=== PATIENT | female | born 1965 | race Caucasian/White ===

== ENCOUNTER → 2016-11-13 | Outpatient (CLI) | payer OTHER ==
[~2016-11-13] MED LIST: BIOT1CAP8 PO; CHOL1TAB42 PO; CHOL1TAB46 PO; FOLI1TAB7 PO; GLIP10TA9 PO; LEVO100T7 PO; LISI-729 PO; LISI2.5T5 PO; LOVA20TA4 PO; METF-384 PO; MULT-859 PO; SIMV10TA5 PO; SITA50TA9 PO
[2016-11-13 10:53] LABS: BASO % 0.5 %; BASO ABS # 0.05 K/uL (0-0.2); COMPLETE YES; EOS % 3.1 %; HEMATOCRIT 41.8 % (37-47); IG% 0.2 %; LYMPH % 39.2 %; LYMPH ABS # 3.97 K/uL (1.2-3.4); MEAN CELL VOLUME 82.9 fL (80-100); MEAN CORPUSCULAR HEMOGLOBIN 29.4 pg (25-34); MEAN CORPUSCULAR HGB CONC 35.4 g/dl (32-36); MEAN PLATELET VOLUME 9.6 fL (7.4-10.4); MONO % 6.1 %; NEUT % 50.9 %; PLATELET COUNT 248 K/uL (130-400); RED BLOOD COUNT 5.04 M/uL (4.2-5.4); WHITE BLOOD COUNT 10.14 K/uL (4.8-10.8)
== END | disposition home or self-care (01) ==
LOC: C.LAB1850 09:52
PROVIDERS: ATTEND Obstetrics & Gynecology
DX: R63.4 Abnormal weight loss (principal)

== ENCOUNTER → 2016-11-13 | Outpatient (CLI) | payer BC, OTHER | END | disposition home or self-care (01) | LOC: C.PAPS 11:05 | PROVIDERS: ATTEND Obstetrics & Gynecology | DX: R63.4 Abnormal weight loss (principal); Z01.419 Encounter for gynecological examination (general) (routine) without abnormal findings ==

== ENCOUNTER → 2016-12-18 | Outpatient (CLI) | payer OTHER ==
[~2016-12-18] MED LIST changes: -CHOL1TAB42 PO; -LISI2.5T5 PO; -MULT-859 PO; -SIMV10TA5 PO; -SITA50TA9 PO
--- NOTE | 2016-12-18 16:48 | MAMMOGRAPHY REPORT ---
BILATERAL DIGITAL SCREENING MAMMOGRAM TOMOSYNTHESIS WITH CAD: 12/18/2016 CLINICAL HISTORY: Routine screening. Patient has no complaints. TECHNIQUE: Breast tomosynthesis in addition to standard 2D mammography was performed. Current study was also evaluated with a Computer Aided Detection (CAD) system. COMPARISON: Comparison is made to exams dated: 12/18/2015 mammogram, 01/19/2015 mammogram, 03/01/2014 mammogram, 01/18/2013 mammogram, and 01/02/2012 mammogram - [facility]. BREAST COMPOSITION: There are scattered areas of fibroglandular density in both breasts. FINDINGS: There is a lobulated 8 mm mass seen within the right medial breast middle depth on the cc view, thought to project superiorly on the MLO view, for which ultrasound and possible additional sp ot compression tomosynthesis views are recommended for further evaluation. The remainder of both breasts are stable compared to prior exams, without suspicious masses, calcifi cations, or areas of architectural distortion noted. Bilateral benign-appearing calcifications are not significantly changed. IMPRESSION: ACR BI-RADS CATEGORY 0: INCOMPLETE EVALUATION: NEED ADDITIONAL IMAGING EVALUATION Right medial breast mass, for which additional imaging evaluation is recommended. The patient will be called to schedule an appointment. Approximately 10% of breast cancers are not detected with mammography. A negative mammographic repor t should not delay biopsy if a clinically suggestive mass is present. Betsy Oneal M.D. /:12/18/2016 15:16:25 Midwife: Melinda RODGERS)(Maria R), [facility] letter sent: Addl Imaging 0 BI-RADS Code: ACR BI-RADS Category 0: Incomplete Evaluation: Need Additional Imaging Evaluation
== END | disposition home or self-care (01) ==
LOC: C.MAMM 07:40
PROVIDERS: ATTEND Family Medicine
DX: Z12.31 Encounter for screening mammogram for malignant neoplasm of breast (principal); N63 Unspecified lump in breast

== ENCOUNTER → 2017-01-08 | Day surgery (SDC) | payer OTHER ==
[2016-12-16 09:42] VITALS: Ht 160 cm; Wt 94.1 kg
[~2017-01-08] VITALS: Ht 160 cm; Wt 94.1 kg
[~2017-01-08] MED LIST changes: +ATROPINE SULFATE 0.1 MG/ML 5ML SYR IV PRN; +DEXAMETHASONE SOD INJ 4 MG/ML VIAL ONE; +EpHEDrine SULFATE INJ 50 MG/ML AMP IV PRN; +FENTANYL CITRATE INJ 50 MCG/1 ML 2 ML VIAL IV PRN; +FENTANYL CITRATE INJ 50 MCG/1 ML 2 ML VIAL ONE; +FLUMAZENIL 0.1 MG/1 ML 10 ML VIAL IV PRN; +IBUPROFEN 600 MG TAB PO PRN; +INSULIN HUMAN REGULAR PER UNIT 15 UNITS in SYRINGE 0 ML IV STA; +KETOROLAC TROMETHAMINE 30 MG/ML VIAL IV. PRN; +LABETALOL HCL IV 5 MG/ML 20ML IV PRN; +LACTATED RINGER'S 1000ML 1,000 ML IV SCH; +LIDOCAINE HCL 2% 2 ML VIAL (20MG/ML) ONE; +METOCLOPRAMIDE HCL INJ 5 MG/ML 2 ML VIAL IV PRN; +MIDAZOLAM HCL 1 MG/ML 2ML VIAL ONE; +NALOXONE HCL 0.4 MG/1 ML VIAL/CARP IV PRN; +NovoLIN-R INSULIN PER UNIT CHARGE ONE; +ONDANSETRON INJ 2 MG/ML 2 ML VIAL IV PRN; +ONDANSETRON INJ 2 MG/ML 2 ML VIAL ONE; +OXYCODONE/ACETAMINOPHEN 5-325 TAB PO PRN; +PROMETHAZINE HCL INJ 12.5 MG in SODIUM CHLORIDE 0.9% 50ML 50 ML IV PRN; +PROPOFOL IV EMULSION 10 MG/ML 20 ML VIAL IV ONE; +SODIUM CHLORIDE 0.9% 1000ML 1,000 ML IV SCH
--- NOTE | 2017-01-08 09:46 | History & Physical Bridge - [place] ---
H&P Re-Evaluation Bridge Note: I have examined the patient, reviewed the History & Physical and in the interval since the performance of the History & Physical I have noted the following changes of clinical significance: No changes noted
--- NOTE | 2017-01-08 09:48 | Discharge Instructions-SurgCtr ---
Discharge Instructions Date of Service Jan 08, 2017. Visit Reason for Visit: Thickened Endometrium Discharge Discharge Diagnosis / Problem: Dilation and Curettage Discharge Goals Goal(s): Specific goals Activity Recommendations Activity Limitations: per Instructions/Follow-up section Anesthesia . Post Anesthesia Instructions: If you have had General Anesthesia or IV Sedation: * Do not drive today. * Resume driving when surgeon permits. * Do not make important decisions or sign legal documents today. * Call surgeon for: 1. Temperature elevations greater than 101 degrees F. 2. Uncontrollable pain. 3. Excessive bleeding. 4. Persistent nausea and vomiting. 5. Medication intolerance (nausea, vomiting or rash). * For nausea and vomiting use only clear liquids such as: tea, soda, bouillon until nausea subsides, then gradually increase diet as tolerated. * If you have any concerns or questions, call your surgeon's office. If physician is unavailable and it is an emergency, call 911 or go to the nearest emergency room. . Instructions / Follow-Up Instructions / Follow-Up ACTIVITY RECOMMENDATIONS: * Avoid tampons, douching, hot tubs, pools, and intercourse until bleeding has stopped. * May shower as usual. * No strenuous activity for 24-48 hours. After 24-48 hours, you may do anything you feel like doing (driving and sports are okay). SPECIAL CARE INSTRUCTIONS: Special Diet: * Mild nausea may occur in the immediate post-operative period. * Take clear liquids such as tea, cola or bouillon until all nausea has subsided; you may then resume your normal diet. Special Care: * Light bleeding and vaginal spotting can last from a few days to 3-4 weeks. Call your doctor if bleeding becomes heavier than the heaviest part of your period. * Check your temperature twice a day for one week. If it goes above 100.4 degrees Fahrenheit (38.0 Celsius), notify your doctor. * Call your doctor's office for an appointment for 6 weeks after your surgery. FOLLOW-UP VISIT: Call your doctor's office for an appointment for 6 weeks after your surgery. Diet Recommendations Home Diet: resume previous diet Pending Studies Studies pending at discharge: no Medical Emergencies . Who to Call and When: Medical Emergencies: If at any time you feel your situation is an emergency, please call 911 immediately. . Non-Emergent Contact Non-Emergency issues call your: Primary Care Provider . . "Provider Documentation" section prepared by Luz Jeffers.
--- NOTE | 2017-01-08 11:54 | [facility] Post Operative Brief Note ---
Immediate Operative Summary Operative Date Jan 08, 2017. Pre-Operative Diagnosis Thickened Endometrium Post-Operative Diagnosis same Procedure(s) Performed Dilatation And Curettage, Hysteroscopy Surgeon Dr. 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 Endometrial Curettings Complication(s) None Disposition Recovery Room / PACU
--- NOTE | 2017-01-08 12:14 | OPERATIVE REPORT ---
DATE OF OPERATION: 01/08/2017 PREOPERATIVE DIAGNOSIS: Thickened endometrium. POSTOPERATIVE DIAGNOSIS: Same. PROCEDURE: D\T\C, hysteroscopy. SURGEON: Dr. Jeffers. VICE PRESIDENT INVESTOR RELATIONS: MS3. 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 SPECIMENS: EMCs. COMPLICATIONS: None. DISPOSITION: Stable to recovery room. DESCRIPTION: Chinyere was brought to the operating room and placed in the dorsal lithotomy position with candy-cane stirrups, prepped and draped in standard sterile fashion, and a hard timeout was taken prior to proceeding. A bimanual examination was performed. The bladder was emptied of urine via straight catheterization. Gutierrez and weighted specula were introduced to the vagina and the anterior lip of the cervix was grasped with single-tooth tenaculum. The uterus sounded to 7.5 cm. Cervix was then serially dilated to allow passage of a 5 mm hysteroscope. 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 There was no obvious polyp or lesion in the endometrial cavity. The scope was withdrawn. A brief sharp curettage was carried out on all suresh. The scope was re-introduced. Curetting was seen to have been done evenly on all aspects of the cavity and then all instruments were removed and the patient was transferred in stable condition to the recovery room. I attest to the content of the Intraoperative Record and any orders documented therein. Any exceptio ns are noted below.
[2017-01-08 13:09] VITALS: TEMP 36.4
--- NOTE | 2017-01-08 13:17 | Anesthesia Progress Nt - [facility] ---
Anesthesia Post Op Note Date & Time Jan 08, 2017 at 13:16 Vital Signs Pain Intensity: 0 Vital Signs Past 12 Hours Date Time Temp Pulse Resp B/P Pulse Ox O2 Delivery O2 Flow Rate FiO2 01/08/17 13:09 36.4 71 16 121/77 98 Room Air 01/08/17 12:48 36.4 01/08/17 12:48 75 14 95 01/08/17 12:48 71 14 01/08/17 12:45 122/81 01/08/17 12:43 61 14 01/08/17 12:43 63 14 96 01/08/17 12:40 124/75 01/08/17 12:38 59 19 01/08/17 12:38 61 19 98 01/08/17 12:36 126/83 01/08/17 12:33 57 17 100 01/08/17 12:33 58 17 01/08/17 12:30 138/78 01/08/17 12:28 51 16 01/08/17 12:28 51 16 100 01/08/17 12:25 144/83 01/08/17 12:23 53 14 100 01/08/17 12:23 53 14 01/08/17 12:20 127/81 01/08/17 12:18 55 13 100 01/08/17 12:18 55 13 01/08/17 12:15 115/77 01/08/17 12:13 66 16 100 01/08/17 12:13 66 16 01/08/17 12:10 120/79 01/08/17 12:08 67 12 01/08/17 12:08 69 12 100 01/08/17 12:07 36.4 82 14 118/84 99 Diffusion Mask 8 01/08/17 09:57 36.8 90 20 125/85 98 Room Air Notes Mental Status: alert / awake / arousable, participated in evaluation Pt Amnestic to Procedure: Yes Nausea / Vomiting: adequately controlled Pain: adequately controlled Airway Patency, RR, SpO2: stable & adequate BP & HR: stable & adequate Hydration State: stable & adequate Anesthetic Complications: no major complications apparent
[2017-01-08 13:21] VITALS: BP 119/83; O2SAT 100
== END | disposition home or self-care (01) ==
LOC: X.SURG 09:29
PROVIDERS: ATTEND Obstetrics & Gynecology
DX: N85.8 Other specified noninflammatory disorders of uterus (principal); R93.8 Abnormal findings on diagnostic imaging of other specified body structures; N63 Unspecified lump in breast; E06.3 Autoimmune thyroiditis; E11.65 Type 2 diabetes mellitus with hyperglycemia; E55.9 Vitamin D deficiency, unspecified; R63.4 Abnormal weight loss

== ENCOUNTER → 2017-01-15 | Outpatient (CLI) | payer OTHER ==
[~2017-01-15] MED LIST changes: -ATROPINE SULFATE 0.1 MG/ML 5ML SYR IV PRN; -DEXAMETHASONE SOD INJ 4 MG/ML VIAL ONE; -EpHEDrine SULFATE INJ 50 MG/ML AMP IV PRN; -FENTANYL CITRATE INJ 50 MCG/1 ML 2 ML VIAL IV PRN; -FENTANYL CITRATE INJ 50 MCG/1 ML 2 ML VIAL ONE; -FLUMAZENIL 0.1 MG/1 ML 10 ML VIAL IV PRN; -IBUPROFEN 600 MG TAB PO PRN; -INSULIN HUMAN REGULAR PER UNIT 15 UNITS in SYRINGE 0 ML IV STA; -KETOROLAC TROMETHAMINE 30 MG/ML VIAL IV. PRN; -LABETALOL HCL IV 5 MG/ML 20ML IV PRN; -LACTATED RINGER'S 1000ML 1,000 ML IV SCH; -LIDOCAINE HCL 2% 2 ML VIAL (20MG/ML) ONE; -METOCLOPRAMIDE HCL INJ 5 MG/ML 2 ML VIAL IV PRN; -MIDAZOLAM HCL 1 MG/ML 2ML VIAL ONE; -NALOXONE HCL 0.4 MG/1 ML VIAL/CARP IV PRN; -NovoLIN-R INSULIN PER UNIT CHARGE ONE; -ONDANSETRON INJ 2 MG/ML 2 ML VIAL IV PRN; -ONDANSETRON INJ 2 MG/ML 2 ML VIAL ONE; -OXYCODONE/ACETAMINOPHEN 5-325 TAB PO PRN; -PROMETHAZINE HCL INJ 12.5 MG in SODIUM CHLORIDE 0.9% 50ML 50 ML IV PRN; -PROPOFOL IV EMULSION 10 MG/ML 20 ML VIAL IV ONE; -SODIUM CHLORIDE 0.9% 1000ML 1,000 ML IV SCH
--- NOTE | 2017-01-15 15:02 | MAMMOGRAPHY REPORT ---
ULTRASOUND OF RIGHT BREAST: 01/15/2017 CLINICAL HISTORY: Callback from screening mammogram for right breast mass. COMPARISON: Comparison is made to exams dated: 12/18/2016 mammogram, 12/18/2015 mammogram, 01/19/2015 mammogram, 03/01/2014 mammogram, 01/18/2013 mammogram, and 01/02/2012 mammogram - [facility]. TECHNIQUE: Real-time targeted ultrasound of the right breast was performed. FINDINGS: Real-time, high resolution targeted ultrasound was performed of the area of the lobulated 8 mm mass seen within the right upper inner quadrant on the recent tomosynthesis screening mammogra m. In the right breast at 1:00, 9 cm from the nipple, there is a lobulated circumscribed anechoic m ass with a few thin internal septations, measuring 7 x 2 x 6 mm. This correlates with the mammograp hic mass and is consistent with a benign cyst cluster. No suspicious solid masses were evident. IMPRESSION: ACR BI-RADS CATEGORY 2: BENIGN The mammographic mass corresponds with a benign 7 mm cyst cluster in the right breast at 1:00 on ult rasound. There is no sonographic evidence of malignancy. A 1 year screening mammogram is recommended. The patient was verbally notified of the results. Betsy Oneal M.D. /:01/15/2017 08:17:00 Mental Hygiene Consultant: Betsy Oneal MD, [facility] letter sent: Normal 1/2 BI-RADS Code: ACR BI-RADS Category 2: Benign
== END ==
LOC: C.MAMM 07:56
PROVIDERS: ATTEND Family Medicine
DX: N60.01 Solitary cyst of right breast (principal)

== ENCOUNTER → 2017-01-16 | Outpatient (CLI) | payer OTHER ==
--- NOTE | 2017-01-16 10:27 | DIAGNOSTIC IMAGING REPORT ---
CHEST 2 VIEWS ROUTINE CLINICAL HISTORY: UNINTENTIONAL WEIGHT LOSS COMPARISON STUDY: No previous studies for comparison. FINDINGS: The bones soft tissues and hemidiaphragms are normal. The cardiomediastinal silhouette is normal. The lungs are clear. The pulmonary vasculature is normal. IMPRESSION: Negative chest. Electronically signed by: Sandeep Pope M.D. 01/16/2017 10:25 AM Dictated Date/Time: 01/16/2017 10:25 AM
[2017-01-16 14:52] LABS: BASO % 0.3 %; BASO ABS # 0.03 K/uL (0-0.2); COMPLETE YES; EOS % 3.6 %; HEMATOCRIT 39.6 % (37-47); IG% 0.2 %; LYMPH ABS # 4.01 K/uL (1.2-3.4); MEAN CELL VOLUME 82.2 fL (80-100); MEAN CORPUSCULAR HEMOGLOBIN 29.5 pg (25-34); MEAN CORPUSCULAR HGB CONC 35.9 g/dl (32-36); MEAN PLATELET VOLUME 9.5 fL (7.4-10.4); MONO % 4.9 %; PLATELET COUNT 246 K/uL (130-400); RED BLOOD COUNT 4.82 M/uL (4.2-5.4); WHITE BLOOD COUNT 9.33 K/uL (4.8-10.8)
[2017-01-16 15:04] LABS: ESTIMATED AVERAGE GLUCOSE 324 mg/dl; HA1C FLAG Normal (Normal)
[2017-01-16 15:12] LABS: ALT/SGPT 32 U/L (12-78); AST/SGOT 16 U/L (15-37); BLOOD UREA NITROGEN 8 mg/dl (7-18); BUN/CREATININE RATIO 10.2 (10-20); CARBON DIOXIDE 30 mmol/L (21-32); CHLORIDE 101 mmol/L (98-107); GLUCOSE 313 mg/dl (70-99); POTASSIUM 4.2 mmol/L (3.5-5.1); SODIUM 137 mmol/L (136-145)
[2017-01-16 15:14] LABS: ALB/GLOB RATIO 0.9 (0.9-2)
[2017-01-16 15:23] LABS: ALKALINE PHOSPHATASE 97 U/L (45-117); BETA-HYDROXYBUTYRATE 3.52 mg/dL (0.2-2.81); THYROID STIMULATING HORMONE 0.382 uIu/ml (0.300-4.500)
== END | disposition home or self-care (01) ==
LOC: C.RADBC 10:04
PROVIDERS: ATTEND Family Medicine
DX: R63.4 Abnormal weight loss (principal); E11.65 Type 2 diabetes mellitus with hyperglycemia; E03.9 Hypothyroidism, unspecified; E78.5 Hyperlipidemia, unspecified

== ENCOUNTER → 2017-10-14 | Outpatient (CLI) | payer OTHER ==
[~2017-10-14] MED LIST changes: -FOLI1TAB7 PO; +FOLI1TAB8 PO
[2017-10-14 11:46] LABS: HEMOGLOBIN A1C 12.4 % (4.5-5.6)
== END | disposition home or self-care (01) ==
LOC: C.LABBC 08:23
PROVIDERS: ATTEND Physician Assistant
DX: E11.65 Type 2 diabetes mellitus with hyperglycemia (principal)

== ENCOUNTER → 2017-10-30 | Outpatient (CLI) | payer OTHER ==
[2017-10-30 11:30] LABS: ALBUMIN 3.5 gm/dl (3.4-5.0); ALT/SGPT 41 U/L (12-78); BLOOD UREA NITROGEN 10 mg/dl (7-18); CALCIUM 9.3 mg/dl (8.5-10.1); CARBON DIOXIDE 27 mmol/L (21-32); CHOLESTEROL 151 mg/dl (0-200); CREATININE 0.76 mg/dl (0.60-1.20); GLUCOSE 281 mg/dl (70-99); SODIUM 135 mmol/L (136-145)
[2017-10-30 11:40] LABS: ALKALINE PHOSPHATASE 102 U/L (45-117); AST/SGOT 27 U/L (15-37); LDL CHOLESTEROL CALCULATED 75 mg/dl; TOTAL PROTEIN 7.4 gm/dl (6.4-8.2)
== END | disposition home or self-care (01) ==
LOC: C.LABBC 07:53
PROVIDERS: ATTEND Nurse Practitioner Adult Health
DX: E03.9 Hypothyroidism, unspecified (principal); E78.5 Hyperlipidemia, unspecified; E55.9 Vitamin D deficiency, unspecified

== ENCOUNTER → 2017-11-02 | Outpatient (CLI) | payer OTHER ==
[2017-11-02 11:23] LABS: CREATININE RANDOM URINE 66.4 mg/dl
== END | disposition home or self-care (01) ==
LOC: C.LABBC 08:41
PROVIDERS: ATTEND Nurse Practitioner Adult Health
DX: E11.29 Type 2 diabetes mellitus with other diabetic kidney complication (principal)

== ENCOUNTER → 2017-12-22 | Outpatient (CLI) | payer OTHER ==
--- NOTE | 2017-12-22 14:56 | MAMMOGRAPHY REPORT ---
BILATERAL DIGITAL SCREENING MAMMOGRAM TOMOSYNTHESIS WITH CAD: 12/22/2017 CLINICAL HISTORY: Routine screening. Patient has no complaints. TECHNIQUE: Breast tomosynthesis in addition to standard 2D mammography was performed. Current study was also evaluated with a Computer Aided Detection (CAD) system. COMPARISON: Comparison is made to exams dated: 01/15/2017 ultrasound, 12/18/2016 mammogram, 12/18/2015 mammogram, 01/19/2015 mammogram, 03/01/2014 mammogram, and 01/18/2013 mammogram - [facility]. BREAST COMPOSITION: There are scattered areas of fibroglandular density in both breasts. FINDINGS: No suspicious masses, calcifications, or areas of architectural distortion are noted in ei ther breast. There has been no significant interval change compared to prior exams. Bilateral asymme tries and scattered bilateral benign-appearing calcifications are not significantly changed. IMPRESSION: ACR BI-RADS CATEGORY 2: BENIGN There is no mammographic evidence of malignancy. A 1 year screening mammogram is recommended. The pa tient will receive written notification of the results. Approximately 10% of breast cancers are not detected with mammography. A negative mammographic report should not delay biopsy if a clinically suggestive mass is present. Betsy Oneal M.D. /:12/22/2017 10:27:29 Environmental Health And Safety Leader: Melinda RODGERS)(Maria R), [facility] letter sent: Normal 1/2 BI-RADS Code: ACR BI-RADS Category 2: Benign
== END | disposition home or self-care (01) ==
LOC: C.MAMM 08:52
PROVIDERS: ATTEND Obstetrics & Gynecology
DX: Z12.31 Encounter for screening mammogram for malignant neoplasm of breast (principal)

== ENCOUNTER → 2018-02-11 | Outpatient (CLI) | payer OTHER ==
[2018-02-11 10:51] LABS: ALBUMIN 3.3 gm/dl (3.4-5.0); ALT/SGPT 24 U/L (12-78); AST/SGOT 19 U/L (15-37); BLOOD UREA NITROGEN 14 mg/dl (7-18); CALCIUM 8.9 mg/dl (8.5-10.1); CARBON DIOXIDE 26 mmol/L (21-32); GLUCOSE 97 mg/dl (70-99); POTASSIUM 4.2 mmol/L (3.5-5.1); SODIUM 138 mmol/L (136-145)
[2018-02-11 10:54] LABS: ALKALINE PHOSPHATASE 108 U/L (45-117); TOTAL PROTEIN 7.3 gm/dl (6.4-8.2)
[2018-02-11 11:22] LABS: HEMOGLOBIN A1C 7.7 % (4.5-5.6)
== END | disposition home or self-care (01) ==
LOC: C.LABBC 08:09
PROVIDERS: ATTEND Nurse Practitioner Adult Health
DX: E11.65 Type 2 diabetes mellitus with hyperglycemia (principal); E78.5 Hyperlipidemia, unspecified

== ENCOUNTER 2021-10-01 16:01 | Inpatient (IN) ==
[2021-10-01] MEDS ORDERED: ACETAMINOPHEN 500 MG TAB PO STA (17:40)
[2021-10-01] MEDS ORDERED: dexAMETHasone**PF** 10 MG/ML VIAL IV ONE (17:40)
--- NOTE | 2021-10-01 17:50 | Emergency Department Note ---
History of Present Illness General Chief complaint: Weakness Stated complaint: COVID +, WEAKNESS Time Seen by Provider: 10/01/21 17:40 Source: patient Mode of arrival: ambulatory Limitations: no limitations History of Present Illness This patient is a 56-year-old female who presents to the emergency department for evaluation of weakness and generalized illness. Patient states that she has been sick for 8 days. She was tested for COVID-19 which was positive. She states that she feels very weak and tired. She is a diabetic but has been too weak to give herself insulin and has not been checking her blood sugars. She has had no appetite and has not been eating or drinking anything.She denies any feelings of shortness of breath. Home Medications Medication Instructions Recorded Confirmed Type blood sugar diagnostic (ReliOn #10 ea 07/04/19 05/08/21 History Prime Test Strips) cholecalciferol (vitamin D3) 125 5,000 units PO HS cap 07/04/19 10/01/21 Hist ory mcg (5,000 unit) capsule cyanocobalamin (vitamin B-12) 500 500 mcg PO HS #90 tab 07/04/19 10/01/21 History mcg tablet insulin syringe-needle U-100 1 mL #100 ea 08/22/20 05/08/21 Rx 31 gauge x 5/16" (BD Insulin Syringe Ultra-Fine) insulin human U-100 NPH-regulr 40 unit SUBCUT QPM 09/10/20 10/01/21 History 70-30 mix 100 unit/mL subcutaneous susp (Novolin 70/30 U-100 Insulin) glipizide 10 mg tablet 5 mg PO BID #90 tab 10/23/20 10/01/21 Rx lisinopril 5 mg tablet 5 mg PO DAILY #90 tab 01/28/21 10/01/21 Rx multivitamin 1 tab PO DAILY 04/24/21 10/01/21 History levothyroxine 100 mcg tablet 100 mcg PO DAILY #90 tab 07/22/21 10/01/21 Rx metformin 1,000 mg tablet 1,000 mg PO BID #180 tab 07/22/21 10/01/21 Rx lovastatin 20 mg tablet 20 mg PO HS #90 tab 09/10/21 10/01/21 Rx Allergies Allergy/AdvReac Type Severity Reaction Status Date / Time No Known Allergies Allergy Verified 10/01/21 19:20 Past Med/Surg History Medical History Diabetic peripheral neuropathy Dyslipidemia Hypertension 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 Morbid obesity with body mass index (BMI) of 40.0 to 44.9 in adult Uncontrolled type 2 diabetes mellitus Vitamin D deficiency Surgical History History of colonoscopy with polypectomy 09/23 repeat 3 years History of dilation and curettage History of excision of dermoid cyst History of tooth extraction Family History Father Diabetes Colorectal cancer Family history of diabetes mellitus Brother Kidney stones Family history of diabetes mellitus Family/Other Diabetes Grandmother (Paternal) Family history of diabetes mellitus Grandfather (Paternal) Family history of diabetes mellitus Uncle Family history of diabetes mellitus Other No family history of adverse response to anesthesia Denies family history of Ovarian cancer Prostate cancer Myocardial infarction Breast cancer Social History Smoking Status: Never smoker Second Hand Exposure: No; Do You Dip or Chew Tobacco: No; Hx Alcohol Use: No Hx Substance Use: No Preferred Language: Nam[place]ian Communication Ability: Effective Visual Impairment: No Limitations Hearing Ability: Normal Bag End Sewer Required: No Beliefs That Will Affect Care: None marital status: Current Living Situation: Alone current occupational status: employed 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 Other Information That Helps Us Care for You: No Feels Safe at Home: Yes Safety Concerns: Feels Safe At This Time Childhood Exposure to Second-Hand Smoke: No caffeine: Yes Dental Care, Regularly: Yes Physical Activity Frequency: Does not Exercise Seatbelt Use: always Sunscreen Use: No Assistive Devices: Glasses Review of Systems A total of 10 systems reviewed and were otherwise negative Physical Exam Vital Signs Vital Signs - 24 hr 10/01/21 17:36 10/01/21 17:42 10/01/21 18:32 Temperature 36.9 C Temperature Source Temporal Artery Scan Pulse Rate 112 H Pulse Rate [Left Finger] 105 H Respiratory Rate 20 26 H Respiratory Effort / Characteristics Non-Labored Spontaneous Spontaneous Respiratory Depth Normal Respiratory Pattern Regular Blood Pressure 143/68 H Blood Pressure [Right Arm] Blood Pressure Mean 93 Blood Pressure Mean [Right Arm] Blood Pressure Position Sitting Pulse Oximetry 76 L 87 L 96 Oxygen Delivery Method Room Air Nasal Cannula High Flow Nasal Cannula Oxygen Flow Rate 6 40 Fraction of Inspired Oxygen 55 Sepsis Recent Fever Within 48 Hours Yes Sepsis New/Unexplained Change in Mental Status No Sepsis Action Taken by Nursing No Action Required 10/01/21 19:00 10/01/21 19:34 Temperature Temperature Source Pulse Rate Pulse Rate [Left Finger] 98 H Respiratory Rate 18 Respiratory Effort / Characteristics Respiratory Depth Respiratory Pattern Blood Pressure Blood Pressure [Right Arm] 125/56 L Blood Pressure Mean Blood Pressure Mean [Right Arm] 79 Blood Pressure Position Pulse Oximetry 90 90 Oxygen Delivery Method High Flow Nasal Cannula High Flow Nasal Cannula Oxygen Flow Rate Fraction of Inspired Oxygen Sepsis Recent Fever Within 48 Hours Sepsis New/Unexplained Change in Mental Status Sepsis Action Taken by Nursing VITALS: Vitals are noted on the nurse's note and reviewed by myself. GENERAL: This is a 56-year-old female, ill-appearing, presents to triage in wheelchair. SKIN: The skin was without rashes. EARS: External auditory canals clear, tympanic membranes pearly wu without erythema or effusion bilaterally. EYES: Pupils equal round and reactive to light and accommodation. NOSE: Patent, turbinates without inflammation or discharge. MOUTH: Mucous membranes are dry. NECK: Supple without nuchal rigidity. No lymphadenopathy. HEART: Regular rate and rhythm without murmurs gallops or rubs. LUNGS: Crackles bilateral lung bases, diminished breath sounds throughout. ABDOMEN: Positive bowel sounds x 4. Soft, nontender. EXTREMITIES: No pitting edema of the lower extremities. NEURO: Patient was alert and oriented to person place and time. Course Administered Medications Enoxaparin Sodium (Enoxaparin Inj 40 Mg/0.4 Ml Syr) 40 mg SQ BID [facility] Stop: 10/31/21 22:44 Last Admin: 10/01/21 22:43 Dose: 40 mg Documented by: [id number] Sodium Chloride (Nss 1000ml) 1,000 mls @ 250 mls/hr IV .Q4H JERRELL Stop: 10/31/21 19:29 Last Admin: 10/01/21 22:09 Dose: 250 mls/hr Documented by: [id number] Insulin Human Regular 250 (units/ Sodium Chloride) 250 mls @ 10 mls/hr IV .Q24H JERRELL; Protocol Stop: 10/31/21 19:29 Last Titration: 10/01/21 22:48 Dose: 14.4 units/hr, 14.4 mls/hr Documented by: [id number] Cosigned by: [id number] Titration: 10/01/21 21:45 Dose: 12 units/hr, 12 mls/hr Documented by: [id number] Cosigned by: [id number] Admin: 10/01/21 21:25 Dose: 10 units/hr, 10 mls/hr Documented by: [id number] Cosigned by: [id number] Insulin Aspart (Insulin Aspart Per Unit) 0 units SC ACHS JERRELL Stop: 10/31/21 20:59 Last Admin: 10/01/21 22:16 Dose: Not Given Documented by: [id number] Cosigned by: [id number] Discontinued Medications Acetaminophen (Acetaminophen 500 Mg Tab) 1,000 mg PO NOW STA Stop: 10/01/21 17:41 Last Admin: 10/01/21 18:06 Dose: 1,000 mg Documented by: [id number] Dexamethasone Sodium Phosphate (DexamethasonePf 10 Mg/Ml Vial) 6 mg IV NOW ONE Stop: 10/01/21 17:41 Last Admin: 10/01/21 18:06 Dose: 6 mg Documented by: [id number] Sodium Chloride (Nss 1000ml) 1,000 mls @ 999 mls/hr IV .Q1H1M ONE Stop: 10/01/21 18:52 Last Infusion: 10/01/21 19:50 Dose: 0 mls/hr Documented by: [id number] Admin: 10/01/21 18:06 Dose: 999 mls/hr Documented by: [id number] Remdesivir 200 mg/ Sodium (Chloride) 250 mls @ 125 mls/hr IV ONE STA; Protocol Stop: 10/01/21 22:58 Last Admin: 10/01/21 22:10 Dose: 125 mls/hr Documented by: [id number] Miscellaneous (Dka Goal Range 150-250 Mg/Dl) 1 ea N/A ONE ONE Stop: 10/01/21 19:25 Last Admin: 10/01/21 22:15 Dose: 1 ea Documented by: [id number] Miscellaneous (Stat Iv Infusion Titration Per Protocol) 1 ea N/A NOW STA Stop: 10/01/21 19:25 Last Admin: 10/01/21 22:16 Dose: 1 ea Documented by: [id number] Miscellaneous (Stat Iv Infusion Titration Per Protocol) 1 ea N/A NOW STA Stop: 10/01/21 20:22 Last Admin: 10/01/21 22:16 Dose: 1 ea Documented by: [id number] Critical Care Time Critical Care Time: Yes Total Critical Care Time: 35 I have personally spent greater than 35 minutes of critical care time in the dir ect management of this patient. This includes bedside care, interpretation of diagnostic studies, and testing, discussion with consultants, patient, and family members, and other required patient management activities. This 35 minutes is in excess of all separately billable procedures. Medical Decision Making Differential Diagnosis Infection, dehydration, metabolic abnormality, hypo/hyperglycemia, electrolyte disturbance, anemia, hypoxia, cardiac sources, intracerebral event, toxicologic, neurologic, as well as other pathologies. Home Medications Current Medication List: was personally reviewed by me Laboratory Data Attestation: I reviewed the patient's lab results. Result diagrams: 10/01/21 18:02 10/01/21 20:27 Lab Results 10/01/21 10/01/21 10/01/21 Range/Units 17:51 17:54 18:02 WBC (4.8-10.8) K/uL RBC (4.2-5.4) M/uL Hgb (12.0-16.0) g/dL POC Hgb (12.0-16.0) g/dl Hct (37-47) % POC Hct (37-47) % MCV (80-100) fL MCH (25-34) pg MCHC (32-36) g/dL RDW Std Deviation (36.4-46.3) fL RDW Coeff of Francisca (11.5-14.5) % Plt Count (130-400) K/uL MPV (7.4-10.4) fL Immature Gran % (Auto) % Neut % (Auto) % Lymph % (Auto) % Real % (Auto) % Eos % (Auto) % Baso % (Auto) % Neut # (Auto) (1.4-6.5) K/uL Lymph # (Auto) (1.2-3.4) K/uL Real # (Auto) (0.11-0.59) K/uL Eos # (Auto) (0-0.5) K/uL Baso # (Auto) (0-0.2) K/uL Immature Gran # (Auto) (0.00-0.02) K/uL VBG pH (7.36-7.41) VBG pCO2 (38-50) mmHg VBG pO2 mmHg VBG HCO3 mmol/L VBG O2 Saturation % VBG Base Excess mEq/L Barometric Pressure mm/Hg POC Sodium (135-144) mmol/L Sodium (136-145) mmol/L POC Potassium (3.3-5.0) mmol/L Potassium (3.5-5.1) mmol/L POC Chloride (101-112) mmol/L Chloride (98-107) mmol/L Carbon Dioxide (21-32) mmol/L POC Total CO2 (24-31) mmol/L Anion Gap (3-11) POC Anion Gap (16-25) mmol/L POC BUN (7-18) mg/dl BUN (7-18) mg/dl Creatinine (0.6-1.2) mg/dl POC Creatinine (0.6-1.3) mg/dl Est Cr Clr Drug Dosing Est GFR ( Amer) ml/min Est GFR (Non-Af Amer) ml/min BUN/Creatinine Ratio (10-20) Glucose (70-99) mg/dl POC Glucose > 600 H* > 600 H* (70-99) mg/dl POC Glucose (other) (70-99) mg/dl Lactate (0.4-2.0) mmol/L Calcium (8.5-10.1) mg/dl POC Ioniz Calcium Tanesha (1.12-1.32) mmol/l Phosphorus (2.5-4.9) mg/dl Magnesium (1.8-2.4) mg/dl Total Bilirubin (0.2-1) mg/dl AST (15-37) U/L ALT (12-78) Alkaline Phosphatase (45-117) U/L Troponin I (0-0.045) ng/ml Total Protein (6.4-8.2) gm/dl Albumin (3.4-5.0) gm/dl Globulin (2.5-4.0) gm/dl Albumin/Globulin Ratio (0.9-2) Beta-Hydroxybutyric Acd (0.2-2.81) mg/dl Procalcitonin 0.38 (0-0.5) ng/ml SARS-CoV-2 (PCR) (Negative) Influenza Type A (PCR) (Neg) Influenza Type B (PCR) (Neg) RSV (RT-PCR) (Neg) 10/01/21 10/01/21 10/01/21 Range/Units 18:02 18:02 18:02 WBC 12.30 H (4.8-10.8) K/uL RBC 5.56 H (4.2-5.4) M/uL Hgb 16.5 H (12.0-16.0) g/dL POC Hgb (12.0-16.0) g/dl Hct 48.6 H (37-47) % POC Hct (37-47) % MCV 87.4 (80-100) fL MCH 29.7 (25-34) pg MCHC 34.0 (32-36) g/dL RDW Std Deviation 41.9 (36.4-46.3) fL RDW Coeff of Francisca 13.2 (11.5-14.5) % Plt Count 205 (130-400) K/uL MPV 9.7 (7.4-10.4) fL Immature Gran % (Auto) 0.2 % Neut % (Auto) 83.0 % Lymph % (Auto) 12.3 % Real % (Auto) 4.3 % Eos % (Auto) 0.0 % Baso % (Auto) 0.2 % Neut # (Auto) 10.21 H (1.4-6.5) K/uL Lymph # (Auto) 1.51 (1.2-3.4) K/uL Real # (Auto) 0.53 (0.11-0.59) K/uL Eos # (Auto) 0.00 (0-0.5) K/uL Baso # (Auto) 0.02 (0-0.2) K/uL Immature Gran # (Auto) 0.03 H (0.00-0.02) K/uL VBG pH 7.39 (7.36-7.41) VBG pCO2 38 (38-50) mmHg VBG pO2 29 mmHg VBG HCO3 22 mmol/L VBG O2 Saturation < 60.0 % VBG Base Excess -2.1 mEq/L Barometric Pressure 727.5 mm/Hg POC Sodium (135-144) mmol/L Sodium 120 L (136-145) mmol/L POC Potassium (3.3-5.0) mmol/L Potassium 5.0 (3.5-5.1) mmol/L POC Chloride (101-112) mmol/L Chloride 81 L (98-107) mmol/L Carbon Dioxide 21 (21-32) mmol/L POC Total CO2 (24-31) mmol/L Anion Gap 18.0 H (3-11) POC Anion Gap (16-25) mmol/L POC BUN (7-18) mg/dl BUN 37 H (7-18) mg/dl Creatinine 1.70 H (0.6-1.2) mg/dl POC Creatinine (0.6-1.3) mg/dl Est Cr Clr Drug Dosing Not Reportable Est GFR ( Amer) 38.7 ml/min Est GFR (Non-Af Amer) 33.4 ml/min BUN/Creatinine Ratio 21.6 H (10-20) Glucose 638 H* (70-99) mg/dl POC Glucose (70-99) mg/dl POC Glucose (other) (70-99) mg/dl Lactate (0.4-2.0) mmol/L Calcium 9.4 (8.5-10.1) mg/dl POC Ioniz Calcium Tanesha (1.12-1.32) mmol/l Phosphorus 3.3 (2.5-4.9) mg/dl Magnesium 2.4 (1.8-2.4) mg/dl Total Bilirubin 0.6 (0.2-1) mg/dl AST 62 H (15-37) U/L ALT 59 (12-78) Alkaline Phosphatase 102 (45-117) U/L Troponin I < 0.015 (0-0.045) ng/ml Total Protein 9.3 H (6.4-8.2) gm/dl Albumin 3.3 L (3.4-5.0) gm/dl Globulin 6.0 H (2.5-4.0) gm/dl Albumin/Globulin Ratio 0.5 L (0.9-2) Beta-Hydroxybutyric Acd 68.11 H (0.2-2.81) mg/dl Procalcitonin (0-0.5) ng/ml SARS-CoV-2 (PCR) (Negative) Influenza Type A (PCR) (Neg) Influenza Type B (PCR) (Neg) RSV (RT-PCR) (Neg) 10/01/21 10/01/21 10/01/21 Range/Units 18:02 18:09 18:40 WBC (4.8-10.8) K/uL RBC (4.2-5.4) M/uL Hgb (12.0-16.0) g/dL POC Hgb 17.7 H (12.0-16.0) g/dl Hct (37-47) % POC Hct 52 H (37-47) % MCV (80-100) fL MCH (25-34) pg MCHC (32-36) g/dL RDW Std Deviation (36.4-46.3) fL RDW Coeff of Francisca (11.5-14.5) % Plt Count (130-400) K/uL MPV (7.4-10.4) fL Immature Gran % (Auto) % Neut % (Auto) % Lymph % (Auto) % Real % (Auto) % Eos % (Auto) % Baso % (Auto) % Neut # (Auto) (1.4-6.5) K/uL Lymph # (Auto) (1.2-3.4) K/uL Real # (Auto) (0.11-0.59) K/uL Eos # (Auto) (0-0.5) K/uL Baso # (Auto) (0-0.2) K/uL Immature Gran # (Auto) (0.00-0.02) K/uL VBG pH (7.36-7.41) VBG pCO2 (38-50) mmHg VBG pO2 mmHg VBG HCO3 mmol/L VBG O2 Saturation % VBG Base Excess mEq/L Barometric Pressure mm/Hg POC Sodium 123 L (135-144) mmol/L Sodium (136-145) mmol/L POC Potassium 5.2 H (3.3-5.0) mmol/L Potassium (3.5-5.1) mmol/L POC Chloride 85 L (101-112) mmol/L Chloride (98-107) mmol/L Carbon Dioxide (21-32) mmol/L POC Total CO2 22 L (24-31) mmol/L Anion Gap (3-11) POC Anion Gap 22.0 (16-25) mmol/L POC BUN 39 H (7-18) mg/dl BUN (7-18) mg/dl Creatinine (0.6-1.2) mg/dl POC Creatinine 1.2 (0.6-1.3) mg/dl Est Cr Clr Drug Dosing Est GFR ( Amer) ml/min Est GFR (Non-Af Amer) ml/min BUN/Creatinine Ratio (10-20) Glucose (70-99) mg/dl POC Glucose (70-99) mg/dl POC Glucose (other) 640 H* (70-99) mg/dl Lactate 3.0 H* (0.4-2.0) mmol/L Calcium (8.5-10.1) mg/dl POC Ioniz Calcium Tanesha 1.07 L (1.12-1.32) mmol/l Phosphorus (2.5-4.9) mg/dl Magnesium (1.8-2.4) mg/dl Total Bilirubin (0.2-1) mg/dl AST (15-37) U/L ALT (12-78) Alkaline Phosphatase (45-117) U/L Troponin I (0-0.045) ng/ml Total Protein (6.4-8.2) gm/dl Albumin (3.4-5.0) gm/dl Globulin (2.5-4.0) gm/dl Albumin/Globulin Ratio (0.9-2) Beta-Hydroxybutyric Acd (0.2-2.81) mg/dl Procalcitonin (0-0.5) ng/ml SARS-CoV-2 (PCR) POSITIVE A* (Negative) Influenza Type A (PCR) Negative (Neg) Influenza Type B (PCR) Negative (Neg) RSV (RT-PCR) Negative (Neg) Imaging Data Attestation: I personally reviewed and interpreted this imaging study as follows: Radiologist's Impression: Chest X-Ray 10/01/21 17:41 XR chest 1V portable CLINICAL HISTORY: covid,sob COMPARISON STUDY: Chest radiograph January 16, 2017. FINDINGS: Lung volumes are diminished. There is no pneumothorax or pleural effusion. Multifocal airspace opacities within lungs are noted. Cardiac size is normal. Mediastinal contours are normal. IMPRESSION: Moderate airspace opacities within the lungs suggestive of viral pneumonia. Radiographic follow-up to ensure resolution is recommended. ACT 112: Negative or not required by law. Electronically signed by: Prasanna Bear M.D. 10/01/2021 7:44 PM ECG Data Attestation: I personally reviewed and interpreted this ECG as follows: Indication: + weakness Rate (beats per minute): 109 Rhythm: + sinus tachycardia ECG [place]: + Left axis deviation ECG ST segments: + Normal ST segments Change: no significant change MDM Narrative Continuous conveyor monitor: Order was placed for continuous conveyor monitor. Patient was placed on the conveyor monitor. Patient was noted to be in sinus tachycardia at an initial rate of 110 bpm. The patient is a 56-year-old female who presents today complaining of weakness. Patient recently tested positive for COVID-19. She is here for generalized weakness. Patient noted to have an oxygen saturation of 75% on room air in triage. Patient was immediately placed on oxygen via nasal cannula with some improvement, then placed on high flow with better O2 sats. Chest x-ray consistent with COVID-19 pneumonia. Labs suggestive of dehydration, with an elevation of the patient's H&H. She does have an acute kidney injury with a creatinine of 1.70. Patient noted to have an anion gap acidosis, with anion gap of 18 likely secondary to DKA as patient's blood sugar is greater than 600. She was given IV hydration and started on an insulin drip. She did receive IV dexamethasone for COVID infection. Case was discussed with the [facility] hospitalist service, who agreed to evaluate the patient for further care. Impression & Plan COVID-19, DKA (diabetic ketoacidosis), Acute respiratory failure with hypoxia, Acute kidney injury Discharge Plan Visit Data Chief Complaint: Weakness Stated Complaint: COVID +, WEAKNESS ED Midlevel Provider: Linda Ledesma Discharge Problem: COVID-19, DKA (diabetic ketoacidosis), Acute respiratory failure with hypoxia, Acute kidney injury Patient Disposition: Admitted As Inpatient Discharge Instructions Interventions: ED Discharge Assessment Last Done: 10/01/21 21:31
[2021-10-01] MEDS ORDERED: SODIUM CHLORIDE 0.9% 1000ML 1,000 ML IV ONE (17:52)
[2021-10-01 18:21] LABS: Hematocrit (blood only) 48.6 % (37-47); Hemoglobin 16.5 g/dL (12.0-16.0); Mean Corpuscular Hemoglobin 29.7 pg (25-34); Mean Corpuscular Volume 87.4 fL (80-100); Mean Platelet Volume 9.7 fL (7.4-10.4); Platelet Count 205 K/uL (130-400); RDW Coefficient of Variation 13.2 % (11.5-14.5); RDW Standard Deviation 41.9 fL (36.4-46.3); Red Blood Count 5.56 M/uL (4.2-5.4)
[2021-10-01 18:22] LABS: iSTAT Creatinine 1.2 mg/dl (0.6-1.3); iSTAT Hemoglobin 17.7 g/dl (12.0-16.0); iSTAT Ionized Calcium 1.07 mmol/l (1.12-1.32); iSTAT Potassium 5.2 mmol/L (3.3-5.0)
[2021-10-01 18:30] LABS: Base Excess VBG -2.1 mEq/L; HCO3 VBG 22 mmol/L; PCO2 VBG 38 mmHg (38-50); PO2 VBG 29 mmHg; pH VBG 7.39 (7.36-7.41)
[2021-10-01 18:31] LABS: Oxygen Saturation VBG < 60.0 %
[2021-10-01 18:37] LABS: Basophils # (auto) 0.02 K/uL (0-0.2); Basophils % (auto) 0.2 %; Immature Granulocytes # (auto) 0.03 K/uL (0.00-0.02); Immature Granulocytes % (auto) 0.2 %; Lymphocytes # (auto) 1.51 K/uL (1.2-3.4); Lymphocytes % (auto) 12.3 %; Monocytes # (auto) 0.53 K/uL (0.11-0.59); Monocytes % (auto) 4.3 %; Neutrophils # (auto) 10.21 K/uL (1.4-6.5)
[2021-10-01 19:02] LABS: Alanine Aminotransferase 59 (12-78); Albumin Globulin Ratio 0.5 (0.9-2); Albumin Level 3.3 gm/dl (3.4-5.0); Alkaline Phosphatase 102 U/L (45-117); Aspartate Aminotransferase 62 U/L (15-37); BUN Creatinine Ratio 21.6 (10-20); Bilirubin,Total 0.6 mg/dl (0.2-1); Blood Urea Nitrogen 37 mg/dl (7-18); Calcium 9.4 mg/dl (8.5-10.1); Carbon Dioxide 21 mmol/L (21-32); Chloride 81 mmol/L (98-107); Est GFR (African American) 38.7 ml/min; Est GFR (Non-African American) 33.4 ml/min; Glucose 638 mg/dl (70-99); Sodium 120 mmol/L (136-145); Total Protein 9.3 gm/dl (6.4-8.2); Troponin I < 0.015 ng/ml (0-0.045)
[2021-10-01] MEDS ORDERED: DEXTROSE 50% 50 ML SYRINGE IV PRN (19:24)
[2021-10-01] MEDS ORDERED: GLUCAGON FOR INJ 1 MG VIAL SQ PRN (19:24)
[2021-10-01] MEDS ORDERED: GLUCOSE 40% GEL 15 GM TUBE PO PRN (19:24)
[2021-10-01] MEDS ORDERED: GLUCOSE 10 TABS/TUBE PO PRN (19:24)
[2021-10-01] MEDS ORDERED: STAT IV Infusion **Titration per Protocol STA ×2 (19:24→20:21)
[2021-10-01] MEDS ORDERED: DKA GOAL RANGE 150-250 mg/dl ONE (19:24)
[2021-10-01 19:44] LABS: Magnesium 2.4 mg/dl (1.8-2.4); Phosphorus 3.3 mg/dl (2.5-4.9)
--- NOTE | 2021-10-01 19:45 | XRay Report ---
XR chest 1V portable CLINICAL HISTORY: covid,sob COMPARISON STUDY: Chest radiograph January 16, 2017. FINDINGS: Lung volumes are diminished. There is no pneumothorax or pleural effusion. Multifocal airsp lita opacities within lungs are noted. Cardiac size is normal. Mediastinal contours are normal. IMPRESSION: Moderate airspace opacities within the lungs suggestive of viral pneumonia. Radiographic follow-up to ensure resolution is recommended. ACT 112: Negative or not required by law. Electronically signed by: Prasanna Bear M.D. 10/01/2021 7:44 PM
[2021-10-01 19:52] LABS: Influenza A virus by PCR Negative (Neg); Influenza B virus by PCR Negative (Neg); RSV by PCR Negative (Neg)
[2021-10-01 20:05] LABS: SARS CoV2 RNA(COVID-19) InHosp POSITIVE (Negative)
[2021-10-01 20:06] LABS: Beta-Hydroxybutyrate 68.11 mg/dl (0.2-2.81)
[2021-10-01] MEDS ORDERED: PENDING D5 1/2NS+20mEq KCL IVF SCH (20:21)
[2021-10-01] MEDS ORDERED: PHARMACY GLYCEMIC MGMT CONSULT PRN (20:21)
[2021-10-01] MEDS ORDERED: PENDING 1/2NSS+20mEq KCL IVF SCH (20:21)
--- NOTE | 2021-10-01 20:32 | History & Physical Report ---
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 DKA: Last A1c 9.3 in October 2020. Typically on 70/30 insulin BID, glipizide, metformin. Presented with BSG 600s in the setting of not taking DM2 medications for 7 days due to acute COVID-19 illness. Anion gap of 18 with BHB of 68.11. Corrected Na of 129-133, secondary to dehydration from DKA and no PO intake for several days. Started on NSS at 250cc/hr, insulin gtt. Initiate basal/bolus insulin when gap closes and patient is able to eat; d/c insulin gtt 2-4 hours after SQ insulin initiated. Transition to 1/2 NSS with K when K falls below 5.1. Transition to D5 1/2 NSS with K when BSG falls into goal range (150-250). q4h VBG, BMP, Mg, Phos. A1c ordered. entry level sales associate consulted. Acute hypoxic respiratory failure, COVID-19 pneumonia: Diagnosed with COVID-19 on 09/23; confirmed on PCR testing on admission. CXR with findings suggestive of viral pneumonia. Requiring HFNC to maintain saturations >88%. Dexamethasone 6mg IV daily x10 days. Remdesivir initiated; 200mg today, with 100mg daily days 2-5. Daily BMP, LFTs while on medication. D/C if GFR <30. GIBSON: Admission creatinine of 1.7; baseline 0.8-1.0. Prerenal in the setting of dehydration / DKA. Currently on NSS at 250cc/hr with fluid change parameters per DKA protocol. BMP q4h for now given DKA; decrease to daily when DKA resolves. Avoid nephrotoxic medications. Adjust remdesivir if needed as described above. Hypothyroidism: Continue levothyroxine. Code Status: FULL CODE FEN: NPO; NSS at 250cc/hr; DKA protocol for fluid adjustments DVT ppx: Lovenox 40mg BID Dispo: PCU History of Present Illness Chief Complaint: weakness, SOB, elevated BSG Primary Care Provider: Junior Nicole, DO 56 yo F Hx IDDM2, HLD, hypothyroidism presents to the ER for worsening weakness and lethargy in the setting of diagnosis with COVID-19 on 09/23. Patient is not COVID-19 vaccinated. She reports that since 09/25 she has not taken any of her diabetic medications, nor has she had much to eat in that time and has been relatively bedbound. In the ER patient was hypoxic requiring HFNC. She was also lethargic. Her POC BSG was read as "high", with BMP revealing hyponatremia (corrected to 129-133), K 5.0, creatinine 1.7, BHB 68.11, COVID-19 positive. CXR with patchy bilateral infiltrates suggesting viral pneumonia. Patient was started on insulin gtt and NSS at 250cc/hr. She was also given dexamethasone 6mg IV for COVID-19. Hospitalist service was then consulted for admission. Allergies Allergy/AdvReac Type Severity Reaction Status Date / Time No Known Allergies Allergy Verified 10/01/21 19:20 Home Medications Medication Instructions Recorded Confirmed Type blood sugar diagnostic (ReliOn #10 ea 07/04/19 05/08/21 History Prime Test Strips) cholecalciferol (vitamin D3) 125 5,000 units PO HS cap 07/04/19 10/01/21 History mcg (5,000 unit) capsule cyanocobalamin (vitamin B-12) 500 500 mcg PO HS #90 tab 07/04/19 10/01/21 History mcg tablet insulin syringe-needle U-100 1 mL #100 ea 08/22/20 05/08/21 Rx 31 gauge x 5/16" (BD Insulin Syringe Ultra-Fine) insulin human U-100 NPH-regulr 40 unit SUBCUT QPM 09/10/20 10/01/21 History 70-30 mix 100 unit/mL subcutaneous susp (Novolin 70/30 U-100 Insulin) glipizide 10 mg tablet 5 mg PO BID #90 tab 10/23/20 10/01/21 Rx lisinopril 5 mg tablet 5 mg PO DAILY #90 tab 01/28/21 10/01/21 Rx multivitamin 1 tab PO DAILY 04/24/21 10/01/21 History levothyroxine 100 mcg tablet 100 mcg PO DAILY #90 tab 07/22/21 10/01/21 Rx metformin 1,000 mg tablet 1,000 mg PO BID #180 tab 07/22/21 10/01/21 Rx lovastatin 20 mg tablet 20 mg PO HS #90 tab 09/10/21 10/01/21 Rx Past Med/Surg History Medical History Diabetic peripheral neuropathy Dyslipidemia Hypertension 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 Morbid obesity with body mass index (BMI) of 40.0 to 44.9 in adult Uncontrolled type 2 diabetes mellitus Vitamin D deficiency Surgical History History of colonoscopy with polypectomy 09/23 repeat 3 years History of dilation and curettage History of excision of dermoid cyst History of tooth extraction Family History Father Diabetes Colorectal cancer Family history of diabetes mellitus Brother Kidney stones Family history of diabetes mellitus Family/Other Diabetes Grandmother (Paternal) Family history of diabetes mellitus Grandfather (Paternal) Family history of diabetes mellitus Uncle Family history of diabetes mellitus Other No family history of adverse response to anesthesia Denies family history of Ovarian cancer Prostate cancer Myocardial infarction Breast cancer Social History Smoking Status: Never smoker Second Hand Exposure: No; Do You Dip or Chew Tobacco: No; Hx Alcohol Use: No Hx Substance Use: No Preferred Language: Lithuanian Communication Ability: Effective Visual Impairment: No Limitations Hearing Ability: Normal Special Procedures Tech Required: No Beliefs That Will Affect Care: None marital status: Current Living Situation: Alone current occupational status: employed 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 Other Information That Helps Us Care for You: No Feels Safe at Home: Yes Safety Concerns: Feels Safe At This Time Childhood Exposure to Second-Hand Smoke: No caffeine: Yes Dental Care, Regularly: Yes Physical Activity Frequency: Does not Exercise Seatbelt Use: always Sunscreen Use: No Assistive Devices: None Review of Systems Review of Systems: All systems reviewed & are unremarkable except as noted in HPI & below Constitutional: + malaise; no fever and no chills Respiratory: + dyspnea; no cough Cardiovascular: no chest pain, no palpitations and no edema Gastrointestinal: no abdominal pain, no constipation and no diarrhea/loose stools Genitourinary: no dysuria and no hematuria Physical Exam Constitutional: WD/WN, vitals as above Eyes: PERRL, conjunctivae normal, anicteric sclerae ENMT: external ear and nose normal, oropharynx normal Neck: normal visual inspection Respiratory: normal respiratory effort, non-tachypneic, no retractions, saturating 92% on HFNC Cardiovascular: RRR, no murmur, no edema Gastrointestinal (Abdomen): normal bowel sounds, soft, nontender, no hepatosplenomegaly Musculoskeletal: no cyanosis or clubbing, extremities motor strength 5/5 Skin: no rashes, warm and dry Neurologic: AAOx3, normal speech. No gross sensory deficits. No tremor. Psychiatric: A+Ox3, euthymic affect Results & Data Results & Data ([facility]) Vital Signs (Past 12 Hours) Vital Signs Temp Pulse Pulse Resp BP BP Pulse Ox 10/01/21 19:34 90 10/01/21 19:00 98 H 18 125/56 L 90 10/01/21 18:32 105 H 26 H 96 10/01/21 17:42 87 L 10/01/21 17:36 36.9 C 112 H 20 143/68 H 76 L Code Status & VTE Plan VTE Prophylaxis Plan VTE Prophylaxis will be ordered: Yes Supervising Physician Co-Signing Physician Notes Attending addendum: I have physically seen this patient, have supervised the medical residents activities, and agree with the H&P unless as otherwise noted. Assessment and Plan: DKA- Hold 70/30 insulin twice daily, glipizide and Metformin Continue insulin drip, titrate per protocol, with target reduction of the anion gap from 18 to normal Every 4 hour VBG, BMP, magnesium and phosphorus Titration of IV fluids as per note Check hemoglobin A1c Acute respiratory failure with hypoxia/COVID-19 pneumonia-continue dexamethasone 6 mg IV every morning Remdesivir IV per protocol Duonebs every 4 hours while awake and every 2 hours when necessary. Azithromycin 5 mg IV daily Remaining orders and notations as noted Resident Activity Tracking Resident Involvement: Resident Care Provided Care Provided: Adult Hospital Medicine
[2021-10-01] MEDS ORDERED: REMDESIVIR 200 MG in SODIUM CHLORIDE 0.9% 210 ML IV STA (20:59)
[2021-10-01] MEDS: INSULIN REGULAR 250 UNITS in SODIUM CHLORIDE 0.9% 247.5 ML IV SCH (21:25)
[2021-10-01 21:27] LABS: BUN Creatinine Ratio 27.6 (10-20); Calcium 8.3 mg/dl (8.5-10.1); Creatinine Clr Calc Pharmacy 54.8 ml/min; Est GFR (African American) 49.3 ml/min; Est GFR (Non-African American) 42.6 ml/min; Magnesium 2.3 mg/dl (1.8-2.4); Phosphorus 3.1 mg/dl (2.5-4.9); Potassium 5.3 mmol/L (3.5-5.1)
[2021-10-01] MEDS ORDERED: ACETAMINOPHEN 325 MG TAB PO PRN (22:08)
[2021-10-01] MEDS ORDERED: ONDANSETRON INJ 2 MG/ML 2 ML VIAL IV PRN (22:08)
[2021-10-01] MEDS: SODIUM CHLORIDE 0.9% 1000ML 1,000 ML IV SCH (22:09)
[2021-10-01 22:15] LABS: Beta-Hydroxybutyrate 63.45 mg/dl (0.2-2.81)
[2021-10-01] MEDS: INSULIN ASPART PER UNIT SC SCH (22:16)
[2021-10-01] MEDS: ENOXAPARIN INJ 40 MG/0.4 ML SYR SQ SCH (22:43)
[2021-10-02 01:14] LABS: BUN Creatinine Ratio 29.2 (10-20); Calcium 8.2 mg/dl (8.5-10.1); Creatinine Clr Calc Pharmacy 56.8 ml/min; Est GFR (Non-African American) 46.6 ml/min; Magnesium 2.3 mg/dl (1.8-2.4); Phosphorus 2.2 mg/dl (2.5-4.9)
[2021-10-02 01:26] LABS: Potassium 3.7 mmol/L (3.5-5.1)
[2021-10-02 01:27] LABS: Beta-Hydroxybutyrate 26.96 mg/dl (0.2-2.81)
[2021-10-02] MEDS: SODIUM CHLORIDE 0.9% 1000ML 1,000 ML IV SCH (01:41)
[2021-10-02] MEDS ORDERED: SODIUM CHLOR 0.45% + 20MEQ KCL 20 MEQ/1,000 ML BAG IV SCH (02:00)
[2021-10-02 03:52] LABS: Hematocrit (blood only) 40.3 % (37-47); Hemoglobin 13.8 g/dL (12.0-16.0); Mean Corpuscular Hemoglobin 28.6 pg (25-34); Mean Corpuscular Hgb Conc 34.2 g/dL (32-36); Mean Corpuscular Volume 83.6 fL (80-100); Mean Platelet Volume 9.4 fL (7.4-10.4); Platelet Count 159 K/uL (130-400); RDW Coefficient of Variation 12.9 % (11.5-14.5); RDW Standard Deviation 38.9 fL (36.4-46.3); Red Blood Count 4.82 M/uL (4.2-5.4); White Blood Count 8.22 K/uL (4.8-10.8)
[2021-10-02 04:09] LABS: Basophils # (auto) 0.02 K/uL (0-0.2); Basophils % (auto) 0.2 %; Immature Granulocytes # (auto) 0.03 K/uL (0.00-0.02); Immature Granulocytes % (auto) 0.4 %; Lymphocytes # (auto) 1.37 K/uL (1.2-3.4); Lymphocytes % (auto) 16.7 %; Monocytes # (auto) 0.16 K/uL (0.11-0.59); Monocytes % (auto) 1.9 %; Neutrophils # (auto) 6.64 K/uL (1.4-6.5); Neutrophils % (auto) 80.8 %; RBC Morphology Unremarkable
[2021-10-02 04:26] LABS: BUN Creatinine Ratio 29.8 (10-20); Calcium 8.1 mg/dl (8.5-10.1); Creatinine Clr Calc Pharmacy 58.6 ml/min; Est GFR (African American) 56.1 ml/min; Est GFR (Non-African American) 48.4 ml/min; Magnesium 2.3 mg/dl (1.8-2.4); Phosphorus 1.7 mg/dl (2.5-4.9); Potassium 3.9 mmol/L (3.5-5.1)
[2021-10-02 04:36] LABS: Beta-Hydroxybutyrate 5.54 mg/dl (0.2-2.81)
[2021-10-02] MEDS ORDERED: D5W AND 1/2NSS + 20MEQ KCL 20 MEQ/1,000 ML BAG IV SCH (06:15)
[2021-10-02] MEDS: LEVOTHYROXINE SODIUM 100 MCG TABLET PO SCH (06:32)
[2021-10-02 07:24] LABS: Estimated Average Glucose 289 mg/dl; Hemoglobin A1C 11.7 % (4.5-5.6)
[2021-10-02] MEDS: INSULIN ASPART PER UNIT SC SCH ×4 (07:33→21:05)
--- NOTE | 2021-10-02 08:31 | Hospitalist Progress Note ---
Date of Service October 02, 2021 Assessment & Plan (1) Acute respiratory failure with hypoxia: Plan: patient up to 60L and 100% this morning, not in distress but she is tachypneic laying on left side, she cannot lay prone next step would be CPAP if her saturations drop stop IV fluids, want to keep lungs dry, may give Lasix later today place ricardo so she does not need to move in bed, try to limit exertion for first 24 hours treat COVID with dexamethasone, Remdesivir, will add Baricitinib depending on CRP value (2) COVID-19: Plan: sick for over a week, viral pneumonia on CXR dexamethasone 6mg IV daily, day 2 Remdesivir IV daily, day 2 check CRP and if > 7.5 will add Baricitinib as she is on 60L 100% guarded prognosis, may need CPAP and eventual intubation, see how she does the next 24-48 hours (3) DKA (diabetic ketoacidosis): Plan: anion gap is closed, sugars are < 200 cut back rate of insulin drip by 50%, d/w pharmacy this morning will stop IV fluids as I want her lungs dry going to get dexamethasone this morning so that will raise sugars again DKA due to her illness and not taking diabetes medications for a week, typically on 70/30 insulin regimen (4) Acute kidney injury: Plan: due to dehydration, prerenal Cr was 1.7 on admission, down to 1.2 after aggressive fluids, will now stop fluids, want lungs dry place ricardo for accurate UO and limit exertion/desaturations consider giving Lasix later today depending on her breathing BMP in AM (5) Dehydration: Plan: resolved, now euvolemic (6) Dyslipidemia: (7) Vaginal yeast infection: Plan: chronic issue due to uncontrolled diabetes will consider Diflucan depending on how bad her symptoms (8) Uncontrolled type 2 diabetes mellitus: Plan: HbA1c 11.7% will need education (9) Morbid obesity: Plan: increases morbidity and mortality (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: (11) DVT prophylaxis: Plan: Lovenox BID Pepcid BID Admission and Anticipated Discharge Date Admission Date: October 01, 2021 Subjective patient admitted last evening, presented with DKA, dehydration, GIBSON, hypoxia, COVID pneumonia she was quickly titrated up to 60L 100% this morning, had the RN place her on left side, she could not lay prone she is not in distress, only slightly tachypneic and saturations are 94% reviewed her chart and lab work extensively discussed with pharmacy, her anion gap is closed, sugars < 200, will stop IV fluids as I want her on dry side, cut back insulin drip patient confirms she has been sick for over a week, was not eating or drinking well, stopped taking her diabetes medications I discussed plans for dexamethasone and will see if she qualifies for Baricitinib I discussed risks of Baricitinib including worsening bacterial infections, but she may benefit from knocking back inflammatory response encouraged her to lay on her side all day, will have RN place ricardo so she does not need to move, consider Lasix later this afternoon Cr is 1.2, BUN 37, K 3.9, Na 131, phos 1.7, procalcitonin 0.3 awaiting CRP to help make Baricitinib decision Review of Systems Review of Systems: All systems reviewed & are unremarkable except as noted in Subjective Constitutional: + fatigue and + weakness; no fever and no sweats Respiratory: + cough, + dyspnea and + dyspnea on exertion Cardiovascular: no chest pain Gastrointestinal: no abdominal pain, no nausea, no vomiting, no constipation and no diarrhea/loose stools Genitourinary: + vaginal discharge (chronic yeast infection) Physical Exam Physical Exam: General: well developed, obese female, ill appearing, no acute distress Neck: supple, trachea midline, normal thyroid Lungs: clear to auscultation bilaterally, + tachypnea, no accessory muscle use, talking in sentences, no distress Heart: regular S1 and S2, no murmur, peripheral pulses normal, capillary refill normal, no edema Abdomen: soft, NT, ND, + BS, no hepatomegaly, normal to percussion Extremities: normal in appearance, no cyanosis, no petechiae, strength is 5/5 bilaterally Neuro: awake, cooperative, moves all extremities, no focal motor deficits, CN II-XII intact, sensation in extremities intact, normal speech Skin: warm, dry, no rash, normal turgor Psych: Awake, alert oriented x 3, euthymic affect Results & Data Results & Data ([facility]) Vital Signs (Past 12 Hours) Vital Signs Temp Pulse Pulse Resp BP Pulse Ox 10/02/21 08:21 77 20 95 10/02/21 07:40 77 10/02/21 07:35 36.7 C 77 26 H 111/66 93 10/02/21 06:15 22 86 L 10/02/21 03:11 36.8 C 79 24 111/65 92 10/01/21 23:00 99 H 10/01/21 21:42 37.4 C 94 H 16 99/70 L 89 L 10/01/21 21:00 93 H 18 108/75 92 Laboratory Results Laboratory Results - last 24 hr 10/01/21 10/01/21 10/01/21 17:51 17:54 18:02 WBC RBC Hgb POC Hgb Hct POC Hct MCV MCH MCHC RDW Std Deviation RDW Coeff of Francisca Plt Count MPV Immature Gran % (Auto) Neut % (Auto) Lymph % (Auto) [place] % (Auto) Eos % (Auto) Baso % (Auto) Neut # (Auto) Lymph # (Auto) [place] # (Auto) Eos # (Auto) Baso # (Auto) Immature Gran # (Auto) RBC Morphology VBG pH VBG pCO2 VBG pO2 VBG HCO3 VBG O2 Saturation VBG Base Excess Barometric Pressure POC Sodium Sodium POC Potassium Potassium POC Chloride Chloride Carbon Dioxide POC Total CO2 Anion Gap POC Anion Gap POC BUN BUN Creatinine POC Creatinine Est Cr Clr Drug Dosing Est GFR ( Amer) Est GFR (Non-Af Amer) BUN/Creatinine Ratio Glucose POC Glucose > 600 H* > 600 H* POC Glucose (other) Estimat Average Glucose Hemoglobin A1c Lactate Calcium POC Ioniz Calcium Tanesha Phosphorus Magnesium Total Bilirubin AST ALT Alkaline Phosphatase Troponin I Total Protein Albumin Globulin Albumin/Globulin Ratio Beta-Hydroxybutyric Acd Procalcitonin 0.38 SARS-CoV-2 (PCR) Influenza Type A (PCR) Influenza Type B (PCR) RSV (RT-PCR) 10/01/21 10/01/21 10/01/21 18:02 18:02 18:02 WBC 12.30 H RBC 5.56 H Hgb 16.5 H POC Hgb Hct 48.6 H POC Hct MCV 87.4 MCH 29.7 MCHC 34.0 RDW Std Deviation 41.9 RDW Coeff of Francisca 13.2 Plt Count 205 MPV 9.7 Immature Gran % (Auto) 0.2 Neut % (Auto) 83.0 Lymph % (Auto) 12.3 [place] % (Auto) 4.3 Eos % (Auto) 0.0 Baso % (Auto) 0.2 Neut # (Auto) 10.21 H Lymph # (Auto) 1.51 [place] # (Auto) 0.53 Eos # (Auto) 0.00 Baso # (Auto) 0.02 Immature Gran # (Auto) 0.03 H RBC Morphology VBG pH 7.39 VBG pCO2 38 VBG pO2 29 VBG HCO3 22 VBG O2 Saturation < 60.0 VBG Base Excess -2.1 Barometric Pressure 727.5 POC Sodium Sodium 120 L POC Potassium Potassium 5.0 POC Chloride Chloride 81 L Carbon Dioxide 21 POC Total CO2 Anion Gap 18.0 H POC Anion Gap POC BUN BUN 37 H Creatinine 1.70 H POC Creatinine Est Cr Clr Drug Dosing Not Reportable Est GFR ( Amer) 38.7 Est GFR (Non-Af Amer) 33.4 BUN/Creatinine Ratio 21.6 H Glucose 638 H* POC Glucose POC Glucose (other) Estimat Average Glucose Hemoglobin A1c Lactate Calcium 9.4 POC Ioniz Calcium Tanesha Phosphorus 3.3 Magnesium 2.4 Total Bilirubin 0.6 AST 62 H ALT 59 Alkaline Phosphatase 102 Troponin I < 0.015 Total Protein 9.3 H Albumin 3.3 L Globulin 6.0 H Albumin/Globulin Ratio 0.5 L Beta-Hydroxybutyric Acd 68.11 H Procalcitonin SARS-CoV-2 (PCR) Influenza Type A (PCR) Influenza Type B (PCR) RSV (RT-PCR) 10/01/21 10/01/21 10/01/21 18:02 18:02 18:09 WBC RBC Hgb POC Hgb 17.7 H Hct POC Hct 52 H MCV MCH MCHC RDW Std Deviation RDW Coeff of Francisca Plt Count MPV Immature Gran % (Auto) Neut % (Auto) Lymph % (Auto) [place] % (Auto) Eos % (Auto) Baso % (Auto) Neut # (Auto) Lymph # (Auto) [place] # (Auto) Eos # (Auto) Baso # (Auto) Immature Gran # (Auto) RBC Morphology VBG pH VBG pCO2 VBG pO2 VBG HCO3 VBG O2 Saturation VBG Base Excess Barometric Pressure POC Sodium 123 L Sodium POC Potassium 5.2 H Potassium POC Chloride 85 L Chloride Carbon Dioxide POC Total CO2 22 L Anion Gap POC Anion Gap 22.0 POC BUN 39 H BUN Creatinine POC Creatinine 1.2 Est Cr Clr Drug Dosing Est GFR ( Amer) Est GFR (Non-Af Amer) BUN/Creatinine Ratio Glucose POC Glucose POC Glucose (other) 640 H* Estimat Average Glucose 289 Hemoglobin A1c 11.7 H Lactate 3.0 H* Calcium POC Ioniz Calcium Tanesha 1.07 L Phosphorus Magnesium Total Bilirubin AST ALT Alkaline Phosphatase Troponin I Total Protein Albumin Globulin Albumin/Globulin Ratio Beta-Hydroxybutyric Acd Procalcitonin SARS-CoV-2 (PCR) Influenza Type A (PCR) Influenza Type B (PCR) RSV (RT-PCR) 10/01/21 10/01/21 10/01/21 18:40 20:25 20:27 WBC RBC Hgb POC Hgb Hct POC Hct MCV MCH MCHC RDW Std Deviation RDW Coeff of Francisca Plt Count MPV Immature Gran % (Auto) Neut % (Auto) Lymph % (Auto) [place] % (Auto) Eos % (Auto) Baso % (Auto) Neut # (Auto) Lymph # (Auto) [place] # (Auto) Eos # (Auto) Baso # (Auto) Immature Gran # (Auto) RBC Morphology VBG pH VBG pCO2 VBG pO2 VBG HCO3 VBG O2 Saturation VBG Base Excess Barometric Pressure POC Sodium Sodium 122 L POC Potassium Potassium 5.3 H POC Chloride Chloride 88 L Carbon Dioxide 20 L POC Total CO2 Anion Gap 14.0 H POC Anion Gap POC BUN BUN 38 H Creatinine 1.39 H D POC Creatinine Est Cr Clr Drug Dosing 54.8 Est GFR ( Amer) 49.3 Est GFR (Non-Af Amer) 42.6 BUN/Creatinine Ratio 27.6 H Glucose 656 H* POC Glucose POC Glucose (other) Estimat Average Glucose Hemoglobin A1c Lactate 1.5 Calcium 8.3 L POC Ioniz Calcium Tanesha Phosphorus 3.1 Magnesium 2.3 Total Bilirubin AST ALT Alkaline Phosphatase Troponin I Total Protein Albumin Globulin Albumin/Globulin Ratio Beta-Hydroxybutyric Acd 63.45 H Procalcitonin SARS-CoV-2 (PCR) POSITIVE A* Influenza Type A (PCR) Negative Influenza Type B (PCR) Negative RSV (RT-PCR) Negative 10/01/21 10/01/21 10/01/21 20:34 20:50 21:51 WBC RBC Hgb POC Hgb Hct POC Hct MCV MCH MCHC RDW Std Deviation RDW Coeff of Francisca Plt Count MPV Immature Gran % (Auto) Neut % (Auto) Lymph % (Auto) [place] % (Auto) Eos % (Auto) Baso % (Auto) Neut # (Auto) Lymph # (Auto) [place] # (Auto) Eos # (Auto) Baso # (Auto) Immature Gran # (Auto) RBC Morphology VBG pH 7.47 H VBG pCO2 VBG pO2 VBG HCO3 VBG O2 Saturation VBG Base Excess Barometric Pressure POC Sodium Sodium POC Potassium Potassium POC Chloride Chloride Carbon Dioxide POC Total CO2 Anion Gap POC Anion Gap POC BUN BUN Creatinine POC Creatinine Est Cr Clr Drug Dosing Est GFR ( Amer) Est GFR (Non-Af Amer) BUN/Creatinine Ratio Glucose POC Glucose > 600 H* 592 H* POC Glucose (other) Estimat Average Glucose Hemoglobin A1c Lactate Calcium POC Ioniz Calcium Tanesha Phosphorus Magnesium Total Bilirubin AST ALT Alkaline Phosphatase Troponin I Total Protein Albumin Globulin Albumin/Globulin Ratio Beta-Hydroxybutyric Acd Procalcitonin SARS-CoV-2 (PCR) Influenza Type A (PCR) Influenza Type B (PCR) RSV (RT-PCR) 10/01/21 10/01/21 10/01/21 22:43 23:44 Unknown WBC RBC Hgb POC Hgb Hct POC Hct MCV MCH MCHC RDW Std Deviation RDW Coeff of Francisca Plt Count MPV Immature Gran % (Auto) Neut % (Auto) Lymph % (Auto) [place] % (Auto) Eos % (Auto) Baso % (Auto) Neut # (Auto) Lymph # (Auto) [place] # (Auto) Eos # (Auto) Baso # (Auto) Immature Gran # (Auto) RBC Morphology VBG pH VBG pCO2 VBG pO2 VBG HCO3 VBG O2 Saturation VBG Base Excess Barometric Pressure POC Sodium Sodium POC Potassium Potassium POC Chloride Chloride Carbon Dioxide POC Total CO2 Anion Gap POC Anion Gap POC BUN BUN Creatinine POC Creatinine Est Cr Clr Drug Dosing Est GFR ( Amer) Est GFR (Non-Af Amer) BUN/Creatinine Ratio Glucose POC Glucose 549 H* 504 H* POC Glucose (other) Estimat Average Glucose Hemoglobin A1c Lactate Calcium POC Ioniz Calcium Tanesha Phosphorus Cancelled Magnesium Cancelled Total Bilirubin AST ALT Alkaline Phosphatase Troponin I Total Protein Albumin Globulin Albumin/Globulin Ratio Beta-Hydroxybutyric Acd Procalcitonin SARS-CoV-2 (PCR) Influenza Type A (PCR) Influenza Type B (PCR) RSV (RT-PCR) 10/02/21 10/02/2110/02/21 00:36 00:36 00:43 WBC RBC Hgb POC Hgb Hct POC Hct MCV MCH MCHC RDW Std Deviation RDW Coeff of Francisca Plt Count MPV Immature Gran % (Auto) Neut % (Auto) Lymph % (Auto) [place] % (Auto) Eos % (Auto) Baso % (Auto) Neut # (Auto) Lymph # (Auto) [place] # (Auto) Eos # (Auto) Baso # (Auto) Immature Gran # (Auto) RBC Morphology VBG pH 7.44 H VBG pCO2 VBG pO2 VBG HCO3 VBG O2 Saturation VBG Base Excess Barometric Pressure POC Sodium Sodium 129 L D POC Potassium Potassium 3.7 D POC Chloride Chloride 94 L Carbon Dioxide 24 POC Total CO2 Anion Gap 11.0 POC Anion Gap POC BUN BUN 38 H Creatinine 1.29 H POC Creatinine Est Cr Clr Drug Dosing 56.8 Est GFR ( Amer) 54.0 Est GFR (Non-Af Amer) 46.6 BUN/Creatinine Ratio 29.2 H Glucose 470 H* POC Glucose 425 H* POC Glucose (other) Estimat Average Glucose Hemoglobin A1c Lactate Calcium 8.2 L POC Ioniz Calcium Tanesha Phosphorus 2.2 L Magnesium 2.3 Total Bilirubin AST ALT Alkaline Phosphatase Troponin I Total Protein Albumin Globulin Albumin/Globulin Ratio Beta-Hydroxybutyric Acd 26.96 H Procalcitonin SARS-CoV-2 (PCR) Influenza Type A (PCR) Influenza Type B (PCR) RSV (RT-PCR) 10/02/21 10/02/21 10/02/21 01:42 02:41 03:35 WBC 8.22 RBC 4.82 Hgb 13.8 POC Hgb Hct 40.3 POC Hct MCV 83.6 MCH 28.6 MCHC 34.2 RDW Std Deviation 38.9 RDW Coeff of Francisca 12.9 Plt Count 159 MPV 9.4 Immature Gran % (Auto) 0.4 Neut % (Auto) 80.8 Lymph % (Auto) 16.7 [place] % (Auto) 1.9 Eos % (Auto) 0.0 Baso % (Auto) 0.2 Neut # (Auto) 6.64 H Lymph # (Auto) 1.37 [place] # (Auto) 0.16 Eos # (Auto) 0.00 Baso # (Auto) 0.02 Immature Gran # (Auto) 0.03 H RBC Morphology Unremarkable VBG pH VBG pCO2 VBG pO2 VBG HCO3 VBG O2 Saturation VBG Base Excess Barometric Pressure POC Sodium Sodium POC Potassium Potassium POC Chloride Chloride Carbon Dioxide POC Total CO2 Anion Gap POC Anion Gap POC BUN BUN Creatinine POC Creatinine Est Cr Clr Drug Dosing Est GFR ( Amer) Est GFR (Non-Af Amer) BUN/Creatinine Ratio Glucose POC Glucose 394 H* 441 H* POC Glucose (other) Estimat Average Glucose Hemoglobin A1c Lactate Calcium POC Ioniz Calcium Tanesha Phosphorus Magnesium Total Bilirubin AST ALT Alkaline Phosphatase Troponin I Total Protein Albumin Globulin Albumin/Globulin Ratio Beta-Hydroxybutyric Acd Procalcitonin SARS-CoV-2 (PCR) Influenza Type A (PCR) Influenza Type B (PCR) RSV (RT-PCR) 10/02/21 10/02/21 10/02/21 03:35 03:35 03:49 WBC RBC Hgb POC Hgb Hct POC Hct MCV MCH MCHC RDW Std Deviation RDW Coeff of Francisca Plt Count MPV Immature Gran % (Auto) Neut % (Auto) Lymph % (Auto) [place] % (Auto) Eos % (Auto) Baso % (Auto) Neut # (Auto) Lymph # (Auto) [place] # (Auto) Eos # (Auto) Baso # (Auto) Immature Gran # (Auto) RBC Morphology VBG pH 7.43 H VBG pCO2 VBG pO2 VBG HCO3 VBG O2 Saturation VBG Base Excess Barometric Pressure POC Sodium Sodium 131 L POC Potassium Potassium 3.9 POC Chloride Chloride 97 L Carbon Dioxide 26 POC Total CO2 Anion Gap 8.0 POC Anion Gap POC BUN BUN 37 H Creatinine 1.25 H POC Creatinine Est Cr Clr Drug Dosing 58.6 Est GFR ( Amer) 56.1 Est GFR (Non-Af Amer) 48.4 BUN/Creatinine Ratio 29.8 H Glucose 344 H* POC Glucose 339 H* POC Glucose (other) Estimat Average Glucose Hemoglobin A1c Lactate Calcium 8.1 L POC Ioniz Calcium Tanesha Phosphorus 1.7 L Magnesium 2.3 Total Bilirubin AST ALT Alkaline Phosphatase Troponin I Total Protein Albumin Globulin Albumin/Globulin Ratio Beta-Hydroxybutyric Acd 5.54 H Procalcitonin SARS-CoV-2 (PCR) Influenza Type A (PCR) Influenza Type B (PCR) RSV (RT-PCR) 10/02/21 10/02/21 10/02/21 04:41 05:45 06:43 WBC RBC Hgb POC Hgb Hct POC Hct MCV MCH MCHC RDW Std Deviation RDW Coeff of Francisca Plt Count MPV Immature Gran % (Auto) Neut % (Auto) Lymph % (Auto) [place] % (Auto) Eos % (Auto) Baso % (Auto) Neut # (Auto) Lymph # (Auto) [place] # (Auto) Eos # (Auto) Baso # (Auto) Immature Gran # (Auto) RBC Morphology VBG pH VBG pCO2 VBG pO2 VBG HCO3 VBG O2 Saturation VBG Base Excess Barometric Pressure POC Sodium Sodium POC Potassium Potassium POC Chloride Chloride Carbon Dioxide POC Total CO2 Anion Gap POC Anion Gap POC BUN BUN Creatinine POC Creatinine Est Cr Clr Drug Dosing Est GFR ( Amer) Est GFR (Non-Af Amer) BUN/Creatinine Ratio Glucose POC Glucose 277 H 231 H 194 H POC Glucose (other) Estimat Average Glucose Hemoglobin A1c Lactate Calcium POC Ioniz Calcium Tanesha Phosphorus Magnesium Total Bilirubin AST ALT Alkaline Phosphatase Troponin I Total Protein Albumin Globulin Albumin/Globulin Ratio Beta-Hydroxybutyric Acd Procalcitonin SARS-CoV-2 (PCR) Influenza Type A (PCR) Influenza Type B (PCR) RSV (RT-PCR) 10/02/21 07:48 WBC RBC Hgb POC Hgb Hct POC Hct MCV MCH MCHC RDW Std Deviation RDW Coeff of Francisca Plt Count MPV Immature Gran % (Auto) Neut % (Auto) Lymph % (Auto) [place] % (Auto) Eos % (Auto) Baso % (Auto) Neut # (Auto) Lymph # (Auto) [place] # (Auto) Eos # (Auto) Baso # (Auto) Immature Gran # (Auto) RBC Morphology VBG pH VBG pCO2 VBG pO2 VBG HCO3 VBG O2 Saturation VBG Base Excess Barometric Pressure POC Sodium Sodium POC Potassium Potassium POC Chloride Chloride Carbon Dioxide POC Total CO2 Anion Gap POC Anion Gap POC BUN BUN Creatinine POC Creatinine Est Cr Clr Drug Dosing Est GFR ( Amer) Est GFR (Non-Af Amer) BUN/Creatinine Ratio Glucose POC Glucose 178 H POC Glucose (other) Estimat Average Glucose Hemoglobin A1c Lactate Calcium POC Ioniz Calcium Tanesha Phosphorus Magnesium Total Bilirubin AST ALT Alkaline Phosphatase Troponin I Total Protein Albumin Globulin Albumin/Globulin Ratio Beta-Hydroxybutyric Acd Procalcitonin SARS-CoV-2 (PCR) Influenza Type A (PCR) Influenza Type B (PCR) RSV (RT-PCR) Medications Administered Current Inpatient Medications Acetaminophen (Acetaminophen 325 Mg Tab) 650 mg PO Q4H PRN PRN Reason: Pain or Fever Stop: 10/31/21 22:07 Dextrose (Dextrose 50% 50 Ml Syringe) 25 - 50 ml IV UD PRN; Protocol PRN Reason: Hypoglycemia Protocol Stop: 10/31/21 19:23 Enoxaparin Sodium (Enoxaparin Inj 40 Mg/0.4 Ml Syr) 40 mg SQ BID JERRELL Stop: 10/31/21 22:44 Last Admin: 10/01/21 22:43 Dose: 40 mg Documented by: Glucagon (Glucagon For Inj 1 Mg Vial) 1 mg SQ UD PRN; Protocol PRN Reason: Hypoglycemia Protocol Stop: 10/31/21 19:23 Glucose (Glucose 10 Tabs/Tube) 4 - 8 tabs PO UD PRN; Protocol PRN Reason: Hypoglycemia Protocol Stop: 10/31/21 19:23 Glucose (Glucose 40% Gel 15 Gm Tube) 15 - 30 gm PO UD PRN; Protocol PRN Reason: Hypoglycemia Protocol Stop: 10/31/21 19:23 Insulin Human Regular 250 (units/ Sodium Chloride) 250 mls @ 9 mls/hr IV .Q24H JERRELL; Protocol Stop: 10/31/21 19:29 Last Titration: 10/02/21 06:46 Dose: 17.9 units/hr, 17.9 mls/hr Documented by: Dexamethasone 6 mg/ Syringe 1.5 mls @ 1 mls/min IV DAILY JERRELL Stop: 10/12/21 08:59 Remdesivir 100 mg/ Sodium (Chloride) 250 mls @ 250 mls/hr IV Q24H JERRELL; Protocol Stop: 10/05/21 20:59 Insulin Aspart (Insulin Aspart Per Unit) 0 units SC ACHS JERRELL Stop: 10/31/21 20:59 Last Admin: 10/02/21 07:33 Dose: Not Given Documented by: Levothyroxine Sodium (Levothyroxine Sodium 100 Mcg Tablet) 100 mcg PO [facility] Stop: 11/01/21 06:29 Last Admin: 10/02/21 06:32 Dose: 100 mcg Documented by: Miscellaneous (Carbohydrates For Hypoglycemia ) 15 - 30 gm PO UD PRN PRN Reason: Hypoglycemia Protocol Stop: 10/31/21 19:23 Miscellaneous Information (Pharmacy Glycemic Mgmt Consult) 1 ea N/A UD PRN PRN Reason: Consult Stop: 10/31/21 20:20 Ondansetron HCl (Ondansetron Inj 2 Mg/Ml 2 Ml Vial) 4 mg IV Q6H PRN PRN Reason: Nausea Stop: 10/31/21 22:07 Polyethylene Glycol (Polyethylene (Miralax) 17 Gm Pack) 17 gm PO DAILY PRN PRN Reason: Constipation Stop: 10/31/21 22:07 Sodium Chloride (Sodium Chloride 0.9% 10ml Flush) 30 ml IV Q24H JERRELL Stop: 10/05/21 20:01 PG Care Time/CCT Total # of Minutes Spent Total Time Spent: 39 Total Time Spent with Patient: Total time spent is greater than 50% in coordination of care (as documented) at patient's floor/unit and/or counseling patient: Critical Care Time: Yes Total Critical Care Time: 39 This case had a high probability of a clinically significant, sudden, or life threatening deterioration of this patient's condition which required my full and direct attention, intervention and personal management. 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
[2021-10-02 09:37] LABS: BUN Creatinine Ratio 35.4 (10-20); C Reactive Protein 13.6 mg/dl (0-0.29); Creatinine Clr Calc Pharmacy 72.7 ml/min; Est GFR (African American) 72.6 ml/min; Est GFR (Non-African American) 62.6 ml/min; Magnesium 2.3 mg/dl (1.8-2.4); Potassium 4.3 mmol/L (3.5-5.1)
[2021-10-02 09:38] LABS: Phosphorus 1.6 mg/dl (2.5-4.9)
--- NOTE | 2021-10-02 11:15 | Electrocardiogram Report ---
Test Reason : Blood Pressure : / mmHG Vent. Rate : 109 BPM Atrial Rate : 109 BPM P-R Int : 128 ms QRS Dur : 082 ms QT Int : 320 ms P-R-T Axes : 044 -40 034 degrees QTc Int : 430 ms Sinus tachycardia Left axis deviation Low voltage QRS Poor R wave progression, consider anterior HI vs. lead placement vs. LVH Abnormal ECG When compared with ECG of 05-JAN-1997 10:53, No significant change was found Confirmed by Ponce Lewis ([id number]) on 10/02/2021 11:15:11 AM Referred By: REFERRED SELF Confirmed By:Dewayne Lewis
[2021-10-02] MEDS: dexAMETHasone 6 MG in SYRINGE 0 ML IV SCH (11:46)
[2021-10-02] MEDS: FAMOTIDINE 20 MG in SYRINGE 3 ML IV SCH ×2 (11:46→19:43)
[2021-10-02] MEDS: ENOXAPARIN INJ 40 MG/0.4 ML SYR SQ SCH (11:46)
[2021-10-02] MEDS: INSULIN REGULAR 250 UNITS in SODIUM CHLORIDE 0.9% 247.5 ML IV SCH (12:20)
--- NOTE | 2021-10-02 12:47 | Pharmacy Report ---
Pharmacy Glycemic Short Note 2 - Date of Service October 02, 2021 - Glycemic Short BSG Results (Last 24 hours): 10/01/21 10/01/21 10/01/21 17:51 17:54 18:02 Glucose 638 H* POC Glucose > 600 H* > 600 H* POC Glucose (other) 10/01/21 10/01/21 10/01/21 18:09 20:27 20:50 Glucose 656 H* POC Glucose > 600 H* POC Glucose (other) 640 H* 10/01/21 10/01/21 10/01/21 21:51 22:43 23:44 Glucose POC Glucose 592 H* 549 H* 504 H* POC Glucose (other) 10/02/21 10/02/21 10/02/21 00:36 00:43 01:42 Glucose 470 H* POC Glucose 425 H* 394 H* POC Glucose (other) 10/02/21 10/02/21 10/02/21 02:41 03:35 03:49 Glucose 344 H* POC Glucose 441 H* 339 H* POC Glucose (other) 10/02/21 10/02/21 10/02/21 04:41 05:45 06:43 Glucose POC Glucose 277 H 231 H 194 H POC Glucose (other) 10/02/21 10/02/21 10/02/21 07:48 08:44 09:36 Glucose 151 H POC Glucose 178 H 124 H POC Glucose (other) 10/02/21 10/02/21 11:05 12:12 Glucose POC Glucose 98 135 H POC Glucose (other) OUTPATIENT ANTIDIABETIC REGIMEN: * Relion 70/30 65 units w/ breakfast + 40 units w/ dinner * Metformin 1gm PO BID * Glipizide 5mg PO BID * A1c = 11.7% 10/01/21 ASSESSMENT: * Poorly controlled type 2 diabetic admitted for COVID viral pna, severe hyperglycemia, AG acidosis, GIBSON * Patient was given fluid resuscitation and started on IV insulin drip per DKA/HHS protocol * BSGs well controlled w/ insulin drip. BSG less than 200 this AM. Patient's AG has resolved. Patient presented with normal bicarb and vpH. * IV fluids containing dextrose stopped this AM due to mod-severe ARDS, provider wishing to restrict fluids * IV steroids continue, pt will not be able to take PO given oxygen requirements. * Recommend continuing IV insulin drip for now given severe stressors and uncertain insulin needs. PLAN FOR INPATIENT GLYCEMIC CONTROL: * Hold outpatient oral diabetes medications (metformin, glipizide) * Continue IV insulin drip per protocol, reduce insulin infusion rate 50% when dextrose IV fluids stopped. Change goal range to 120-180mg/dL * Bolus insulin * Nutritional / Prandial insulin per carb ratio calculated by IV insulin rate adjustment calculator PLAN FOR DISCHARGE: * to be determined
[2021-10-02 13:46] LABS: Calcium 7.9 mg/dl (8.5-10.1); Creatinine Clr Calc Pharmacy 85.4 ml/min; Est GFR (African American) 88.1 ml/min; Est GFR (Non-African American) 76.1 ml/min; Magnesium 2.4 mg/dl (1.8-2.4); Potassium 4.6 mmol/L (3.5-5.1)
[2021-10-02 13:58] LABS: Phosphorus 1.5 mg/dl (2.5-4.9)
[2021-10-02] MEDS ORDERED: FUROSEMIDE INJ 20 MG/2 ML VIAL IV ONE (14:13)
[2021-10-02] MEDS ORDERED: POTASSIUM PHOS 3 MMOL/1 ML INFUSION IV STA (14:13)
[2021-10-02] MEDS ORDERED: POTASSIUM PHOSPHATE 15 MMOL in SODIUM CHLORIDE 0.9% 250 ML IV ONE (14:30)
[2021-10-02] MEDS ORDERED: BARICITINIB COMMUNICATION ONE (14:45)
[2021-10-02] MEDS: 4mg Daily x 14 days (eGFR >60 mL/min/1.73m2) PO SCH (15:30)
--- NOTE | 2021-10-02 15:48 | Ultrasound Report ---
ULTRASOUND BILATERAL LOWER EXTREMITY VENOUS CLINICAL HISTORY: Covid. Lower extremity edema. COMPARISON STUDY: No priors. TECHNIQUE: Portable real-time, grayscale, and color Doppler sonography of the deep veins of the right and left lower extremity was performed from the inguinal crease to the calf. Compression and augment ation were utilized. FINDINGS: There is no sonographic evidence of deep venous thrombosis identified in the right or left lower extremity. The common femoral, superficial femoral, and popliteal veins are patent and normally compressible bilaterally. The greater saphenous vein and the profunda femoris vein at the junction w ith the common femoral vein are clear in both legs. The visualized calf veins are patent bilaterally. IMPRESSION: There is no sonographic evidence of deep venous thrombosis identified in the right or lef t lower extremity. ACT 112: Negative or not required by law. Electronically signed by: Kristian Quintero M.D. 10/02/2021 3:46 PM
[2021-10-02 16:37] LABS: Base Excess ABG 2.9 mEq/L (-9-1.8); HCO3 ABG 26 mmol/L (19-24); Oxygen Saturation ABG 92.2 % (90-95); PCO2 ABG 37 mmHg (35-46); PO2 ABG 60 mmHg (80-95); pH ABG 7.47 (7.35-7.45)
[2021-10-02 16:39] LABS: Allen Test FiO2 100% (Pos)
[2021-10-02] MEDS: REMDESIVIR 100 MG in SODIUM CHLORIDE 0.9% 230 ML IV SCH (19:41)
[2021-10-02] MEDS: ENOXAPARIN 100 MG/1ML SYR SQ SCH (19:46)
[2021-10-02] MEDS: SODIUM CHLORIDE 0.9% 10ML FLUSH IV SCH (21:04)
[2021-10-03 00:43] LABS: Appearance Urine Clear (Clear); Bacteria Urine Automated Negative (Negative); Bilirubin Urine Negative (Negative); Blood Urine 1+ (Negative); Color Urine Yellow; Glucose Urine UA Negative (Negative); Ketones Urine 1+ (Negative); Leukocyte Esterase Urine Negative (Negative); Nitrite Urine Negative (Negative); Protein Urine 1+ (Negative); RBC Urine Automated 0-4 /hpf (0-4); Specific Gravity Urine 1.025 (1.000-1.030); Urobilinogen Urine Negative (Negative); pH Urine 5.5 (4.5-7.5)
[2021-10-03] MEDS: LEVOTHYROXINE SODIUM 100 MCG TABLET PO SCH (05:15)
[2021-10-03] MEDS ORDERED: FUROSEMIDE INJ 20 MG/2 ML VIAL IV ONE (07:25)
[2021-10-03 07:56] LABS: Albumin Globulin Ratio 0.5 (0.9-2); Albumin Level 2.3 gm/dl (3.4-5.0); BUN Creatinine Ratio 36.5 (10-20); Bilirubin,Total 0.5 mg/dl (0.2-1); Calcium 8.3 mg/dl (8.5-10.1); Creatinine Clr Calc Pharmacy 83.7 ml/min; Est GFR (African American) 85.7 ml/min; Globulin 4.5 gm/dl (2.5-4.0); Magnesium 2.9 mg/dl (1.8-2.4); Phosphorus 2.4 mg/dl (2.5-4.9); Potassium 4.2 mmol/L (3.5-5.1); Total Protein 6.8 gm/dl (6.4-8.2)
[2021-10-03] MEDS: ENOXAPARIN 100 MG/1ML SYR SQ SCH ×2 (09:02→21:31)
[2021-10-03] MEDS: dexAMETHasone 6 MG in SYRINGE 0 ML IV SCH (09:03)
[2021-10-03] MEDS: 4mg Daily x 14 days (eGFR >60 mL/min/1.73m2) PO SCH (09:03)
[2021-10-03] MEDS: FAMOTIDINE 20 MG in SYRINGE 3 ML IV SCH ×2 (09:04→20:44)
--- NOTE | 2021-10-03 09:12 | Hospitalist Progress Note ---
Date of Service October 03, 2021 Assessment & Plan (1) Acute respiratory failure with hypoxia: Plan: still requiring 60L and 100%, breathing is more labored this morning was on NIPPV all night, she was not very comfortable with it laying on left side intermittently, she cannot lay prone give Lasix 20mg IV this morning, monitor UO with ricardo, want more negative fluid balance treat COVID with dexamethasone, Remdesivir, Baricitinib having some intermittent chest pain, pleuritic, did not get CTA on admission so PE is not ruled out venous dopplers were negative for DVT continue full dose Lovenox for now, not stable enough to send for CTA chest right now will have Dr. Longoria evaluate her today (2) COVID-19: Plan: sick for over a week, viral pneumonia on CXR dexamethasone 6mg IV daily, day 3 Remdesivir IV daily, day 3 Baricitinib day 2 looks worse today, breathing more labored giving Lasix 20mg IV and getting portable CXR (3) DKA (diabetic ketoacidosis): Plan: anion gap closed quickly with insulin drip sugars are < 200, stopped IV fluids on 09/02 in the morning to keep lungs dry DKA due to her illness and not taking diabetes medications for a week, typically on 70/30 insulin regimen (4) Acute kidney injury: Plan: due to dehydration, prerenal Cr was 1.7 on admission, down to 0.8 on 10/02 in afternoon after aggressive fluids placed ricardo for accurate UO and limit exertion/desaturations gave Lasix 20mg IV in evening on 10/02 and again this morning try for negative fluid balance (5) Dehydration: Plan: resolved, now euvolemic (6) Dyslipidemia: (7) Vaginal yeast infection: Plan: chronic issue due to uncontrolled diabetes will consider Diflucan depending on how bad her symptoms (8) Uncontrolled type 2 diabetes mellitus: Plan: HbA1c 11.7% will need education, she stopped taking all her medications for a week prior to admission (9) Morbid obesity: Plan: increases morbidity and mortality (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: (11) DVT prophylaxis: Plan: Lovenox BID, increased to 1mg/kg BID due to possible PE, cannot rule it out Pepcid BID Admission and Anticipated Discharge Date Admission Date: October 01, 2021 Subjective patient did not do great with NIPPV last night, felt like she could not catch her breath or take deep breaths she is working harder to breathe this morning, wants a break from NIPPV on 60L 100% she is 88-90% laying on her left side, she cannot lay prone reviewed labs, sugars are < 200, Cr is 0.88, K 4.2 not eating or drinking due to being on CPAP and concerns for needing intubated, taking pills this morning discussed that she may need to go back on NIPPV today if her saturations don't hold, will try 15L oxymask on top of the high flow Review of Systems Review of Systems: All systems reviewed & are unremarkable except as noted in Subjective Constitutional: + fatigue and + weakness; no fever Respiratory: + cough, + dyspnea, + dyspnea on exertion and + pain on inspiration; no sputum production Cardiovascular: + chest pain (intermittent, pleuritic), + chest pain at rest and + dyspnea Gastrointestinal: no abdominal pain, no nausea, no vomiting, no constipation and no diarrhea/loose stools Physical Exam Physical Exam: General: well developed, obese female, ill appearing, mild distress, very weak Neck: supple, trachea midline, normal thyroid Lungs: clear to auscultation bilaterally, shallow respirations, + tachypnea, + accessory muscle use, mild distress Heart: regular S1 and S2, no murmur, peripheral pulses normal, capillary refill normal, no edema Abdomen: soft, NT, ND, + BS, no hepatomegaly, normal to percussion Extremities: normal in appearance, no cyanosis, no petechiae, strength is 5/5 bilaterally Neuro: awake, cooperative, moves all extremities, no focal motor deficits, CN II-XII intact, sensation in extremities intact, normal speech Skin: warm, dry, no rash, normal turgor Psych: Awake, alert oriented x 3, euthymic affect Results & Data Results & Data ([facility]) Vital Signs (Past 12 Hours) Vital Signs Temp Pulse Pulse Resp BP Pulse Ox 10/03/21 07:46 36.6 C 68 25 H 107/70 95 10/03/21 07:31 85 24 90 10/03/21 04:24 36.7 C 72 20 103/78 92 10/03/21 03:25 72 27 H 92 10/02/21 22:56 68 24 91 10/02/21 22:48 36.8 C 69 20 104/61 90 Laboratory Results Laboratory Results - last 24 hr 10/02/21 10/02/21 10/02/21 08:44 09:36 11:05 ABG pH ABG pCO2 ABG pO2 ABG HCO3 ABG O2 Saturation ABG Base Excess Lucas Test VBG pH Barometric Pressure Oxygen Given Sodium 133 L Potassium 4.3 Chloride 100 Carbon Dioxide 27 Anion Gap 5.0 BUN 36 H Creatinine 1.01 Est Cr Clr Drug Dosing 72.7 Est GFR ( Amer) 72.6 Est GFR (Non-Af Amer) 62.6 BUN/Creatinine Ratio 35.4 H Glucose 151 H POC Glucose 124 H 98 Calcium 8.0 L Phosphorus 1.6 L Magnesium 2.3 Total Bilirubin AST ALT Alkaline Phosphatase Troponin I C-Reactive Protein 13.60 H Total Protein Albumin Globulin Albumin/Globulin Ratio Urine Color Urine Appearance Urine pH Ur Specific Stevenson Urine Protein Urine Glucose (UA) Urine Ketones Urine Blood Urine Nitrite Urine Bilirubin Urine Urobilinogen Ur Leukocyte Esterase Urine WBC (Auto) Urine RBC (Auto) U Hyaline Cast (Auto) U Epithel Cells (Auto) Urine Bacteria (Auto) 10/02/21 10/02/21 10/02/21 11:32 11:32 12:12 ABG pH ABG pCO2 ABG pO2 ABG HCO3 ABG O2 Saturation ABG Base Excess Lucas Test VBG pH 7.46 H Barometric Pressure Oxygen Given Sodium Cancelled Potassium Cancelled Chloride Cancelled Carbon Dioxide Cancelled Anion Gap Cancelled BUN Cancelled Creatinine Cancelled Est Cr Clr Drug Dosing Cancelled Est GFR ( Amer) Cancelled Est GFR (Non-Af Amer) Cancelled BUN/Creatinine Ratio Cancelled Glucose Cancelled POC Glucose 135 H Calcium Cancelled Phosphorus Cancelled Magnesium Cancelled Total Bilirubin AST ALT Alkaline Phosphatase Troponin I C-Reactive Protein Total Protein Albumin Globulin Albumin/Globulin Ratio Urine Color Urine Appearance Urine pH Ur Specific Stevenson Urine Protein Urine Glucose (UA) Urine Ketones Urine Blood Urine Nitrite Urine Bilirubin Urine Urobilinogen Ur Leukocyte Esterase Urine WBC (Auto) Urine RBC (Auto) U Hyaline Cast (Auto) U Epithel Cells (Auto) Urine Bacteria (Auto) 10/02/21 10/02/21 10/02/21 13:12 13:34 14:27 ABG pH ABG pCO2 ABG pO2 ABG HCO3 ABG O2 Saturation ABG Base Excess Lucas Test VBG pH Barometric Pressure Oxygen Given Sodium 134 L Potassium 4.6 Chloride 102 Carbon Dioxide 27 Anion Gap 5.0 BUN 33 H Creatinine 0.86 Est Cr Clr Drug Dosing 85.4 Est GFR ( Amer) 88.1 Est GFR (Non-Af Amer) 76.1 BUN/Creatinine Ratio 38.0 H Glucose 152 H POC Glucose 151 H 181 H Calcium 7.9 L Phosphorus 1.5 L* Magnesium 2.4 Total Bilirubin AST ALT Alkaline Phosphatase Troponin I C-Reactive Protein Total Protein Albumin Globulin Albumin/Globulin Ratio Urine Color Urine Appearance Urine pH Ur Specific Stevenson Urine Protein Urine Glucose (UA) Urine Ketones Urine Blood Urine Nitrite Urine Bilirubin Urine Urobilinogen Ur Leukocyte Esterase Urine WBC (Auto) Urine RBC (Auto) U Hyaline Cast (Auto) U Epithel Cells (Auto) Urine Bacteria (Auto) 10/02/21 10/02/21 10/02/21 15:41 16:15 16:15 ABG pH 7.47 H ABG pCO2 37 ABG pO2 60 L ABG HCO3 26 H ABG O2 Saturation 92.2 ABG Base Excess 2.9 H Lucas Test FiO2 100% VBG pH Barometric Pressure 728.6 Oxygen Given POS Sodium Potassium Chloride Carbon Dioxide Anion Gap BUN Creatinine Est Cr Clr Drug Dosing Est GFR ( Amer) Est GFR (Non-Af Amer) BUN/Creatinine Ratio Glucose POC Glucose 164 H Calcium Phosphorus Magnesium Total Bilirubin AST ALT Alkaline Phosphatase Troponin I < 0.015 C-Reactive Protein Total Protein Albumin Globulin Albumin/Globulin Ratio Urine Color Urine Appearance Urine pH Ur Specific Stevenson Urine Protein Urine Glucose (UA) Urine Ketones Urine Blood Urine Nitrite Urine Bilirubin Urine Urobilinogen Ur Leukocyte Esterase Urine WBC (Auto) Urine RBC (Auto) U Hyaline Cast (Auto) U Epithel Cells (Auto) Urine Bacteria (Auto) 10/02/21 10/02/21 10/02/21 16:44 18:11 19:18 ABG pH ABG pCO2 ABG pO2 ABG HCO3 ABG O2 Saturation ABG Base Excess Lucas Test VBG pH Barometric Pressure Oxygen Given Sodium Potassium Chloride Carbon Dioxide Anion Gap BUN Creatinine Est Cr Clr Drug Dosing Est GFR ( Amer) Est GFR (Non-Af Amer) BUN/Creatinine Ratio Glucose POC Glucose 177 H 183 H 197 H Calcium Phosphorus Magnesium Total Bilirubin AST ALT Alkaline Phosphatase Troponin I C-Reactive Protein Total Protein Albumin Globulin Albumin/Globulin Ratio Urine Color Urine Appearance Urine pH Ur Specific Stevenson Urine Protein Urine Glucose (UA) Urine Ketones Urine Blood Urine Nitrite Urine Bilirubin Urine Urobilinogen Ur Leukocyte Esterase Urine WBC (Auto) Urine RBC (Auto) U Hyaline Cast (Auto) U Epithel Cells (Auto) Urine Bacteria (Auto) 10/02/21 10/02/21 10/02/21 20:07 20:59 22:07 ABG pH ABG pCO2 ABG pO2 ABG HCO3 ABG O2 Saturation ABG Base Excess Lucas Test VBG pH Barometric Pressure Oxygen Given Sodium Potassium Chloride Carbon Dioxide Anion Gap BUN Creatinine Est Cr Clr Drug Dosing Est GFR ( Amer) Est GFR (Non-Af Amer) BUN/Creatinine Ratio Glucose POC Glucose 191 H 182 H 176 H Calcium Phosphorus Magnesium Total Bilirubin AST ALT Alkaline Phosphatase Troponin I C-Reactive Protein Total Protein Albumin Globulin Albumin/Globulin Ratio Urine Color Urine Appearance Urine pH Ur Specific Stevenson Urine Protein Urine Glucose (UA) Urine Ketones Urine Blood Urine Nitrite Urine Bilirubin Urine Urobilinogen Ur Leukocyte Esterase Urine WBC (Auto) Urine RBC (Auto) U Hyaline Cast (Auto) U Epithel Cells (Auto) Urine Bacteria (Auto) 10/03/21 10/03/21 10/03/21 00:12 00:15 01:59 ABG pH ABG pCO2 ABG pO2 ABG HCO3 ABG O2 Saturation ABG Base Excess Lucas Test VBG pH Barometric Pressure Oxygen Given Sodium Potassium Chloride Carbon Dioxide Anion Gap BUN Creatinine Est Cr Clr Drug Dosing Est GFR ( Amer) Est GFR (Non-Af Amer) BUN/Creatinine Ratio Glucose POC Glucose 180 H 188 H Calcium Phosphorus Magnesium Total Bilirubin AST ALT Alkaline Phosphatase Troponin I C-Reactive Protein Total Protein Albumin Globulin Albumin/Globulin Ratio Urine Color Yellow Urine Appearance Clear Urine pH 5.5 Ur Specific Stevenson 1.025 Urine Protein 1+ H Urine Glucose (UA) Negative Urine Ketones 1+ H Urine Blood 1+ H Urine Nitrite Negative Urine Bilirubin Negative Urine Urobilinogen Negative Ur Leukocyte Esterase Negative Urine WBC (Auto) 1-5 Urine RBC (Auto) 0-4 U Hyaline Cast (Auto) 1-5 U Epithel Cells (Auto) 10-20 H Urine Bacteria (Auto) Negative 10/03/21 10/03/21 10/03/21 03:00 04:07 05:03 ABG pH ABG pCO2 ABG pO2 ABG HCO3 ABG O2 Saturation ABG Base Excess Lucas Test VBG pH Barometric Pressure Oxygen Given Sodium Potassium Chloride Carbon Dioxide Anion Gap BUN Creatinine Est Cr Clr Drug Dosing Est GFR ( Amer) Est GFR (Non-Af Amer) BUN/Creatinine Ratio Glucose POC Glucose 184 H 189 H 159 H Calcium Phosphorus Magnesium Total Bilirubin AST ALT Alkaline Phosphatase Troponin I C-Reactive Protein Total Protein Albumin Globulin Albumin/Globulin Ratio Urine Color Urine Appearance Urine pH Ur Specific Stevenson Urine Protein Urine Glucose (UA) Urine Ketones Urine Blood Urine Nitrite Urine Bilirubin Urine Urobilinogen Ur Leukocyte Esterase Urine WBC (Auto) Urine RBC (Auto) U Hyaline Cast (Auto) U Epithel Cells (Auto) Urine Bacteria (Auto) 10/03/21 10/03/21 10/03/21 06:12 06:23 07:14 ABG pH ABG pCO2 ABG pO2 ABG HCO3 ABG O2 Saturation ABG Base Excess Lucas Test VBG pH Barometric Pressure Oxygen Given Sodium 135 L Potassium 4.2 Chloride 103 Carbon Dioxide 28 Anion Gap 4.0 BUN 32 H Creatinine 0.88 Est Cr Clr Drug Dosing 83.7 Est GFR ( Amer) 85.7 Est GFR (Non-Af Amer) 74.0 BUN/Creatinine Ratio 36.5 H Glucose 165 H POC Glucose 169 H 153 H Calcium 8.3 L Phosphorus 2.4 L Magnesium 2.9 H Total Bilirubin 0.5 AST 63 H ALT 40 Alkaline Phosphatase 85 Troponin I C-Reactive Protein Total Protein 6.8 D Albumin 2.3 L Globulin 4.5 H Albumin/Globulin Ratio 0.5 L Urine Color Urine Appearance Urine pH Ur Specific Stevenson Urine Protein Urine Glucose (UA) Urine Ketones Urine Blood Urine Nitrite Urine Bilirubin Urine Urobilinogen Ur Leukocyte Esterase Urine WBC (Auto) Urine RBC (Auto) U Hyaline Cast (Auto) U Epithel Cells (Auto) Urine Bacteria (Auto) 10/03/21 08:29 ABG pH ABG pCO2 ABG pO2 ABG HCO3 ABG O2 Saturation ABG Base Excess Lucas Test VBG pH Barometric Pressure Oxygen Given Sodium Potassium Chloride Carbon Dioxide Anion Gap BUN Creatinine Est Cr Clr Drug Dosing Est GFR ( Amer) Est GFR (Non-Af Amer) BUN/Creatinine Ratio Glucose POC Glucose 152 H Calcium Phosphorus Magnesium Total Bilirubin AST ALT Alkaline Phosphatase Troponin I C-Reactive Protein Total Protein Albumin Globulin Albumin/Globulin Ratio Urine Color Urine Appearance Urine pH Ur Specific Stevenson Urine Protein Urine Glucose (UA) Urine Ketones Urine Blood Urine Nitrite Urine Bilirubin Urine Urobilinogen Ur Leukocyte Esterase Urine WBC (Auto) Urine RBC (Auto) U Hyaline Cast (Auto) U Epithel Cells (Auto) Urine Bacteria (Auto) Medications Administered Current Inpatient Medications Acetaminophen (Acetaminophen 325 Mg Tab) 650 mg PO Q4H PRN PRN Reason: Pain or Fever Stop: 10/31/21 22:07 Baricitinib (4mg Daily X 14 Days (Egfr >60 Ml/Min/1.73m2)) 4 mg PO DAILY JERRELL; Protocol Stop: 10/16/21 14:59 Last Admin: 10/03/21 09:03 Dose: 4 mg Documented by: Dextrose (Dextrose 50% 50 Ml Syringe) 25 - 50 ml IV UD PRN; Protocol PRN Reason: Hypoglycemia Protocol Stop: 10/31/21 19:23 Enoxaparin Sodium (Enoxaparin 100 Mg/1ml Syr) 100 mg SQ Q12H JERRELL Stop: 11/01/21 20:59 Last Admin: 10/03/21 09:02 Dose: 100 mg Documented by: Glucagon (Glucagon For Inj 1 Mg Vial) 1 mg SQ UD PRN; Protocol PRN Reason: Hypoglycemia Protocol Stop: 10/31/21 19:23 Glucose (Glucose 10 Tabs/Tube) 4 - 8 tabs PO UD PRN; Protocol PRN Reason: Hypoglycemia Protocol Stop: 10/31/21 19:23 Glucose (Glucose 40% Gel 15 Gm Tube) 15 - 30 gm PO UD PRN; Protocol PRN Reason: Hypoglycemia Protocol Stop: 10/31/21 19:23 Insulin Human Regular 250 (units/ Sodium Chloride) 250 mls @ 6.3 mls/hr IV .Q24H JERRELL; Protocol Stop: 10/31/21 19:29 Last Titration: 10/03/21 08:34 Dose: 6.3 units/hr, 6.3 mls/hr Documented by: Dexamethasone 6 mg/ Syringe 1.5 mls @ 1 mls/min IV DAILY JERRELL Stop: 10/12/21 08:59 Last Admin: 10/03/21 09:03 Dose: 1 mls/min Documented by: Remdesivir 100 mg/ Sodium (Chloride) 250 mls @ 250 mls/hr IV Q24H JERRELL; Protocol Stop: 10/05/21 20:59 Last Infusion: 10/02/21 21:03 Dose: Infused Documented by: Famotidine 20 mg/ Syringe 5 mls @ 2.5 mls/min IV BID [facility] Stop: 11/01/21 08:59 Last Admin: 10/03/21 09:04 Dose: 2.5 mls/min Documented by: Insulin Aspart (Insulin Aspart Per Unit) 0 units SC ACHS [facility] Stop: 10/31/21 20:59 Last Admin: 10/02/21 21:05 Dose: Not Given Documented by: Insulin Glargine (Insulin Glargine Solostar 100 Units/Ml 3 Ml Pen) 20 units SC BID [facility] Stop: 11/02/21 08:59 Levothyroxine Sodium (Levothyroxine Sodium 100 Mcg Tablet) 100 mcg PO DAILYBB [facility] Stop: 11/01/21 06:29 Last Admin: 10/03/21 05:15 Dose: Not Given Documented by: Miscellaneous (Carbohydrates For Hypoglycemia ) 15 - 30 gm PO UD PRN PRN Reason: Hypoglycemia Protocol Stop: 10/31/21 19:23 Miscellaneous Information (Pharmacy Glycemic Mgmt Consult) 1 ea N/A UD PRN PRN Reason: Consult Stop: 10/31/21 20:20 Ondansetron HCl (Ondansetron Inj 2 Mg/Ml 2 Ml Vial) 4 mg IV Q6H PRN PRN Reason: Nausea Stop: 10/31/21 22:07 Polyethylene Glycol (Polyethylene (Miralax) 17 Gm Pack) 17 gm PO DAILY PRN PRN Reason: Constipation Stop: 10/31/21 22:07 Sodium Chloride (Sodium Chloride 0.9% 10ml Flush) 30 ml IV Q24H [facility] Stop: 10/05/21 20:01 Last Admin: 10/02/21 21:04 Dose: 30 ml Documented by: PG Care Time/CCT Total # of Minutes Spent Total Time Spent: 35 Total Time Spent with Patient: Total time spent is greater than 50% in coordination of care (as documented) at patient's floor/unit and/or counseling patient: Critical Care Time: Yes Total Critical Care Time: 35 842 to 917 AM This case had a high probability of a clinically significant, sudden, or life threatening deterioration of this patient's condition which required my full and direct attention, intervention and personal management. 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
[2021-10-03] MEDS: INSULIN GLARGINE SOLOSTAR 100 UNITS/ML 3 ML PEN SC SCH ×2 (09:25→21:41)
[2021-10-03] MEDS: INSULIN ASPART PER UNIT SC SCH ×4 (09:26→21:40)
--- NOTE | 2021-10-03 09:41 | XRay Report ---
XR chest 1V portable CLINICAL HISTORY: hypoxia COMPARISON STUDY: Chest radiograph October 01, 2021. FINDINGS: Lung volumes are diminished. This is unchanged. No pneumothorax or pleural effusion is iden tified. Bilateral airspace opacities have progressed since prior exam. Cardiomediastinal silhouette i s stable. IMPRESSION: Progression of moderate to extensive airspace opacities consistent with viral pneumonia. ACT 112: Negative or not required by law. Electronically signed by: Prasanna Bear M.D. 10/03/2021 9:40 AM
[2021-10-03] MEDS ORDERED: STAT IV Infusion **Titration per Protocol STA ×4 (12:40→14:56)
[2021-10-03] MEDS ORDERED: CISATRACURIUM BOLUS FROM BAG IV STA (12:44)
[2021-10-03] MEDS ORDERED: PROPOFOL BOLUS FROM BAG IV PRN (12:45)
[2021-10-03] MEDS ORDERED: propofoL 1,000 MG/100 ML VIAL IV SCH (12:45)
--- NOTE | 2021-10-03 13:57 | Pharmacy Report ---
Pharmacy Glycemic Short Note 2 - Date of Service October 03, 2021 - Glycemic Short BSG Results (Last 24 hours): 10/02/21 10/02/21 10/02/21 11:32 13:12 13:34 Glucose Cancelled 152 H POC Glucose 151 H 10/02/21 10/02/21 10/02/21 14:27 15:41 16:44 Glucose POC Glucose 181 H 164 H 177 H 10/02/21 10/02/21 10/02/21 18:11 19:18 20:07 Glucose POC Glucose 183 H 197 H 191 H 10/02/21 10/02/21 10/03/21 20:59 22:07 00:12 Glucose POC Glucose 182 H 176 H 180 H 10/03/21 10/03/21 10/03/21 01:59 03:00 04:07 Glucose POC Glucose 188 H 184 H 189 H 10/03/21 10/03/21 10/03/21 05:03 06:12 06:23 Glucose 165 H POC Glucose 159 H 169 H 10/03/21 10/03/21 10/03/21 07:14 08:29 09:12 Glucose POC Glucose 153 H 152 H 135 H 10/03/21 10/03/21 10:58 12:15 Glucose POC Glucose 120 H 140 H OUTPATIENT ANTIDIABETIC REGIMEN: * Relion 70/30 65 units w/ breakfast + 40 units w/ dinner * Metformin 1gm PO BID * Glipizide 5mg PO BID * A1c = 11.7% 10/01/21 ASSESSMENT: 10/03: * Remains on insulin infusion with goal BSG range 120-180mg/dL. * Steroids continue and patient remains NPO. Intubated/sedated w/ NMB ordered, today. * Additional basal coverage with Lantus added this AM (wt/stress 2) to help decrease insulin infusion rates and assist with transition to SQ * Plan to continue insulin infusion per calculator given numerous acute changes and stressors unless weans itself off 10/02: * Poorly controlled type 2 diabetic admitted for COVID viral pna, severe hyperglycemia, AG acidosis, GIBSON * Patient was given fluid resuscitation and started on IV insulin drip per DKA/HHS protocol * BSGs well controlled w/ insulin drip. BSG less than 200 this AM. Patient's AG has resolved. Patient presented with normal bicarb and vpH. * IV fluids containing dextrose stopped this AM due to mod-severe ARDS, provider wishing to restrict fluids * IV steroids continue, pt will not be able to take PO given oxygen requirements. * Recommend continuing IV insulin drip for now given severe stressors and uncertain insulin needs. PLAN FOR INPATIENT GLYCEMIC CONTROL: * Hold outpatient oral diabetes medications (metformin, glipizide) * Basal insulin: * Continue IV insulin drip per protocol * Lantus 20 units BID * Bolus insulin * Nutritional / Prandial insulin per carb ratio calculated by IV insulin rate adjustment calculator PLAN FOR DISCHARGE: * to be determined
--- NOTE | 2021-10-03 13:59 | XRay Report ---
XR chest 1V portable HISTORY: Respiratory failure. intubation, central line, feeding tube placement COMPARISON: Chest 10/03/2020. FINDINGS: No pneumothorax. Suspect trace bilateral pleural effusions. The heart is top normal in size . There are patchy bilateral airspace opacities which have slightly improved in the interval. Endotra cheal tube terminates 2 cm from the jaswant. Nasogastric tube terminates below the diaphragm. The tip is not included on this study. Right subclavian central venous catheter terminates at the superior ca voatrial junction. IMPRESSION: 1. Satisfactory support line placement. 2. Slight improvement in the multifocal airspace opacities. ACT 112: Negative or not required by law. Electronically signed by: Gaston Rasmussen M.D. 10/03/2021 1:58 PM
[2021-10-03] MEDS: CISATRACURIUM BESYLATE 40 MG in 0.9 % SODIUM CHLORIDE 80 ML IV SCH ×4 (14:15→23:00)
[2021-10-03] MEDS: fentaNYL citrate 2,500 MCG/250 ML BAG IV SCH (14:15)
[2021-10-03] MEDS: INSULIN REGULAR 250 UNITS in SODIUM CHLORIDE 0.9% 247.5 ML IV SCH (14:16)
[2021-10-03] MEDS: ARTIFICIAL TEARS OP OINT 3.5 GM TUBE OP SCH ×3 (14:17→20:44)
[2021-10-03] MEDS ORDERED: NOREPINEPHRINE/D5W 8 MG/508 ML IV ONE (14:39)
[2021-10-03] MEDS ORDERED: MIDAZOLAM BOLUS FROM BAG IV PRN (14:55)
[2021-10-03 14:56] LABS: iSTAT Arterial Blood Gas HCO3 27 meg/L (19-24); iSTAT Arterial Blood Gas pCO2 40 mmHg (35-46); iSTAT Arterial Blood Gas pH 7.44 (7.35-7.45); iSTAT Arterial Blood Gas pO2 48 mmHg (80-95); iSTAT Carbon Dioxide 28 mmol/L (24-31); iSTAT Site Art Line
[2021-10-03] MEDS ORDERED: NOREPINEPHRINE/D5W 8 MG/508 ML BAG IV SCH (15:00)
--- NOTE | 2021-10-03 15:01 | Procedure Note ---
Procedure Note Date of Service October 03, 2021 Note Procedure Date: Noted above Procedure: Endotracheal intubation Pre-procedure Diagnosis: Acute hypoxic respiratory failure secondary to COVID-19 pneumonia Post-procedure Diagnosis: same as above Prior to Procedure: Informed Consent: emergent Attending Staff: Abdulaziz Longoria DO The identity of the patient was confirmed and a bedside time out was performed. Description of Procedure: Patient was evaluated and required intubation for impending respiratory failure. The patient was prepared in the usual fashion. A video laryngoscope was used. A 7.5 mm inner diameter endotrachial tube was placed endotracheally to 23 cm at the teeth. A grade 1 view was obtained. The endotracheal tube was noted to pass through the vocal cords. Chest rise was bilateral. Bilateral breath sounds were heard without air sounds in the abdomen. Mist was noted in the endotracheal tube. End-tidal CO2 measurement was positive. Chest x-ray shows proper endotracheal tube placement. Complications: None Findings: Not applicable Specimens: Not applicable Estimated blood loss: Zero Coding CPT Codes Resuscitation - Resuscitation: [id number] Endotracheal Intubation, emergency ([id number]) [facility] Procedure Codes (Charges) Resuscitation Resuscitation: [id number] Endotracheal Intubation, emergency
[2021-10-03] MEDS: MIDAZOLAM HCL 125 MG/250 ML BAG IV SCH (15:03)
--- NOTE | 2021-10-03 15:08 | Procedure Note ---
Procedure Note Date of Service October 03, 2021 Note Procedure date: Noted above Procedure: Central venous access Pre-procedure indication: Need for vasoactive medication administration Post-procedure Diagnosis: same as above Prior to Procedure: Informed Consent: The risks, benefits, indications, potential complications, and alternatives were explained to the patient and verbal informed consent obtained. Attending Staff: Abdulaziz Longoria DO Resident/APC: Not applicable Skin Prep: Chlorhexidine Anesthesia: 4 mL 1% lidocaine without epinephrine The identity of the patient was confirmed and a bedside time out was performed. Description of Procedure: After sterile prep and sterile drape utilizing standard sterile technique the superficial skin of the right subclavian area was anesthetized. The target vessel was identified and entered with an 18-gauge needle. Dark venous blood return was noted. A guidewire was inserted through the needle and into the vessel. The needle was withdrawn and a skin saida was made. A tissue dilator was advanced via Seldinger technique and removed. A triple lumen catheter was inserted via Seldinger technique and the guidewire removed. All ports david and flushed easily. A Biopatch was placed, and the catheter was secured via silk suture. A sterile dressing was then applied. Complications: None Estimated blood loss: Trace Patient tolerated the procedure well. Coding CPT Codes Tubes, Drains, and Vasc Access - Tubes, Drains, and Vasc Access: [id number] Insertion Of Non-tunneled Catheter Age 6 Yrs> ([id number]) [facility] [place], [place] Procedure Codes (Charges) Tubes, Drains, and Vasc Access Procedure 1: Tubes, Drains, and Vasc Access: [id number] Insertion Of Non-tunneled Catheter Age 6 Yrs>
--- NOTE | 2021-10-03 15:09 | Procedure Note ---
Procedure Note Date of Service October 03, 2021 Note Procedure date: Noted above Procedure: Radial artery cannulation Pre-procedure Diagnosis: Need for invasive monitoring, frequent blood draws Post-procedure Diagnosis: same as above Prior to Procedure: Informed Consent: The risks, benefits, indications, potential complications, and alternatives were explained to the patient and verbal informed consent obtained. Attending Staff: Abdulaziz Longoria DO Skin Prep: Chlorhexidine Anesthesia: 3 mL 1% lidocaine without epinephrine The identity of the patient was confirmed and a bedside time out was performed. Description of Procedure: After sterile prep and sterile drape utilizing sta ndard sterile technique the superficial skin of the right radial artery was anesthetized. The target artery was identified via dynamic ultrasound guidance and entered with a 20-gauge arrow Angiocath. Pulsatile bright red blood return was noted. Via modified Seldinger technique the self-contained guidewire was advanced and the Angiocath advanced over the guidewire. The guidewire was removed and brisk arterial blood return was noted. The pressure monitor was connected, and the arterial line was secured via commercial securement device. A sterile dressing was then applied. Complications: None Estimated blood loss: Trace Patient tolerated the procedure well. Coding CPT Codes Tubes, Drains, and Vasc Access - Tubes, Drains, and Vasc Access: [id number] Insertion Catheter, Artery ([id number]) [facility] [place] Procedure Codes (Charges) Tubes, Drains, and Vasc Access Procedure 1: Tubes, Drains, and Vasc Access: [id number] Insertion Catheter, Artery
--- NOTE | 2021-10-03 15:10 | Critical Care Consultation ---
Date of Consultation October 03, 2021 Assessment & Plan (1) Acute respiratory failure with hypoxia: Reason Critically Ill: 56-year-old female with severe hypoxic respiratory failure secondary to COVID-19 pneumonia PLAN: Neuro: Analgesia: Fentanyl Sedation: Versed Neuromuscular blockade: Nimbex Resp: Acute hypoxic respiratory failure secondary to COVID-19 pneumonia -Baricitinib ordered 10/02 -Increase Decadron to 20 mg IV daily x5 days then 10 mg daily for 5 days -Remdesivir 100 mg daily ordered 10/02 CV: Hypotension -Likely secondary to sedation transition from propofol to Versed Fluids/Renal: Electrolyte protocol ID: Monitor fever curve GI/Nutrition: Start Peptamen intense -Pepcid 20 mg twice daily for GI prophylaxis Heme: DVT prophylaxis: Lovenox 100 mg twice daily Endocrine: ICU hyperglycemia protocol Hypothyroidism -100 mcg daily Vascular access: Right subclavian placed 10/03/2021 right radial arterial line placed 10/03/2021 Code Status: Full code Disposition: ICU (2) COVID-19: (3) Morbid obesity: Supervising Physician Co-Signing Physician Notes I have personally spent 65 minutes of critical care time in the direct managemen t of this patient. This is a life/limb threatening event. This includes time spent evaluating patient, direct bedside care, chart review, placing orders, interpretation of diagnostic studies, discussion with consultants, patient, and/or family members regarding treatment decisions, as well as other required patient management activities. This time is exclusive of all separately billable procedures, and teaching time and separate from and in addition to any other critical care service time. History of Present Illness Reason for Consultation: Acute hypoxic respiratory failure COVID-19 pneumonia Attending Physician: Dale Santacruz DO History of Present Illness History is obtained from prior records largely secondary to acuity disease process. Patient is a 56-year-old female with a significant past medical history for type 2 diabetes, hypothyroidism, recent diabetic ketoacidosis, recent COVID-19 infection who had presented to the hospital on October 01 with a chief complaint of weakness and lethargy. She was found to be dehydrated in DKA and Covid positive. Her DKA by enlarge part resolved however she continued to have issues of worsening hypoxia and progressively got worse requiring noninvasive mechanical ventilation. Most recently she was started on CPAP and has been unable to eat secondary to persistent oxygen requirements with rapid desaturation when not having aggressive supplemental oxygen therapy. We discussed risks and benefits of intubation and central venous access as well as arterial line and we have opted to proceed with invasive therapy to include pronation and neuromuscular blockade. Allergies Allergy/AdvReac Type Severity Reaction Status Date / Time No Known Allergies Allergy Verified 10/01/21 19:20 Home Medications Medication Instructions Recorded Confirmed Type blood sugar diagnostic (ReliOn #10 ea 07/04/19 05/08/21 History Prime Test Strips) cholecalciferol (vitamin D3) 125 5,000 units PO HS cap 07/04/19 10/01/21 History mcg (5,000 unit) capsule cyanocobalamin (vitamin B-12) 500 500 mcg PO HS #90 tab 07/04/19 10/01/21 History mcg tablet insulin syringe-needle U-100 1 mL #100 ea 08/22/20 05/08/21 Rx 31 gauge x 5/16" (BD Insulin Syringe Ultra-Fine) insulin human U-100 NPH-regulr 40 unit SUBCUT QPM 09/10/20 10/01/21 History 70-30 mix 100 unit/mL subcutaneous susp (Novolin 70/30 U-100 Insulin) glipizide 10 mg tablet 5 mg PO BID #90 tab 10/23/20 10/01/21 Rx lisinopril 5 mg tablet 5 mg PO DAILY #90 tab 01/28/21 10/01/21 Rx multivitamin 1 tab PO DAILY 04/24/21 10/01/21 History levothyroxine 100 mcg tablet 100 mcg PO DAILY #90 tab 07/22/21 10/01/21 Rx metformin 1,000 mg tablet 1,000 mg PO BID #180 tab 07/22/21 10/01/21 Rx lovastatin 20 mg tablet 20 mg PO HS #90 tab 09/10/21 10/01/21 Rx Patient History Medical History Diabetic peripheral neuropathy Dyslipidemia Hypertension 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 Morbid obesity with body mass index (BMI) of 40.0 to 44.9 in adult Uncontrolled type 2 diabetes mellitus Vitamin D deficiency Surgical History History of colonoscopy with polypectomy 09/23 repeat 3 years History of dilation and curettage History of excision of dermoid cyst History of tooth extraction Family History Father Diabetes Colorectal cancer Family history of diabetes mellitus Brother Kidney stones Family history of diabetes mellitus Family/Other Diabetes Grandmother (Paternal) Family history of diabetes mellitus Grandfather (Paternal) Family history of diabetes mellitus Uncle Family history of diabetes mellitus Other No family history of adverse response to anesthesia Denies family history of Ovarian cancer Prostate cancer Myocardial infarction Breast cancer Social History Smoking Status: Never smoker Second Hand Exposure: No; Do You Dip or Chew Tobacco: No; Hx Alcohol Use: No Hx Substance Use: No Preferred Language: [place] Citizen Communication Ability: Unable Visual Impairment: No Limitations Hearing Ability: Normal Rn New Grad Required: No Beliefs That Will Affect Care: None marital status: Current Living Situation: Alone current occupational status: employed 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 nontoxic. Skin: Warm, dry, Head: Atraumatic Ears, nose, mouth and throat: airway obscured by BiPAP mask Cardiovascular: Normal peripheral perfusion Respiratory: Moderate respiratory distress including tachypnea and belly breathing Gastrointestinal: Non distended Musculoskeletal: No deformity Results & Data Results & Data ([facility]) Vital Signs (Past 12 Hours) Vital Signs Temp Pulse Pulse Resp BP BP Pulse Ox 10/02/21 15:04 99 H 27 H 90 10/02/21 11:02 37.1 C 78 20 139/71 89 L 10/02/21 10:55 77 20 94 10/02/21 08:21 77 20 95 10/02/21 07:40 77 10/02/21 07:35 36.7 C 77 26 H 111/66 93 10/02/21 06:15 22 86 L Laboratory Results 10/03/21 10/03/21 10/03/21 Range/Units 14:32 13:59 12:15 Sample Site Art Line POC pH 7.44 (7.35-7.45) POC pCO2 40 (35-46) mmHg POC pO2 48 L (80-95) mmHg POC HCO3 27 H (19-24) ike/L POC Total CO2 28 (24-31) mmol/L POC Base Excess 3.0 H (-9-1.8) ike/L ABG pH (7.35-7.45) ABG pCO2 (35-46) mmHg ABG pO2 (80-95) mmHg ABG HCO3 (19-24) mmol/L POC ABG O2 Sat 85.0 L (90-95) % ABG O2 Saturation (90-95) % ABG Base Excess (-9-1.8) mEq/L Lucas Test NA (Pos) Barometric Pressure mm/Hg Oxygen Given O2 Delivery Device Ventilator POC O2 Rate 20 Minute Ventilation 9.1 Tidal Volume 400 PEEP 15 Sodium (136-145) mmol/L Potassium (3.5-5.1) mmol/L Chloride (98-107) mmol/L Carbon Dioxide (21-32) mmol/L Anion Gap (3-11) BUN (7-18) mg/dl Creatinine (0.6-1.2) mg/dl Est Cr Clr Drug Dosing ml/min Est GFR ( Amer) ml/min Est GFR (Non-Af Amer) ml/min BUN/Creatinine Ratio (10-20) Glucose (70-99) mg/dl POC Glucose 130 H 140 H (70-99) mg/dl Calcium (8.5-10.1) mg/dl Phosphorus (2.5-4.9) mg/dl Magnesium (1.8-2.4) mg/dl Total Bilirubin (0.2-1) mg/dl AST (15-37) U/L ALT (12-78) Alkaline Phosphatase (45-117) U/L Troponin I (0-0.045) ng/ml Total Protein (6.4-8.2) gm/dl Albumin (3.4-5.0) gm/dl Globulin (2.5-4.0) gm/dl Albumin/Globulin Ratio (0.9-2) Urine Color Urine Appearance (Clear) Urine pH (4.5-7.5) Ur Specific [place] (1.000-1.030) Urine Protein (Negative) Urine Glucose (UA) (Negative) Urine Ketones (Negative) Urine Blood (Negative) Urine Nitrite (Negative) Urine Bilirubin (Negative) Urine Urobilinogen (Negative) Ur Leukocyte Esterase (Negative) Urine WBC (Auto) (0-5) /hpf Urine RBC (Auto) (0-4) /hpf U Hyaline Cast (Auto) (0-5) /lpf U Epithel Cells (Auto) (0-5) /lpf Urine Bacteria (Auto) (Negative) 10/03/21 10/03/21 10/03/21 Range/Units 10:58 09:12 08:29 Sample Site POC pH (7.35-7.45) POC pCO2 (35-46) mmHg POC pO2 (80-95) mmHg POC HCO3 (19-24) ike/L POC Total CO2 (24-31) mmol/L POC Base Excess (-9-1.8) ike/L ABG pH (7.35-7.45) ABG pCO2 (35-46) mmHg ABG pO2 (80-95) mmHg ABG HCO3 (19-24) mmol/L POC ABG O2 Sat (90-95) % ABG O2 Saturation (90-95) % ABG Base Excess (-9-1.8) mEq/L Lucas Test (Pos) Barometric Pressure mm/Hg Oxygen Given O2 Delivery Device POC O2 Rate Minute Ventilation Tidal Volume PEEP Sodium (136-145) mmol/L Potassium (3.5-5.1) mmol/L Chloride (98-107) mmol/L Carbon Dioxide (21-32) mmol/L Anion Gap (3-11) BUN (7-18) mg/dl Creatinine (0.6-1.2) mg/dl Est Cr Clr Drug Dosing ml/min Est GFR ( Amer) ml/min Est GFR (Non-Af Amer) ml/min BUN/Creatinine Ratio (10-20) Glucose (70-99) mg/dl POC Glucose 120 H 135 H 152 H (70-99) mg/dl Calcium (8.5-10.1) mg/dl Phosphorus (2.5-4.9) mg/dl Magnesium (1.8-2.4) mg/dl Total Bilirubin (0.2-1) mg/dl AST (15-37) U/L ALT (12-78) Alkaline Phosphatase (45-117) U/L Troponin I (0-0.045) ng/ml Total Protein (6.4-8.2) gm/dl Albumin (3.4-5.0) gm/dl Globulin (2.5-4.0) gm/dl Albumin/Globulin Ratio (0.9-2) Urine Color Urine Appearance (Clear) Urine pH (4.5-7.5) Ur Specific [place] (1.000-1.030) Urine Protein (Negative) Urine Glucose (UA) (Negative) Urine Ketones (Negative) Urine Blood (Negative) Urine Nitrite (Negative) Urine Bilirubin (Negative) Urine Urobilinogen (Negative) Ur Leukocyte Esterase (Negative) Urine WBC (Auto) (0-5) /hpf Urine RBC (Auto) (0-4) /hpf U Hyaline Cast (Auto) (0-5) /lpf U Epithel Cells (Auto) (0-5) /lpf Urine Bacteria (Auto) (Negative) 10/03/21 10/03/21 10/03/21 Range/Units 07:14 06:23 06:12 Sample Site POC pH (7.35-7.45) POC pCO2 (35-46) mmHg POC pO2 (80-95) mmHg POC HCO3 (19-24) ike/L POC Total CO2 (24-31) mmol/L POC Base Excess (-9-1.8) ike/L ABG pH (7.35-7.45) ABG pCO2 (35-46) mmHg ABG pO2 (80-95) mmHg ABG HCO3 (19-24) mmol/L POC ABG O2 Sat (90-95) % ABG O2 Saturation (90-95) % ABG Base Excess (-9-1.8) mEq/L Lucas Test (Pos) Barometric Pressure mm/Hg Oxygen Given O2 Delivery Device POC O2 Rate Minute Ventilation Tidal Volume PEEP Sodium 135 L (136-145) mmol/L Potassium 4.2 (3.5-5.1) mmol/L Chloride 103 (98-107) mmol/L Carbon Dioxide 28 (21-32) mmol/L Anion Gap 4.0 (3-11) BUN 32 H (7-18) mg/dl Creatinine 0.88 (0.6-1.2) mg/dl Est Cr Clr Drug Dosing 83.7 ml/min Est GFR ( Amer) 85.7 ml/min Est GFR (Non-Af Amer) 74.0 ml/min BUN/Creatinine Ratio 36.5 H (10-20) Glucose 165 H (70-99) mg/dl POC Glucose 153 H 169 H (70-99) mg/dl Calcium 8.3 L (8.5-10.1) mg/dl Phosphorus 2.4 L (2.5-4.9) mg/dl Magnesium 2.9 H (1.8-2.4) mg/dl Total Bilirubin 0.5 (0.2-1) mg/dl AST 63 H (15-37) U/L ALT 40 (12-78) Alkaline Phosphatase 85 (45-117) U/L Troponin I (0-0.045) ng/ml Total Protein 6.8 D (6.4-8.2) gm/dl Albumin 2.3 L (3.4-5.0) gm/dl Globulin 4.5 H (2.5-4.0) gm/dl Albumin/Globulin Ratio 0.5 L (0.9-2) Urine Color Urine Appearance (Clear) Urine pH (4.5-7.5) Ur Specific [place] (1.000-1.030) Urine Protein (Negative) Urine Glucose (UA) (Negative) Urine Ketones (Negative) Urine Blood (Negative) Urine Nitrite (Negative) Urine Bilirubin (Negative) Urine Urobilinogen (Negative) Ur Leukocyte Esterase (Negative) Urine WBC (Auto) (0-5) /hpf Urine RBC (Auto) (0-4) /hpf U Hyaline Cast (Auto) (0-5) /lpf U Epithel Cells (Auto) (0-5) /lpf Urine Bacteria (Auto) (Negative) 10/03/21 10/03/21 10/03/21 Range/Units 05:03 04:07 03:00 Sample Site POC pH (7.35-7.45) POC pCO2 (35-46) mmHg POC pO2 (80-95) mmHg POC HCO3 (19-24) ike/L POC Total CO2 (24-31) mmol/L POC Base Excess (-9-1.8) ike/L ABG pH (7.35-7.45) ABG pCO2 (35-46) mmHg ABG pO2 (80-95) mmHg ABG HCO3 (19-24) mmol/L POC ABG O2 Sat (90-95) % ABG O2 Saturation (90-95) % ABG Base Excess (-9-1.8) mEq/L Lucas Test (Pos) Barometric Pressure mm/Hg Oxygen Given O2 Delivery Device POC O2 Rate Minute Ventilation Tidal Volume PEEP Sodium (136-145) mmol/L Potassium (3.5-5.1) mmol/L Chloride (98-107) mmol/L Carbon Dioxide (21-32) mmol/L Anion Gap (3-11) BUN (7-18) mg/dl Creatinine (0.6-1.2) mg/dl Est Cr Clr Drug Dosing ml/min Est GFR ( Amer) ml/min Est GFR (Non-Af Amer) ml/min BUN/Creatinine Ratio (10-20) Glucose (70-99) mg/dl POC Glucose 159 H 189 H 184 H (70-99) mg/dl Calcium (8.5-10.1) mg/dl Phosphorus (2.5-4.9) mg/dl Magnesium (1.8-2.4) mg/dl Total Bilirubin (0.2-1) mg/dl AST (15-37) U/L ALT (12-78) Alkaline Phosphatase (45-117) U/L Troponin I (0-0.045) ng/ml Total Protein (6.4-8.2) gm/dl Albumin (3.4-5.0) gm/dl Globulin (2.5-4.0) gm/dl Albumin/Globulin Ratio (0.9-2) Urine Color Urine Appearance (Clear) Urine pH (4.5-7.5) Ur Specific [place] (1.000-1.030) Urine Protein (Negative) Urine Glucose (UA) (Negative) Urine Ketones (Negative) Urine Blood (Negative) Urine Nitrite (Negative) Urine Bilirubin (Negative) Urine Urobilinogen (Negative) Ur Leukocyte Esterase (Negative) Urine WBC (Auto) (0-5) /hpf Urine RBC (Auto) (0-4) /hpf U Hyaline Cast (Auto) (0-5) /lpf U Epithel Cells (Auto) (0-5) /lpf Urine Bacteria (Auto) (Negative) 10/03/21 10/03/21 10/03/21 Range/Units 01:59 00:15 00:12 Sample Site POC pH (7.35-7.45) POC pCO2 (35-46) mmHg POC pO2 (80-95) mmHg POC HCO3 (19-24) ike/L POC Total CO2 (24-31) mmol/L POC Base Excess (-9-1.8) ike/L ABG pH (7.35-7.45) ABG pCO2 (35-46) mmHg ABG pO2 (80-95) mmHg ABG HCO3 (19-24) mmol/L POC ABG O2 Sat (90-95) % ABG O2 Saturation (90-95) % ABG Base Excess (-9-1.8) mEq/L Lucas Test (Pos) Barometric Pressure mm/Hg Oxygen Given O2 Delivery Device POC O2 Rate Minute Ventilation Tidal Volume PEEP Sodium (136-145) mmol/L Potassium (3.5-5.1) mmol/L Chloride (98-107) mmol/L Carbon Dioxide (21-32) mmol/L Anion Gap (3-11) BUN (7-18) mg/dl Creatinine (0.6-1.2) mg/dl Est Cr Clr Drug Dosing ml/min Est GFR ( Amer) ml/min Est GFR (Non-Af Amer) ml/min BUN/Creatinine Ratio (10-20) Glucose (70-99) mg/dl POC Glucose 188 H 180 H (70-99) mg/dl Calcium (8.5-10.1) mg/dl Phosphorus (2.5-4.9) mg/dl Magnesium (1.8-2.4) mg/dl Total Bilirubin (0.2-1) mg/dl AST (15-37) U/L ALT (12-78) Alkaline Phosphatase (45-117) U/L Troponin I (0-0.045) ng/ml Total Protein (6.4-8.2) gm/dl Albumin (3.4-5.0) gm/dl Globulin (2.5-4.0) gm/dl Albumin/Globulin Ratio (0.9-2) Urine Color Yellow Urine Appearance Clear (Clear) Urine pH 5.5 (4.5-7.5) Ur Specific [place] 1.025 (1.000-1.030) Urine Protein 1+ H (Negative) Urine Glucose (UA) Negative (Negative) Urine Ketones 1+ H (Negative) Urine Blood 1+ H (Negative) Urine Nitrite Negative (Negative) Urine Bilirubin Negative (Negative) Urine Urobilinogen Negative (Negative) Ur Leukocyte Esterase Negative (Negative) Urine WBC (Auto) 1-5 (0-5) /hpf Urine RBC (Auto) 0-4 (0-4) /hpf U Hyaline Cast (Auto) 1-5 (0-5) /lpf U Epithel Cells (Auto) 10-20 H (0-5) /lpf Urine Bacteria (Auto) Negative (Negative) 10/02/21 10/02/21 10/02/21 Range/Units 22:07 20:59 20:07 Sample Site POC pH (7.35-7.45) POC pCO2 (35-46) mmHg POC pO2 (80-95) mmHg POC HCO3 (19-24) ike/L POC Total CO2 (24-31) mmol/L POC Base Excess (-9-1.8) ike/L ABG pH (7.35-7.45) ABG pCO2 (35-46) mmHg ABG pO2 (80-95) mmHg ABG HCO3 (19-24) mmol/L POC ABG O2 Sat (90-95) % ABG O2 Saturation (90-95) % ABG Base Excess (-9-1.8) mEq/L Lucas Test (Pos) Barometric Pressure mm/Hg Oxygen Given O2 Delivery Device POC O2 Rate Minute Ventilation Tidal Volume PEEP Sodium (136-145) mmol/L Potassium (3.5-5.1) mmol/L Chloride (98-107) mmol/L Carbon Dioxide (21-32) mmol/L Anion Gap (3-11) BUN (7-18) mg/dl Creatinine (0.6-1.2) mg/dl Est Cr Clr Drug Dosing ml/min Est GFR ( Amer) ml/min Est GFR (Non-Af Amer) ml/min BUN/Creatinine Ratio (10-20) Glucose (70-99) mg/dl POC Glucose 176 H 182 H 191 H (70-99) mg/dl Calcium (8.5-10.1) mg/dl Phosphorus (2.5-4.9) mg/dl Magnesium (1.8-2.4) mg/dl Total Bilirubin (0.2-1) mg/dl AST (15-37) U/L ALT (12-78) Alkaline Phosphatase (45-117) U/L Troponin I (0-0.045) ng/ml Total Protein (6.4-8.2) gm/dl Albumin (3.4-5.0) gm/dl Globulin (2.5-4.0) gm/dl Albumin/Globulin Ratio (0.9-2) Urine Color Urine Appearance (Clear) Urine pH (4.5-7.5) Ur Specific [place] (1.000-1.030) Urine Protein (Negative) Urine Glucose (UA) (Negative) Urine Ketones (Negative) Urine Blood (Negative) Urine Nitrite (Negative) Urine Bilirubin (Negative) Urine Urobilinogen (Negative) Ur Leukocyte Esterase (Negative) Urine WBC (Auto) (0-5) /hpf Urine RBC (Auto) (0-4) /hpf U Hyaline Cast (Auto) (0-5) /lpf U Epithel Cells (Auto) (0-5) /lpf Urine Bacteria (Auto) (Negative) 10/02/21 10/02/21 10/02/21 Range/Units 19:18 18:11 16:44 Sample Site POC pH (7.35-7.45) POC pCO2 (35-46) mmHg POC pO2 (80-95) mmHg POC HCO3 (19-24) ike/L POC Total CO2 (24-31) mmol/L POC Base Excess (-9-1.8) ike/L ABG pH (7.35-7.45) ABG pCO2 (35-46) mmHg ABG pO2 (80-95) mmHg ABG HCO3 (19-24) mmol/L POC ABG O2 Sat (90-95) % ABG O2 Saturation (90-95) % ABG Base Excess (-9-1.8) mEq/L Lucas Test (Pos) Barometric Pressure mm/Hg Oxygen Given O2 Delivery Device POC O2 Rate Minute Ventilation Tidal Volume PEEP Sodium (136-145) mmol/L Potassium (3.5-5.1) mmol/L Chloride (98-107) mmol/L Carbon Dioxide (21-32) mmol/L Anion Gap (3-11) BUN (7-18) mg/dl Creatinine (0.6-1.2) mg/dl Est Cr Clr Drug Dosing ml/min Est GFR ( Amer) ml/min Est GFR (Non-Af Amer) ml/min BUN/Creatinine Ratio (10-20) Glucose (70-99) mg/dl POC Glucose 197 H 183 H 177 H (70-99) mg/dl Calcium (8.5-10.1) mg/dl Phosphorus (2.5-4.9) mg/dl Magnesium (1.8-2.4) mg/dl Total Bilirubin (0.2-1) mg/dl AST (15-37) U/L ALT (12-78) Alkaline Phosphatase (45-117) U/L Troponin I (0-0.045) ng/ml Total Protein (6.4-8.2) gm/dl Albumin (3.4-5.0) gm/dl Globulin (2.5-4.0) gm/dl Albumin/Globulin Ratio (0.9-2) Urine Color Urine Appearance (Clear) Urine pH (4.5-7.5) Ur Specific [place] (1.000-1.030) Urine Protein (Negative) Urine Glucose (UA) (Negative) Urine Ketones (Negative) Urine Blood (Negative) Urine Nitrite (Negative) Urine Bilirubin (Negative) Urine Urobilinogen (Negative) Ur Leukocyte Esterase (Negative) Urine WBC (Auto) (0-5) /hpf Urine RBC (Auto) (0-4) /hpf U Hyaline Cast (Auto) (0-5) /lpf U Epithel Cells (Auto) (0-5) /lpf Urine Bacteria (Auto) (Negative) 10/02/21 10/02/21 Range/Units 16:15 16:15 Sample Site POC pH (7.35-7.45) POC pCO2 (35-46) mmHg POC pO2 (80-95) mmHg POC HCO3 (19-24) ike/L POC Total CO2 (24-31) mmol/L POC Base Excess (-9-1.8) ike/L ABG pH 7.47 H (7.35-7.45) ABG pCO2 37 (35-46) mmHg ABG pO2 60 L (80-95) mmHg ABG HCO3 26 H (19-24) mmol/L POC ABG O2 Sat (90-95) % ABG O2 Saturation 92.2 (90-95) % ABG Base Excess 2.9 H (-9-1.8) mEq/L Lucas Test FiO2 100% (Pos) Barometric Pressure 728.6 mm/Hg Oxygen Given POS O2 Delivery Device POC O2 Rate Minute Ventilation Tidal Volume PEEP Sodium (136-145) mmol/L Potassium (3.5-5.1) mmol/L Chloride (98-107) mmol/L Carbon Dioxide (21-32) mmol/L Anion Gap (3-11) BUN (7-18) mg/dl Creatinine (0.6-1.2) mg/dl Est Cr Clr Drug Dosing ml/min Est GFR ( Amer) ml/min Est GFR (Non-Af Amer) ml/min BUN/Creatinine Ratio (10-20) Glucose (70-99) mg/dl POC Glucose (70-99) mg/dl Calcium (8.5-10.1) mg/dl Phosphorus (2.5-4.9) mg/dl Magnesium (1.8-2.4) mg/dl Total Bilirubin (0.2-1) mg/dl AST (15-37) U/L ALT (12-78) Alkaline Phosphatase (45-117) U/L Troponin I < 0.015 (0-0.045) ng/ml Total Protein (6.4-8.2) gm/dl Albumin (3.4-5.0) gm/dl Globulin (2.5-4.0) gm/dl Albumin/Globulin Ratio (0.9-2) Urine Color Urine Appearance (Clear) Urine pH (4.5-7.5) Ur Specific [place] (1.000-1.030) Urine Protein (Negative) Urine Glucose (UA) (Negative) Urine Ketones (Negative) Urine Blood (Negative) Urine Nitrite (Negative) Urine Bilirubin (Negative) Urine Urobilinogen (Negative) Ur Leukocyte Esterase (Negative) Urine WBC (Auto) (0-5) /hpf Urine RBC (Auto) (0-4) /hpf U Hyaline Cast (Auto) (0-5) /lpf U Epithel Cells (Auto) (0-5) /lpf Urine Bacteria (Auto) (Negative) Coding Level of Care Code Critical Care 1st 30-74 mins Diagnoses Acute respiratory failure with hypoxia J96.01 COVID-19 U07.1 Morbid obesity E66.01
[2021-10-03] MEDS ORDERED: dexAMETHasone 20 MG in DEXTROSE 5% 25 ML IV SCH (16:30)
[2021-10-03] MEDS ORDERED: dexAMETHasone 20 MG in SYRINGE 0 ML IV SCH (16:30)
[2021-10-03] MEDS ORDERED: dexAMETHasone 14 MG in DEXTROSE 5% 25 ML IV ONE (16:45)
[2021-10-03] MEDS: ICU ELECTROLYTE REPLACEMENT PROTOCOL SCH (17:58)
--- NOTE | 2021-10-03 18:13 | Electrocardiogram Report ---
Test Reason : Blood Pressure : / mmHG Vent. Rate : 076 BPM Atrial Rate : 076 BPM P-R Int : 132 ms QRS Dur : 082 ms QT Int : 376 ms P-R-T Axes : 043 -33 037 degrees QTc Int : 423 ms Normal sinus rhythm Left axis deviation Low voltage QRS Poor R wave progression, consider anterior AK vs. lead placement vs. LVH Abnormal ECG When compared with ECG of 01-OCT-2021 18:29, No significant change was found Confirmed by Ponce Lewis ([id number]) on 10/03/2021 6:12:44 PM Referred By: REFERRED SELF Confirmed By:Dewayne Lewis
[2021-10-03] MEDS: REMDESIVIR 100 MG in SODIUM CHLORIDE 0.9% 230 ML IV SCH (20:44)
[2021-10-03] MEDS: PEPTAMEN INTENSE VHP 1.0 CAL 1,000 ML BAG GT SCH (21:30)
[2021-10-03] MEDS: SODIUM CHLORIDE 0.9% 10ML FLUSH IV SCH (21:40)
[2021-10-04] MEDS: ARTIFICIAL TEARS OP OINT 3.5 GM TUBE OP SCH ×6 (01:25→19:40)
[2021-10-04] MEDS: CISATRACURIUM BESYLATE 40 MG in 0.9 % SODIUM CHLORIDE 80 ML IV SCH ×11 (02:05→23:26)
[2021-10-04] MEDS: INSULIN ASPART PER UNIT SC SCH ×6 (02:58→19:39)
[2021-10-04 05:29] LABS: iSTAT Art Bld Gas pCO2 Correct 33 mmHg (35-46); iSTAT Art Bld Gas pH Corrected 7.508 (7.35-7.45); iSTAT Arterial Blood Gas HCO3 26 meg/L (19-24); iSTAT Arterial Blood Gas pCO2 34 mmHg (35-46); iSTAT Arterial Blood Gas pH 7.49 (7.35-7.45); iSTAT Arterial Blood Gas pO2 65 mmHg (80-95); iSTAT Arterial Blood Gas pO2 C 61; iSTAT Carbon Dioxide 27 mmol/L (24-31); iSTAT FiO2 30 %; iSTAT Hematocrit 38 % (37-47); iSTAT Hemoglobin 12.9 g/dl (12.0-16.0); iSTAT Potassium 3.9 mmol/L (3.3-5.0); iSTAT Site Art Line; iSTAT Sodium 138 mmol/L (135-144)
[2021-10-04 05:55] LABS: Hematocrit (blood only) 38.2 % (37-47); Hemoglobin 13.1 g/dL (12.0-16.0); Mean Corpuscular Hemoglobin 29.1 pg (25-34); Mean Corpuscular Hgb Conc 34.3 g/dL (32-36); Mean Corpuscular Volume 84.9 fL (80-100); Mean Platelet Volume 9.2 fL (7.4-10.4); Platelet Count 230 K/uL (130-400); RDW Coefficient of Variation 13.3 % (11.5-14.5); RDW Standard Deviation 40.8 fL (36.4-46.3); White Blood Count 10.44 K/uL (4.8-10.8)
[2021-10-04] MEDS: LEVOTHYROXINE SODIUM 100 MCG TABLET PO SCH (06:17)
[2021-10-04 06:19] LABS: BUN Creatinine Ratio 39.4 (10-20); Calcium 8.1 mg/dl (8.5-10.1); Creatinine Clr Calc Pharmacy 86.6 ml/min; Est GFR (African American) 89.4 ml/min; Est GFR (Non-African American) 77.1 ml/min; Magnesium 2.8 mg/dl (1.8-2.4)
[2021-10-04 06:20] LABS: Basophils # (auto) 0.02 K/uL (0-0.2); Basophils % (auto) 0.2 %; Immature Granulocytes # (auto) 0.05 K/uL (0.00-0.02); Immature Granulocytes % (auto) 0.5 %; Lymphocytes # (auto) 2.18 K/uL (1.2-3.4); Lymphocytes % (auto) 20.9 %; Monocytes # (auto) 0.68 K/uL (0.11-0.59); Monocytes % (auto) 6.5 %; Neutrophils # (auto) 7.51 K/uL (1.4-6.5); Neutrophils % (auto) 71.9 %; Phosphorus 2.8 mg/dl (2.5-4.9)
[2021-10-04] MEDS: INSULIN REGULAR 250 UNITS in SODIUM CHLORIDE 0.9% 247.5 ML IV SCH ×2 (07:50→16:32)
[2021-10-04] MEDS: ENOXAPARIN 100 MG/1ML SYR SQ SCH ×2 (07:52→20:48)
[2021-10-04] MEDS: FAMOTIDINE 20 MG in SYRINGE 3 ML IV SCH ×2 (07:52→20:45)
[2021-10-04] MEDS: dexAMETHasone 20 MG in DEXTROSE 5% 25 ML IV SCH (07:55)
[2021-10-04] MEDS: 4mg Daily x 14 days (eGFR >60 mL/min/1.73m2) PO SCH (07:58)
[2021-10-04] MEDS: INSULIN GLARGINE SOLOSTAR 100 UNITS/ML 3 ML PEN SC SCH ×2 (08:05→20:49)
[2021-10-04] MEDS: ICU ELECTROLYTE REPLACEMENT PROTOCOL SCH ×2 (08:49→16:20)
--- NOTE | 2021-10-04 11:08 | Critical Care Progress Note ---
Date of Service October 04, 2021 Assessment & Plan (1) Acute respiratory failure with hypoxia: Plan: Reason Critically Ill: 56-year-old female with severe hypoxic respiratory failure secondary to COVID-19 pneumonia PLAN: Neuro: Analgesia: Fentanyl Sedation: Versed Neuromuscular blockade: Nimbex Resp: Acute hypoxic respiratory failure secondary to COVID-19 pneumonia: Improved in supine position -Baricitinib ordered 10/02: Discontinued secondary to intubation -Increase Decadron to 20 mg IV daily x5 days then 10 mg daily for 5 days -Remdesivir 100 mg daily ordered 10/02 -Given significant rapid improvements in prone position we will continue mechanical ventilation for 24 hours for another period of pronation therapy and then will consider weaning with trial of extubation if appropriate CV: Hypotension: Resolved -Likely secondary to sedation transition from propofol to Versed Fluids/Renal: Electrolyte protocol ID: Monitor fever curve GI/Nutrition: Start Peptamen intense -Pepcid 20 mg twice daily for GI prophylaxis Heme: DVT prophylaxis: Lovenox 100 mg twice daily Endocrine: ICU hyperglycemia protocol Hypothyroidism -100 mcg daily Vascular access: Right subclavian placed 10/03/2021 right radial arterial line placed 10/03/2021 Code Status: Full code Disposition: ICU I participated in returning the patient to supine position (2) COVID-19: (3) Morbid obesity: Admission and Anticipated Discharge Date Admission Date: October 01, 2021 Supervising Physician Co-Signing Physician Notes I have personally spent 45 minutes of critical care time in the direct management of this patient. This is a life/limb threatening event. This includes time spent evaluating patient, direct bedside care, chart review, placing orders, interpretation of diagnostic studies, discussion with consultants, patient, and/or family members regarding treatment decisions, as well as other required patient management activities. This time is exclusive of all separately billable procedures, and teaching time and separate from and in addition to any other critical care service time. Subjective No overnight events returning to supine position Review of Systems Review of Systems: Unobtainable secondary to endotracheal tube Physical Exam 2 Physical Exam: General: GCS 3 T Skin: Warm, dry, Head: Atraumatic Ears, nose, mouth and throat: airway obscured by endotracheal tube Cardiovascular: Normal peripheral perfusion Respiratory: Ventilator settings reviewed Gastrointestinal: Non distended Musculoskeletal: No deformity Results & Data Results & Data ([facility]) Vital Signs (Past 12 Hours) Vital Signs Temp Pulse Resp BP Pulse Ox 10/04/21 10:59 65 16 96 10/04/21 10:00 66 16 96 10/04/21 09:54 66 16 109/72 95 10/04/21 09:39 67 16 103/72 94 10/04/21 09:24 70 16 106/71 95 10/04/21 09:09 70 16 109/77 96 10/04/21 09:00 71 16 96 10/04/21 08:54 72 16 117/79 96 10/04/21 08:39 72 16 116/77 96 10/04/21 08:24 73 16 111/79 95 10/04/21 08:09 75 16 121/85 95 10/04/21 08:00 36.1 C L 85 16 97 10/04/21 07:54 74 16 115/79 95 10/04/21 07:39 73 16 112/73 95 10/04/21 07:26 73 16 94 10/04/21 07:24 82 18 129/91 95 10/04/21 07:09 72 16 113/74 95 10/04/21 07:00 75 16 95 10/04/21 06:54 74 16 107/73 95 10/04/21 06:45 71 16 94 10/04/21 06:40 71 16 94 10/04/21 06:39 70 16 107/71 94 10/04/21 06:30 71 16 94 10/04/21 06:24 69 16 103/71 94 10/04/21 06:20 69 16 94 10/04/21 06:10 72 16 94 10/04/21 06:09 69 16 104/70 95 10/04/21 06:00 71 16 94 10/04/21 05:54 71 16 98/69 L 94 10/04/21 05:50 71 16 94 10/04/21 05:40 72 16 94 10/04/21 05:39 73 16 97/68 L 93 10/04/21 05:30 71 16 94 10/04/21 05:24 72 16 100/71 94 10/04/21 05:20 73 16 94 10/04/21 05:10 72 16 94 10/04/21 05:09 72 16 102/72 94 10/04/21 05:00 67 16 94 10/04/21 04:54 70 16 123/82 94 12/31/21 04:52 68 16 94 10/04/21 04:50 66 20 94 10/04/21 04:40 74 25 H 100 10/04/21 04:39 74 20 144/96 H 10/04/21 04:30 68 20 94 10/04/21 04:24 68 20 110/75 94 10/04/21 04:20 68 20 94 10/04/21 04:10 63 20 94 10/04/21 04:09 64 20 112/78 94 10/04/21 04:00 61 20 94 10/04/21 03:54 63 20 111/78 94 10/04/21 03:50 61 20 94 10/04/21 03:40 61 20 94 10/04/21 03:39 60 20 104/73 94 10/04/21 03:30 61 20 93 10/04/21 03:24 61 20 105/77 94 10/04/21 03:20 60 20 94 10/04/21 03:10 62 20 93 10/04/21 03:09 62 20 108/73 94 10/04/21 03:00 62 20 94 10/04/21 02:54 62 20 113/78 94 10/04/21 02:50 63 20 94 10/04/21 02:40 64 20 94 10/04/21 02:38 63 20 114/77 94 10/04/21 02:30 59 L 20 93 10/04/21 02:23 70 20 96/70 L 93 10/04/21 02:20 71 20 93 10/04/21 02:10 70 20 93 10/04/21 02:09 71 20 101/71 93 10/04/21 02:00 60 20 92 10/04/21 01:54 61 20 112/70 92 10/04/21 01:50 63 20 92 10/04/21 01:40 64 20 93 10/04/21 01:39 64 20 101/72 93 10/04/21 01:30 62 20 94 10/04/21 01:24 65 20 114/72 94 10/04/21 01:20 64 20 93 10/04/21 01:16 60 10/04/21 01:10 66 20 94 10/04/21 01:08 66 20 119/73 93 10/04/21 01:00 66 20 94 10/04/21 00:53 68 20 115/76 94 10/04/21 00:50 68 20 94 10/04/21 00:40 67 20 94 10/04/21 00:38 68 20 107/69 94 10/04/21 00:30 66 20 93 10/04/21 00:23 67 20 109/80 94 10/04/21 00:20 66 20 93 10/04/21 00:10 64 20 93 10/04/21 00:08 66 20 106/73 93 10/04/21 00:00 64 20 93 10/03/21 23:53 66 20 108/80 93 10/03/21 23:50 65 20 93 10/03/21 23:40 66 20 94 10/03/21 23:38 70 20 116/86 93 10/03/21 23:30 67 20 92 10/03/21 23:23 63 20 110/75 95 10/03/21 23:20 66 20 100 10/03/21 23:16 60 20 94 10/03/21 23:10 61 20 95 10/03/21 23:08 59 L 20 84/66 L 95 Laboratory Results 10/04/21 10/04/21 10/04/21 Range/Units 07:31 05:32 05:32 WBC 10.44 (4.8-10.8) K/uL RBC 4.50 (4.2-5.4) M/uL Hgb 13.1 (12.0-16.0) g/dL POC Hgb (12.0-16.0) g/dl Hct 38.2 (37-47) % POC Hct (37-47) % MCV 84.9 (80-100) fL MCH 29.1 (25-34) pg MCHC 34.3 (32-36) g/dL RDW Std Deviation 40.8 (36.4-46.3) fL RDW Coeff of Francisca 13.3 (11.5-14.5) % Plt Count 230 (130-400) K/uL MPV 9.2 (7.4-10.4) fL Immature Gran % (Auto) 0.5 % Neut % (Auto) 71.9 % Lymph % (Auto) 20.9 % Howard % (Auto) 6.5 % Eos % (Auto) 0.0 % Baso % (Auto) 0.2 % Neut # (Auto) 7.51 H (1.4-6.5) K/uL Lymph # (Auto) 2.18 (1.2-3.4) K/uL Howard # (Auto) 0.68 H (0.11-0.59) K/uL Eos # (Auto) 0.00 (0-0.5) K/uL Baso # (Auto) 0.02 (0-0.2) K/uL Immature Gran # (Auto) 0.05 H (0.00-0.02) K/uL Sample Site POC pH (7.35-7.45) POC pCO2 (35-46) mmHg POC pO2 (80-95) mmHg POC HCO3 (19-24) ike/L POC Total CO2 (24-31) mmol/L POC Base Excess (-9-1.8) ike/L ABG pH (Temp Correct) (7.35-7.45) ABG pCO2 (Temp Corrct (35-46) mmHg POC ABG pO2 at Pt Temp POC ABG O2 Sat (90-95) % Lucas Test VBG pH 7.46 H (7.36-7.41) O2 Delivery Device POC O2 Rate Minute Ventilation POC FiO2 % Tidal Volume PEEP POC Sodium (135-144) mmol/L Sodium (136-145) mmol/L POC Potassium (3.3-5.0) mmol/L Potassium (3.5-5.1) mmol/L Chloride (98-107) mmol/L Carbon Dioxide (21-32) mmol/L Anion Gap (3-11) BUN (7-18) mg/dl Creatinine (0.6-1.2) mg/dl Est Cr Clr Drug Dosing ml/min Est GFR ( Amer) ml/min Est GFR (Non-Af Amer) ml/min BUN/Creatinine Ratio (10-20) Glucose (70-99) mg/dl POC Glucose 163 H (70-99) mg/dl POC Glucose (other) (70-99) mg/dl Calcium (8.5-10.1) mg/dl Phosphorus (2.5-4.9) mg/dl Magnesium (1.8-2.4) mg/dl AST (15-37) U/L ALT (12-78) 10/04/21 10/04/21 10/04/21 Range/Units 05:32 05:15 04:40 WBC (4.8-10.8) K/uL RBC (4.2-5.4) M/uL Hgb (12.0-16.0) g/dL POC Hgb 12.9 (12.0-16.0) g/dl Hct (37-47) % POC Hct 38 (37-47) % MCV (80-100) fL MCH (25-34) pg MCHC (32-36) g/dL RDW Std Deviation (36.4-46.3) fL RDW Coeff of Francisca (11.5-14.5) % Plt Count (130-400) K/uL MPV (7.4-10.4) fL Immature Gran % (Auto) % Neut % (Auto) % Lymph % (Auto) % Howard % (Auto) % Eos % (Auto) % Baso % (Auto) % Neut # (Auto) (1.4-6.5) K/uL Lymph # (Auto) (1.2-3.4) K/uL Howard # (Auto) (0.11-0.59) K/uL Eos # (Auto) (0-0.5) K/uL Baso # (Auto) (0-0.2) K/uL Immature Gran # (Auto) (0.00-0.02) K/uL Sample Site Art Line POC pH 7.49 H (7.35-7.45) POC pCO2 34 L (35-46) mmHg POC pO2 65 L (80-95) mmHg POC HCO3 26 H (19-24) ike/L POC Total CO2 27 (24-31) mmol/L POC Base Excess 3.0 H (-9-1.8) ike/L ABG pH (Temp Correct) 7.508 H* (7.35-7.45) ABG pCO2 (Temp Corrct 33 L (35-46) mmHg POC ABG pO2 at Pt Temp 61 POC ABG O2 Sat 94.0 (90-95) % Lucas Test NA VBG pH (7.36-7.41) O2 Delivery Device Ventilator POC O2 Rate 20 Minute Ventilation POC FiO2 30 % Tidal Volume 400 PEEP 14 POC Sodium 138 (135-144) mmol/L Sodium 137 (136-145) mmol/L POC Potassium 3.9 (3.3-5.0) mmol/L Potassium 4.0 (3.5-5.1) mmol/L Chloride 106 (98-107) mmol/L Carbon Dioxide 27 (21-32) mmol/L Anion Gap 4.0 (3-11) BUN 34 H (7-18) mg/dl Creatinine 0.85 (0.6-1.2) mg/dl Est Cr Clr Drug Dosing 86.6 ml/min Est GFR ( Amer) 89.4 ml/min Est GFR (Non-Af Amer) 77.1 ml/min BUN/Creatinine Ratio 39.4 H (10-20) Glucose 175 H (70-99) mg/dl POC Glucose (70-99) mg/dl POC Glucose (other) 180 H (70-99) mg/dl Calcium 8.1 L (8.5-10.1) mg/dl Phosphorus 2.8 (2.5-4.9) mg/dl Magnesium 2.8 H (1.8-2.4) mg/dl AST 49 H (15-37) U/L ALT 36 (12-78) 10/04/21 10/04/21 10/04/21 Range/Units 03:53 02:52 02:05 WBC (4.8-10.8) K/uL RBC (4.2-5.4) M/uL Hgb (12.0-16.0) g/dL POC Hgb (12.0-16.0) g/dl Hct (37-47) % POC Hct (37-47) % MCV (80-100) fL MCH (25-34) pg MCHC (32-36) g/dL RDW Std Deviation (36.4-46.3) fL RDW Coeff of Francisca (11.5-14.5) % Plt Count (130-400) K/uL MPV (7.4-10.4) fL Immature Gran % (Auto) % Neut % (Auto) % Lymph % (Auto) % Howard % (Auto) % Eos % (Auto) % Baso % (Auto) % Neut # (Auto) (1.4-6.5) K/uL Lymph # (Auto) (1.2-3.4) K/uL Howard # (Auto) (0.11-0.59) K/uL Eos # (Auto) (0-0.5) K/uL Baso # (Auto) (0-0.2) K/uL Immature Gran # (Auto) (0.00-0.02) K/uL Sample Site POC pH (7.35-7.45) POC pCO2 (35-46) mmHg POC pO2 (80-95) mmHg POC HCO3 (19-24) ike/L POC Total CO2 (24-31) mmol/L POC Base Excess (-9-1.8) ike/L ABG pH (Temp Correct) (7.35-7.45) ABG pCO2 (Temp Corrct (35-46) mmHg POC ABG pO2 at Pt Temp POC ABG O2 Sat (90-95) % Lucas Test VBG pH (7.36-7.41) O2 Delivery Device POC O2 Rate Minute Ventilation POC FiO2 % Tidal Volume PEEP POC Sodium (135-144) mmol/L Sodium (136-145) mmol/L POC Potassium (3.3-5.0) mmol/L Potassium (3.5-5.1) mmol/L Chloride (98-107) mmol/L Carbon Dioxide (21-32) mmol/L Anion Gap (3-11) BUN (7-18) mg/dl Creatinine (0.6-1.2) mg/dl Est Cr Clr Drug Dosing ml/min Est GFR ( Amer) ml/min Est GFR (Non-Af Amer) ml/min BUN/Creatinine Ratio (10-20) Glucose (70-99) mg/dl POC Glucose 144 H (70-99) mg/dl POC Glucose (other) 160 H 162 H (70-99) mg/dl Calcium (8.5-10.1) mg/dl Phosphorus (2.5-4.9) mg/dl Magnesium (1.8-2.4) mg/dl AST (15-37) U/L ALT (12-78) 10/04/21 10/03/21 10/03/21 Range/Units 01:01 23:55 22:37 WBC (4.8-10.8) K/uL RBC (4.2-5.4) M/uL Hgb (12.0-16.0) g/dL POC Hgb (12.0-16.0) g/dl Hct (37-47) % POC Hct (37-47) % MCV (80-100) fL MCH (25-34) pg MCHC (32-36) g/dL RDW Std Deviation (36.4-46.3) fL RDW Coeff of Francisca (11.5-14.5) % Plt Count (130-400) K/uL MPV (7.4-10.4) fL Immature Gran % (Auto) % Neut % (Auto) % Lymph % (Auto) % Howard % (Auto) % Eos % (Auto) % Baso % (Auto) % Neut # (Auto) (1.4-6.5) K/uL Lymph # (Auto) (1.2-3.4) K/uL Howard # (Auto) (0.11-0.59) K/uL Eos # (Auto) (0-0.5) K/uL Baso # (Auto) (0-0.2) K/uL Immature Gran # (Auto) (0.00-0.02) K/uL Sample Site POC pH (7.35-7.45) POC pCO2 (35-46) mmHg POC pO2 (80-95) mmHg POC HCO3 (19-24) ike/L POC Total CO2 (24-31) mmol/L POC Base Excess (-9-1.8) ike/L ABG pH (Temp Correct) (7.35-7.45) ABG pCO2 (Temp Corrct (35-46) mmHg POC ABG pO2 at Pt Temp POC ABG O2 Sat (90-95) % Lucas Test VBG pH (7.36-7.41) O2 Delivery Device POC O2 Rate Minute Ventilation POC FiO2 % Tidal Volume PEEP POC Sodium (135-144) mmol/L Sodium (136-145) mmol/L POC Potassium (3.3-5.0) mmol/L Potassium (3.5-5.1) mmol/L Chloride (98-107) mmol/L Carbon Dioxide (21-32) mmol/L Anion Gap (3-11) BUN (7-18) mg/dl Creatinine (0.6-1.2) mg/dl Est Cr Clr Drug Dosing ml/min Est GFR ( Amer) ml/min Est GFR (Non-Af Amer) ml/min BUN/Creatinine Ratio (10-20) Glucose (70-99) mg/dl POC Glucose 132 H 117 H 108 H (70-99) mg/dl POC Glucose (other) (70-99) mg/dl Calcium (8.5-10.1) mg/dl Phosphorus (2.5-4.9) mg/dl Magnesium (1.8-2.4) mg/dl AST (15-37) U/L ALT (12-78) 10/03/21 10/03/21 10/03/21 Range/Units 21:28 17:54 14:32 WBC (4.8-10.8) K/uL RBC (4.2-5.4) M/uL Hgb (12.0-16.0) g/dL POC Hgb (12.0-16.0) g/dl Hct (37-47) % POC Hct (37-47) % MCV (80-100) fL MCH (25-34) pg MCHC (32-36) g/dL RDW Std Deviation (36.4-46.3) fL RDW Coeff of Francisca (11.5-14.5) % Plt Count (130-400) K/uL MPV (7.4-10.4) fL Immature Gran % (Auto) % Neut % (Auto) % Lymph % (Auto) % Howard % (Auto) % Eos % (Auto) % Baso % (Auto) % Neut # (Auto) (1.4-6.5) K/uL Lymph # (Auto) (1.2-3.4) K/uL Howard # (Auto) (0.11-0.59) K/uL Eos # (Auto) (0-0.5) K/uL Baso # (Auto) (0-0.2) K/uL Immature Gran # (Auto) (0.00-0.02) K/uL Sample Site Art Line POC pH 7.44 (7.35-7.45) POC pCO2 40 (35-46) mmHg POC pO2 48 L (80-95) mmHg POC HCO3 27 H (19-24) ike/L POC Total CO2 28 (24-31) mmol/L POC Base Excess 3.0 H (-9-1.8) ike/L ABG pH (Temp Correct) (7.35-7.45) ABG pCO2 (Temp Corrct (35-46) mmHg POC ABG pO2 at Pt Temp POC ABG O2 Sat 85.0 L (90-95) % Lucas Test NA VBG pH (7.36-7.41) O2 Delivery Device Ventilator POC O2 Rate 20 Minute Ventilation 9.1 POC FiO2 % Tidal Volume 400 PEEP 15 POC Sodium (135-144) mmol/L Sodium (136-145) mmol/L POC Potassium (3.3-5.0) mmol/L Potassium (3.5-5.1) mmol/L Chloride (98-107) mmol/L Carbon Dioxide (21-32) mmol/L Anion Gap (3-11) BUN (7-18) mg/dl Creatinine (0.6-1.2) mg/dl Est Cr Clr Drug Dosing ml/min Est GFR ( Amer) ml/min Est GFR (Non-Af Amer) ml/min BUN/Creatinine Ratio (10-20) Glucose (70-99) mg/dl POC Glucose 117 H 133 H (70-99) mg/dl POC Glucose (other) (70-99) mg/dl Calcium (8.5-10.1) mg/dl Phosphorus (2.5-4.9) mg/dl Magnesium (1.8-2.4) mg/dl AST (15-37) U/L ALT (12-78) 10/03/21 10/03/21 10/03/21 Range/Units 13:59 12:15 10:58 WBC (4.8-10.8) K/uL RBC (4.2-5.4) M/uL Hgb (12.0-16.0) g/dL POC Hgb (12.0-16.0) g/dl Hct (37-47) % POC Hct (37-47) % MCV (80-100) fL MCH (25-34) pg MCHC (32-36) g/dL RDW Std Deviation (36.4-46.3) fL RDW Coeff of Francisca (11.5-14.5) % Plt Count (130-400) K/uL MPV (7.4-10.4) fL Immature Gran % (Auto) % Neut % (Auto) % Lymph % (Auto) % Howard % (Auto) % Eos % (Auto) % Baso % (Auto) % Neut # (Auto) (1.4-6.5) K/uL Lymph # (Auto) (1.2-3.4) K/uL Howard # (Auto) (0.11-0.59) K/uL Eos # (Auto) (0-0.5) K/uL Baso # (Auto) (0-0.2) K/uL Immature Gran # (Auto) (0.00-0.02) K/uL Sample Site POC pH (7.35-7.45) POC pCO2 (35-46) mmHg POC pO2 (80-95) mmHg POC HCO3 (19-24) ike/L POC Total CO2 (24-31) mmol/L POC Base Excess (-9-1.8) ike/L ABG pH (Temp Correct) (7.35-7.45) ABG pCO2 (Temp Corrct (35-46) mmHg POC ABG pO2 at Pt Temp POC ABG O2 Sat (90-95) % Lucas Test VBG pH (7.36-7.41) O2 Delivery Device POC O2 Rate Minute Ventilation POC FiO2 % Tidal Volume PEEP POC Sodium (135-144) mmol/L Sodium (136-145) mmol/L POC Potassium (3.3-5.0) mmol/L Potassium (3.5-5.1) mmol/L Chloride (98-107) mmol/L Carbon Dioxide (21-32) mmol/L Anion Gap (3-11) BUN (7-18) mg/dl Creatinine (0.6-1.2) mg/dl Est Cr Clr Drug Dosing ml/min Est GFR ( Amer) ml/min Est GFR (Non-Af Amer) ml/min BUN/Creatinine Ratio (10-20) Glucose (70-99) mg/dl POC Glucose 130 H 140 H 120 H (70-99) mg/dl POC Glucose (other) (70-99) mg/dl Calcium (8.5-10.1) mg/dl Phosphorus (2.5-4.9) mg/dl Magnesium (1.8-2.4) mg/dl AST (15-37) U/L ALT (12-78) Coding Level of Care Code Critical Care 1st 30-74 mins Diagnoses Acute respiratory failure with hypoxia J96.01 COVID-19 U07.1 Morbid obesity E66.01
--- NOTE | 2021-10-04 11:39 | Pharmacy Report ---
Pharmacy Glycemic Short Note 2 - Date of Service October 04, 2021 - Glycemic Short BSG Results (Last 24 hours): 10/03/21 10/03/21 10/03/21 12:15 13:59 17:54 Glucose POC Glucose 140 H 130 H 133 H POC Glucose (other) 10/03/21 10/03/21 10/03/21 21:28 22:37 23:55 Glucose POC Glucose 117 H 108 H 117 H POC Glucose (other) 10/04/21 10/04/21 10/04/21 01:01 02:05 02:52 Glucose POC Glucose 132 H POC Glucose (other) 162 H 160 H 10/04/21 10/04/21 10/04/21 03:53 05:15 05:32 Glucose 175 H POC Glucose 144 H POC Glucose (other) 180 H 10/04/21 07:31 Glucose POC Glucose 163 H POC Glucose (other) OUTPATIENT ANTIDIABETIC REGIMEN: * Relion 70/30 65 units w/ breakfast + 40 units w/ dinner * Metformin 1gm PO BID * Glipizide 5mg PO BID * A1c = 11.7% 10/01/21 ASSESSMENT: 10/04: * BSGs well controlled over last 24 hrs. Patient remains on IV insulin drip at stable rate of 4 units/hr (on top of "moderate" stress Lantus dosing) * Patient remains intubated, sedated, and now paralyzed. Norepi has been weaned off. Peptamen VHP tube feeds started at "trickle" yesterday. Dexamethasone dose increased to DEXA-ARDS regimen of 20mg IV Q Day x 5, then 10mg IV Q Day x 5. * Possible plans for SBT, vent weaning tomorrow. IV insulin drip remains safest therapy to control BSGs given potential for multiple changes in stressors wh ile critically ill. 10/03: * Remains on insulin infusion with goal BSG range 120-180mg/dL. * Steroids continue and patient remains NPO. Intubated/sedated w/ NMB ordered, today. * Additional basal coverage with Lantus added this AM (wt/stress 2) to help decrease insulin infusion rates and assist with transition to SQ * Plan to continue insulin infusion per calculator given numerous acute changes and stressors unless weans itself off 10/02: * Poorly controlled type 2 diabetic admitted for COVID viral pna, severe hyperglycemia, AG acidosis, GIBSON * Patient was given fluid resuscitation and started on IV insulin drip per DKA/HHS protocol * BSGs well controlled w/ insulin drip. BSG less than 200 this AM. Patient's AG has resolved. Patient presented with normal bicarb and vpH. * IV fluids containing dextrose stopped this AM due to mod-severe ARDS, provider wishing to restrict fluids * IV steroids continue, pt will not be able to take PO given oxygen requirements. * Recommend continuing IV insulin drip for now given severe stressors and uncertain insulin needs. PLAN FOR INPATIENT GLYCEMIC CONTROL: * Hold outpatient oral diabetes medications (metformin, glipizide) * Basal insulin: * Continue IV insulin drip per protocol * Continue Lantus 20 units BID with the drip * Bolus insulin * Nutritional / Prandial insulin per carb ratio 5g/unit PLAN FOR DISCHARGE: * to be determined
--- NOTE | 2021-10-04 11:58 | Hospitalist Progress Note ---
Date of Service October 04, 2021 Assessment & Plan (1) Acute respiratory failure with hypoxia: Plan: decompensated on 10/03 after being on high flow 60L 100% and then BIPAP for [address] Longoria on 10/03 and placed in prone position for 18 hours, no w back to supine day 2 of ventilation treat COVID with dexamethasone, Remdesivir Baricitinib stopped with intubation never got CTA chest on admission and was too unstable to scan Lovenox 1mg/kg BID lower extremity dopplers negative for PE (2) COVID-19: Plan: sick for over a week on admission, viral pneumonia on CXR dexamethasone 6mg IV daily, day 4 Remdesivir IV daily, day 4 Baricitinib, got 2 days but stopped when intubated intubated on 10/03 (3) DKA (diabetic ketoacidosis): Plan: anion gap closed quickly with insulin drip sugars are < 200, stopped IV fluids on 09/02 in the morning to keep lungs dry DKA due to her illness and not taking diabetes medications for a week, typically on insulin regimen pharmacy consulted, managing sugars monitor for hypoglycemia (4) Acute kidney injury: Plan: due to dehydration, prerenal Cr was 1.7 on admission, down to 0.8 on 10/02 in afternoon after aggressive fluids ricardo placed gave Lasix 20mg IV on 10/02 and 10/03 but did not help breathing defer further Lasix use to ICU team (5) Dehydration: Plan: resolved, now euvolemic (6) Dyslipidemia: (7) Vaginal yeast infection: Plan: chronic issue due to uncontrolled diabetes (8) Uncontrolled type 2 diabetes mellitus: Plan: HbA1c 11.7% will need education, she stopped taking all her medications for a week prior to admission (9) Morbid obesity: Plan: increases morbidity and mortality (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 Longoria managing sugars stable, CBC stable, Cr is < 1, K is normal I updated her mother Review of Systems Review of Systems: Unobtainable due to endotracheal tube Physical Exam Physical Exam: General: well developed, obese female, prone position on ventilator Neck: supple, trachea midline, normal thyroid Lungs: clear to auscultation bilaterally, on ventilator Heart: regular S1 and S2, no murmur, peripheral pulses normal, capillary refill normal, no edema Abdomen: soft, NT, ND, + BS, no hepatomegaly, normal to percussion Extremities: normal in appearance, no cyanosis, no petechiae Neuro: sedated, no focal motor deficits, CN II-XII intact Skin: warm, dry, no rash, normal turgor Psych: sedated Results & Data Results & Data ([facility]) Vital Signs (Past 12 Hours) Vital Signs Temp Pulse Resp BP Pulse Ox 10/04/21 11:10 65 10/04/21 10:59 65 16 96 10/04/21 10:00 66 16 96 10/04/21 09:54 66 16 109/72 95 10/04/21 09:39 67 16 103/72 94 10/04/21 09:24 70 16 106/71 95 10/04/21 09:09 70 16 109/77 96 10/04/21 09:00 71 16 96 10/04/21 08:54 72 16 117/79 96 10/04/21 08:39 72 16 116/77 96 10/04/21 08:24 73 16 111/79 95 10/04/21 08:09 75 16 121/85 95 10/04/21 08:00 36.1 C L 85 16 97 10/04/21 07:54 74 16 115/79 95 10/04/21 07:39 73 16 112/73 95 10/04/21 07:26 73 16 94 10/04/21 07:24 82 18 129/91 95 10/04/21 07:09 72 16 113/74 95 10/04/21 07:00 75 16 95 10/04/21 06:54 74 16 107/73 95 10/04/21 06:45 71 16 94 10/04/21 06:40 71 16 94 10/04/21 06:39 70 16 107/71 94 10/04/21 06:30 71 16 94 10/04/21 06:24 69 16 103/71 94 10/04/21 06:20 69 16 94 10/04/21 06:10 72 16 94 10/04/21 06:09 69 16 104/70 95 10/04/21 06:00 71 16 94 10/04/21 05:54 71 16 98/69 L 94 10/04/21 05:50 71 16 94 10/04/21 05:40 72 16 94 10/04/21 05:39 73 16 97/68 L 93 10/04/21 05:30 71 16 94 10/04/21 05:24 72 16 100/71 94 10/04/21 05:20 73 16 94 10/04/21 05:10 72 16 94 10/04/21 05:09 72 16 102/72 94 10/04/21 05:00 67 16 94 10/04/21 04:54 70 16 123/82 94 10/04/21 04:52 68 16 94 10/04/21 04:50 66 20 94 10/04/21 04:40 74 25 H 100 10/04/21 04:39 74 20 144/96 H 10/04/21 04:30 68 20 94 10/04/21 04:24 68 20 110/75 94 10/04/21 04:20 68 20 94 10/04/21 04:10 63 20 94 10/04/21 04:09 64 20 112/78 94 10/04/21 04:00 61 20 94 10/04/21 03:54 63 20 111/78 94 10/04/21 03:50 61 20 94 10/04/21 03:40 61 20 94 10/04/21 03:39 60 20 104/73 94 10/04/21 03:30 61 20 93 10/04/21 03:24 61 20 105/77 94 10/04/21 03:20 60 20 94 10/04/21 03:10 62 20 93 10/04/21 03:09 62 20 108/73 94 10/04/21 03:00 62 20 94 10/04/21 02:54 62 20 113/78 94 10/04/21 02:50 63 20 94 10/04/21 02:40 64 20 94 10/04/21 02:38 63 20 114/77 94 10/04/21 02:30 59 L 20 93 10/04/21 02:23 70 20 96/70 L 93 10/04/21 02:20 71 20 93 10/04/21 02:10 70 20 93 10/04/21 02:09 71 20 101/71 93 10/04/21 02:00 60 20 92 10/04/21 01:54 61 20 112/70 92 10/04/21 01:50 63 20 92 10/04/21 01:40 64 20 93 10/04/21 01:39 64 20 101/72 93 10/04/21 01:30 62 20 94 10/04/21 01:24 65 20 114/72 94 10/04/21 01:20 64 20 93 10/04/21 01:16 60 10/04/21 01:10 66 20 94 10/04/21 01:08 66 20 119/73 93 10/04/21 01:00 66 20 94 10/04/21 00:53 68 20 115/76 94 10/04/21 00:50 68 20 94 10/04/21 00:40 67 20 94 10/04/21 00:38 68 20 107/69 94 10/04/21 00:30 66 20 93 10/04/21 00:23 67 20 109/80 94 10/04/21 00:20 66 20 93 10/04/21 00:10 64 20 93 10/04/21 00:08 66 20 106/73 93 10/04/21 00:00 64 20 93 Laboratory Results Laboratory Results - last 24 hr 10/03/21 10/03/21 10/03/21 12:15 13:59 14:32 WBC RBC Hgb POC Hgb Hct POC Hct MCV MCH MCHC RDW Std Deviation RDW Coeff of Francisca Plt Count MPV Immature Gran % (Auto) Neut % (Auto) Lymph % (Auto) [place] % (Auto) Eos % (Auto) Baso % (Auto) Neut # (Auto) Lymph # (Auto) [place] # (Auto) Eos # (Auto) Baso # (Auto) Immature Gran # (Auto) Sample Site Art Line POC pH 7.44 POC pCO2 40 POC pO2 48 L POC HCO3 27 H POC Total CO2 28 POC Base Excess 3.0 H ABG pH (Temp Correct) ABG pCO2 (Temp Corrct POC ABG pO2 at Pt Temp POC ABG O2 Sat 85.0 L Lucas Test NA VBG pH O2 Delivery Device Ventilator POC O2 Rate 20 Minute Ventilation 9.1 POC FiO2 Tidal Volume 400 PEEP 15 POC Sodium Sodium POC Potassium Potassium Chloride Carbon Dioxide Anion Gap BUN Creatinine Est Cr Clr Drug Dosing Est GFR ( Amer) Est GFR (Non-Af Amer) BUN/Creatinine Ratio Glucose POC Glucose 140 H 130 H POC Glucose (other) Calcium Phosphorus Magnesium AST ALT 10/03/21 10/03/21 10/03/21 17:54 21:28 22:37 WBC RBC Hgb POC Hgb Hct POC Hct MCV MCH MCHC RDW Std Deviation RDW Coeff of Francisca Plt Count MPV Immature Gran % (Auto) Neut % (Auto) Lymph % (Auto) [place] % (Auto) Eos % (Auto) Baso % (Auto) Neut # (Auto) Lymph # (Auto) [place] # (Auto) Eos # (Auto) Baso # (Auto) Immature Gran # (Auto) Sample Site POC pH POC pCO2 POC pO2 POC HCO3 POC Total CO2 POC Base Excess ABG pH (Temp Correct) ABG pCO2 (Temp Corrct POC ABG pO2 at Pt Temp POC ABG O2 Sat Lucas Test VBG pH O2 Delivery Device POC O2 Rate Minute Ventilation POC FiO2 Tidal Volume PEEP POC Sodium Sodium POC Potassium Potassium Chloride Carbon Dioxide Anion Gap BUN Creatinine Est Cr Clr Drug Dosing Est GFR ( Amer) Est GFR (Non-Af Amer) BUN/Creatinine Ratio Glucose POC Glucose 133 H 117 H 108 H POC Glucose (other) Calcium Phosphorus Magnesium AST ALT 10/03/21 10/04/21 10/04/21 23:55 01:01 02:05 WBC RBC Hgb POC Hgb Hct POC Hct MCV MCH MCHC RDW Std Deviation RDW Coeff of Francisca Plt Count MPV Immature Gran % (Auto) Neut % (Auto) Lymph % (Auto) [place] % (Auto) Eos % (Auto) Baso % (Auto) Neut # (Auto) Lymph # (Auto) [place] # (Auto) Eos # (Auto) Baso # (Auto) Immature Gran # (Auto) Sample Site POC pH POC pCO2 POC pO2 POC HCO3 POC Total CO2 POC Base Excess ABG pH (Temp Correct) ABG pCO2 (Temp Corrct POC ABG pO2 at Pt Temp POC ABG O2 Sat Lucas Test VBG pH O2 Delivery Device POC O2 Rate Minute Ventilation POC FiO2 Tidal Volume PEEP POC Sodium Sodium POC Potassium Potassium Chloride Carbon Dioxide Anion Gap BUN Creatinine Est Cr Clr Drug Dosing Est GFR ( Amer) Est GFR (Non-Af Amer) BUN/Creatinine Ratio Glucose POC Glucose 117 H 132 H POC Glucose (other) 162 H Calcium Phosphorus Magnesium AST ALT 10/04/21 10/04/21 10/04/21 02:52 03:53 04:40 WBC RBC Hgb POC Hgb 12.9 Hct POC Hct 38 MCV MCH MCHC RDW Std Deviation RDW Coeff of Francisca Plt Count MPV Immature Gran % (Auto) Neut % (Auto) Lymph % (Auto) [place] % (Auto) Eos % (Auto) Baso % (Auto) Neut # (Auto) Lymph # (Auto) [place] # (Auto) Eos # (Auto) Baso # (Auto) Immature Gran # (Auto) Sample Site Art Line POC pH 7.49 H POC pCO2 34 L POC pO2 65 L POC HCO3 26 H POC Total CO2 27 POC Base Excess 3.0 H ABG pH (Temp Correct) 7.508 H* ABG pCO2 (Temp Corrct 33 L POC ABG pO2 at Pt Temp 61 POC ABG O2 Sat 94.0 Lucas Test NA VBG pH O2 Delivery Device Ventilator POC O2 Rate 20 Minute Ventilation POC FiO2 30 Tidal Volume 400 PEEP 14 POC Sodium 138 Sodium POC Potassium 3.9 Potassium Chloride Carbon Dioxide Anion Gap BUN Creatinine Est Cr Clr Drug Dosing Est GFR ( Amer) Est GFR (Non-Af Amer) BUN/Creatinine Ratio Glucose POC Glucose 144 H POC Glucose (other) 160 H Calcium Phosphorus Magnesium AST ALT 10/04/21 10/04/21 10/04/21 05:15 05:32 05:32 WBC RBC Hgb POC Hgb Hct POC Hct MCV MCH MCHC RDW Std Deviation RDW Coeff of Francisca Plt Count MPV Immature Gran % (Auto) Neut % (Auto) Lymph % (Auto) [place] % (Auto) Eos % (Auto) Baso % (Auto) Neut # (Auto) Lymph # (Auto) [place] # (Auto) Eos # (Auto) Baso # (Auto) Immature Gran # (Auto) Sample Site POC pH POC pCO2 POC pO2 POC HCO3 POC Total CO2 POC Base Excess ABG pH (Temp Correct) ABG pCO2 (Temp Corrct POC ABG pO2 at Pt Temp POC ABG O2 Sat Lucas Test VBG pH 7.46 H O2 Delivery Device POC O2 Rate Minute Ventilation POC FiO2 Tidal Volume PEEP POC Sodium Sodium 137 POC Potassium Potassium 4.0 Chloride 106 Carbon Dioxide 27 Anion Gap 4.0 BUN 34 H Creatinine 0.85 Est Cr Clr Drug Dosing 86.6 Est GFR ( Amer) 89.4 Est GFR (Non-Af Amer) 77.1 BUN/Creatinine Ratio 39.4 H Glucose 175 H POC Glucose POC Glucose (other) 180 H Calcium 8.1 L Phosphorus 2.8 Magnesium 2.8 H AST 49 H ALT 36 10/04/21 10/04/21 10/04/21 05:32 07:31 11:53 WBC 10.44 RBC 4.50 Hgb 13.1 POC Hgb Hct 38.2 POC Hct MCV 84.9 MCH 29.1 MCHC 34.3 RDW Std Deviation 40.8 RDW Coeff of Francisca 13.3 Plt Count 230 MPV 9.2 Immature Gran % (Auto) 0.5 Neut % (Auto) 71.9 Lymph % (Auto) 20.9 [place] % (Auto) 6.5 Eos % (Auto) 0.0 Baso % (Auto) 0.2 Neut # (Auto) 7.51 H Lymph # (Auto) 2.18 [place] # (Auto) 0.68 H Eos # (Auto) 0.00 Baso # (Auto) 0.02 Immature Gran # (Auto) 0.05 H Sample Site POC pH POC pCO2 POC pO2 POC HCO3 POC Total CO2 POC Base Excess ABG pH (Temp Correct) ABG pCO2 (Temp Corrct POC ABG pO2 at Pt Temp POC ABG O2 Sat Lcuas Test VBG pH O2 Delivery Device POC O2 Rate Minute Ventilation POC FiO2 Tidal Volume PEEP POC Sodium Sodium POC Potassium Potassium Chloride Carbon Dioxide Anion Gap BUN Creatinine Est Cr Clr Drug Dosing Est GFR ( Amer) Est GFR (Non-Af Amer) BUN/Creatinine Ratio Glucose POC Glucose 163 H 155 H POC Glucose (other) Calcium Phosphorus Magnesium AST ALT Medications Administered Current Inpatient Medications Acetaminophen (Acetaminophen 325 Mg Tab) 650 mg PO Q4H PRN PRN Reason: Pain or Fever Stop: 10/31/21 22:07 Dextrose (Dextrose 50% 50 Ml Syringe) 25 - 50 ml IV UD PRN; Protocol PRN Reason: Hypoglycemia Protocol Stop: 10/31/21 19:23 Enoxaparin Sodium (Enoxaparin 100 Mg/1ml Syr) 100 mg SQ Q12H [facility] Stop: 11/01/21 20:59 Last Admin: 10/04/21 07:52 Dose: 100 mg Documented by: Fentanyl Citrate (Fentanyl Bolus From Bag) 50 mcg IV Q60M PRN PRN Reason: Pain or Agitation Stop: 10/17/21 12:39 Glucagon (Glucagon For Inj 1 Mg Vial) 1 mg SQ UD PRN; Protocol PRN Reason: Hypoglycemia Protocol Stop: 10/31/21 19:23 Glucose (Glucose 10 Tabs/Tube) 4 - 8 tabs PO UD PRN; Protocol PRN Reason: Hypoglycemia Protocol Stop: 10/31/21 19:23 Glucose (Glucose 40% Gel 15 Gm Tube) 15 - 30 gm PO UD PRN; Protocol PRN Reason: Hypoglycemia Protocol Stop: 10/31/21 19:23 Insulin Human Regular 250 (units/ Sodium Chloride) 250 mls @ 4 mls/hr IV .Q24H [facility]; Protocol Stop: 10/31/21 19:29 Last Admin: 10/04/21 07:50 Dose: Not Given Documented by: Remdesivir 100 mg/ Sodium (Chloride) 250 mls @ 250 mls/hr IV Q24H [facility]; Protocol Stop: 10/05/21 20:59 Last Infusion: 10/03/21 21:40 Dose: Infused Documented by: Famotidine 20 mg/ Syringe 5 mls @ 2.5 mls/min IV BID [facility] Stop: 11/01/21 08:59 Last Admin: 10/04/21 07:52 Dose: 2.5 mls/min Documented by: Cisatracurium Besylate 40 mg/ (Sodium Chloride) 100 mls @ 31.44 mls/hr IV .Q3H11M [facility]; Protocol Stop: 11/02/21 12:59 Last Admin: 10/04/21 08:06 Dose: 4 mcg/kg/min, 31.4 mls/hr Documented by: Fentanyl Citrate (Fentanyl Citrate) 2,500 mcg in 250 mls @ 7.5 mls/hr IV .[id number] [facility]; Protocol Stop: 10/17/21 12:44 Last Titration: 10/04/21 06:50 Dose: 75 mcg/hr, 7.5 mls/hr Documented by: Midazolam HCl (Versed) 125 mg in 250 mls @ 4 mls/hr IV .[id number] [facility]; Protocol Stop: 11/02/21 14:59 Last Titration: 10/04/21 06:50 Dose: 2 mg/hr, 4 mls/hr Documented by: Norepinephrine Bitartrate (Levophed/D5w) 8 mg in 508 mls @ 0 mls/hr IV .Q0M [facility]; Protocol Stop: 11/02/21 14:59 Last Titration: 10/04/21 05:05 Dose: 0 mcg/kg/min, 0 mls/hr Documented by: Dexamethasone 20 mg/ Dextrose 30 mls @ 0.833 mls/min IV DAILY [facility] Stop: 10/08/21 08:59 Last Infusion: 10/04/21 08:32 Dose: Infused Documented by: Dexamethasone 10 mg/ Syringe 2.5 mls @ 1 mls/min IV QAM [facility] Stop: 10/12/21 09:03 Insulin Aspart (Insulin Aspart Per Unit) 0 units SC Q4H [facility] Stop: 11/02/21 21:59 Last Admin: 10/04/21 10:25 Dose: Not Given Documented by: Insulin Glargine (Insulin Glargine Solostar 100 Units/Ml 3 Ml Pen) 20 units SC BID [facility] Stop: 11/02/21 08:59 Last Admin: 10/04/21 08:05 Dose: 20 units Documented by: Levothyroxine Sodium (Levothyroxine Sodium 100 Mcg Tablet) 100 mcg PO DAILYBB [facility] Stop: 11/01/21 06:29 Last Admin: 10/04/21 06:17 Dose: 100 mcg Documented by: Midazolam HCl (Midazolam Bolus From Bag) 2 mg IV Q60M PRN PRN Reason: Sedation Stop: 11/02/21 14:54 Miscellaneous (Carbohydrates For Hypoglycemia ) 15 - 30 gm PO UD PRN PRN Reason: Hypoglycemia Protocol Stop: 10/31/21 19:23 Miscellaneous (Icu Electrolyte Replacement Protocol) 1 ea N/A BID@06,18 [facility]; Protocol Stop: 10/10/21 17:59 Last Admin: 10/04/21 08:49 Dose: Not Given Documented by: Miscellaneous Information (Pharmacy Glycemic Mgmt Consult) 1 ea N/A UD PRN PRN Reason: Consult Stop: 10/31/21 20:20 Multi-Ingredient Cream (Artificial Tears Op Oint 3.5 Gm Tube) 1 appln OP Q4H [facility] Stop: 11/02/21 12:59 Last Admin: 10/04/21 07:51 Dose: 1 appln Documented by: Nutritional Formula (Peptamen Intense Vhp 1.0 Brooks 1,000 Ml Bag) 1,000 ml GT UD [facility]; Protocol Stop: 11/02/21 16:29 Last Admin: 10/03/21 21:30 Dose: 1,000 ml Documented by: Ondansetron HCl (Ondansetron Inj 2 Mg/Ml 2 Ml Vial) 4 mg IV Q6H PRN PRN Reason: Nausea Stop: 10/31/21 22:07 Polyethylene Glycol (Polyethylene (Miralax) 17 Gm Pack) 17 gm PO DAILY PRN PRN Reason: Constipation Stop: 10/31/21 22:07 Sodium Chloride (Sodium Chloride 0.9% 10ml Flush) 30 ml IV Q24H [facility] Stop: 10/05/21 20:01 Last Admin: 10/03/21 21:40 Dose: 30 ml Documented by: PG Care Time/CCT Total # of Minutes Spent Total Time Spent with Patient: Total time spent is greater than 50% in coordination of care (as documented) at patient's floor/unit and/or counseling patient: Coding Level of Care Code 09704 Subseq Hosp Care Lvl 3 Diagnoses Acute respiratory failure with hypoxia J96.01 COVID-19 U07.1 DKA (diabetic ketoacidosis) E11.10 Acute kidney injury N17.9 Dehydration E86.0 Dyslipidemia E78.5 Vaginal yeast infection B37.3 Uncontrolled type 2 diabetes mellitus E11.65 Morbid obesity E66.01 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
--- NOTE | 2021-10-04 16:03 | XRay Report ---
SINGLE VIEW CHEST CLINICAL HISTORY: Respiratory failure. FINDINGS: 2 AP, portable, upright chest radiographs are compared to study dated 10/03/2021. The patie nt's head obscures the apices on the first image. An endotracheal tube, an enteric tube, and a right subclavian central venous catheter are unchanged in position. The cardiomediastinal silhouette is unr emarkable. There are low lung volumes. Multifocal airspace consolidation has not significantly change d from yesterday. Trace pleural effusions are suspected. No pneumothorax is seen. The skeletal struct ures appear osteopenic. The bony thorax is grossly intact. IMPRESSION: 1. Stable lines and tubes. 2. Multifocal airspace consolidation has not appreciably changed from yesterday. ACT 112: Negative or not required by law. Electronically signed by: Kristian Quintero M.D. 10/04/2021 4:02 PM
[2021-10-04] MEDS: fentaNYL citrate 2,500 MCG/250 ML BAG IV SCH (19:32)
[2021-10-04] MEDS: REMDESIVIR 100 MG in SODIUM CHLORIDE 0.9% 230 ML IV SCH (19:33)
[2021-10-04] MEDS: SODIUM CHLORIDE 0.9% 10ML FLUSH IV SCH (20:45)
[2021-10-05] MEDS: INSULIN ASPART PER UNIT SC SCH ×6 (00:58→20:09)
[2021-10-05] MEDS: ARTIFICIAL TEARS OP OINT 3.5 GM TUBE OP SCH ×6 (00:59→20:27)
[2021-10-05] MEDS: CISATRACURIUM BESYLATE 40 MG in 0.9 % SODIUM CHLORIDE 80 ML IV SCH ×8 (03:01→22:28)
[2021-10-05] MEDS: fentaNYL citrate 2,500 MCG/250 ML BAG IV SCH ×3 (03:02→20:28)
[2021-10-05 05:43] LABS: iSTAT Art Bld Gas pCO2 Correct 40 mmHg (35-46); iSTAT Art Bld Gas pH Corrected 7.427 (7.35-7.45); iSTAT Arterial Blood Gas HCO3 26 meg/L (19-24); iSTAT Arterial Blood Gas pCO2 41 mmHg (35-46); iSTAT Arterial Blood Gas pH 7.42 (7.35-7.45); iSTAT Arterial Blood Gas pO2 69 mmHg (80-95); iSTAT Arterial Blood Gas pO2 C 65; iSTAT Carbon Dioxide 28 mmol/L (24-31); iSTAT FiO2 35 %; iSTAT Hematocrit 40 % (37-47); iSTAT Hemoglobin 13.6 g/dl (12.0-16.0); iSTAT Potassium 3.8 mmol/L (3.3-5.0); iSTAT Site Art Line; iSTAT Sodium 140 mmol/L (135-144)
[2021-10-05 05:59] LABS: Basophils # (auto) 0.01 K/uL (0-0.2); Basophils % (auto) 0.1 %; Hematocrit (blood only) 41.5 % (37-47); Hemoglobin 13.9 g/dL (12.0-16.0); Immature Granulocytes # (auto) 0.11 K/uL (0.00-0.02); Immature Granulocytes % (auto) 0.7 %; Lymphocytes # (auto) 2.49 K/uL (1.2-3.4); Lymphocytes % (auto) 14.8 %; Mean Corpuscular Hemoglobin 29.3 pg (25-34); Mean Corpuscular Hgb Conc 33.5 g/dL (32-36); Mean Corpuscular Volume 87.4 fL (80-100); Mean Platelet Volume 9.1 fL (7.4-10.4); Monocytes # (auto) 1.18 K/uL (0.11-0.59); Neutrophils # (auto) 13.03 K/uL (1.4-6.5); Neutrophils % (auto) 77.4 %; Platelet Count 277 K/uL (130-400); RDW Coefficient of Variation 13.6 % (11.5-14.5); RDW Standard Deviation 43.3 fL (36.4-46.3); Red Blood Count 4.75 M/uL (4.2-5.4); White Blood Count 16.82 K/uL (4.8-10.8)
[2021-10-05] MEDS: LEVOTHYROXINE SODIUM 100 MCG TABLET PO SCH (06:19)
[2021-10-05 06:28] LABS: BUN Creatinine Ratio 37.3 (10-20); Calcium 8.4 mg/dl (8.5-10.1); Creatinine Clr Calc Pharmacy 83.6 ml/min; Est GFR (African American) 82.3 ml/min; Magnesium 2.9 mg/dl (1.8-2.4); Phosphorus 2.8 mg/dl (2.5-4.9); Potassium 3.9 mmol/L (3.5-5.1)
--- NOTE | 2021-10-05 07:47 | XRay Report ---
XR chest 1V portable HISTORY: 56 years-old Female Resp failure acute respiratory failure COMPARISON: Chest radiograph 10/04/2021 TECHNIQUE: Portable AP view of the chest FINDINGS: The cardiac silhouette is upper limits of normal in size. Endotracheal tube overlies the midline, 1.9 cm superior to the jaswant. A right subclavian central venous catheter distal tip overlies the right atrium. Enteric tube courses below the diaphragm with the distal tip outside the [id number]. There is no pneumothorax. Probable trace pleural effusions. Mild right hemidiaphragmatic elevation. Inters titial coarsening with ill-defined bilateral airspace opacities, stable to slightly improved. Degener ative changes of the shoulders and spine. IMPRESSION: 1. Lines and tubes as above. 2. Interstitial coarsening with ill-defined airspace opacities, stable to slightly improved. 3. No pneumothorax. ACT 112: Negative or not required by law. The above report was generated using voice recognition software. It may contain grammatical, syntax o r spelling errors. Electronically signed by: Sherman Marino M.D. 10/05/2021 7:46 AM
[2021-10-05] MEDS: INSULIN GLARGINE SOLOSTAR 100 UNITS/ML 3 ML PEN SC SCH ×2 (08:32→20:23)
[2021-10-05] MEDS: FAMOTIDINE 20 MG in SYRINGE 3 ML IV SCH ×2 (09:01→20:22)
[2021-10-05] MEDS: dexAMETHasone 20 MG in DEXTROSE 5% 25 ML IV SCH (09:01)
[2021-10-05] MEDS: POTASSIUM CHLORIDE 20 MEQ/15 ML UDC NG SCH ×2 (09:02→11:59)
[2021-10-05] MEDS: ICU ELECTROLYTE REPLACEMENT PROTOCOL SCH ×2 (09:02→18:04)
[2021-10-05] MEDS: ENOXAPARIN 100 MG/1ML SYR SQ SCH ×2 (09:05→20:23)
--- NOTE | 2021-10-05 10:43 | Hospitalist Progress Note ---
Date of Service October 05, 2021 Assessment & Plan (1) Acute respiratory failure with hypoxia: Plan: decompensated on 10/03 after being on high flow 60L 100% and then BIPAP for [address] Longoria on 10/03 and placed in prone position for 18 hours, now back to supine day 3 of ventilation 2nd time in prone position, great response with PEEP of only 5 and FiO2 40% treat COVID with dexamethasone, Remdesivir Baricitinib stopped with intubation never got CTA chest on admission and was too unstable to scan Lovenox 1mg/kg BID lower extremity dopplers negative for PE (2) COVID-19: Plan: sick for over a week on admission, viral pneumonia on CXR dexamethasone 6mg IV daily, day 5 Remdesivir IV daily, day 5 Baricitinib, got 2 days but stopped when intubated intubated on 10/03 doing well with prone position, dramatic reduction in PEEP and FiO2 (3) DKA (diabetic ketoacidosis): Plan: anion gap closed quickly with insulin drip sugars are < 200, stopped IV fluids on 09/02 in the morning to keep lungs dry DKA due to her illness and not taking diabetes medications for a week, typically on insulin regimen pharmacy consulted, managing sugars monitor for hypoglycemia (4) Acute kidney injury: Plan: due to dehydration, prerenal Cr was 1.7 on admission, down to 0.8 on 10/02 in afternoon after aggressive fluids ricardo placed gave Lasix 20mg IV on 10/02 and 10/03 but did not help breathing defer further Lasix use to ICU team Cr is 0.9 today (5) Dehydration: Plan: resolved, now euvolemic (6) Dyslipidemia: (7) Vaginal yeast infection: Plan: chronic issue due to uncontrolled diabetes (8) Uncontrolled type 2 diabetes mellitus: Plan: HbA1c 11.7% will need education, she stopped taking all her medications for a week prior to admission (9) Morbid obesity: Plan: increases morbidity and mortality (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: (11) DVT prophylaxis: Plan: Lovenox BID, increased to 1mg/kg BID due to possible PE, cannot rule it out Pepcid BID Admission and Anticipated Discharge Date Admission Date: October 01, 2021 Subjective patient is prone again, doing well with PEEP 5 and FiO2 40% labs reviewed, CBC and CMP stable Review of Systems Review of Systems: Unobtainable due to endotracheal tube and Unobtainable due to reduced consciousness Physical Exam Physical Exam: General: well developed, obese female, prone position on ventilator Neck: supple, trachea midline, normal thyroid Lungs: clear to auscultation bilaterally, on ventilator Heart: regular S1 and S2, no murmur, peripheral pulses normal, capillary refill normal, no edema Abdomen: soft, NT, ND, + BS, no hepatomegaly, normal to percussion Extremities: normal in appearance, no cyanosis, no petechiae Neuro: sedated, no focal motor deficits, CN II-XII intact Skin: warm, dry, no rash, normal turgor Psych: sedated Results & Data Results & Data ([facility]) Vital Signs (Past 12 Hours) Vital Signs Pulse Resp BP Pulse Ox 10/05/21 09:06 16 10/05/21 09:00 93 H 18 93 10/05/21 08:30 83 14 90 10/05/21 08:26 84 17 166/109 H 10/05/21 08:17 20 10/05/21 08:12 78 20 179/111 H 91 10/05/21 08:00 71 16 92 10/05/21 07:56 72 16 171/103 H 10/05/21 07:41 85 16 190/99 H 92 10/05/21 07:30 67 16 92 10/05/21 07:29 69 16 92 10/05/21 07:26 68 16 151/93 H 10/05/21 07:11 70 16 160/97 H 10/05/21 07:00 71 16 92 10/05/21 04:45 70 16 91 10/05/21 04:00 68 16 93 10/05/21 03:50 67 16 92 10/05/21 03:40 69 16 92 10/05/21 03:30 67 16 92 10/05/21 03:20 67 16 92 10/05/21 03:10 67 16 92 10/05/21 03:05 69 10/05/21 03:00 67 16 93 10/05/21 02:50 67 16 92 10/05/21 02:40 68 16 92 10/05/21 02:30 67 16 92 10/05/21 02:20 68 16 92 10/05/21 02:10 71 16 92 10/05/21 02:00 70 16 93 10/05/21 01:50 67 16 92 10/05/21 01:40 67 16 92 10/05/21 01:30 66 16 92 10/05/21 01:25 70 16 101/67 92 10/05/21 01:20 69 16 92 10/05/21 01:10 72 16 112/62 92 10/05/21 01:00 70 16 92 10/05/21 00:56 68 16 122/71 93 10/05/21 00:50 68 16 91 10/05/21 00:40 67 16 102/66 91 10/05/21 00:30 70 16 92 10/05/21 00:25 69 16 112/71 91 10/05/21 00:20 67 16 91 10/05/21 00:10 68 16 106/67 91 10/05/21 00:00 69 16 91 10/04/21 23:55 68 16 115/71 91 10/04/21 23:50 69 16 92 10/04/21 23:40 70 16 108/73 91 10/04/21 23:30 69 16 92 10/04/21 23:25 70 16 123/70 91 10/04/21 23:23 72 16 91 10/04/21 23:20 71 16 90 10/04/21 23:10 69 16 115/67 90 10/04/21 23:00 69 16 91 10/04/21 22:56 69 16 114/79 91 10/04/21 22:50 68 16 90 10/04/21 22:40 69 16 104/71 90 Laboratory Results Laboratory Results - last 24 hr 10/04/21 10/04/21 10/04/21 11:53 13:20 16:16 WBC RBC Hgb POC Hgb Hct POC Hct MCV MCH MCHC RDW Std Deviation RDW Coeff of Francisca Plt Count MPV Immature Gran % (Auto) Neut % (Auto) Lymph % (Auto) [place] % (Auto) Eos % (Auto) Baso % (Auto) Neut # (Auto) Lymph # (Auto) [place] # (Auto) Eos # (Auto) Baso # (Auto) Immature Gran # (Auto) Sample Site POC pH POC pCO2 POC pO2 POC HCO3 POC Total CO2 POC Base Excess ABG pH (Temp Correct) ABG pCO2 (Temp Corrct POC ABG pO2 at Pt Temp POC ABG O2 Sat Lucas Test VBG pH O2 Delivery Device POC O2 Rate POC FiO2 Tidal Volume PEEP POC Sodium Sodium POC Potassium Potassium Chloride Carbon Dioxide Anion Gap BUN Creatinine Est Cr Clr Drug Dosing Est GFR ( Amer) Est GFR (Non-Af Amer) BUN/Creatinine Ratio Glucose POC Glucose 155 H 221 H 187 H POC Glucose (other) Calcium Phosphorus Magnesium AST ALT 10/04/21 10/04/21 10/04/21 17:35 18:24 19:37 WBC RBC Hgb POC Hgb Hct POC Hct MCV MCH MCHC RDW Std Deviation RDW Coeff of Francisca Plt Count MPV Immature Gran % (Auto) Neut % (Auto) Lymph % (Auto) [place] % (Auto) Eos % (Auto) Baso % (Auto) Neut # (Auto) Lymph # (Auto) [place] # (Auto) Eos # (Auto) Baso # (Auto) Immature Gran # (Auto) Sample Site POC pH POC pCO2 POC pO2 POC HCO3 POC Total CO2 POC Base Excess ABG pH (Temp Correct) ABG pCO2 (Temp Corrct POC ABG pO2 at Pt Temp POC ABG O2 Sat Lucas Test VBG pH O2 Delivery Device POC O2 Rate POC FiO2 Tidal Volume PEEP POC Sodium Sodium POC Potassium Potassium Chloride Carbon Dioxide Anion Gap BUN Creatinine Est Cr Clr Drug Dosing Est GFR ( Amer) Est GFR (Non-Af Amer) BUN/Creatinine Ratio Glucose POC Glucose 201 H 203 H 187 H POC Glucose (other) Calcium Phosphorus Magnesium AST ALT 10/04/21 10/04/21 10/04/21 20:46 21:59 22:56 WBC RBC Hgb POC Hgb Hct POC Hct MCV MCH MCHC RDW Std Deviation RDW Coeff of Francisca Plt Count MPV Immature Gran % (Auto) Neut % (Auto) Lymph % (Auto) [place] % (Auto) Eos % (Auto) Baso % (Auto) Neut # (Auto) Lymph # (Auto) [place] # (Auto) Eos # (Auto) Baso # (Auto) Immature Gran # (Auto) Sample Site POC pH POC pCO2 POC pO2 POC HCO3 POC Total CO2 POC Base Excess ABG pH (Temp Correct) ABG pCO2 (Temp Corrct POC ABG pO2 at Pt Temp POC ABG O2 Sat Lucas Test VBG pH O2 Delivery Device POC O2 Rate POC FiO2 Tidal Volume PEEP POC Sodium Sodium POC Potassium Potassium Chloride Carbon Dioxide Anion Gap BUN Creatinine Est Cr Clr Drug Dosing Est GFR ( Amer) Est GFR (Non-Af Amer) BUN/Creatinine Ratio Glucose POC Glucose 166 H 159 H 155 H POC Glucose (other) Calcium Phosphorus Magnesium AST ALT 10/05/21 10/05/21 10/05/21 00:55 02:59 04:46 WBC RBC Hgb POC Hgb 13.6 Hct POC Hct 40 MCV MCH MCHC RDW Std Deviation RDW Coeff of Francisca Plt Count MPV Immature Gran % (Auto) Neut % (Auto) Lymph % (Auto) [place] % (Auto) Eos % (Auto) Baso % (Auto) Neut # (Auto) Lymph # (Auto) [place] # (Auto) Eos # (Auto) Baso # (Auto) Immature Gran # (Auto) Sample Site Art Line POC pH 7.42 POC pCO2 41 POC pO2 69 L POC HCO3 26 H POC Total CO2 28 POC Base Excess 2.0 H ABG pH (Temp Correct) 7.427 ABG pCO2 (Temp Corrct 40 POC ABG pO2 at Pt Temp 65 POC ABG O2 Sat 94.0 Lucas Test NA VBG pH O2 Delivery Device Ventilator POC O2 Rate 16 POC FiO2 35 Tidal Volume 400 PEEP 6 POC Sodium 140 Sodium POC Potassium 3.8 Potassium Chloride Carbon Dioxide Anion Gap BUN Creatinine Est Cr Clr Drug Dosing Est GFR ( Amer) Est GFR (Non-Af Amer) BUN/Creatinine Ratio Glucose POC Glucose 143 H 129 H POC Glucose (other) Calcium Phosphorus Magnesium AST ALT 10/05/21 10/05/21 10/05/21 04:57 05:39 05:39 WBC RBC Hgb POC Hgb Hct POC Hct MCV MCH MCHC RDW Std Deviation RDW Coeff of Francisca Plt Count MPV Immature Gran % (Auto) Neut % (Auto) Lymph % (Auto) [place] % (Auto) Eos % (Auto) Baso % (Auto) Neut # (Auto) Lymph # (Auto) [place] # (Auto) Eos # (Auto) Baso # (Auto) Immature Gran # (Auto) Sample Site POC pH POC pCO2 POC pO2 POC HCO3 POC Total CO2 POC Base Excess ABG pH (Temp Correct) ABG pCO2 (Temp Corrct POC ABG pO2 at Pt Temp POC ABG O2 Sat Lucas Test VBG pH 7.39 O2 Delivery Device POC O2 Rate POC FiO2 Tidal Volume PEEP POC Sodium Sodium 138 POC Potassium Potassium 3.9 Chloride 109 H Carbon Dioxide 26 Anion Gap 3.0 BUN 34 H Creatinine 0.91 Est Cr Clr Drug Dosing 83.6 Est GFR ( Amer) 82.3 Est GFR (Non-Af Amer) 71.0 BUN/Creatinine Ratio 37.3 H Glucose 108 H POC Glucose 104 H POC Glucose (other) Calcium 8.4 L Phosphorus 2.8 Magnesium 2.9 H AST 61 H ALT 49 10/05/21 10/05/21 10/05/21 05:39 05:57 06:16 WBC 16.82 H RBC 4.75 Hgb 13.9 POC Hgb Hct 41.5 POC Hct MCV 87.4 MCH 29.3 MCHC 33.5 RDW Std Deviation 43.3 RDW Coeff of Francisca 13.6 Plt Count 277 MPV 9.1 Immature Gran % (Auto) 0.7 Neut % (Auto) 77.4 Lymph % (Auto) 14.8 [place] % (Auto) 7.0 Eos % (Auto) 0.0 Baso % (Auto) 0.1 Neut # (Auto) 13.03 H Lymph # (Auto) 2.49 [place] # (Auto) 1.18 H Eos # (Auto) 0.00 Baso # (Auto) 0.01 Immature Gran # (Auto) 0.11 H Sample Site POC pH POC pCO2 POC pO2 POC HCO3 POC Total CO2 POC Base Excess ABG pH (Temp Correct) ABG pCO2 (Temp Corrct POC ABG pO2 at Pt Temp POC ABG O2 Sat Lucas Test VBG pH O2 Delivery Device POC O2 Rate POC FiO2 Tidal Volume PEEP POC Sodium Sodium POC Potassium Potassium Chloride Carbon Dioxide Anion Gap BUN Creatinine Est Cr Clr Drug Dosing Est GFR ( Amer) Est GFR (Non-Af Amer) BUN/Creatinine Ratio Glucose POC Glucose 93 157 H POC Glucose (other) Calcium Phosphorus Magnesium AST ALT 10/05/21 10/05/21 10/05/21 07:33 08:23 10:13 WBC RBC Hgb POC Hgb Hct POC Hct MCV MCH MCHC RDW Std Deviation RDW Coeff of Francisca Plt Count MPV Immature Gran % (Auto) Neut % (Auto) Lymph % (Auto) [place] % (Auto) Eos % (Auto) Baso % (Auto) Neut # (Auto) Lymph # (Auto) [place] # (Auto) Eos # (Auto) Baso # (Auto) Immature Gran # (Auto) Sample Site POC pH POC pCO2 POC pO2 POC HCO3 POC Total CO2 POC Base Excess ABG pH (Temp Correct) ABG pCO2 (Temp Corrct POC ABG pO2 at Pt Temp POC ABG O2 Sat Lucas Test VBG pH O2 Delivery Device POC O2 Rate POC FiO2 Tidal Volume PEEP POC Sodium Sodium POC Potassium Potassium Chloride Carbon Dioxide Anion Gap BUN Creatinine Est Cr Clr Drug Dosing Est GFR ( Amer) Est GFR (Non-Af Amer) BUN/Creatinine Ratio Glucose POC Glucose 132 H 148 H POC Glucose (other) 155 H Calcium Phosphorus Magnesium AST ALT Medications Administered Current Inpatient Medications Acetaminophen (Acetaminophen 325 Mg Tab) 650 mg PO Q4H PRN PRN Reason: Pain or Fever Stop: 10/31/21 22:07 Dextrose (Dextrose 50% 50 Ml Syringe) 25 - 50 ml IV UD PRN; Protocol PRN Reason: Hypoglycemia Protocol Stop: 10/31/21 19:23 Last Admin: 10/05/21 06:01 Dose: 25 ml Documented by: Enoxaparin Sodium (Enoxaparin 100 Mg/1ml Syr) 100 mg SQ Q12H JERRELL Stop: 11/01/21 20:59 Last Admin: 10/05/21 09:05 Dose: 100 mg Documented by: Fentanyl Citrate (Fentanyl Bolus From Bag) 50 mcg IV Q60M PRN PRN Reason: Pain or Agitation Stop: 10/17/21 12:39 Last Admin: 10/04/21 20:45 Dose: 50 mcg Documented by: Glucagon (Glucagon For Inj 1 Mg Vial) 1 mg SQ UD PRN; Protocol PRN Reason: Hypoglycemia Protocol Stop: 10/31/21 19:23 Glucose (Glucose 10 Tabs/Tube) 4 - 8 tabs PO UD PRN; Protocol PRN Reason: Hypoglycemia Protocol Stop: 10/31/21 19:23 Glucose (Glucose 40% Gel 15 Gm Tube) 15 - 30 gm PO UD PRN; Protocol PRN Reason: Hypoglycemia Protocol Stop: 10/31/21 19:23 Insulin Human Regular 250 (units/ Sodium Chloride) 250 mls @ 3.4 mls/hr IV .Q24H JERRELL; Protocol Stop: 10/31/21 19:29 Last Titration: 10/05/21 06:47 Dose: 3.4 units/hr, 3.4 mls/hr Documented by: Remdesivir 100 mg/ Sodium (Chloride) 250 mls @ 250 mls/hr IV Q24H [facility]; Protocol Stop: 10/05/21 20:59 Last Infusion: 10/04/21 20:35 Dose: Infused Documented by: Famotidine 20 mg/ Syringe 5 mls @ 2.5 mls/min IV BID [facility] Stop: 11/01/21 08:59 Last Admin: 10/05/21 09:01 Dose: 2.5 mls/min Documented by: Cisatracurium Besylate 40 mg/ (Sodium Chloride) 100 mls @ 27.51 mls/hr IV .Q3H39M [facility]; Protocol Stop: 11/02/21 12:59 Last Titration: 10/05/21 08:55 Dose: 3.5 mcg/kg/min, 27.5 mls/hr Documented by: Fentanyl Citrate (Fentanyl Citrate) 2,500 mcg in 250 mls @ 15 mls/hr IV .[id number] [facility]; Protocol Stop: 10/17/21 12:44 Last Titration: 10/05/21 09:30 Dose: 150 mcg/hr, 15 mls/hr Documented by: Midazolam HCl (Versed) 125 mg in 250 mls @ 4 mls/hr IV .[id number] [facility]; Protocol Stop: 11/02/21 14:59 Last Titration: 10/05/21 06:47 Dose: 2 mg/hr, 4 mls/hr Documented by: Norepinephrine Bitartrate (Levophed/D5w) 8 mg in 508 mls @ 0 mls/hr IV .Q0M [facility]; Protocol Stop: 11/02/21 14:59 Last Titration: 10/04/21 16:54 Dose: Infused Documented by: Dexamethasone 20 mg/ Dextrose 30 mls @ 0.833 mls/min IV DAILY [facility] Stop: 10/08/21 08:59 Last Infusion: 10/05/21 09:40 Dose: Infused Documented by: Dexamethasone 10 mg/ Syringe 2.5 mls @ 1 mls/min IV QAM [facility] Stop: 10/12/21 09:03 Insulin Aspart (Insulin Aspart Per Unit) 0 units SC Q4H [facility] Stop: 11/02/21 21:59 Last Admin: 10/05/21 09:03 Dose: Not Given Documented by: Insulin Glargine (Insulin Glargine Solostar 100 Units/Ml 3 Ml Pen) 20 units SC BID [facility] Stop: 11/02/21 08:59 Last Admin: 10/05/21 08:32 Dose: 20 units Documented by: Levothyroxine Sodium (Levothyroxine Sodium 100 Mcg Tablet) 100 mcg PO DAILYBB [facility] Stop: 11/01/21 06:29 Last Admin: 10/05/21 06:19 Dose: 100 mcg Documented by: Midazolam HCl (Midazolam Bolus From Bag) 2 mg IV Q60M PRN PRN Reason: Sedation Stop: 11/02/21 14:54 Miscellaneous (Carbohydrates For Hypoglycemia ) 15 - 30 gm PO UD PRN PRN Reason: Hypoglycemia Protocol Stop: 10/31/21 19:23 Miscellaneous (Icu Electrolyte Replacement Protocol) 1 ea N/A BID@06,18 [facility]; Protocol Stop: 10/10/21 17:59 Last Admin: 10/05/21 09:02 Dose: 1 ea Documented by: Miscellaneous Information (Pharmacy Glycemic Mgmt Consult) 1 ea N/A UD PRN PRN Reason: Consult Stop: 10/31/21 20:20 Multi-Ingredient Cream (Artificial Tears Op Oint 3.5 Gm Tube) 1 appln OP Q4H [facility] Stop: 11/02/21 12:59 Last Admin: 10/05/21 09:05 Dose: 1 appln Documented by: Nutritional Formula (Peptamen Intense Vhp 1.0 Brooks 1,000 Ml Bag) 1,000 ml GT UD [facility]; Protocol Stop: 11/02/21 16:29 Last Admin: 10/03/21 21:30 Dose: 1,000 ml Documented by: Ondansetron HCl (Ondansetron Inj 2 Mg/Ml 2 Ml Vial) 4 mg IV Q6H PRN PRN Reason: Nausea Stop: 10/31/21 22:07 Polyethylene Glycol (Polyethylene (Miralax) 17 Gm Pack) 17 gm PO DAILY PRN PRN Reason: Constipation Stop: 10/31/21 22:07 Potassium Chloride (Potassium Chloride 20 Meq/15 Ml Udc) 20 meq NG Q4H [facility] Stop: 10/05/21 11:46 Last Admin: 10/05/21 09:02 Dose: 20 meq Documented by: Sodium Chloride (Sodium Chloride 0.9% 10ml Flush) 30 ml IV Q24H [facility] Stop: 10/05/21 20:01 Last Admin: 10/04/21 20:45 Dose: 30 ml Documented by: PG Care Time/CCT Total # of Minutes Spent Total Time Spent with Patient: Total time spent is greater than 50% in coordination of care (as documented) at patient's floor/unit and/or counseling patient: Coding Level of Care Code 61108 Subseq Hosp Care Lvl 2 Diagnoses Acute respiratory failure with hypoxia J96.01 COVID-19 U07.1 DKA (diabetic ketoacidosis) E11.10 Acute kidney injury N17.9 Dehydration E86.0 Dyslipidemia E78.5 Vaginal yeast infection B37.3 Uncontrolled type 2 diabetes mellitus E11.65 Morbid obesity E66.01 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
--- NOTE | 2021-10-05 11:05 | Critical Care Progress Note ---
Date of Service October 05, 2021 Assessment & Plan (1) Acute respiratory failure with hypoxia: Plan: Reason Critically Ill: 56-year-old female with severe hypoxic respiratory failure secondary to COVID-19 pneumonia PLAN: Neuro: Analgesia: Fentanyl Sedation: Versed Neuromuscular blockade: Nimbex Resp: Acute hypoxic respiratory failure secondary to COVID-19 pneumonia: Improved in supine position -Baricitinib ordered 10/02: Discontinued secondary to intubation -Increase Decadron to 20 mg IV daily x5 days then 10 mg daily for 5 days -Remdesivir 100 mg daily ordered 10/02 -Pronation today done anticipate spontaneous breathing trial tomorrow CV: Hypotension: Resolved -Likely secondary to sedation transition from propofol to Versed Fluids/Renal: Electrolyte protocol ID: Monitor fever curve GI/Nutrition: Start Peptamen intense -Pepcid 20 mg twice daily for GI prophylaxis Heme: DVT prophylaxis: Lovenox 100 mg twice daily Endocrine: ICU hyperglycemia protocol Hypothyroidism -100 mcg daily Vascular access: Right subclavian placed 10/03/2021 right radial arterial line placed 10/03/2021 Code Status: Full code Disposition: ICU I participated in positioning patient in the prone position (2) COVID-19: (3) Morbid obesity: Admission and Anticipated Discharge Date Admission Date: October 01, 2021 Supervising Physician Co-Signing Physician Notes I have personally spent 40 minutes of critical care time in the direct managem ent of this patient. This is a life/limb threatening event. This includes time spent evaluating patient, direct bedside care, chart review, placing orders, interpretation of diagnostic studies, discussion with consultants, patient, and/or family members regarding treatment decisions, as well as other required patient management activities. This time is exclusive of all separately billable procedures, and teaching time and separate from and in addition to any other critical care service time. Subjective Underwent pronation again today hopefully will be able to extubate next 24 hours Review of Systems Review of Systems: Unobtainable secondary to endotracheal tube Physical Exam Physical Exam: General: GCS 3 T Skin: Warm, dry, Head: Atraumatic Ears, nose, mouth and throat: airway obscured by endotracheal tube Cardiovascular: Normal peripheral perfusion Respiratory: Ventilator settings reviewed Gastrointestinal: Non distended Musculoskeletal: No deformity Results & Data Results & Data ([facility]) Vital Signs (Past 12 Hours) Vital Signs Pulse Resp BP Pulse Ox 10/05/21 10:45 90 16 92 10/05/21 09:06 16 10/05/21 09:00 93 H 18 93 10/05/21 08:30 83 14 90 10/05/21 08:26 84 17 166/109 H 10/05/21 08:17 20 10/05/21 08:12 78 20 179/111 H 91 10/05/21 08:00 71 16 92 10/05/21 07:56 72 16 171/103 H 10/05/21 07:41 85 16 190/99 H 92 10/05/21 07:30 67 16 92 10/05/21 07:29 69 16 92 10/05/21 07:26 68 16 151/93 H 10/05/21 07:11 70 16 160/97 H 10/05/21 07:00 71 16 92 10/05/21 04:45 70 16 91 10/05/21 04:00 68 16 93 10/05/21 03:50 67 16 92 10/05/21 03:40 69 16 92 10/05/21 03:30 67 16 92 10/05/21 03:20 67 16 92 10/05/21 03:10 67 16 92 10/05/21 03:05 69 10/05/21 03:00 67 16 93 10/05/21 02:50 67 16 92 10/05/21 02:40 68 16 92 10/05/21 02:30 67 16 92 10/05/21 02:20 68 16 92 10/05/21 02:10 71 16 92 10/05/21 02:00 70 16 93 10/05/21 01:50 67 16 92 10/05/21 01:40 67 16 92 10/05/21 01:30 66 16 92 10/05/21 01:25 70 16 101/67 92 10/05/21 01:20 69 16 92 10/05/21 01:10 72 16 112/62 92 10/05/21 01:00 70 16 92 10/05/21 00:56 68 16 122/71 93 10/05/21 00:50 68 16 91 10/05/21 00:40 67 16 102/66 91 10/05/21 00:30 70 16 92 10/05/21 00:25 69 16 112/71 91 10/05/21 00:20 67 16 91 10/05/21 00:10 68 16 106/67 91 10/05/21 00:00 69 16 91 10/04/21 23:55 68 16 115/71 91 10/04/21 23:50 69 16 92 10/04/21 23:40 70 16 108/73 91 10/04/21 23:30 69 16 92 10/04/21 23:25 70 16 123/70 91 10/04/21 23:23 72 16 91 10/04/21 23:20 71 16 90 10/04/21 23:10 69 16 115/67 90 Critical Care Results & Data Vital Signs (Past 12 Hours) Vital Signs Pulse Resp BP Pulse Ox 10/05/21 10:45 90 16 92 10/05/21 09:06 16 10/05/21 09:00 93 H 18 93 10/05/21 08:30 83 14 90 10/05/21 08:26 84 17 166/109 H 10/05/21 08:17 20 10/05/21 08:12 78 20 179/111 H 91 10/05/21 08:00 71 16 92 10/05/21 07:56 72 16 171/103 H 10/05/21 07:41 85 16 190/99 H 92 10/05/21 07:30 67 16 92 10/05/21 07:29 69 16 92 10/05/21 07:26 68 16 151/93 H 10/05/21 07:11 70 16 160/97 H 10/05/21 07:00 71 16 92 10/05/21 04:45 70 16 91 10/05/21 04:00 68 16 93 10/05/21 03:50 67 16 92 10/05/21 03:40 69 16 92 10/05/21 03:30 67 16 92 10/05/21 03:20 67 16 92 10/05/21 03:10 67 16 92 10/05/21 03:05 69 10/05/21 03:00 67 16 93 10/05/21 02:50 67 16 92 10/05/21 02:40 68 16 92 10/05/21 02:30 67 16 92 10/05/21 02:20 68 16 92 10/05/21 02:10 71 16 92 10/05/21 02:00 70 16 93 10/05/21 01:50 67 16 92 10/05/21 01:40 67 16 92 10/05/21 01:30 66 16 92 10/05/21 01:25 70 16 101/67 92 10/05/21 01:20 69 16 92 10/05/21 01:10 72 16 112/62 92 10/05/21 01:00 70 16 92 10/05/21 00:56 68 16 122/71 93 10/05/21 00:50 68 16 91 10/05/21 00:40 67 16 102/66 91 10/05/21 00:30 70 16 92 10/05/21 00:25 69 16 112/71 91 10/05/21 00:20 67 16 91 10/05/21 00:10 68 16 106/67 91 10/05/21 00:00 69 16 91 10/04/21 23:55 68 16 115/71 91 10/04/21 23:50 69 16 92 10/04/21 23:40 70 16 108/73 91 10/04/21 23:30 69 16 92 10/04/21 23:25 70 16 123/70 91 10/04/21 23:23 72 16 91 10/04/21 23:20 71 16 90 10/04/21 23:10 69 16 115/67 90 Lab & Micro Results (Past 24 Hours) RBC 4.75 M/uL (4.2-5.4) 10/05/21 WBC 16.82 K/uL (4.8-10.8) H 10/05/21 Hgb 13.9 g/dL (12.0-16.0) 10/05/21 Hct 41.5 % (37-47) 10/05/21 MCV 87.4 fL (80-100) 10/05/21 MCH 29.3 pg (25-34) 10/05/21 MCHC 33.5 g/dL (32-36) 10/05/21 RDW Standard Deviation 43.3 fL (36.4-46.3) 10/05/21 RDW Coefficient of Variation 13.6 % (11.5-14.5) 10/05/21 Plt Count 277 K/uL (130-400) 10/05/21 MPV 9.1 fL (7.4-10.4) 10/05/21 Neutrophils (%) (Auto) 77.4 % 10/05/21 Lymphocytes (%) (Auto) 14.8 % 10/05/21 Monocytes # (Auto) 1.18 K/uL (0.11-0.59) H 10/05/21 Eosinophils # (Auto) 0.00 K/uL (0-0.5) 10/05/21 Immature Granulocyte % (Auto) 0.7 % 10/05/21 Neutrophils # (Auto) 13.03 K/uL (1.4-6.5) H 10/05/21 Lymphocytes # (Auto) 2.49 K/uL (1.2-3.4) 10/05/21 Monocytes # (Auto) 1.18 K/uL (0.11-0.59) H 10/05/21 Eosinophils # (Auto) 0.00 K/uL (0-0.5) 10/05/21 Basophils # (Auto) 0.01 K/uL (0-0.2) 10/05/21 Immature Granulocyte # (Auto) 0.11 K/uL (0.00-0.02) H 10/05/21 Na 138 mmol/L (136-145) 10/05/21 K 3.9 mmol/L (3.5-5.1) 10/05/21 Cl 109 mmol/L (98-107) H 10/05/21 CO2 26 mmol/L (21-32) 10/05/21 Anion Gap 3.0 (3-11) 10/05/21 BUN 34 mg/dl (7-18) H 10/05/21 Creatinine 0.91 mg/dl (0.6-1.2) 10/05/21 Estimated GFR ( Amer) 82.3 ml/min 10/05/21 Estimated GFR (Non-Af Amer) 71.0 ml/min 10/05/21 BUN/Creatinine Ratio 37.3 (10-20) H 10/05/21 Glu 108 mg/dl (70-99) H 10/05/21 Ca 8.4 mg/dl (8.5-10.1) L 10/05/21 Phosphorus Level 2.8 mg/dl (2.5-4.9) 10/05/21 AST 61 U/L (15-37) H 10/05/21 ALT 49 (12-78) 10/05/21 Mg 2.9 mg/dl (1.8-2.4) H 10/05/21 05:39 10/05/21 Calcium Level 8.4 mg/dl (8.5-10.1) L 10/05/21 05:39 10/05/21 Venous Blood pH 7.39 (7.36-7.41) 10/05/21 05:39 10/05/21 Lucas Test NA 10/05/21 04:46 10/05/21 Diagnostic Findings (Past 24 Hours) Chest X-Ray 10/04/21 07:00 SINGLE VIEW CHEST CLINICAL HISTORY: Respiratory failure. FINDINGS: 2 AP, portable, upright chest radiographs are compared to study dated 10/03/2021. The patient's head obscures the apices on the first image. An endotracheal tube, an enteric tube, and a right subclavian central venous catheter are unchanged in position. The cardiomediastinal silhouette is unremarkable. There are low lung volumes. Multifocal airspace consolidation has not significantly changed from yesterday. Trace pleural effusions are suspected. No pneumothorax is seen. The skeletal structures appear osteopenic. The bony thorax is grossly intact. IMPRESSION: 1. Stable lines and tubes. 2. Multifocal airspace consolidation has not appreciably changed from yesterday. ACT 112: Negative or not required by law. Electronically signed by: Kristian Quintero M.D. 10/04/2021 4:02 PM Chest X-Ray 10/05/21 07:00 XR chest 1V portable HISTORY: 56 years-old Female Resp failure acute respiratory failure COMPARISON: Chest radiograph 10/04/2021 TECHNIQUE: Portable AP view of the chest FINDINGS: The cardiac silhouette is upper limits of normal in size. Endotracheal tube overlies the midline, 1.9 cm superior to the jaswant. A right subclavian central venous catheter distal tip overlies the right atrium. Enteric tube courses below the diaphragm with the distal tip outside the [id number]. There is no pneumothorax. Probable trace pleural effusions. Mild right hemidiaphragmatic elevation. Interstitial coarsening with ill-defined bilateral airspace opacities, stable to slightly improved. Degenerative changes of the shoulders and spine. IMPRESSION: 1. Lines and tubes as above. 2. Interstitial coarsening with ill-defined airspace opacities, stable to slightly improved. 3. No pneumothorax. ACT 112: Negative or not required by law. The above report was generated using voice recognition software. It may contain grammatical, syntax or spelling errors. Electronically signed by: Sherman Marino M.D. 10/05/2021 7:46 AM I & O Totals 24 Hours 10/04/21 10/05/21 10/06/21 06:59 06:59 06:59 Intake Total 1213.865 / 4780.915 1835.163 / 1607.163 90.000 / 90.000 Output Total 1700 / 1700 950 / 950 125 / 125 Balance -486.135 / -486.135 657.163 / 657.163 -35.000 / -35.000 Cumulative 10/01/21 16:01 thru 10/05/21 10:00 Intake Total 7440.012 Output Total 4675 Balance 2765.012 RT Ventilator Mngmt (Last Documented) Ventilator Ordered Settings Ventilator Support Mode PRVC 10/05/21 10:45 Respiratory Rate 16 10/05/21 10:45 Ventilator Tidal Volume 400 10/05/21 10:45 Setting Minute Ventilation 6.4 10/05/21 10:45 Ventilator Positive Pressure 10 10/05/21 08:17 Support Setting Positive End Expiratory 5 10/05/21 10:45 Pressure Fraction of Inspired Oxygen 30 10/05/21 10:45 Machine Comment FIO2 increased during pronation, 10/05/21 09:06 will wean as tolerated Ventilator - PT Measurements Respiratory Rate 16 Exhaled Tidal Volume 396 Minute Ventilation 6.4 Peak Inspiratory Airway 22 Pressure Plateau Pressure 18.7 Respiratory Cycle Inspiratory: 1:3.7 Expiratory Ratio Inspiratory Phase Time 0.80 End-Tidal CO2 35 Static Lung Compliance 28.91 Dynamic Lung Compliance 23.29 Normal Static Lung Compliance 46.00 Patient Measurements Comment Patient placed back on rest settings and placed in prone position as per Dr. Longoria Coding Level of Care Code Critical Care 1st 30-74 mins Diagnoses Acute respiratory failure with hypoxia J96.01 COVID-19 U07.1 Morbid obesity E66.01
[2021-10-05] MEDS: MIDAZOLAM HCL 125 MG/250 ML BAG IV SCH (16:54)
[2021-10-05] MEDS: REMDESIVIR 100 MG in SODIUM CHLORIDE 0.9% 230 ML IV SCH (20:22)
[2021-10-05] MEDS: SODIUM CHLORIDE 0.9% 10ML FLUSH IV SCH (21:29)
[2021-10-06] MEDS: CISATRACURIUM BESYLATE 40 MG in 0.9 % SODIUM CHLORIDE 80 ML IV SCH ×7 (01:45→18:06)
[2021-10-06] MEDS: INSULIN REGULAR 250 UNITS in SODIUM CHLORIDE 0.9% 247.5 ML IV SCH (01:45)
[2021-10-06] MEDS: INSULIN ASPART PER UNIT SC SCH ×6 (02:07→20:11)
[2021-10-06] MEDS: ARTIFICIAL TEARS OP OINT 3.5 GM TUBE OP SCH ×6 (02:07→20:51)
[2021-10-06 06:20] LABS: iSTAT Art Bld Gas pCO2 Correct 42 mmHg (35-46); iSTAT Art Bld Gas pH Corrected 7.402 (7.35-7.45); iSTAT Arterial Blood Gas HCO3 26 meg/L (19-24); iSTAT Arterial Blood Gas pCO2 41 mmHg (35-46); iSTAT Arterial Blood Gas pH 7.41 (7.35-7.45); iSTAT Arterial Blood Gas pO2 61 mmHg (80-95); iSTAT Arterial Blood Gas pO2 C 62; iSTAT Carbon Dioxide 27 mmol/L (24-31); iSTAT FiO2 50 %; iSTAT Hematocrit 40 % (37-47); iSTAT Hemoglobin 13.6 g/dl (12.0-16.0); iSTAT Potassium 3.9 mmol/L (3.3-5.0); iSTAT Site Art Line; iSTAT Sodium 138 mmol/L (135-144)
[2021-10-06] MEDS: LEVOTHYROXINE SODIUM 100 MCG TABLET PO SCH (06:33)
[2021-10-06 06:38] LABS: Basophils # (auto) 0.01 K/uL (0-0.2); Basophils % (auto) 0.1 %; Eosinophils # (auto) 0.05 K/uL (0-0.5); Eosinophils % (auto) 0.4 %; Hematocrit (blood only) 40.7 % (37-47); Hemoglobin 13.5 g/dL (12.0-16.0); Immature Granulocytes # (auto) 0.21 K/uL (0.00-0.02); Immature Granulocytes % (auto) 1.6 %; Lymphocytes # (auto) 1.84 K/uL (1.2-3.4); Mean Corpuscular Hgb Conc 33.2 g/dL (32-36); Mean Corpuscular Volume 87.5 fL (80-100); Mean Platelet Volume 9.5 fL (7.4-10.4); Monocytes # (auto) 1.03 K/uL (0.11-0.59); Monocytes % (auto) 7.8 %; Neutrophils # (auto) 10.04 K/uL (1.4-6.5); Neutrophils % (auto) 76.1 %; Platelet Count 267 K/uL (130-400); RDW Coefficient of Variation 13.7 % (11.5-14.5); RDW Standard Deviation 43.6 fL (36.4-46.3); Red Blood Count 4.65 M/uL (4.2-5.4); White Blood Count 13.18 K/uL (4.8-10.8)
[2021-10-06 07:05] LABS: BUN Creatinine Ratio 42.2 (10-20); Calcium 8.1 mg/dl (8.5-10.1); Creatinine Clr Calc Pharmacy 117.6 ml/min; Est GFR (African American) 116.4 ml/min; Est GFR (Non-African American) 100.5 ml/min; Magnesium 2.2 mg/dl (1.8-2.4); Phosphorus 2.7 mg/dl (2.5-4.9)
[2021-10-06] MEDS ORDERED: POTASSIUM CHLORIDE 20 MEQ/15 ML UDC NG SCH (07:15)
[2021-10-06] MEDS: ICU ELECTROLYTE REPLACEMENT PROTOCOL SCH ×2 (07:19→17:59)
--- NOTE | 2021-10-06 08:08 | XRay Report ---
SINGLE VIEW CHEST CLINICAL HISTORY: Respiratory failure. FINDINGS: An AP, portable, upright chest radiograph is compared to study dated 10/05/2021. The examinat ion is degraded by portable technique and patient rotation. An endotracheal tube, an enteric tube, and a right subclavian central venous catheter are unchanged in position. The cardiomediastinal silho uette is unremarkable. There are low lung volumes. Mild multifocal airspace consolidation has not sig nificantly changed from yesterday. No large pleural effusion or pneumothorax is identified. The skele brandee structures appear osteopenic. The bony thorax is grossly intact. IMPRESSION: 1. Stable lines and tubes. 2. Mild multifocal airspace consolidation has not appreciably changed from yesterday. ACT 112: Negative or not required by law. Electronically signed by: Kristian Quintero M.D. 10/06/2021 8:07 AM
[2021-10-06] MEDS: INSULIN GLARGINE SOLOSTAR 100 UNITS/ML 3 ML PEN SC SCH ×2 (08:12→20:54)
[2021-10-06] MEDS: FAMOTIDINE 20 MG in SYRINGE 3 ML IV SCH ×2 (08:17→20:53)
[2021-10-06] MEDS: dexAMETHasone 20 MG in DEXTROSE 5% 25 ML IV SCH (08:17)
[2021-10-06] MEDS: ENOXAPARIN 100 MG/1ML SYR SQ SCH ×2 (08:17→20:53)
[2021-10-06] MEDS: fentaNYL citrate 2,500 MCG/250 ML BAG IV SCH (10:13)
[2021-10-06] MEDS ORDERED: FUROSEMIDE 40 MG/4 ML VIAL IV ONE (10:22)
--- NOTE | 2021-10-06 10:22 | Critical Care Progress Note ---
Date of Service October 06, 2021 Assessment & Plan (1) Acute respiratory failure with hypoxia: Plan: Reason Critically Ill: 56-year-old female with severe hypoxic respiratory failure secondary to COVID-19 pneumonia PLAN: Neuro: Analgesia: Fentanyl Sedation: Versed Neuromuscular blockade: Nimbex: Discontinue Nimbex today Resp: Acute hypoxic respiratory failure secondary to COVID-19 pneumonia: Improved in supine position -Baricitinib ordered 10/02: Discontinued secondary to intubation -Increase Decadron to 20 mg IV daily x5 days then 10 mg daily for 5 days -Remdesivir 100 mg daily ordered 10/02 -Pronation today CV: Hypotension: Resolved -Likely secondary to sedation transition from propofol to Versed Fluids/Renal: Electrolyte protocol ID: Monitor fever curve GI/Nutrition: Start Peptamen intense -Pepcid 20 mg twice daily for GI prophylaxis Heme: DVT prophylaxis: Lovenox 100 mg twice daily Endocrine: ICU hyperglycemia protocol Hypothyroidism -100 mcg daily Vascular access: Right subclavian placed 10/03/2021 right radial arterial line placed 10/03/2021 Code Status: Full code Disposition: ICU PaO2 still significantly low hoping additional pronation with diuresis today will facilitate successful liberation from ventilator tomorrow (2) COVID-19: (3) Morbid obesity: Admission and Anticipated Discharge Date Admission Date: October 01, 2021 Supervising Physician Co-Signing Physician Notes I have personally spent 35 minutes of critical care time in the direct management of this patient. This is a life/limb threatening event. This includes time spent evaluating patient, direct bedside care, chart review, plac ing orders, interpretation of diagnostic studies, discussion with consultants, patient, and/or family members regarding treatment decisions, as well as other required patient management activities. This time is exclusive of all separately billable procedures, and teaching time and separate from and in addition to any other critical care service time. Subjective Return to supine position Review of Systems Review of Systems: Unobtainable secondary to endotracheal tube Physical Exam Physical Exam: General: GCS 3 T Skin: Warm, dry, Head: Atraumatic Ears, nose, mouth and throat: airway obscured by endotracheal tube Cardiovascular: Normal peripheral perfusion Respiratory: Ventilator settings reviewed Gastrointestinal: Non distended Musculoskeletal: No deformity Results & Data Results & Data ([facility]) Vital Signs (Past 12 Hours) Vital Signs Temp Pulse Resp BP Pulse Ox 10/06/21 08:00 87 16 156/71 H 97 10/06/21 07:10 84 16 92 10/06/21 05:10 88 16 89 L 10/06/21 05:00 16 10/06/21 04:50 72 16 89 L 10/06/21 04:40 73 16 90 10/06/21 04:30 36.8 C 70 16 90 10/06/21 04:20 36.8 C 69 16 91 10/06/21 04:10 36.8 C 70 16 90 10/06/21 04:00 36.7 C 72 16 91 10/06/21 03:57 36.7 C 70 16 106/66 10/06/21 03:51 71 10/06/21 03:50 36.8 C 71 16 91 10/06/21 03:40 36.8 C 73 16 91 10/06/21 03:30 36.8 C 74 16 89 L 10/06/21 03:20 36.8 C 72 16 89 L 10/06/21 03:10 36.8 C 70 16 10/06/21 03:00 36.7 C 70 16 10/06/21 02:50 36.7 C 70 16 92 10/06/21 02:40 36.8 C 70 16 92 10/06/21 02:30 36.8 C 68 16 10/06/21 02:20 36.8 C 68 16 10/06/21 02:10 36.8 C 68 16 91 10/06/21 02:00 36.8 C 68 16 10/06/21 01:50 36.8 C 69 16 10/06/21 01:40 36.8 C 70 16 10/06/21 01:30 36.8 C 67 16 10/06/21 01:20 36.8 C 67 16 91 10/06/21 01:10 36.7 C 66 16 91 10/06/21 01:00 36.7 C 67 16 10/06/21 00:50 36.7 C 68 16 91 10/06/21 00:40 36.7 C 68 16 91 10/06/21 00:30 36.7 C 69 16 91 10/06/21 00:20 36.7 C 67 16 10/06/21 00:10 36.7 C 69 16 92 10/06/21 00:00 36.7 C 70 16 91 10/05/21 23:56 36.7 C 71 16 103/65 91 10/05/21 23:50 36.7 C 70 16 91 10/05/21 23:40 36.7 C 71 16 90 10/05/21 23:30 36.7 C 72 16 91 10/05/21 23:26 36.7 C 74 16 96/67 L 91 10/05/21 23:20 36.7 C 72 16 91 10/05/21 23:10 36.7 C 72 16 91 10/05/21 23:00 36.7 C 70 16 91 10/05/21 22:50 36.7 C 69 16 91 10/05/21 22:40 36.7 C 68 16 90 10/05/21 22:30 36.7 C 69 16 91 10/05/21 22:27 36.7 C 70 16 116/71 100 10/05/21 22:20 36.7 C 68 16 91 Critical Care Results & Data Vital Signs (Past 12 Hours) Vital Signs Temp Pulse Resp BP Pulse Ox 10/06/21 08:00 87 16 156/71 H 97 10/06/21 07:10 84 16 92 10/06/21 05:10 88 16 89 L 10/06/21 05:00 16 10/06/21 04:50 72 16 89 L 10/06/21 04:40 73 16 90 10/06/21 04:30 36.8 C 70 16 90 10/06/21 04:20 36.8 C 69 16 91 10/06/21 04:10 36.8 C 70 16 90 10/06/21 04:00 36.7 C 72 16 91 10/06/21 03:57 36.7 C 70 16 106/66 10/06/21 03:51 71 10/06/21 03:50 36.8 C 71 16 91 10/06/21 03:40 36.8 C 73 16 91 10/06/21 03:30 36.8 C 74 16 89 L 10/06/21 03:20 36.8 C 72 16 89 L 10/06/21 03:10 36.8 C 70 16 91 10/06/21 03:00 36.7 C 70 16 91 10/06/21 02:50 36.7 C 70 16 92 10/06/21 02:40 36.8 C 70 16 10/06/21 02:30 36.8 C 68 16 10/06/21 02:20 36.8 C 68 16 10/06/21 02:10 36.8 C 68 16 10/06/21 02:00 36.8 C 68 16 10/06/21 01:50 36.8 C 69 16 10/06/21 01:40 36.8 C 70 16 10/06/21 01:30 36.8 C 67 16 10/06/21 01:20 36.8 C 67 16 10/06/21 01:10 36.7 C 66 16 10/06/21 01:00 36.7 C 67 16 10/06/21 00:50 36.7 C 68 16 10/06/21 00:40 36.7 C 68 16 10/06/21 00:30 36.7 C 69 16 10/06/21 00:20 36.7 C 67 16 10/06/21 00:10 36.7 C 69 16 10/06/21 00:00 36.7 C 70 16 10/05/21 23:56 36.7 C 71 16 103/65 10/05/21 23:50 36.7 C 70 16 10/05/21 23:40 36.7 C 71 16 10/05/21 23:30 36.7 C 72 16 10/05/21 23:26 36.7 C 74 16 96/67 L 10/05/21 23:20 36.7 C 72 16 10/05/21 23:10 36.7 C 72 16 10/05/21 23:00 36.7 C 70 16 10/05/21 22:50 36.7 C 69 16 10/05/21 22:40 36.7 C 68 16 10/05/21 22:30 36.7 C 69 16 10/05/21 22:27 36.7 C 70 16 116/71 100 10/05/21 22:20 36.7 C 68 16 91 Lab & Micro Results (Past 24 Hours) RBC 4.65 M/uL (4.2-5.4) 10/06/21 WBC 13.18 K/uL (4.8-10.8) H 10/06/21 Hgb 13.5 g/dL (12.0-16.0) 10/06/21 Hct 40.7 % (37-47) 10/06/21 MCV 87.5 fL (80-100) 10/06/21 MCH 29.0 pg (25-34) 10/06/21 MCHC 33.2 g/dL (32-36) 10/06/21 RDW Standard Deviation 43.6 fL (36.4-46.3) 10/06/21 RDW Coefficient of Variation 13.7 % (11.5-14.5) 10/06/21 Plt Count 267 K/uL (130-400) 10/06/21 MPV 9.5 fL (7.4-10.4) 10/06/21 Neutrophils (%) (Auto) 76.1 % 10/06/21 Lymphocytes (%) (Auto) 14.0 % 10/06/21 Monocytes # (Auto) 1.03 K/uL (0.11-0.59) H 10/06/21 Eosinophils # (Auto) 0.05 K/uL (0-0.5) 10/06/21 Immature Granulocyte % (Auto) 1.6 % 10/06/21 Neutrophils # (Auto) 10.04 K/uL (1.4-6.5) H 10/06/21 Lymphocytes # (Auto) 1.84 K/uL (1.2-3.4) 10/06/21 Monocytes # (Auto) 1.03 K/uL (0.11-0.59) H 10/06/21 Eosinophils # (Auto) 0.05 K/uL (0-0.5) 10/06/21 Basophils # (Auto) 0.01 K/uL (0-0.2) 10/06/21 Immature Granulocyte # (Auto) 0.21 K/uL (0.00-0.02) H 10/06/21 Na 139 mmol/L (136-145) 10/06/21 K 4.0 mmol/L (3.5-5.1) 10/06/21 Cl 108 mmol/L (98-107) H 10/06/21 CO2 25 mmol/L (21-32) 10/06/21 Anion Gap 6.0 (3-11) 10/06/21 BUN 27 mg/dl (7-18) H 10/06/21 Creatinine 0.64 mg/dl (0.6-1.2) 10/06/21 Estimated GFR ( Amer) 116.4 ml/min 10/06/21 Estimated GFR (Non-Af Amer) 100.5 ml/min 10/06/21 BUN/Creatinine Ratio 42.2 (10-20) H 10/06/21 Glu 122 mg/dl (70-99) H 10/06/21 Ca 8.1 mg/dl (8.5-10.1) L 10/06/21 Phosphorus Level 2.7 mg/dl (2.5-4.9) 10/06/21 AST 81 U/L (15-37) H 10/06/21 ALT 83 (12-78) H 10/06/21 Mg 2.2 mg/dl (1.8-2.4) 10/06/21 05:41 10/06/21 Calcium Level 8.1 mg/dl (8.5-10.1) L 10/06/21 05:41 10/06/21 Lucas Test NA 10/06/21 06:03 10/06/21 Diagnostic Findings (Past 24 Hours) Chest X-Ray 10/06/21 07:00 SINGLE VIEW CHEST CLINICAL HISTORY: Respiratory failure. FINDINGS: An AP, portable, upright chest radiograph is compared to study dated 10/05/2021. The examination is degraded by portable technique and patient rotation. An endotracheal tube, an enteric tube, and a right subclavian central venous catheter are unchanged in position. The cardiomediastinal silhouette is unremarkable. There are low lung volumes. Mild multifocal airspace consolidation has not significantly changed from yesterday. No large pleural effusion or pneumothorax is identified. The skeletal structures appear osteopenic. The bony thorax is grossly intact. IMPRESSION: 1. Stable lines and tubes. 2. Mild multifocal airspace consolidation has not appreciably changed from yesterday. ACT 112: Negative or not required by law. Electronically signed by: Kristian Quintero M.D. 10/06/2021 8:07 AM I & O Totals 24 Hours 10/05/21 10/06/21 10/07/21 06:59 06:59 06:59 Intake Total 1607.163 / 7065.621 8847.027 / 1792.027 126.864 / 126.864 Output Total 950 / 950 1225 / 1225 100 / 100 Balance 657.163 / 657.163 567.027 / 567.027 26.864 / 26.864 Cumulative 10/01/21 16:01 thru 10/06/21 09:33 Intake Total 9268.903 Output Total 5875 Balance 3393.903 RT Ventilator Mngmt (Last Documented) Ventilator Ordered Settings Ventilator Support Mode Assist Control 10/06/21 08:54 Respiratory Rate 16 10/06/21 08:00 Ventilator Tidal Volume 400 10/06/21 08:54 Setting Minute Ventilation 6 10/05/21 21:25 Ventilator Positive Pressure 10 10/05/21 08:17 Support Setting Positive End Expiratory 8 10/06/21 08:54 Pressure Fraction of Inspired Oxygen 50 10/06/21 08:54 Machine Comment FIO2 increased during pronation, 10/05/21 09:06 will wean as tolerated Ventilator - PT Measurements Respiratory Rate 16 Exhaled Tidal Volume 400 Minute Ventilation 6 Peak Inspiratory Airway 22 Pressure Plateau Pressure 19 Respiratory Cycle Inspiratory: 1:3.7 Expiratory Ratio Inspiratory Phase Time 0.8 End-Tidal CO2 31 Static Lung Compliance 28.36 Dynamic Lung Compliance 23.53 Normal Static Lung Compliance 46.00 Patient Measurements Comment Patient placed back on rest settings and placed in prone position as per Dr. Longoria Coding Level of Care Code Critical Care 1st 30-74 mins Diagnoses Acute respiratory failure with hypoxia J96.01 COVID-19 U07.1 Morbid obesity E66.01
--- NOTE | 2021-10-06 11:18 | Hospitalist Progress Note ---
Date of Service October 06, 2021 Assessment & Plan (1) Acute respiratory failure with hypoxia: Plan: decompensated on 10/03 after being on high flow 60L 100% and then BIPAP for [address] Longoria on 10/03 and placed in prone position she has been proned 10/04, 10/05 and now plan to do again 1/ her FiO2 goes as low as 30% when prone, only needs PEEP of 5 day 4 of ventilation could be ready for extubation tomorrow treat COVID with dexamethasone, Remdesivir Baricitinib stopped with intubation never got CTA chest on admission and was too unstable to scan continue Lovenox 1mg/kg BID lower extremity dopplers negative for PE could get CTA once extubated and stable, defer to ICU team (2) COVID-19: Plan: sick for over a week on admission, viral pneumonia on CXR dexamethasone 20mg IV daily x 5 then 10mg IV x 5 Remdesivir IV daily, completed 5 days Baricitinib, got 2 days but stopped when intubated intubated on 10/03 doing well with prone position, dramatic reduction in PEEP and FiO2 will prone for 3rd time today might be ready for extubation tomorrow (3) DKA (diabetic ketoacidosis): Plan: anion gap closed quickly with insulin drip sugars are < 200, stopped IV fluids on 09/02 in the morning to keep lungs dry DKA due to her illness and not taking diabetes medications for a week, typically on insulin regimen pharmacy consulted, managing sugars monitor for hypoglycemia and hyperglycemia on the high dose dexamethasone (4) Acute kidney injury: Plan: due to dehydration, prerenal Cr was 1.7 on admission, down to 0.[address], adequate UO (5) Dehydration: Plan: resolved, now euvolemic (6) Dyslipidemia: (7) Vaginal yeast infection: Plan: chronic issue due to uncontrolled diabetes (8) Uncontrolled type 2 diabetes mellitus: Plan: HbA1c 11.7% will need education, she stopped taking all her medications for a week prior to admission (9) Morbid obesity: Plan: increases morbidity and mortality (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: (11) DVT prophylaxis: Plan: Lovenox BID, increased to 1mg/kg BID due to possible PE, cannot rule it out Pepcid BID Admission and Anticipated Discharge Date Admission Date: October 01, 2021 Subjective patient on a PEEP of 8 and FiO2 50% this morning laying supine Dr Longoria plans to prone again today as when she is prone her FiO2 is only 30% vitals stable, labs stable updated her mother Review of Systems Review of Systems: Unobtainable due to endotracheal tube Physical Exam Physical Exam: General: well developed, obese female, prone position on ventilator Neck: supple, trachea midline, normal thyroid Lungs: clear to auscultation bilaterally, on ventilator Heart: regular S1 and S2, no murmur, peripheral pulses normal, capillary refill normal, no edema Abdomen: soft, NT, ND, + BS, no hepatomegaly, normal to percussion Extremities: normal in appearance, no cyanosis, no petechiae Neuro: sedated, no focal motor deficits, CN II-XII intact Skin: warm, dry, no rash, normal turgor Psych: sedated Results & Data Results & Data ([facility]) Vital Signs (Past 12 Hours) Vital Signs Temp Pulse Resp BP Pulse Ox 10/06/21 08:00 87 16 156/71 H 97 10/06/21 07:10 84 16 92 10/06/21 05:10 88 16 89 L 10/06/21 05:00 16 10/06/21 04:50 72 16 89 L 10/06/21 04:40 73 16 90 10/06/21 04:30 36.8 C 70 16 90 10/06/21 04:20 36.8 C 69 16 91 10/06/21 04:10 36.8 C 70 16 90 10/06/21 04:00 36.7 C 72 16 91 10/06/21 03:57 36.7 C 70 16 106/66 10/06/21 03:51 71 10/06/21 03:50 36.8 C 71 16 91 10/06/21 03:40 36.8 C 73 16 91 10/06/21 03:30 36.8 C 74 16 89 L 10/06/21 03:20 36.8 C 72 16 89 L 10/06/21 03:10 36.8 C 70 16 91 10/06/21 03:00 36.7 C 70 16 91 10/06/21 02:50 36.7 C 70 16 92 10/06/21 02:40 36.8 C 70 16 92 10/06/21 02:30 36.8 C 68 16 10/06/21 02:20 36.8 C 68 16 10/06/21 02:10 36.8 C 68 16 10/06/21 02:00 36.8 C 68 16 10/06/21 01:50 36.8 C 69 16 10/06/21 01:40 36.8 C 70 16 10/06/21 01:30 36.8 C 67 16 10/06/21 01:20 36.8 C 67 16 10/06/21 01:10 36.7 C 66 16 10/06/21 01:00 36.7 C 67 16 10/06/21 00:50 36.7 C 68 16 10/06/21 00:40 36.7 C 68 16 10/06/21 00:30 36.7 C 69 16 10/06/21 00:20 36.7 C 67 16 10/06/21 00:10 36.7 C 69 16 10/06/21 00:00 36.7 C 70 16 10/05/21 23:56 36.7 C 71 16 103/65 10/05/21 23:50 36.7 C 70 16 10/05/21 23:40 36.7 C 71 16 10/05/21 23:30 36.7 C 72 16 10/05/21 23:26 36.7 C 74 16 96/67 L 10/05/21 23:20 36.7 C 72 16 91 Laboratory Results Laboratory Results - last 24 hr 10/05/21 10/05/21 10/05/21 11:56 16:02 19:50 WBC RBC Hgb POC Hgb Hct POC Hct MCV MCH MCHC RDW Std Deviation RDW Coeff of Francisca Plt Count MPV Immature Gran % (Auto) Neut % (Auto) Lymph % (Auto) [place] % (Auto) Eos % (Auto) Baso % (Auto) Neut # (Auto) Lymph # (Auto) [place] # (Auto) Eos # (Auto) Baso # (Auto) Immature Gran # (Auto) Sample Site POC pH POC pCO2 POC pO2 POC HCO3 POC Total CO2 POC Base Excess ABG pH (Temp Correct) ABG pCO2 (Temp Corrct POC ABG pO2 at Pt Temp POC ABG O2 Sat Lucas Test O2 Delivery Device POC O2 Rate POC FiO2 Tidal Volume PEEP POC Sodium Sodium POC Potassium Potassium Chloride Carbon Dioxide Anion Gap BUN Creatinine Est Cr Clr Drug Dosing Est GFR ( Amer) Est GFR (Non-Af Amer) BUN/Creatinine Ratio Glucose POC Glucose 145 H 168 H 148 H Calcium Phosphorus Magnesium AST ALT 10/05/21 10/06/21 10/06/21 23:40 01:05 02:02 WBC RBC Hgb POC Hgb Hct POC Hct MCV MCH MCHC RDW Std Deviation RDW Coeff of Francisca Plt Count MPV Immature Gran % (Auto) Neut % (Auto) Lymph % (Auto) [place] % (Auto) Eos % (Auto) Baso % (Auto) Neut # (Auto) Lymph # (Auto) [place] # (Auto) Eos # (Auto) Baso # (Auto) Immature Gran # (Auto) Sample Site POC pH POC pCO2 POC pO2 POC HCO3 POC Total CO2 POC Base Excess ABG pH (Temp Correct) ABG pCO2 (Temp Corrct POC ABG pO2 at Pt Temp POC ABG O2 Sat Lucas Test O2 Delivery Device POC O2 Rate POC FiO2 Tidal Volume PEEP POC Sodium Sodium POC Potassium Potassium Chloride Carbon Dioxide Anion Gap BUN Creatinine Est Cr Clr Drug Dosing Est GFR ( Amer) Est GFR (Non-Af Amer) BUN/Creatinine Ratio Glucose POC Glucose 189 H 161 H 138 H Calcium Phosphorus Magnesium AST ALT 10/06/21 10/06/21 10/06/21 03:03 04:44 05:41 WBC RBC Hgb POC Hgb Hct POC Hct MCV MCH MCHC RDW Std Deviation RDW Coeff of Francisca Plt Count MPV Immature Gran % (Auto) Neut % (Auto) Lymph % (Auto) [place] % (Auto) Eos % (Auto) Baso % (Auto) Neut # (Auto) Lymph # (Auto) [place] # (Auto) Eos # (Auto) Baso # (Auto) Immature Gran # (Auto) Sample Site POC pH POC pCO2 POC pO2 POC HCO3 POC Total CO2 POC Base Excess ABG pH (Temp Correct) ABG pCO2 (Temp Corrct POC ABG pO2 at Pt Temp POC ABG O2 Sat Lucas Test O2 Delivery Device POC O2 Rate POC FiO2 Tidal Volume PEEP POC Sodium Sodium 139 POC Potassium Potassium 4.0 Chloride 108 H Carbon Dioxide 25 Anion Gap 6.0 BUN 27 H Creatinine 0.64 Est Cr Clr Drug Dosing 117.6 Est GFR ( Amer) 116.4 Est GFR (Non-Af Amer) 100.5 BUN/Creatinine Ratio 42.2 H Glucose 122 H POC Glucose 134 H 126 H Calcium 8.1 L Phosphorus 2.7 Magnesium 2.2 AST 81 H ALT 83 H 10/06/21 10/06/21 10/06/21 05:41 06:03 06:54 WBC 13.18 H RBC 4.65 Hgb 13.5 POC Hgb 13.6 Hct 40.7 POC Hct 40 MCV 87.5 MCH 29.0 MCHC 33.2 RDW Std Deviation 43.6 RDW Coeff of Francisca 13.7 Plt Count 267 MPV 9.5 Immature Gran % (Auto) 1.6 Neut % (Auto) 76.1 Lymph % (Auto) 14.0 [place] % (Auto) 7.8 Eos % (Auto) 0.4 Baso % (Auto) 0.1 Neut # (Auto) 10.04 H Lymph # (Auto) 1.84 [place] # (Auto) 1.03 H Eos # (Auto) 0.05 Baso # (Auto) 0.01 Immature Gran # (Auto) 0.21 H Sample Site Art Line POC pH 7.41 POC pCO2 41 POC pO2 61 L POC HCO3 26 H POC Total CO2 27 POC Base Excess 1.0 ABG pH (Temp Correct) 7.402 ABG pCO2 (Temp Corrct 42 POC ABG pO2 at Pt Temp 62 POC ABG O2 Sat 91.0 Lucas Test NA O2 Delivery Device Ventilator POC O2 Rate 6 POC FiO2 50 Tidal Volume 400 PEEP 8 POC Sodium 138 Sodium POC Potassium 3.9 Potassium Chloride Carbon Dioxide Anion Gap BUN Creatinine Est Cr Clr Drug Dosing Est GFR ( Amer) Est GFR (Non-Af Amer) BUN/Creatinine Ratio Glucose POC Glucose 94 Calcium Phosphorus Magnesium AST ALT 10/06/21 10/06/21 10/06/21 07:20 07:57 08:59 WBC RBC Hgb POC Hgb Hct POC Hct MCV MCH MCHC RDW Std Deviation RDW Coeff of Francisca Plt Count MPV Immature Gran % (Auto) Neut % (Auto) Lymph % (Auto) [place] % (Auto) Eos % (Auto) Baso % (Auto) Neut # (Auto) Lymph # (Auto) [place] # (Auto) Eos # (Auto) Baso # (Auto) Immature Gran # (Auto) Sample Site POC pH POC pCO2 POC pO2 POC HCO3 POC Total CO2 POC Base Excess ABG pH (Temp Correct) ABG pCO2 (Temp Corrct POC ABG pO2 at Pt Temp POC ABG O2 Sat Lucas Test O2 Delivery Device POC O2 Rate POC FiO2 Tidal Volume PEEP POC Sodium Sodium POC Potassium Potassium Chloride Carbon Dioxide Anion Gap BUN Creatinine Est Cr Clr Drug Dosing Est GFR ( Amer) Est GFR (Non-Af Amer) BUN/Creatinine Ratio Glucose POC Glucose 117 H 105 H 122 H Calcium Phosphorus Magnesium AST ALT 10/06/21 10:09 WBC RBC Hgb POC Hgb Hct POC Hct MCV MCH MCHC RDW Std Deviation RDW Coeff of Francisca Plt Count MPV Immature Gran % (Auto) Neut % (Auto) Lymph % (Auto) [place] % (Auto) Eos % (Auto) Baso % (Auto) Neut # (Auto) Lymph # (Auto) [place] # (Auto) Eos # (Auto) Baso # (Auto) Immature Gran # (Auto) Sample Site POC pH POC pCO2 POC pO2 POC HCO3 POC Total CO2 POC Base Excess ABG pH (Temp Correct) ABG pCO2 (Temp Corrct POC ABG pO2 at Pt Temp POC ABG O2 Sat Lucas Test O2 Delivery Device POC O2 Rate POC FiO2 Tidal Volume PEEP POC Sodium Sodium POC Potassium Potassium Chloride Carbon Dioxide Anion Gap BUN Creatinine Est Cr Clr Drug Dosing Est GFR ( Amer) Est GFR (Non-Af Amer) BUN/Creatinine Ratio Glucose POC Glucose 129 H Calcium Phosphorus Magnesium AST ALT Medications Administered Current Inpatient Medications Acetaminophen (Acetaminophen 325 Mg Tab) 650 mg PO Q4H PRN PRN Reason: Pain or Fever Stop: 10/31/21 22:07 Dextrose (Dextrose 50% 50 Ml Syringe) 25 - 50 ml IV UD PRN; Protocol PRN Reason: Hypoglycemia Protocol Stop: 10/31/21 19:23 Last Admin: 10/05/21 06:01 Dose: 25 ml Documented by: Enoxaparin Sodium (Enoxaparin 100 Mg/1ml Syr) 100 mg SQ Q12H [facility] Stop: 11/01/21 20:59 Last Admin: 10/06/21 08:17 Dose: 100 mg Documented by: Fentanyl Citrate (Fentanyl Bolus From Bag) 50 mcg IV Q60M PRN PRN Reason: Pain or Agitation Stop: 10/17/21 12:39 Last Admin: 10/06/21 05:09 Dose: 50 mcg Documented by: Glucagon (Glucagon For Inj 1 Mg Vial) 1 mg SQ UD PRN; Protocol PRN Reason: Hypoglycemia Protocol Stop: 10/31/21 19:23 Glucose (Glucose 10 Tabs/Tube) 4 - 8 tabs PO UD PRN; Protocol PRN Reason: Hypoglycemia Protocol Stop: 10/31/21 19:23 Glucose (Glucose 40% Gel 15 Gm Tube) 15 - 30 gm PO UD PRN; Protocol PRN Reason: Hypoglycemia Protocol Stop: 10/31/21 19:23 Insulin Human Regular 250 (units/ Sodium Chloride) 250 mls @ 2 mls/hr IV .Q24H [facility]RE[facility]; Protocol Stop: 10/31/21 19:29 Last Titration: 10/06/21 08:12 Dose: 2 units/hr, 2 mls/hr Documented by: Famotidine 20 mg/ Syringe 5 mls @ 2.5 mls/min IV BID [facility] Stop: 11/01/21 08:59 Last Admin: 10/06/21 08:17 Dose: 2.5 mls/min Documented by: Cisatracurium Besylate 40 mg/ (Sodium Chloride) 100 mls @ 31.44 mls/hr IV .Q3H11M JERRELL; Protocol Stop: 11/02/21 12:59 Last Admin: 10/06/21 08:44 Dose: 4 mcg/kg/min, 31.4 mls/hr Documented by: Fentanyl Citrate (Fentanyl Citrate) 2,500 mcg in 250 mls @ 15 mls/hr IV .[id number] [facility]; Protocol Stop: 10/17/21 12:44 Last Admin: 10/06/21 10:13 Dose: 150 mcg/hr, 15 mls/hr Documented by: Midazolam HCl (Versed) 125 mg in 250 mls @ 4 mls/hr IV .[id number] [facility]; Protocol Stop: 11/02/21 14:59 Last Titration: 10/06/21 06:46 Dose: 2 mg/hr, 4 mls/hr Documented by: Norepinephrine Bitartrate (Levophed/D5w) 8 mg in 508 mls @ 0 mls/hr IV .Q0M [facility]; Protocol Stop: 11/02/21 14:59 Last Titration: 10/04/21 16:54 Dose: Infused Documented by: Dexamethasone 20 mg/ Dextrose 30 mls @ 0.833 mls/min IV DAILY [facility] Stop: 10/08/21 08:59 Last Infusion: 10/06/21 09:01 Dose: Infused Documented by: Dexamethasone 10 mg/ Syringe 2.5 mls @ 1 mls/min IV QAM [facility] Stop: 10/12/21 09:03 Insulin Aspart (Insulin Aspart Per Unit) 0 units SC Q4H [facility] Stop: 11/02/21 21:59 Last Admin: 10/06/21 08:12 Dose: Not Given Documented by: Insulin Glargine (Insulin Glargine Solostar 100 Units/Ml 3 Ml Pen) 20 units SC BID [facility] Stop: 11/02/21 08:59 Last Admin: 10/06/21 08:12 Dose: 20 units Documented by: Levothyroxine Sodium (Levothyroxine Sodium 100 Mcg Tablet) 100 mcg PO DAILYBB [facility] Stop: 11/01/21 06:29 Last Admin: 10/06/21 06:33 Dose: 100 mcg Documented by: Midazolam HCl (Midazolam Bolus From Bag) 2 mg IV Q60M PRN PRN Reason: Sedation Stop: 11/02/21 14:54 Last Admin: 10/06/21 05:10 Dose: 2 mg Documented by: Miscellaneous (Carbohydrates For Hypoglycemia ) 15 - 30 gm PO UD PRN PRN Reason: Hypoglycemia Protocol Stop: 10/31/21 19:23 Miscellaneous (Icu Electrolyte Replacement Protocol) 1 ea N/A BID@06,18 [facility]; Protocol Stop: 10/10/21 17:59 Last Admin: 10/06/21 07:19 Dose: Not Given Documented by: Miscellaneous Information (Pharmacy Glycemic Mgmt Consult) 1 ea N/A UD PRN PRN Reason: Consult Stop: 10/31/21 20:20 Multi-Ingredient Cream (Artificial Tears Op Oint 3.5 Gm Tube) 1 appln OP Q4H [facility] Stop: 11/02/21 12:59 Last Admin: 10/06/21 08:17 Dose: 1 appln Documented by: Nutritional Formula (Peptamen Intense Vhp 1.0 Brooks 1,000 Ml Bag) 1,000 ml GT UD [facility]; Protocol Stop: 11/02/21 16:29 Last Admin: 10/03/21 21:30 Dose: 1,000 ml Documented by: Ondansetron HCl (Ondansetron Inj 2 Mg/Ml 2 Ml Vial) 4 mg IV Q6H PRN PRN Reason: Nausea Stop: 10/31/21 22:07 Polyethylene Glycol (Polyethylene (Miralax) 17 Gm Pack) 17 gm PO DAILY PRN PRN Reason: Constipation Stop: 10/31/21 22:07 PG Care Time/CCT Total # of Minutes Spent Total Time Spent with Patient: Total time spent is greater than 50% in coordination of care (as documented) at patient's floor/unit and/or counseling patient: Coding Level of Care Code 42762 Subseq Hosp Care Lv 3 Diagnoses Acute respiratory failure with hypoxia J96.01 COVID-19 U07.1 DKA (diabetic ketoacidosis) E11.10 Acute kidney injury N17.9 Dehydration E86.0 Dyslipidemia E78.5 Vaginal yeast infection B37.3 Uncontrolled type 2 diabetes mellitus E11.65 Morbid obesity E66.01 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
--- NOTE | 2021-10-06 15:29 | Pharmacy Report ---
Pharmacy Glycemic Short Note 2 - Date of Service October 06, 2021 - Glycemic Short BSG Results (Last 24 hours): 10/05/21 10/05/21 10/05/21 16:02 19:50 23:40 Glucose POC Glucose 168 H 148 H 189 H 10/06/21 10/06/21 10/06/21 01:05 02:02 03:03 Glucose POC Glucose 161 H 138 H 134 H 10/06/21 10/06/21 10/06/21 04:44 05:41 06:54 Glucose 122 H POC Glucose 126 H 94 10/06/21 10/06/21 10/06/21 07:20 07:57 08:59 Glucose POC Glucose 117 H 105 H 122 H 10/06/21 10/06/21 10/06/21 10:09 11:22 12:14 Glucose POC Glucose 129 H 162 H 158 H 10/06/21 10/06/21 10/06/21 13:09 13:10 14:10 Glucose POC Glucose 265 H 214 H 289 H 10/06/21 15:20 Glucose POC Glucose 261 H OUTPATIENT ANTIDIABETIC REGIMEN: * Relion 70/30 65 units w/ breakfast + 40 units w/ dinner * Metformin 1gm PO BID * Glipizide 5mg PO BID * A1c = 11.7% 10/01/21 ASSESSMENT: 10/06/21: * Chinyere received 122 units of insulin yesterday (40 units Lantus + 81 units regular insulin via drip + 1 unit novolog) * Patient remains on DEXA-ARDs regimen. She also continues on fentanyl, midazolam and cisatracurium infusions. * Peptamen tube feeds remain at low rate of 10 ml/hr * IV insulin infusion rates have been fairly stable (~3.4-4.1 units/hr). Will continue infusion overlapped with SQ Lantus. 10/04: * BSGs well controlled over last 24 hrs. Patient remains on IV insulin drip at stable rate of 4 units/hr (on top of "moderate" stress Lantus dosing) * Patient remains intubated, sedated, and now paralyzed. Norepi has been weaned off. Peptamen VHP tube feeds started at "trickle" yesterday. Dexamethasone dose increased to DEXA-ARDS regimen of 20mg IV Q Day x 5, then 10mg IV Q Day x 5. * Possible plans for SBT, vent weaning tomorrow. IV insulin drip remains safest therapy to control BSGs given potential for multiple changes in stressors while critically ill. 10/03: * Remains on insulin infusion with goal BSG range 120-180mg/dL. * Steroids continue and patient remains NPO. Intubated/sedated w/ NMB ordered, today. * Additional basal coverage with Lantus added this AM (wt/stress 2) to help decrease insulin infusion rates and assist with transition to SQ * Plan to continue insulin infusion per calculator given numerous acute changes and stressors unless weans itself off 10/02: * Poorly controlled type 2 diabetic admitted for COVID viral pna, severe hyperglycemia, AG acidosis, GIBSON * Patient was given fluid resuscitation and started on IV insulin drip per DKA/HHS protocol * BSGs well controlled w/ insulin drip. BSG less than 200 this AM. Patient's AG has resolved. Patient presented with normal bicarb and vpH. * IV fluids containing dextrose stopped this AM due to mod-severe ARDS, provider wishing to restrict fluids * IV steroids continue, pt will not be able to take PO given oxygen requirements. * Recommend continuing IV insulin drip for now given severe stressors and uncertain insulin needs. PLAN FOR INPATIENT GLYCEMIC CONTROL: * Hold outpatient oral diabetes medications (metformin, glipizide) * Basal insulin: * Continue IV insulin drip per protocol * Continue Lantus 20 units BID with the drip * Bolus insulin * Nutritional / Prandial insulin per carb ratio 5g/unit PLAN FOR DISCHARGE: * to be determined
[2021-10-07] MEDS: INSULIN ASPART PER UNIT SC SCH ×7 (00:04→20:50)
[2021-10-07] MEDS: fentaNYL citrate 2,500 MCG/250 ML BAG IV SCH (00:28)
[2021-10-07] MEDS: ARTIFICIAL TEARS OP OINT 3.5 GM TUBE OP SCH ×3 (00:29→08:18)
[2021-10-07] MEDS: PEPTAMEN INTENSE VHP 1.0 CAL 1,000 ML BAG GT SCH (01:03)
[2021-10-07] MEDS: INSULIN REGULAR 250 UNITS in SODIUM CHLORIDE 0.9% 247.5 ML IV SCH ×2 (01:03→20:38)
[2021-10-07 05:42] LABS: iSTAT Art Bld Gas pCO2 Correct 41 mmHg (35-46); iSTAT Art Bld Gas pH Corrected 7.428 (7.35-7.45); iSTAT Arterial Blood Gas HCO3 27 meg/L (19-24); iSTAT Arterial Blood Gas pCO2 41 mmHg (35-46); iSTAT Arterial Blood Gas pH 7.43 (7.35-7.45); iSTAT Arterial Blood Gas pO2 71 mmHg (80-95); iSTAT Arterial Blood Gas pO2 C 71; iSTAT Carbon Dioxide 28 mmol/L (24-31); iSTAT FiO2 60 %; iSTAT Hematocrit 41 % (37-47); iSTAT Hemoglobin 13.9 g/dl (12.0-16.0); iSTAT Potassium 4.1 mmol/L (3.3-5.0); iSTAT Site Art Line; iSTAT Sodium 136 mmol/L (135-144)
[2021-10-07] MEDS: MIDAZOLAM HCL 125 MG/250 ML BAG IV SCH (05:46)
[2021-10-07] MEDS: LEVOTHYROXINE SODIUM 100 MCG TABLET PO SCH (06:30)
--- NOTE | 2021-10-07 07:55 | Hospitalist Progress Note ---
Date of Service October 07, 2021 Assessment & Plan (1) Acute respiratory failure with hypoxia: Plan: decompensated on 10/03 after being on high flow 60L 100% and then BIPAP for 18 hours intubated 10/03 and placed in prone position Extubated 10/07/2021 transition to BiPAP therapy treat COVID with dexamethasone, Remdesivir Baricitinib stopped at intubation never got CTA chest on admission and was too unstable to scan was started on continued Lovenox 1mg/kg BID lower extremity dopplers negative for PE (2) COVID-19: Plan: sick for over a week on admission, viral pneumonia on CXR dexamethasone 20mg IV daily x 5 then 10mg IV x 5 Remdesivir IV daily, completed 5 days Baricitinib, got 2 days but stopped when intubated intubated on 10/03 extubated 10/07/2021 Continue to recommend attempts at prone position (3) DKA (diabetic ketoacidosis): Plan: anion gap closed quickly with insulin drip sugars are < 200, stopped IV fluids on 09/02 in the morning to keep lungs dry DKA due to her illness and not taking diabetes medications for a week, typically on /30 insulin regimen pharmacy consulted, managing sugars monitor for hypoglycemia and hyperglycemia on the high dose dexamethasone (4) Acute kidney injury: Plan: due to dehydration, prerenal Cr was 1.7 on admission, down to 0.[address], adequate UO (5) Dehydration: Plan: resolved, now euvolemic, since tube feeds are stopped and not taking po well will have one liter of normasol at 80 ml/hr (6) Dyslipidemia: (7) Vaginal yeast infection: Plan: chronic issue due to uncontrolled diabetes (8) Uncontrolled type 2 diabetes mellitus: Plan: HbA1c 11.7% will need education, she stopped taking all her medications for a week prior to admission (9) Morbid obesity: Plan: increases morbidity and mortality (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 Patient was able to respond somewhat but is somewhat fatigued and lethargic. She is periorbital and facial swelling which to prevent her from opening her eyes at this time. Review of Systems Review of Systems: Moderate distress and fatigue, now is on BiPap no headache, no visual changes, periorbital swelling no chest pain, pressure or palpitations Continued shortness of breath, nonproductive cough or wheezes, remains on Bipap no abdominal pain, nausea or vomiting, no diarrhea no dysuria, hematuria or frequency no focal joint pain or swelling no back pain, CVA tenderness or radicular pain no bruising, bleeding or rashes no focal signs of weakness or numbness or altered sensation no complaints of anxiety or depression.. Physical Exam Physical Exam: The patient appeared mild to moderate respiratory distress still requiring BiPAP support Vital signs as documented. Head exam is normocephalic atraumatic Neck is without JVD, thyromegaly, or carotid bruits. Lungs are coarse bilaterally in all lung francisco Cardiac exam, Rhythm is regular.. No murmurs, rubs or gallops. Abdominal exam reveals normal bowel sounds, soft non tender, no masses Extremities are nonedematous and both pedal pulses are present Neurologic exam is alert and oriented, no focal loss of strength or sensation Skin is without bruises or rashes Psychologically is without concerns for anxiety or depression.. Results & Data Results & Data ([facility]) Vital Signs (Past 12 Hours) Vital Signs Temp Pulse Resp BP Pulse Ox 10/07/21 07:47 98.8 F 10/07/21 07:45 92 H 16 92 10/07/21 07:30 89 16 91 10/07/21 07:15 87 16 91 10/07/21 07:00 88 16 91 10/07/21 06:58 89 17 122/74 91 10/07/21 06:45 88 17 92 10/07/21 06:30 84 16 94 10/07/21 06:28 83 16 125/85 94 10/07/21 06:15 88 16 91 10/07/21 06:00 90 16 91 10/07/21 05:58 90 16 118/79 90 10/07/21 05:45 93 H 16 90 10/07/21 05:30 98.6 F 91 H 16 90 10/07/21 05:27 98.6 F 90 16 120/82 94 10/07/21 05:15 88 15 94 10/07/21 05:00 104 H 18 89 L 10/07/21 04:57 96 H 17 117/79 94 10/07/21 04:45 96 H 16 94 10/07/21 04:30 99.0 F 15 99 10/07/21 04:27 99.0 F 80 16 109/67 93 10/07/21 04:15 99.0 F 80 16 93 10/07/21 04:00 99.0 F 81 16 93 10/07/21 03:57 99.1 F 80 16 97/67 L 93 10/07/21 03:45 99.1 F 81 16 92 10/07/21 03:30 99.1 F 82 16 91 10/07/21 03:27 99.1 F 81 16 104/69 90 10/07/21 03:15 99.1 F 80 16 90 10/07/21 03:10 81 16 89 L 10/07/21 03:00 99.1 F 87 16 83 L 10/07/21 02:57 99.1 F 80 16 95/69 L 92 10/07/21 02:45 99.1 F 82 16 90 10/07/21 02:30 99.1 F 80 16 92 10/07/21 02:27 99.1 F 81 16 93/71 L 92 10/07/21 02:15 99.1 F 81 16 91 10/07/21 02:00 99.1 F 81 16 92 10/07/21 01:57 99.1 F 80 16 96/74 L 92 10/07/21 01:45 99.1 F 79 16 91 10/07/21 01:30 99.1 F 81 16 90 10/07/21 01:27 99.1 F 81 16 94/66 L 89 L 10/07/21 01:15 99.1 F 81 15 90 10/07/21 01:00 99.1 F 81 16 91 10/07/21 00:57 99.1 F 81 16 102/67 91 10/07/21 00:45 99.1 F 82 16 91 10/07/21 00:30 99.1 F 84 16 90 10/07/21 00:28 99.1 F 85 16 91/72 L 90 10/07/21 00:15 99.3 F 85 16 90 10/07/21 00:00 99.1 F 82 16 90 10/06/21 23:45 99.3 F 81 16 90 10/06/21 23:30 99.1 F 78 16 88 L 10/06/21 23:25 77 16 88 L 10/06/21 23:15 99.3 F 77 16 93 10/06/21 23:00 99.1 F 79 15 94 10/06/21 22:45 99.1 F 78 16 93 10/06/21 22:30 99.1 F 77 16 93 10/06/21 22:15 99.1 F 79 16 92 10/06/21 22:00 99.0 F 79 16 92 10/06/21 21:45 99.0 F 79 16 91 10/06/21 21:30 99.0 F 76 16 89 L 10/06/21 21:15 99.0 F 82 16 88 L 10/06/21 21:00 99.0 F 82 24 87 L 10/06/21 20:57 99.0 F 79 15 90/61 L 87 L 10/06/21 20:45 99.0 F 79 17 88 L 10/06/21 20:30 99.0 F 80 16 89 L 10/06/21 20:27 99.0 F 79 15 86/63 L 89 L 10/06/21 20:15 99.0 F 76 16 89 L 10/06/21 20:14 75 18 90 10/06/21 20:00 98.8 F 76 16 90 10/06/21 19:57 99.0 F 75 16 92/60 L 90 PG Care Time/CCT Total # of Minutes Spent Total Time Spent with Patient: Total time spent is greater than 50% in coordination of care (as documented) at patient's floor/unit and/or counseling patient: Coding Level of Care Code 87868 Subseq Hosp Care Lvl 3 Diagnoses Acute respiratory failure with hypoxia J96.01 COVID-19 U07.1 DKA (diabetic ketoacidosis) E11.10 Acute kidney injury N17.9 Dehydration E86.0 Dyslipidemia E78.5 Vaginal yeast infection B37.3 Uncontrolled type 2 diabetes mellitus E11.65 Morbid obesity E66.01 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
[2021-10-07 08:02] LABS: Basophils # (auto) 0.03 K/uL (0-0.2); Basophils % (auto) 0.2 %; Eosinophils # (auto) 0.11 K/uL (0-0.5); Eosinophils % (auto) 0.7 %; Hematocrit (blood only) 41.3 % (37-47); Hemoglobin 13.5 g/dL (12.0-16.0); Immature Granulocytes # (auto) 0.34 K/uL (0.00-0.02); Immature Granulocytes % (auto) 2.2 %; Lymphocytes # (auto) 1.75 K/uL (1.2-3.4); Lymphocytes % (auto) 11.1 %; Mean Corpuscular Hemoglobin 28.7 pg (25-34); Mean Corpuscular Hgb Conc 32.7 g/dL (32-36); Mean Corpuscular Volume 87.7 fL (80-100); Mean Platelet Volume 9.7 fL (7.4-10.4); Monocytes % (auto) 10.8 %; Platelet Count 298 K/uL (130-400); RDW Coefficient of Variation 13.6 % (11.5-14.5); RDW Standard Deviation 43.9 fL (36.4-46.3); Red Blood Count 4.71 M/uL (4.2-5.4); White Blood Count 15.73 K/uL (4.8-10.8)
[2021-10-07] MEDS: ENOXAPARIN 100 MG/1ML SYR SQ SCH (08:03)
[2021-10-07] MEDS: dexAMETHasone 20 MG in DEXTROSE 5% 25 ML IV SCH (08:04)
[2021-10-07] MEDS: FAMOTIDINE 20 MG in SYRINGE 3 ML IV SCH ×2 (08:05→20:48)
[2021-10-07] MEDS: INSULIN GLARGINE SOLOSTAR 100 UNITS/ML 3 ML PEN SC SCH ×2 (08:07→20:49)
[2021-10-07] MEDS: CISATRACURIUM BESYLATE 40 MG in 0.9 % SODIUM CHLORIDE 80 ML IV SCH ×2 (08:17→08:18)
--- NOTE | 2021-10-07 08:21 | XRay Report ---
SINGLE VIEW CHEST CLINICAL HISTORY: Respiratory failure. FINDINGS: An AP, portable, upright chest radiograph is compared to study dated 10/06/2021. The examinat ion is degraded by portable technique and patient rotation. An endotracheal tube, an enteric tube, and a right subclavian central venous catheter are unchanged in position. The cardiomediastinal silho uette is unremarkable. There are low lung volumes. Multifocal airspace consolidation has not signific antly changed from yesterday. No large pleural effusion or pneumothorax is identified. The skeletal s tructures appear osteopenic. The bony thorax is grossly intact. IMPRESSION: 1. Stable lines and tubes. 2. Multifocal airspace consolidation has not appreciably changed from yesterday. ACT 112: Negative or not required by law. Electronically signed by: Kristian Quintero M.D. 10/07/2021 8:20 AM
[2021-10-07 09:57] LABS: BUN Creatinine Ratio 40.4 (10-20); Calcium 8.8 mg/dl (8.5-10.1); Creatinine Clr Calc Pharmacy 85.6 ml/min; Est GFR (African American) 109.3 ml/min; Est GFR (Non-African American) 94.3 ml/min; Magnesium 2.2 mg/dl (1.8-2.4); Phosphorus 2.9 mg/dl (2.5-4.9)
[2021-10-07] MEDS: ICU ELECTROLYTE REPLACEMENT PROTOCOL SCH ×2 (10:05→18:59)
--- NOTE | 2021-10-07 11:55 | Pharmacy Report ---
Pharmacy Glycemic Short Note 2 - Date of Service October 07, 2021 - Glycemic Short BSG Results (Last 24 hours): 10/06/21 10/06/21 10/06/21 12:14 13:09 13:10 Glucose POC Glucose 158 H 265 H 214 H 10/06/21 10/06/21 10/06/21 14:10 15:20 16:04 Glucose POC Glucose 289 H 261 H 257 H 10/06/21 10/06/21 10/06/21 17:03 17:05 17:05 Glucose POC Glucose 311 H* 284 H 422 H* 10/06/21 10/06/21 10/06/21 17:07 17:55 19:00 Glucose POC Glucose 296 H 257 H 197 H 10/06/21 10/06/21 10/06/21 20:07 21:04 22:06 Glucose POC Glucose 213 H 214 H 210 H 10/06/21 10/07/21 10/07/21 23:00 00:01 01:11 Glucose POC Glucose 194 H 183 H 150 H 10/07/21 10/07/21 10/07/21 01:56 03:03 03:05 Glucose POC Glucose 124 H 87 91 10/07/21 10/07/21 10/07/21 03:34 03:56 05:54 Glucose POC Glucose 84 93 136 H 10/07/21 10/07/21 10/07/21 06:49 07:28 11:38 Glucose 180 H POC Glucose 141 H 284 H OUTPATIENT ANTIDIABETIC REGIMEN: * Relion 70/30 65 units w/ breakfast + 40 units w/ dinner * Metformin 1gm PO BID * Glipizide 5mg PO BID * A1c = 11.7% 10/01/21 ASSESSMENT: 10/07/21: * Patient likely to be extubated today per ICU rounds discussion. Sedation and tube feeds are being held. * Insulin infusion ran at 4-8units/hr most of the day yesterday, but did wean itself off overnight when tube feeds were held. Will continue to hold IV insulin infusion at this time given extubation attempt and plan for TF to remain on hold if extubated. * Will continue "moderate" stress Lantus as previously ordered given insulin infusion rates required on top of this dosage the last several days. Monitor for falling BSGs once extubated and nutrition held. Did receive dexamethasone 20mg IV this AM. 10/06/21: * Chinyere received 122 units of insulin yesterday (40 units Lantus + 81 units regular insulin via drip + 1 unit novolog) * Patient remains on DEXA-ARDs regimen. She also continues on fentanyl, midazolam and cisatracurium infusions. * Peptamen tube feeds remain at low rate of 10 ml/hr * IV insulin infusion rates have been fairly stable (~3.4-4.1 units/hr). Will continue infusion overlapped with SQ Lantus. 10/04: * BSGs well controlled over last 24 hrs. Patient remains on IV insulin drip at stable rate of 4 units/hr (on top of "moderate" stress Lantus dosing) * Patient remains intubated, sedated, and now paralyzed. Norepi has been weaned off. Peptamen VHP tube feeds started at "trickle" yesterday. Dexamethasone dose increased to DEXA-ARDS regimen of 20mg IV Q Day x 5, then 10mg IV Q Day x 5. * Possible plans for SBT, vent weaning tomorrow. IV insulin drip remains safest therapy to control BSGs given potential for multiple changes in stressors w hile critically ill. 10/03: * Remains on insulin infusion with goal BSG range 120-180mg/dL. * Steroids continue and patient remains NPO. Intubated/sedated w/ NMB ordered, today. * Additional basal coverage with Lantus added this AM (wt/stress 2) to help decrease insulin infusion rates and assist with transition to SQ * Plan to continue insulin infusion per calculator given numerous acute changes and stressors unless weans itself off 10/02: * Poorly controlled type 2 diabetic admitted for COVID viral pna, severe hyperglycemia, AG acidosis, GIBSON * Patient was given fluid resuscitation and started on IV insulin drip per DKA/HHS protocol * BSGs well controlled w/ insulin drip. BSG less than 200 this AM. Patient's AG has resolved. Patient presented with normal bicarb and vpH. * IV fluids containing dextrose stopped this AM due to mod-severe ARDS, provider wishing to restrict fluids * IV steroids continue, pt will not be able to take PO given oxygen requirements. * Recommend continuing IV insulin drip for now given severe stressors and uncertain insulin needs. PLAN FOR INPATIENT GLYCEMIC CONTROL: * Hold outpatient oral diabetes medications (metformin, glipizide) * Hold IV insulin infusion due to extubation attempt * Basal insulin: * Continue Lantus 20 units BID * Bolus insulin * Novolog SQ Q 4 hrs * Goal range: 110 - 140mg/dL * Correction factor: 10mg/dL/unit * Carb ratio: 3gm/unit PLAN FOR DISCHARGE: * to be determined
[2021-10-07] MEDS ORDERED: METOPROLOL TARTRATE 1 MG/ML VIAL IV ONE (12:18)
[2021-10-07] MEDS ORDERED: INSULIN ASPART PER UNIT SC ONE (14:00)
--- NOTE | 2021-10-07 14:51 | Critical Care Progress Note ---
Date of Service October 07, 2021 Assessment & Plan (1) Acute respiratory failure with hypoxia: (2) COVID-19: (3) Morbid obesity: (4) Metabolic syndrome: (5) Acute kidney injury: Plan: Reason Critically Ill: 56-year-old female with severe hypoxic respiratory failu re secondary to COVID-19 pneumonia PLAN: Neuro: CAM ICU negative Resp: --Acute hypoxic respiratory failure secondary to COVID-19 pneumonia: Improved in supine position -Baricitinib ordered 10/02: Discontinued secondary to intubation --> extubated 10/07/2021 -Continue with high-dose DEXA ARDS CV: --Hypertension IV metoprolol as needed Fluids/Renal: Electrolyte protocol ID: Monitor fever curve GI/Nutrition: Tube feeds on hold s/p extubation Heme: Monitor H&H Endocrine: ICU hyperglycemia protocol Hypothyroidism -100 mcg daily --Prophylaxis VTE: Lovenox GI: Pepcid Lines:Right subclavian placed 10/03/2021 right radial arterial line 10/03/2021, positive Diet: N.p.o. Plan: In/out: -1139, urine output 2185 Patient was on therapeutic Lovenox for possible PE. Patient is currently on 35% FiO2, Doppler bilateral lower extremity was negative I am going to DC the therapeutic Lovenox and keep the patient on 40 mg every 12 hours. I have personally spent 38 minutes of critical care time in the direct management of this patient. This is a life/limb threatening event. This includes time spent evaluating patient, direct bedside care, chart review, placing orders, interpretation of diagnostic studies, discussion with consultants, patient, and family members, as well as other required patient management activities. This time is exclusive of all separately billable procedures, and teaching time and separate from and in addition to any other critical care service time. Please note the above document was generated using voice recognition software. It may contain grammatical, syntax or spelling errors. Admission and Anticipated Discharge Date Admission Date: October 01, 2021 Subjective Patient seen and examined at bedside. No acute distress Patient was on BiPAP 12/6 at the time of examination she was getting tidal volumes in the 500s. I went down to 10/6. Her respiratory was in the mid 20s. Not in any acute distress. Blood pressure was on the higher side. She denied any headache, no belly pain, no chest pain. She was still somnolent Review of Systems Review of Systems: All systems reviewed & are unremarkable except as noted in Subjective Physical Exam Physical Exam: Constitutional: No acute distress HEENT: EOMI, PERRLA, left cheek abrasion Respiratory system: Decreased air entry bilaterally, no wheeze, rhonchi, positive crackles bilaterally CVS: S1-S2 positive, no murmurs or gallops Abdomen: Soft, nontender, nondistended, positive bowel sounds x4, obese Extremities: +2 pulses bilaterally radialis/ dorsalis pedis, no cyanosis, no edema Neuro: Awake alert to self. Patient was still little somnolent Psych: Unable to assess G/U: Positive Levy Results & Data Results & Data ([facility] [place]) Vital Signs (Past 12 Hours) Vital Signs Temp Pulse Resp BP Pulse Ox 10/07/21 14:10 91 H 21 95 10/07/21 12:38 109 H 167/80 H 10/07/21 11:52 36.7 C 10/07/21 11:45 101 H 22 92 10/07/21 11:36 103 H 24 91 10/07/21 11:30 103 H 22 94 10/07/21 11:15 98 H 22 95 10/07/21 11:00 100 H 14 93 10/07/21 10:58 100 H 17 124/79 93 10/07/21 10:45 98 H 16 94 10/07/21 10:30 93 H 15 94 10/07/21 10:28 92 H 16 126/83 94 10/07/21 10:15 92 H 14 92 10/07/21 10:00 90 15 92 10/07/21 09:58 88 15 129/80 92 10/07/21 09:45 87 18 92 10/07/21 09:30 90 14 93 10/07/21 09:28 89 14 125/80 93 10/07/21 09:15 92 H 15 90 10/07/21 09:00 91 H 14 91 10/07/21 08:58 90 16 125/77 91 10/07/21 08:45 90 15 91 10/07/21 08:30 93 H 15 90 10/07/21 08:28 93 H 16 129/97 91 10/07/21 08:15 92 H 13 91 10/07/21 08:10 88 16 94 10/07/21 08:00 87 15 93 10/07/21 07:57 89 16 108/82 92 10/07/21 07:47 37.1 C 10/07/21 07:45 92 H 16 92 10/07/21 07:30 89 16 91 10/07/21 07:15 87 16 91 10/07/21 07:00 88 16 91 10/07/21 06:58 89 17 122/74 91 10/07/21 06:45 88 17 92 10/07/21 06:30 84 16 94 10/07/21 06:28 83 16 125/85 94 10/07/21 06:15 88 16 91 10/07/21 06:00 90 16 91 10/07/21 05:58 90 16 118/79 90 10/07/21 05:45 93 H 16 90 10/07/21 05:30 37.0 C 91 H 16 90 10/07/21 05:27 37.0 C 90 16 120/82 94 10/07/21 05:15 88 15 94 10/07/21 05:00 104 H 18 89 L 10/07/21 04:57 96 H 17 117/79 94 10/07/21 04:45 96 H 16 94 10/07/21 04:30 37.2 C 15 99 10/07/21 04:27 37.2 C 80 16 109/67 93 10/07/21 04:15 37.2 C 80 16 93 10/07/21 04:00 37.2 C 81 16 93 10/07/21 03:57 37.3 C 80 16 97/67 L 93 10/07/21 03:45 37.3 C 81 16 92 10/07/21 03:30 37.3 C 82 16 91 10/07/21 03:27 37.3 C 81 16 104/69 90 10/07/21 03:15 37.3 C 80 16 90 10/07/21 03:10 81 16 89 L 10/07/21 03:00 37.3 C 87 16 83 L 10/07/21 02:57 37.3 C 80 16 95/69 L 92 10/07/21 02:45 37.3 C 82 16 90 10/07/21 06:49 10/07/21 06:49 Coding Level of Care Code Critical Care 1st 30-74 mins Diagnoses Acute respiratory failure with hypoxia J96.01 COVID-19 U07.1 Morbid obesity E66.01 Metabolic syndrome E88.81 Acute kidney injury N17.9 Time Spent (min) 38
[2021-10-07] MEDS ORDERED: NORMOSOL-R 1,000 ML IV SCH (17:30)
[2021-10-07] MEDS ORDERED: METOPROLOL TARTRATE 1 MG/ML VIAL IV SCH (18:00)
[2021-10-07] MEDS: METOPROLOL TARTRATE 1 MG/ML VIAL IV PRN (20:46)
[2021-10-07] MEDS: ENOXAPARIN INJ 40 MG/0.4 ML SYR SQ SCH (20:49)
[2021-10-08] MEDS: METOPROLOL TARTRATE 1 MG/ML VIAL IV PRN ×2 (02:12→07:54)
[2021-10-08 06:11] LABS: Basophils # (auto) 0.03 K/uL (0-0.2); Basophils % (auto) 0.2 %; Eosinophils # (auto) 0.08 K/uL (0-0.5); Eosinophils % (auto) 0.4 %; Hematocrit (blood only) 40.6 % (37-47); Hemoglobin 13.5 g/dL (12.0-16.0); Immature Granulocytes # (auto) 0.65 K/uL (0.00-0.02); Immature Granulocytes % (auto) 3.4 %; Lymphocytes # (auto) 2.24 K/uL (1.2-3.4); Lymphocytes % (auto) 11.8 %; Mean Corpuscular Hemoglobin 28.7 pg (25-34); Mean Corpuscular Hgb Conc 33.3 g/dL (32-36); Mean Corpuscular Volume 86.4 fL (80-100); Monocytes # (auto) 2.06 K/uL (0.11-0.59); Monocytes % (auto) 10.9 %; Neutrophils % (auto) 73.3 %; Platelet Count 368 K/uL (130-400); RDW Coefficient of Variation 13.3 % (11.5-14.5); RDW Standard Deviation 41.9 fL (36.4-46.3); White Blood Count 18.96 K/uL (4.8-10.8)
[2021-10-08 06:37] LABS: BUN Creatinine Ratio 34.5 (10-20); Calcium 8.6 mg/dl (8.5-10.1); Creatinine Clr Calc Pharmacy 111.2 ml/min; Est GFR (African American) 114.7 ml/min; Magnesium 2.1 mg/dl (1.8-2.4); Potassium 3.9 mmol/L (3.5-5.1)
[2021-10-08 06:44] LABS: Phosphorus 2.3 mg/dl (2.5-4.9)
[2021-10-08] MEDS ORDERED: SODIUM PHOSPHATE 3 MMOL/1 ML INFUSION IV STA ×2 (06:48→07:53)
[2021-10-08] MEDS: ICU ELECTROLYTE REPLACEMENT PROTOCOL SCH (07:00)
[2021-10-08] MEDS ORDERED: SODIUM PHOSPHATE 15 MMOL in SODIUM CHLORIDE 0.9% 250 ML IV ONE (07:15)
[2021-10-08] MEDS: FAMOTIDINE 20 MG in SYRINGE 3 ML IV SCH ×2 (07:53→21:19)
[2021-10-08] MEDS: POTASSIUM CHLORIDE / WTR 20 MEQ/100 ML PLCT IV SCH ×2 (07:53→09:45)
[2021-10-08] MEDS: dexAMETHasone 10 MG in SYRINGE 0 ML IV SCH (07:54)
[2021-10-08] MEDS: ENOXAPARIN INJ 40 MG/0.4 ML SYR SQ SCH ×2 (07:55→19:25)
--- NOTE | 2021-10-08 07:57 | Hospitalist Progress Note ---
Date of Service October 08, 2021 Assessment & Plan (1) Acute respiratory failure with hypoxia: Plan: decompensated on 10/03 after being on high flow 60L 100% and then BIPAP for 18 hours intubated 10/03 and placed in prone position Extubated 10/07/2021 transition to BiPAP therapy treat COVID with dexamethasone, Remdesivir Baricitinib stopped at intubation never got CTA chest on admission and was too unstable to scan was started on continued Lovenox 1mg/kg BID lower extremity dopplers negative for PE (2) COVID-19: Plan: sick for over a week on admission, viral pneumonia on CXR dexamethasone 20mg IV daily x 5 then 10mg IV x 5-> LD 10/12 Remdesivir IV daily, completed 5 days Baricitinib, got 2 days but stopped when intubated intubated on 10/03 extubated 10/07/2021, Bipap support Continue to recommend attempts at prone position (3) DKA (diabetic ketoacidosis): Plan: anion gap closed quickly with insulin drip sugars are < 200, stopped IV fluids on 09/02 in the morning to keep lungs dry DKA due to her illness and not taking diabetes medications for a week, typically on /30 insulin regimen pharmacy consulted, managing sugars, added NPH to cover dexamethasone monitor for hypoglycemia and hyperglycemia on the high dose dexamethasone (4) Acute kidney injury: Plan: due to dehydration, prerenal-> resolved Cr was 1.7 on admission, down to 0.[address], adequate UO (5) Dehydration: Plan: resolved, now euvolemic, since tube feeds are stopped and not taking po well will have one liter of normasol at 80 ml/hr (6) Dyslipidemia: (7) Vaginal yeast infection: Plan: chronic issue due to uncontrolled diabetes (8) Uncontrolled type 2 diabetes mellitus: Plan: HbA1c 11.7% will need education, she stopped taking all her medications for a week prior to admission (9) Morbid obesity: Plan: increases morbidity and mortality (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: Plan: levothyroxine 100 mcg (11) DVT prophylaxis: Plan: Lovenox BID, increased to 1mg/kg BID due to possible PE, cannot rule it out Pepcid BID Admission and Anticipated Discharge Date Admission Date: October 01, 2021 Subjective Patient is more awake and alert she is able to eat some food today she is able to open her eyes she may have some subcutaneous emphysema around her left cheek she has skin tear on her left cheek Review of Systems Review of Systems: Lessening distress and fatigue, now is on nasal cannula oxygen no headache, no visual changes, periorbital swelling no chest pain, pressure or palpitations Continued shortness of breath, nonproductive cough or wheezes, remains on Bipap no abdominal pain, nausea or vomiting, no diarrhea no dysuria, hematuria or frequency no focal joint pain or swelling no back pain, CVA tenderness or radicular pain Skin tear to left cheek no focal signs of weakness or numbness or altered sensation overall very weak no complaints of anxiety or depression.. Physical Exam Physical Exam: The patient appeared mild to moderate respiratory distress still requiring the cannula during the day consider BiPAP at night if short of breath Vital signs as documented. Head exam is normocephalic no facial swelling worse on the left size could be from previous position during ventilation Neck is without JVD, thyromegaly, or carotid bruits. Lungs remain coarse bilaterally in all lung francisco Cardiac exam, Rhythm is regular.. No murmurs, rubs or gallops. Abdominal exam reveals normal bowel sounds, soft non tender, no masses Extremities are nonedematous and both pedal pulses are present Neurologic exam is alert and oriented, no focal loss of strength or sensation globally very weak Skin is with skin tear on left cheek may be from device is in place to hold intubation tubing Psychologically is without concerns for anxiety or depression.. Results & Data Results & Data ([facility]) Vital Signs (Past 12 Hours) Vital Signs Temp Pulse Resp BP Pulse Ox 10/08/21 07:29 87 18 94 10/08/21 06:00 82 17 95 10/08/21 05:58 88 146/81 H 96 10/08/21 05:49 85 152/91 H 95 10/08/21 05:45 82 94 10/08/21 05:30 90 94 10/08/21 05:29 91 H 132/44 L 94 10/08/21 05:15 90 96 10/08/21 05:00 77 95 10/08/21 04:45 74 93 10/08/21 04:30 76 95 10/08/21 04:28 80 119/83 95 10/08/21 04:15 78 95 10/08/21 04:00 98.2 F 85 94 10/08/21 03:45 77 18 95 10/08/21 03:30 83 96 10/08/21 03:20 77 20 94 10/08/21 03:15 77 96 10/08/21 03:00 71 93 10/08/21 02:45 73 93 10/08/21 02:30 70 95 10/08/21 02:28 72 121/74 95 10/08/21 02:15 86 96 10/08/21 02:12 88 170/81 H 10/08/21 02:00 86 17 96 10/08/21 01:58 92 H 149/82 H 96 10/08/21 01:45 91 H 96 10/08/21 01:30 88 96 10/08/21 01:15 83 95 10/08/21 01:00 85 97 10/08/21 00:45 81 96 10/08/21 00:30 80 94 10/08/21 00:15 87 94 10/08/21 00:00 90 0 L 95 10/07/21 23:58 93 H 0 L 138/80 94 10/07/21 23:51 92 H 19 94 10/07/21 23:45 101 H 0 L 95 10/07/21 23:30 89 19 94 10/07/21 23:28 91 H 117/74 93 10/07/21 23:15 94 H 90 10/07/21 23:08 99.1 F 22 10/07/21 23:00 104 H 89 L 10/07/21 22:58 108 H 106/45 L 90 10/07/21 22:45 93 H 92 10/07/21 22:30 97 H 92 10/07/21 22:15 94 H 94 10/07/21 22:00 80 93 10/07/21 21:58 83 123/69 92 10/07/21 21:45 84 92 10/07/21 21:30 83 92 10/07/21 21:28 83 131/70 91 10/07/21 21:15 83 28 H 91 10/07/21 21:00 87 92 10/07/21 20:58 94 H 135/94 91 10/07/21 20:46 110 H 167/79 H 10/07/21 20:45 110 H 91 10/07/21 20:30 107 H 92 10/07/21 20:28 106 H 0 L 148/77 H 89 L 10/07/21 20:15 108 H 0 L 95 10/07/21 20:00 99.1 F 101 H 0 L 94 10/07/21 19:58 104 H 0 L 135/76 94 PG Care Time/CCT Total # of Minutes Spent Total Time Spent with Patient: Total time spent is greater than 50% in coordination of care (as documented) at patient's floor/unit and/or counseling patient: Coding Level of Care Code 15665 Subseq Hosp Care Lvl 3 Diagnoses Acute respiratory failure with hypoxia J96.01 COVID-19 U07.1 DKA (diabetic ketoacidosis) E11.10 Acute kidney injury N17.9 Dehydration E86.0 Dyslipidemia E78.5 Vaginal yeast infection B37.3 Uncontrolled type 2 diabetes mellitus E11.65 Morbid obesity E66.01 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
[2021-10-08] MEDS ORDERED: METOPROLOL TARTRATE 1 MG/ML VIAL IV STA (08:37)
[2021-10-08] MEDS: INSULIN GLARGINE SOLOSTAR 100 UNITS/ML 3 ML PEN SC SCH ×2 (08:40→21:34)
[2021-10-08] MEDS: INSULIN ASPART PER UNIT SC SCH ×4 (08:41→21:34)
[2021-10-08] MEDS ORDERED: INSULIN HUMAN NPH SC SCH (09:00)
--- NOTE | 2021-10-08 09:26 | XRay Report ---
XR chest 1V portable CLINICAL HISTORY: COVID TECHNIQUE: Single frontal radiograph of the chest was obtained. Comparison: Comparison is made to chest one view 10/07/2021 FINDINGS: Right subclavian venous catheter is unchanged. The cardiomediastinal silhouette is normal. The lungs are underinflated. There are bilateral lower lobe predominant airspace opacities. Previously noted mu ltifocal consolidation is somewhat less conspicuous on today's exam. No evidence of pleural effusion or pneumothorax. IMPRESSION: Bilateral lower lung predominant airspace opacities which may represent atelectasis, pneumonia, and/o r aspiration. Previously noted multifocal airspace opacities are somewhat less conspicuous than on th e prior exam. ACT 112: Negative or not required by law. Electronically signed by: Dale Han M.D. 10/08/2021 9:25 AM
[2021-10-08] MEDS ORDERED: lisinopril 10 MG TAB PO ONE (11:00)
[2021-10-08] MEDS: LEVOTHYROXINE SODIUM 100 MCG TABLET PO SCH (12:14)
--- NOTE | 2021-10-08 12:14 | Pharmacy Report ---
Pharmacy Glycemic Short Note 2 - Date of Service October 08, 2021 - Glycemic Short BSG Results (Last 24 hours): 10/07/21 10/07/21 10/07/21 14:48 16:27 20:19 Glucose POC Glucose 250 H 244 H 241 H 10/07/21 10/07/21 10/07/21 21:02 22:05 23:02 Glucose POC Glucose 226 H 224 H 238 H 10/08/21 10/08/21 10/08/21 00:03 01:08 02:04 Glucose POC Glucose 199 H 183 H 172 H 10/08/21 10/08/21 10/08/21 03:05 04:01 05:35 Glucose 138 H POC Glucose 153 H 137 H 10/08/21 10/08/21 10/08/21 06:03 07:48 09:47 Glucose POC Glucose 125 H 119 H 124 H 10/08/21 10:57 Glucose POC Glucose 132 H OUTPATIENT ANTIDIABETIC REGIMEN: * Relion 70/30 65 units w/ breakfast + 40 units w/ dinner * Metformin 1gm PO BID * Glipizide 5mg PO BID * A1c = 11.7% 10/01/21 ASSESSMENT: 10/08/21: * Patient was extubated yesterday. TF were placed on hold and patient has remained NPO since. Despite lessening stressors patient's BSGs continued to climb despite addition of higher rapid acting doses. As a result, IV insulin drip resumed and continues this AM. * Will add NPH to current basal insulin regimen given daytime peak in BSGs (even while NPO) * Steroid dose reduced to 10mg IV daily today (dexamethasone) * Will plan on d/c of IV insulin drip today with the addition of NPH, will also escalate the Novolog doses further. 10/07/21: * Patient likely to be extubated today per ICU rounds discussion. Sedation and tube feeds are being held. * Insulin infusion ran at 4-8units/hr most of the day yesterday, but did wean itself off overnight when tube feeds were held. Will continue to hold IV insulin infusion at this time given extubation attempt and plan for TF to remain on hold if extubated. * Will continue "moderate" stress Lantus as previously ordered given insulin infusion rates required on top of this dosage the last several days. Monitor for falling BSGs once extubated and nutrition held. Did receive dexamethasone 20mg IV this AM. 10/06/21: * Chinyere received 122 units of insulin yesterday (40 units Lantus + 81 units regular insulin via drip + 1 unit novolog) * Patient remains on DEXA-ARDs regimen. She also continues on fentanyl, midazolam and cisatracurium infusions. * Peptamen tube feeds remain at low rate of 10 ml/hr * IV insulin infusion rates have been fairly stable (~3.4-4.1 units/hr). Will continue infusion overlapped with SQ Lantus. 10/04: * BSGs well controlled over last 24 hrs. Patient remains on IV insulin drip at stable rate of 4 units/hr (on top of "moderate" stress Lantus dosing) * Patient remains intubated, sedated, and now paralyzed. Norepi has been weaned off. Peptamen VHP tube feeds started at "trickle" yesterday. Dexamethasone dose increased to DEXA-ARDS regimen of 20mg IV Q Day x 5, then 10mg IV Q Day x 5. * Possible plans for SBT, vent weaning tomorrow. IV insulin drip remains safest therapy to control BSGs given potential for multiple changes in stressors while critically ill. 10/03: * Remains on insulin infusion with goal BSG range 120-180mg/dL. * Steroids continue and patient remains NPO. Intubated/sedated w/ NMB ordered, today. * Additional basal coverage with Lantus added this AM (wt/stress 2) to help decrease insulin infusion rates and assist with transition to SQ * Plan to continue insulin infusion per calculator given numerous acute changes and stressors unless weans itself off 10/02: * Poorly controlled type 2 diabetic admitted for COVID viral pna, severe hyperglycemia, AG acidosis, GIBSON * Patient was given fluid resuscitation and started on IV insulin drip per DKA/HHS protocol * BSGs well controlled w/ insulin drip. BSG less than 200 this AM. Patient's AG has resolved. Patient presented with normal bicarb and vpH. * IV fluids containing dextrose stopped this AM due to mod-severe ARDS, provider wishing to restrict fluids * IV steroids continue, pt will not be able to take PO given oxygen requirements. * Recommend continuing IV insulin drip for now given severe stressors and uncertain insulin needs. PLAN FOR INPATIENT GLYCEMIC CONTROL: * Hold outpatient oral diabetes medications (metformin, glipizide) * DC IV insulin drip at noon today * Basal insulin: * Continue Lantus 20 units BID * Add NPH 20 units SQ Q AM with IV dexamethasone * Bolus insulin * Novolog SQ ACHS and at 00 + 04 initially * Goal range: 110 - 140mg/dL * Correction factor: 9mg/dL/unit * Carb ratio: 2.5gm/unit PLAN FOR DISCHARGE: * to be determined
--- NOTE | 2021-10-08 15:02 | Critical Care Progress Note ---
Date of Service October 08, 2021 Assessment & Plan (1) Acute respiratory failure with hypoxia: (2) COVID-19: (3) Morbid obesity: (4) Metabolic syndrome: (5) Acute kidney injury: Plan: Reason Critically Ill: 56-year-old female with severe hypoxic respiratory failu re secondary to COVID-19 pneumonia PLAN: Neuro: CAM ICU negative Resp: --Acute hypoxic respiratory failure secondary to COVID-19 pneumonia: Improved in supine position -Baricitinib ordered 10/02: Discontinued secondary to intubation --> extubated 10/07/2021 -Continue with high-dose DEXA ARDS CV: --Hypertension IV metoprolol as needed Can resume p.o. medications if the blood pressure stays on the higher side Fluids/Renal: Electrolyte protocol ID: Monitor fever curve GI/Nutrition: Tube feeds on hold s/p extubation Heme: Monitor H&H Endocrine: ICU hyperglycemia protocol Hypothyroidism -100 mcg daily --Prophylaxis VTE: Lovenox GI: Pepcid Lines:Right subclavian placed 10/03/2021 right radial arterial line 10/03/2021, positive Diet: Low-sodium diet Plan: In/out: -835, urine output 1180 Hypophosphatemia is being replaced as per the protocol. Would recommend continuation of BiPAP nightly Remove right subclavian, right radial as well as Levy before the shift ends. Patient is stable to be downgraded to medical floor Case was discussed with Dr. Lao Please note the above document was generated using voice recognition software. It may contain grammatical, syntax or spelling errors. Admission and Anticipated Discharge Date Admission Date: October 01, 2021 Subjective Patient seen and examined at bedside. No acute distress, no adverse events overnight Patient is awake alert oriented. Answering all the questions appropriately She was saturating 90-92% on 4 L nasal cannula Denies any chest pain, complains of mild headache. No blurry vision. Review of Systems Review of Systems: All systems reviewed & are unremarkable except as noted in Subjective Physical Exam Physical Exam: Constitutional: No acute distress HEENT: EOMI, PERRLA, left cheek abrasion Respiratory system: Decreased air entry bilaterally, no wheeze, rhonchi, positive crackles bilaterally CVS: S1-S2 positive, no murmurs or gallops Abdomen: Soft, nontender, nondistended, positive bowel sounds x4, obese Extremities: +2 pulses bilaterally radialis/ dorsalis pedis, no cyanosis, no edema Neuro: Awake alert oriented x3 Psych: Normal mood and affect G/U: Positive Levy Results & Data Results & Data ([facility]) Vital Signs (Past 12 Hours) Vital Signs Temp Pulse Resp BP Pulse Ox 10/08/21 09:30 75 18 98 10/08/21 09:29 73 19 148/87 H 98 10/08/21 09:00 74 16 96 10/08/21 08:59 71 15 148/79 H 96 10/08/21 08:57 77 184/83 H 10/08/21 08:30 79 16 95 10/08/21 08:29 75 17 156/85 H 95 10/08/21 08:00 78 15 96 10/08/21 07:58 95 H 17 150/87 H 96 10/08/21 07:54 95 H 188/81 H 10/08/21 07:30 87 17 94 10/08/21 07:29 87 18 94 10/08/21 07:00 78 0 L 95 10/08/21 06:00 82 17 95 10/08/21 05:58 88 146/81 H 96 10/08/21 05:49 85 152/91 H 95 10/08/21 05:45 82 94 10/08/21 05:30 90 94 10/08/21 05:29 91 H 132/44 L 94 10/08/21 05:15 90 96 10/08/21 05:00 77 95 10/08/21 04:45 74 93 10/08/21 04:30 76 95 10/08/21 04:28 80 119/83 95 10/08/21 04:15 78 95 10/08/21 04:00 36.8 C 85 94 10/08/21 03:45 77 18 95 10/08/21 03:30 83 96 10/08/21 03:20 77 20 94 10/08/21 03:15 77 96 10/08/21 03:00 71 93 Laboratory Results 10/08/21 05:35 10/08/21 05:35 Coding Level of Care Code 39955 Subseq Hosp Care Lvl 3 Diagnoses Acute respiratory failure with hypoxia J96.01 COVID-19 U07.1 Morbid obesity E66.01 Metabolic syndrome E88.81 Acute kidney injury N17.9
[2021-10-08] MEDS ORDERED: OPTIRAY 320 125ml IV ONE (20:17)
--- NOTE | 2021-10-08 20:45 | CT Scan Report ---
CT angio chest PE protocol CT DOSE: 848.31 mGy.cm HISTORY: 56 years-old Female with PE. Acute shortness of breath. COVID Positive. TECHNIQUE: Multiple CTA images of the chest were obtained after the intravenous administration of 120 ml Optiray. Coronal and sagittal MIPS were obtained from the axial data set and were submitted for review. All measurements were obtained according to NASCET criteria. A dose lowering technique was u tilized adhering to the principles of ALARA. COMPARISON: Chest radiograph of same day FINDINGS: CTA: Moderate cardiomegaly. No pericardial effusion. Mild coronary artery calcifications. No thoracic aort ic aneurysm or dissection. The study is degraded by respiratory motion artifact limiting evaluation o f the pulmonary arterial tree. No central pulmonary emboli. CT CHEST: No thyroid nodule. Prominent mediastinal and hilar lymph nodes measure up to 9 mm, likely reactive. N o pneumothorax, pleural effusion or pneumomediastinum. Extensive bilateral peripheral predominant yadiel undglass and consolidative opacities are most pronounced in the lower lung zones. The central airways are patent. Hepatic steatosis. No acute process of the imaged upper abdomen. Unremarkable soft tissues. No acute fracture. Degenerative changes of the thoracic spine. IMPRESSION: 1. Limited evaluation of the pulmonary artery secondary to respiratory motion artifact. No central pu lmonary emboli identified. 2. Extensive bilateral groundglass and consolidative opacities are compatible with viral pneumonia. 3. Cardiomegaly. 4. Hepatic steatosis. ACT 112: Negative or not required by law. The above report was generated using voice recognition software. It may contain grammatical, syntax o r spelling errors. Electronically signed by: Sherman Marino M.D. 10/08/2021 8:44 PM
[2021-10-09] MEDS: INSULIN ASPART PER UNIT SC SCH ×6 (00:21→20:58)
[2021-10-09] MEDS ORDERED: HEPARIN 100 UNIT/ML 5ML FLUSH FLUSH PRN (00:47)
[2021-10-09] MEDS: LEVOTHYROXINE SODIUM 100 MCG TABLET PO SCH (06:06)
[2021-10-09] MEDS: ENOXAPARIN INJ 40 MG/0.4 ML SYR SQ SCH ×2 (08:37→20:49)
[2021-10-09] MEDS: INSULIN GLARGINE SOLOSTAR 100 UNITS/ML 3 ML PEN SC SCH ×2 (08:38→20:59)
[2021-10-09] MEDS: INSULIN HUMAN NPH SC SCH (08:41)
[2021-10-09] MEDS: FAMOTIDINE 20 MG in SYRINGE 3 ML IV SCH ×2 (08:54→20:49)
[2021-10-09] MEDS: dexAMETHasone 10 MG in SYRINGE 0 ML IV SCH (08:54)
[2021-10-09] MEDS ORDERED: lisinopril 10 MG TAB PO SCH (09:00)
--- NOTE | 2021-10-09 11:21 | Pharmacy Report ---
Pharmacy Glycemic Short Note 2 - Date of Service October 09, 2021 - Glycemic Short BSG Results (Last 24 hours): 10/08/21 10/08/21 10/08/21 12:11 16:09 20:53 POC Glucose 154 H 268 H 279 H 10/08/21 10/09/21 10/09/21 23:56 03:51 08:05 POC Glucose 233 H 164 H 123 H OUTPATIENT ANTIDIABETIC REGIMEN: * Relion 70/30 65 units w/ breakfast + 40 units w/ dinner * Metformin 1gm PO BID * Glipizide 5mg PO BID * A1c = 11.7% 10/01/21 ASSESSMENT: 10/09/21: * 104 units SQ insulin administered in last 24 hrs while no documented PO intake and receiving IV dexamethasone 10mg daily in the AM * Insulin drip stopped at noon yesterday to assess response to NPH addition in the AM. BSGs quickly zach to 260-270s range, then again fell overnight. * Will increase AM NPH dose to 0.4unit/kg. Will continue Lantus as well for time being given prolonged fasting does not seem to have caused a fall in BSGs yet. * No changes will be made to Novolog today given the change made in NPH. Will continue overnight checks as this patient is high risk for hypoglycemia given lack of PO intake and wearing off of steroid effects on BSGs overnight. 10/08/21: * Patient was extubated yesterday. TF were placed on hold and patient has remained NPO since. Despite lessening stressors patient's BSGs continued to climb despite addition of higher rapid acting doses. As a result, IV insulin drip resumed and continues this AM. * Will add NPH to current basal insulin regimen given daytime peak in BSGs (even while NPO) * Steroid dose reduced to 10mg IV daily today (dexamethasone) * Will plan on d/c of IV insulin drip today with the addition of NPH, will also escalate the Novolog doses further. 10/07/21: * Patient likely to be extubated today per ICU rounds discussion. Sedation and tube feeds are being held. * Insulin infusion ran at 4-8units/hr most of the day yesterday, but did wean itself off overnight when tube feeds were held. Will continue to hold IV insulin infusion at this time given extubation attempt and plan for TF to remain on hold if extubated. * Will continue "moderate" stress Lantus as previously ordered given insulin infusion rates required on top of this dosage the last several days. Monitor for falling BSGs once extubated and nutrition held. Did receive dexamethasone 20mg IV this AM. 10/06/21: * Chinyere received 122 units of insulin yesterday (40 units Lantus + 81 units regular insulin via drip + 1 unit novolog) * Patient remains on DEXA-ARDs regimen. She also continues on fentanyl, midazolam and cisatracurium infusions. * Peptamen tube feeds remain at low rate of 10 ml/hr * IV insulin infusion rates have been fairly stable (~3.4-4.1 units/hr). Will continue infusion overlapped with SQ Lantus. 10/04: * BSGs well controlled over last 24 hrs. Patient remains on IV insulin drip at stable rate of 4 units/hr (on top of "moderate" stress Lantus dosing) * Patient remains intubated, sedated, and now paralyzed. Norepi has been weaned off. Peptamen VHP tube feeds started at "trickle" yesterday. Dexamethasone dose increased to DEXA-ARDS regimen of 20mg IV Q Day x 5, then 10mg IV Q Day x 5. * Possible plans for SBT, vent weaning tomorrow. IV insulin drip remains safest therapy to control BSGs given potential for multiple changes in stressors while critically ill. 10/03: * Remains on insulin infusion with goal BSG range 120-180mg/dL. * Steroids continue and patient remains NPO. Intubated/sedated w/ NMB ordered, today. * Additional basal coverage with Lantus added this AM (wt/stress 2) to help decrease insulin infusion rates and assist with transition to SQ * Plan to continue insulin infusion per calculator given numerous acute changes and stressors unless weans itself off 10/02: * Poorly controlled type 2 diabetic admitted for COVID viral pna, severe hyperglycemia, AG acidosis, GIBSON * Patient was given fluid resuscitation and started on IV insulin drip per DKA/HHS protocol * BSGs well controlled w/ insulin drip. BSG less than 200 this AM. Patient's AG has resolved. Patient presented with normal bicarb and vpH. * IV fluids containing dextrose stopped this AM due to mod-severe ARDS, provider wishing to restrict fluids * IV steroids continue, pt will not be able to take PO given oxygen requirements. * Recommend continuing IV insulin drip for now given severe stressors and uncertain insulin needs. PLAN FOR INPATIENT GLYCEMIC CONTROL: * Hold outpatient oral diabetes medications (metformin, glipizide) * Basal insulin: * Continue Lantus 20 units BID * Increase NPH to 40 units SQ Q AM with IV dexamethasone * Bolus insulin * Novolog SQ ACHS and at 0000 + 0400 initially * Goal range: 110 - 140mg/dL * Correction factor: 9mg/dL/unit * Carb ratio: 2.5gm/unit PLAN FOR DISCHARGE: * to be determined
[2021-10-09 11:45] LABS: Basophils # (auto) 0.02 K/uL (0-0.2); Basophils % (auto) 0.1 %; Hematocrit (blood only) 43.3 % (37-47); Hemoglobin 14.5 g/dL (12.0-16.0); Immature Granulocytes # (auto) 0.38 K/uL (0.00-0.02); Immature Granulocytes % (auto) 2.5 %; Lymphocytes # (auto) 1.71 K/uL (1.2-3.4); Lymphocytes % (auto) 11.5 %; Mean Corpuscular Hemoglobin 28.8 pg (25-34); Mean Corpuscular Hgb Conc 33.5 g/dL (32-36); Mean Corpuscular Volume 85.9 fL (80-100); Mean Platelet Volume 8.8 fL (7.4-10.4); Monocytes # (auto) 1.58 K/uL (0.11-0.59); Monocytes % (auto) 10.6 %; Neutrophils # (auto) 10.93 K/uL (1.4-6.5); Neutrophils % (auto) 73.3 %; Platelet Count 333 K/uL (130-400); RDW Coefficient of Variation 13.6 % (11.5-14.5); RDW Standard Deviation 42.5 fL (36.4-46.3); Red Blood Count 5.04 M/uL (4.2-5.4); White Blood Count 14.92 K/uL (4.8-10.8)
--- NOTE | 2021-10-09 17:26 | Hospitalist Progress Note ---
Date of Service October 09, 2021 Assessment & Plan (1) Acute respiratory failure with hypoxia: Plan: decompensated on 10/03 after being on high flow 60L 100% and then BIPAP for 18 hours intubated 10/03 and placed in prone position Extubated 10/07/2021 transition to BiPAP therapy treat COVID with dexamethasone, Remdesivir Baricitinib stopped at intubation never got CTA chest on admission and was CTA 10/08 and negative for PE will down grade lovenox to 0.5 mg /kg -> consider xarelto 10 at d/c lower extremity dopplers negative for PE (2) COVID-19: Plan: sick for over a week on admission, viral pneumonia on CXR dexamethasone 20mg IV daily x 5 then 10mg IV x 5-> LD 10/12 Remdesivir IV daily, completed 5 days Baricitinib, got 2 days but stopped when intubated intubated on 10/03 extubated 10/07/2021, Bipap support Continue to recommend attempts at prone position when sleeping (3) DKA (diabetic ketoacidosis): Plan: anion gap closed quickly with insulin drip sugars are < 200, stopped IV fluids on 09/02 in the morning to keep lungs dry DKA due to her illness and not taking diabetes medications for a week, typically on insulin regimen pharmacy consulted, managing sugars, added NPH to cover dexamethasone LD is 10/12 then may need to reduce regime monitor for hypoglycemia and hyperglycemia on the high dose dexamethasone (4) Acute kidney injury: Plan: due to dehydration, prerenal-> resolved Cr was 1.7 on admission, down to 0.[address], adequate UO (5) Dehydration: Plan: resolved, now euvolemic, since tube feeds are stopped and not taking po well will have one liter of normasol at 80 ml/hr (6) Dyslipidemia: (7) Vaginal yeast infection: Plan: chronic issue due to uncontrolled diabetes (8) Uncontrolled type 2 diabetes mellitus: Plan: HbA1c 11.7% will need education, she stopped taking all her medications for a week prior to admission (9) Morbid obesity: Plan: increases morbidity and mortality (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 she does have some subcutaneous emphysema around her left cheek she has skin tear on her left cheek Review of Systems Review of Systems: Lessening distress and fatigue, now is on nasal cannula oxygen no headache, no visual changes, periorbital swelling no chest pain, pressure or palpitations Continued shortness of breath, nonproductive cough or wheezes, remains on Bipap no abdominal pain, nausea or vomiting, no diarrhea no dysuria, hematuria or frequency no focal joint pain or swelling no back pain, CVA tenderness or radicular pain Skin tear to left cheek no focal signs of weakness or numbness or altered sensation overall very weak no complaints of anxiety or depression.. Physical Exam Physical Exam: The patient appeared mild to moderate respiratory distress still requiring the cannula during the day consider BiPAP at night if short of breath Vital signs as documented. Head exam is normocephalic no facial swelling worse on the left size could be from previous position during ventilation Neck is without JVD, thyromegaly, or carotid bruits. Lungs remain coarse bilaterally in all lung francisco Cardiac exam, Rhythm is regular.. No murmurs, rubs or gallops. Abdominal exam reveals normal bowel sounds, soft non tender, no masses Extremities are nonedematous and both pedal pulses are present Neurologic exam is alert and oriented, no focal loss of strength or sensation globally very weak Skin is with skin tear on left cheek may be from device is in place to hold intubation tubing Psychologically is without concerns for anxiety or depression.. Results & Data Results & Data ([facility]) Vital Signs (Past 12 Hours) Vital Signs Temp Pulse Resp BP BP Pulse Ox Pulse Ox 10/09/21 15:00 94 10/09/21 13:55 98.2 F 97 H 16 131/86 96 10/09/21 08:03 97.9 F 101 H 16 135/87 91 Pulse Ox Pulse Ox 10/09/21 15:00 92 90 10/09/21 13:55 10/09/21 08:03 PG Care Time/CCT Total # of Minutes Spent Total Time Spent with Patient: Total time spent is greater than 50% in coordination of care (as documented) at patient's floor/unit and/or counseling patient: Coding Level of Care Code 99372 Subseq Hosp Care Lvl 3 Diagnoses Acute respiratory failure with hypoxia J96.01 COVID-19 U07.1 DKA (diabetic ketoacidosis) E11.10 Acute kidney injury N17.9 Dehydration E86.0 Dyslipidemia E78.5 Vaginal yeast infection B37.3 Uncontrolled type 2 diabetes mellitus E11.65 Morbid obesity E66.01 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
[2021-10-10] MEDS: INSULIN ASPART PER UNIT SC SCH ×6 (00:17→21:50)
[2021-10-10] MEDS: LEVOTHYROXINE SODIUM 100 MCG TABLET PO SCH (06:18)
[2021-10-10] MEDS: INSULIN GLARGINE SOLOSTAR 100 UNITS/ML 3 ML PEN SC SCH ×2 (09:32→22:24)
[2021-10-10] MEDS: INSULIN HUMAN NPH SC SCH (09:33)
[2021-10-10] MEDS: dexAMETHasone 10 MG in SYRINGE 0 ML IV SCH (09:35)
[2021-10-10] MEDS: ENOXAPARIN INJ 40 MG/0.4 ML SYR SQ SCH ×2 (09:35→21:52)
[2021-10-10] MEDS: FAMOTIDINE 20 MG in SYRINGE 3 ML IV SCH (09:35)
--- NOTE | 2021-10-10 09:43 | Pharmacy Report ---
Pharmacy Glycemic Short Note 2 - Date of Service October 10, 2021 - Glycemic Short BSG Results (Last 24 hours): 10/09/21 10/09/21 10/09/21 12:21 17:29 20:49 POC Glucose 173 H 239 H 272 H 10/10/21 10/10/21 10/10/21 00:05 03:53 08:18 POC Glucose 181 H 112 H 83 OUTPATIENT ANTIDIABETIC REGIMEN: * Relion 70/30 65 units w/ breakfast + 40 units w/ dinner * Metformin 1gm PO BID * Glipizide 5mg PO BID * A1c = 11.7% 10/01/21 ASSESSMENT: 10/10/21 * Stressors stable - day 3 of 5 of dexamethasone 10 mg. PO intake remains minimal. * AM fasting BSG with notable trend down to 83 mg/dL after increase in NPH ye . However, subsequent BSG's still elevated. CHO ratio not likely the issue as po intake was minimal. * Will keep NPH but reduce Lantus * Will tighten correction factor. May also consider tightening carb ratio if po intake increases and BSG's remain elevated 10/09/21: * 104 units SQ insulin administered in last 24 hrs while no documented PO intake and receiving IV dexamethasone 10mg daily in the AM * Insulin drip stopped at noon yesterday to assess response to NPH addition in the AM. BSGs quickly zach to 260-270s range, then again fell overnight. * Will increase AM NPH dose to 0.4unit/kg. Will continue Lantus as well for time being given prolonged fasting does not seem to have caused a fall in BSGs yet. * No changes will be made to Novolog today given the change made in NPH. Will continue overnight checks as this patient is high risk for hypoglycemia given lack of PO intake and wearing off of steroid effects on BSGs overnight. 10/08/21: * Patient was extubated yesterday. TF were placed on hold and patient has remained NPO since. Despite lessening stressors patient's BSGs continued to climb despite addition of higher rapid acting doses. As a result, IV insulin drip resumed and continues this AM. * Will add NPH to current basal insulin regimen given daytime peak in BSGs (even while NPO) * Steroid dose reduced to 10mg IV daily today (dexamethasone) * Will plan on d/c of IV insulin drip today with the addition of NPH, will also escalate the Novolog doses further. 10/07/21: * Patient likely to be extubated today per ICU rounds discussion. Sedation and tube feeds are being held. * Insulin infusion ran at 4-8units/hr most of the day yesterday, but did wean itself off overnight when tube feeds were held. Will continue to hold IV insulin infusion at this time given extubation attempt and plan for TF to remain on hold if extubated. * Will continue "moderate" stress Lantus as previously ordered given insulin infusion rates required on top of this dosage the last several days. Monitor for falling BSGs once extubated and nutrition held. Did receive dexamethasone 20mg IV this AM. 10/06/21: * Chinyere received 122 units of insulin yesterday (40 units Lantus + 81 units regular insulin via drip + 1 unit novolog) * Patient remains on DEXA-ARDs regimen. She also continues on fentanyl, midazolam and cisatracurium infusions. * Peptamen tube feeds remain at low rate of 10 ml/hr * IV insulin infusion rates have been fairly stable (~3.4-4.1 units/hr). Will continue infusion overlapped with SQ Lantus. 10/04: * BSGs well controlled over last 24 hrs. Patient remains on IV insulin drip at stable rate of 4 units/hr (on top of "moderate" stress Lantus dosing) * Patient remains intubated, sedated, and now paralyzed. Norepi has been weaned off. Peptamen VHP tube feeds started at "trickle" yesterday. Dexamethasone dose increased to DEXA-ARDS regimen of 20mg IV Q Day x 5, then 10mg IV Q Day x 5. * Possible plans for SBT, vent weaning tomorrow. IV insulin drip remains safest therapy to control BSGs given potential for multiple changes in stressors w hile critically ill. 10/03: * Remains on insulin infusion with goal BSG range 120-180mg/dL. * Steroids continue and patient remains NPO. Intubated/sedated w/ NMB ordered, today. * Additional basal coverage with Lantus added this AM (wt/stress 2) to help decrease insulin infusion rates and assist with transition to SQ * Plan to continue insulin infusion per calculator given numerous acute changes and stressors unless weans itself off 10/02: * Poorly controlled type 2 diabetic admitted for COVID viral pna, severe hyperglycemia, AG acidosis, GIBSON * Patient was given fluid resuscitation and started on IV insulin drip per DKA/HHS protocol * BSGs well controlled w/ insulin drip. BSG less than 200 this AM. Patient's AG has resolved. Patient presented with normal bicarb and vpH. * IV fluids containing dextrose stopped this AM due to mod-severe ARDS, provider wishing to restrict fluids * IV steroids continue, pt will not be able to take PO given oxygen requirements. * Recommend continuing IV insulin drip for now given severe stressors and uncertain insulin needs. PLAN FOR INPATIENT GLYCEMIC CONTROL: * Hold outpatient oral diabetes medications (metformin, glipizide) * Basal insulin: * Continue Lantus 20 units BID * Increase NPH to 40 units SQ Q AM with IV dexamethasone * Bolus insulin * Novolog SQ ACHS and at 0000 + 0400 initially * Goal range: 110 - 140mg/dL * Correction factor: 9mg/dL/unit * Carb ratio: 2.5gm/unit PLAN FOR DISCHARGE: * to be determined
--- NOTE | 2021-10-10 12:51 | Hospitalist Progress Note ---
Date of Service October 10, 2021 Assessment & Plan (1) Acute respiratory failure with hypoxia: Plan: decompensated on 10/03 after being on high flow 60L 100% and then BIPAP for 18 hours intubated 10/03 and placed in prone position Extubated 10/07/2021 transition to BiPAP therapy treat COVID with dexamethasone, Remdesivir Baricitinib stopped at intubation lower extremity dopplers negative for PE (2) COVID-19: Plan: sick for over a week on admission, viral pneumonia on CXR dexamethasone 20mg IV daily x 5 then 10mg IV x 5-> LD 10/12 Remdesivir IV daily, completed 5 days Baricitinib, got 2 days but stopped when intubated intubated on 10/03 extubated 10/07/2021, Bipap support Continue to recommend attempts at prone position when sleeping (3) DKA (diabetic ketoacidosis): Plan: Resolved Anion gap closed quickly with insulin drip sugars are < 200, stopped IV fluids on 09/02 in the morning to keep lungs dry DKA due to her illness and not taking diabetes medications for a week, typically on insulin regimen pharmacy consulted, managing sugars, added NPH to cover dexamethasone last day is 10/12 then may need to reduce regime (4) Acute kidney injury: Plan: Resolved due to dehydration, prerenal Cr was 1.7 on admission, down to 0.6 (5) Dehydration: Plan: resolved, now euvolemic Eating and drinking normally at presents time (6) Dyslipidemia: Plan: Continue lovastatin 20mg PO HS (7) Vaginal yeast infection: Plan: chronic, reports no acute issue regarding this (8) Uncontrolled type 2 diabetes mellitus: Plan: HbA1c 11.7% will need education, she stopped taking all her medications for a week prior to admission (9) 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 Short of breath on exertion but not significant at rest. Eating and drinking well. Having regular BM. Review of Systems Review of Systems: All systems reviewed & are unremarkable except as noted in HPI & below Physical Exam Constitutional: WD/WN, vitals as above ENMT: external ear and nose normal, oropharynx normal Respiratory: normal respiratory effort, lungs clear to auscultation Cardiovascular: RRR, no murmur, no edema Gastrointestinal (Abdomen): normal bowel sounds, soft, nontender, no hepatosplenomegaly Musculoskeletal: no cyanosis or clubbing, extremities motor strength 5/5 Skin: + ulcer (left cheek suspected from tubing vs. BiPAP) Trauma: no contusion Neurologic: moves all extremities and awake; not confused Psychiatric: A+Ox3, euthymic affect Results & Data Results & Data ([facility]) Vital Signs (Past 12 Hours) Vital Signs Temp Pulse Pulse Resp BP Pulse Ox Pulse Ox 10/10/21 07:29 36.5 C 91 H 14 96/64 L 95 10/10/21 03:22 96 10/10/21 00:59 81 96 Laboratory Results Abnormal lab results 10/09/21 10/09/21 10/10/21 Range/Units 17:29 20:49 00:05 POC Glucose 239 H 272 H 181 H (70-99) mg/dl 10/10/21 10/10/21 Range/Units 03:53 12:01 POC Glucose 112 H 171 H (70-99) mg/dl PG Care Time/CCT Total # of Minutes Spent Total Time Spent with Patient: Total time spent is greater than 50% in coordination of care (as documented) at patient's floor/unit and/or counseling patient: Coding Level of Care Code 95400 Subseq Hosp Care Lvl 2 Diagnoses Acute respiratory failure with hypoxia J96.01 COVID-19 U07.1 DKA (diabetic ketoacidosis) E11.10 Acute kidney injury N17.9 Dehydration E86.0 Dyslipidemia E78.5 Vaginal yeast infection B37.3 Uncontrolled type 2 diabetes mellitus E11.65 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
[2021-10-10] MEDS: POLYETHYLENE (MIRALAX) 17 GM PACK PO PRN (13:30)
[2021-10-10] MEDS: CYANOCOBALAMIN 500 MCG TABLET (VITAMIN B-12) PO SCH (21:52)
[2021-10-10] MEDS: CHOLECALCIFEROL 5,000 UNITS 125 MCG TAB PO SCH (21:52)
[2021-10-10] MEDS: LOVASTATIN 20 MG TAB PO SCH (21:52)
[2021-10-11] MEDS: LEVOTHYROXINE SODIUM 100 MCG TABLET PO SCH (06:04)
[2021-10-11] MEDS: CARBOHYDRATES FOR HYPOGLYCEMIA PO PRN ×2 (07:41→08:02)
[2021-10-11] MEDS: dexAMETHasone 10 MG in SYRINGE 0 ML IV SCH (07:54)
[2021-10-11] MEDS: FAMOTIDINE 20 MG TAB PO SCH (07:54)
[2021-10-11] MEDS: MULTIVITAMIN TAB PO SCH (07:54)
[2021-10-11] MEDS: ENOXAPARIN INJ 40 MG/0.4 ML SYR SQ SCH ×2 (07:55→22:35)
[2021-10-11] MEDS: INSULIN ASPART PER UNIT SC SCH ×4 (08:25→22:30)
[2021-10-11] MEDS: INSULIN HUMAN NPH SC SCH (08:39)
--- NOTE | 2021-10-11 09:52 | Pharmacy Report ---
Pharmacy Glycemic Short Note 2 - Date of Service October 11, 2021 - Glycemic Short BSG Results (Last 24 hours): 10/10/21 10/10/21 10/10/21 12:01 17:11 20:53 POC Glucose 171 H 249 H 273 H 10/11/21 10/11/21 10/11/21 07:36 07:40 07:56 POC Glucose 52 L* 50 L* 56 L* 10/11/21 08:20 POC Glucose 78 OUTPATIENT ANTIDIABETIC REGIMEN: * Relion 70/30 65 units w/ breakfast + 40 units w/ dinner * Metformin 1gm PO BID * Glipizide 5mg PO BID * A1c = 11.7% 10/01/21 ASSESSMENT: 10/11/21 * Stressors - PO intake increased yesterday, especially with lunch and dinner. Dexamethasone 10 mg day 4 of 5 * AM fasting BSG with severe hypoglycemia despite modest reduction in Lantus yesterday. Etiology likely combined NPH/Lantus. Will eliminate Lantus today and only use NPH. NPH will likely need to be adjusted back up x1 tomorrow (but then down again after steroids stopped) * Post-prandial BSG's with notable increase associated with increased PO intake. Will tighten carb ratio 10/10/21 * Stressors stable - day 3 of of dexamethasone 10 mg. PO intake remains minimal. * AM fasting BSG with notable trend down to 83 mg/dL after increase in NPH yesterday. However, subsequent BSG's still elevated. CHO ratio not likely the issue as po intake was minimal. * Will keep NPH but reduce Lantus * Will tighten correction factor. May also consider tightening carb ratio if po intake increases and BSG's remain elevated 10/09/21: * 104 units SQ insulin administered in last 24 hrs while no documented PO intake and receiving IV dexamethasone 10mg daily in the AM * Insulin drip stopped at noon yesterday to assess response to NPH addition in the AM. BSGs quickly zach to 260-270s range, then again fell overnight. * Will increase AM NPH dose to 0.4unit/kg. Will continue Lantus as well for time being given prolonged fasting does not seem to have caused a fall in BSGs yet. * No changes will be made to Novolog today given the change made in NPH. Will continue overnight checks as this patient is high risk for hypoglycemia given lack of PO intake and wearing off of steroid effects on BSGs overnight. 10/08/21: * Patient was extubated yesterday. TF were placed on hold and patient has remained NPO since. Despite lessening stressors patient's BSGs continued to climb despite addition of higher rapid acting doses. As a result, IV insulin drip resumed and continues this AM. * Will add NPH to current basal insulin regimen given daytime peak in BSGs (even while NPO) * Steroid dose reduced to 10mg IV daily today (dexamethasone) * Will plan on d/c of IV insulin drip today with the addition of NPH, will also escalate the Novolog doses further. PLAN FOR INPATIENT GLYCEMIC CONTROL: * Hold outpatient oral diabetes medications (metformin, glipizide) * Basal insulin: * Discontinue Lantus * Continue NPH to 40 units SQ Q AM with IV dexamethasone * Bolus insulin * Novolog SQ ACHS * Goal range: 110 - 140mg/dL * Correction factor: 8 mg/dL/unit * Carb ratio: 2 g CHO/unit PLAN FOR DISCHARGE: * to be determined
--- NOTE | 2021-10-11 11:14 | Hospitalist Progress Note ---
Date of Service October 11, 2021 Assessment & Plan (1) Acute respiratory failure with hypoxia: Plan: decompensated on 10/03 after being on high flow 60L 100% and then BIPAP for 18 hours intubated 10/03 and placed in prone position Extubated 10/07/2021 transition to BiPAP therapy Currently stable on 4LPM O2 (2) COVID-19: Plan: First tested positive: October 01 First symptoms: September 24 Dexamethasone 20mg IV daily x 5 then 10mg IV x 5-> LD 10/12 Remdesivir IV daily, completed 5 days Baricitinib, got 2 days but stopped when intubated intubated on 10/03 extubated 10/07/2021, Bipap support Continue to recommend attempts at prone position when sleeping (3) DKA (diabetic ketoacidosis): Plan: Resolved Anion gap closed quickly with insulin drip sugars are < 200, stopped IV fluids on 09/02 in the morning to keep lungs dry DKA due to her illness and not taking diabetes medications for a week, typically on insulin regimen pharmacy consulted, managing sugars, added NPH to cover dexamethasone last day is 10/12 then may need to reduce regime (4) Acute kidney injury: Plan: Resolved due to dehydration, prerenal Cr was 1.7 on admission, down to 0.6 (5) Dehydration: Plan: resolved, now euvolemic Eating and drinking normally at presents time (6) Dyslipidemia: Plan: Continue lovastatin 20mg PO HS (7) Vaginal yeast infection: Plan: chronic, reports no acute issue regarding this (8) Uncontrolled type 2 diabetes mellitus: Plan: HbA1c 11.7% will need education, she stopped taking all her medications for a week prior to admission (9) 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 PT recommending rehabilitation on discharge. Remains stable on 4LPM O2. Review of Systems Review of Systems: All systems reviewed & are unremarkable except as noted in HPI & below Physical Exam Constitutional: WD/WN, vitals as above ENMT: external ear and nose normal, oropharynx normal Respiratory: normal respiratory effort, lungs clear to auscultation Cardiovascular: RRR, no murmur, no edema Gastrointestinal (Abdomen): normal bowel sounds, soft, nontender, no hepatosplenomegaly Musculoskeletal: no cyanosis or clubbing, extremities motor strength 5/5 Skin: + ulcer (left cheek suspected from tubing vs. BiPAP) Trauma: no contusion Neurologic: moves all extremities and awake; not confused Psychiatric: A+Ox3, euthymic affect Results & Data Results & Data ([facility]) Vital Signs (Past 12 Hours) Vital Signs Temp Pulse Resp BP Pulse Ox Pulse Ox 10/11/21 07:34 36.4 C L 99 H 18 101/66 94 10/11/21 04:33 94 PG Care Time/CCT Total # of Minutes Spent Total Time Spent with Patient: Total time spent is greater than 50% in coordination of care (as documented) at patient's floor/unit and/or counseling patient: Coding Level of Care Code 76659 Subseq Hosp Care Lvl 2 Diagnoses Acute respiratory failure with hypoxia J96.01 COVID-19 U07.1 DKA (diabetic ketoacidosis) E11.10 Acute kidney injury N17.9 Dehydration E86.0 Dyslipidemia E78.5 Vaginal yeast infection B37.3 Uncontrolled type 2 diabetes mellitus E11.65 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
[2021-10-11] MEDS: CHOLECALCIFEROL 5,000 UNITS 125 MCG TAB PO SCH (22:36)
[2021-10-11] MEDS: LOVASTATIN 20 MG TAB PO SCH (22:36)
[2021-10-11] MEDS: CYANOCOBALAMIN 500 MCG TABLET (VITAMIN B-12) PO SCH (22:37)
[2021-10-12] MEDS: LEVOTHYROXINE SODIUM 100 MCG TABLET PO SCH (06:37)
[2021-10-12] MEDS: CARBOHYDRATES FOR HYPOGLYCEMIA PO PRN ×2 (08:00→08:17)
--- NOTE | 2021-10-12 08:14 | Hospitalist Progress Note ---
Date of Service October 12, 2021 Assessment & Plan (1) Acute respiratory failure with hypoxia: Plan: decompensated on 10/03 after being on high flow 60L 100% and then BIPAP for 18 hours intubated 10/03 and placed in prone position Extubated 10/07/2021 transition to BiPAP therapy Currently stable on 4LPM O2, titrating downward (2) COVID-19: Plan: First tested positive: October 01 First symptoms: September 24 Dexamethasone 20mg IV daily x 5 then 10mg IV x LD 10/11 Remdesivir IV daily, completed 5 days Baricitinib, got 2 days but stopped when intubated intubated on 10/03 extubated 10/07/2021, Bipap support Continue to recommend attempts at prone position when sleeping (3) DKA (diabetic ketoacidosis): Plan: Resolved Anion gap closed quickly with insulin drip DKA due to her illness and not taking diabetes medications for a week, typically on 70/30 insulin regimen pharmacy consulted, managing sugars, added NPH to cover dexamethasone. is having symptomatic hypoglycemia, will d/c NPH and change to lantus, discuss outpt treatment strategy with pt, due to cost contraints wants to change to 70/30, does have funtional glucose monitor at home that she has supplies for (4) Acute kidney injury: Plan: Resolved due to dehydration, prerenal Cr was 1.7 on admission, down to 0.6 (5) Dehydration: Plan: resolved, now euvolemic Eating and drinking normally at presents time (6) Dyslipidemia: Plan: Continue lovastatin 20mg PO HS (7) Vaginal yeast infection: Plan: chronic, reports no acute issue regarding this (8) Uncontrolled type 2 diabetes mellitus: Plan: HbA1c 11.7% will need education, she stopped taking all her medications for a week prior to admission (9) 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 PT recommending rehabilitation on discharge but did have significant improvement on last eval Review of Systems Review of Systems: Lessening distress and fatigue, now is on nasal cannula oxygen no headache, no visual changes, periorbital swelling no chest pain, pressure or palpitations Continued shortness of breath, nonproductive cough or wheezes, remains on Bipap no abdominal pain, nausea or vomiting, no diarrhea no dysuria, hematuria or frequency no focal joint pain or swelling no back pain, CVA tenderness or radicular pain Skin tear to left cheek no focal signs of weakness or numbness or altered sensation overall very weak no complaints of anxiety or depression.. Physical Exam Physical Exam: The patient appeared mild to moderate respiratory distress still requiring the cannula during the day consider BiPAP at night if short of breath Vital signs as documented. Head exam is normocephalic no facial swelling worse on the left size could be from previous position during ventilation Neck is without JVD, thyromegaly, or carotid bruits. Lungs remain coarse bilaterally in all lung francisco Cardiac exam, Rhythm is regular.. No murmurs, rubs or gallops. Abdominal exam reveals normal bowel sounds, soft non tender, no masses Extremities are nonedematous and both pedal pulses are present Neurologic exam is alert and oriented, no focal loss of strength or sensation globally very weak Skin is with skin tear on left cheek may be from device is in place to hold intubation tubing, 2cmx0.5 cm abrasion Psychologically is without concerns for anxiety or depression.. Results & Data Results & Data ([facility]) Vital Signs (Past 12 Hours) Vital Signs Temp Pulse Pulse Resp BP Pulse Ox 10/12/21 08:02 97.3 F L 100 H 16 99/65 L 97 10/11/21 21:42 98.1 F 90 18 105/71 90 PG Care Time/CCT Total # of Minutes Spent Total Time Spent with Patient: Total time spent is greater than 50% in coordination of care (as documented) at patient's floor/unit and/or counseling patient: Coding Level of Care Code 70413 Subseq Hosp Care Lvl 2 Diagnoses Acute respiratory failure with hypoxia J96.01 COVID-19 U07.1 DKA (diabetic ketoacidosis) E11.10 Acute kidney injury N17.9 Dehydration E86.0 Dyslipidemia E78.5 Vaginal yeast infection B37.3 Uncontrolled type 2 diabetes mellitus E11.65 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
[2021-10-12] MEDS: MULTIVITAMIN TAB PO SCH (08:18)
[2021-10-12] MEDS: FAMOTIDINE 20 MG TAB PO SCH (08:18)
[2021-10-12] MEDS: ENOXAPARIN INJ 40 MG/0.4 ML SYR SQ SCH ×2 (08:19→20:22)
[2021-10-12] MEDS: INSULIN ASPART PER UNIT SC SCH ×4 (08:41→20:25)
[2021-10-12] MEDS ORDERED: INSULIN HUMAN NPH SC SCH (09:00)
[2021-10-12] MEDS ORDERED: INSULIN GLARGINE SOLOSTAR 100 UNITS/ML 3 ML PEN SC SCH (09:00)
--- NOTE | 2021-10-12 14:07 | Pharmacy Report ---
Pharmacy Glycemic Short Note 2 - Date of Service October 12, 2021 - Glycemic Short BSG Results (Last 24 hours): 10/11/21 10/11/21 10/12/21 17:04 21:41 07:55 POC Glucose 258 H 291 H 42 L* 10/12/21 10/12/21 10/12/21 08:16 08:30 12:03 POC Glucose 63 L* 81 196 H OUTPATIENT ANTIDIABETIC REGIMEN: * Relion 70/30 65 units w/ breakfast + 40 units w/ dinner * Metformin 1gm PO BID * Glipizide 5mg PO BID * A1c = 11.7% 10/01/21 ASSESSMENT: 10/12: * Pt received total 127 units of insulin yesterday; 40 units basal NPH + 87 units bolus * Pt was hypoglycemic again this AM with fasting BSG of 42 mg/dl even though her Lantus was discontinued yesterday. This is most likely caused by the 19 units of Novolog she received at 22:30 last night. * Spoke to Dr. Lao today, IV Dexamethasone was discontinued and NPH insulin d/c'd. Okay to resume Lantus at a lower dose. * Lantus 20 units QAM resumed this AM. Novolog CF/CR loosened significantly. 10/11/21 * Stressors - PO intake increased yesterday, especially with lunch and dinner. Dexamethasone 10 mg day 4 of * AM fasting BSG with severe hypoglycemia despite modest reduction in Lantus yesterday. Etiology likely combined NPH/Lantus. Will eliminate Lantus today and only use NPH. NPH will likely need to be adjusted back up x1 tomorrow (but then down again after steroids stopped) * Post-prandial BSG's with notable increase associated with increased PO intake. Will tighten carb ratio 10/10/21 * Stressors stable - day 3 of 5 of dexamethasone 10 mg. PO intake remains minimal. * AM fasting BSG with notable trend down to 83 mg/dL after increase in NPH yesterday. However, subsequent BSG's still elevated. CHO ratio not likely the issue as po intake was minimal. * Will keep NPH but reduce Lantus * Will tighten correction factor. May also consider tightening carb ratio if po intake increases and BSG's remain elevated 10/09/21: * 104 units SQ insulin administered in last 24 hrs while no documented PO intake and receiving IV dexamethasone 10mg daily in the AM * Insulin drip stopped at noon yesterday to assess response to NPH addition in the AM. BSGs quickly zach to 260-270s range, then again fell overnight. * Will increase AM NPH dose to 0.4unit/kg. Will continue Lantus as well for time being given prolonged fasting does not seem to have caused a fall in BSGs yet. * No changes will be made to Novolog today given the change made in NPH. Will continue overnight checks as this patient is high risk for hypoglycemia given lack of PO intake and wearing off of steroid effects on BSGs overnight. 10/08/21: * Patient was extubated yesterday. TF were placed on hold and patient has remained NPO since. Despite lessening stressors patient's BSGs continued to climb despite addition of higher rapid acting doses. As a result, IV insulin drip resumed and continues this AM. * Will add NPH to current basal insulin regimen given daytime peak in BSGs (even while NPO) * Steroid dose reduced to 10mg IV daily today (dexamethasone) * Will plan on d/c of IV insulin drip today with the addition of NPH, will also escalate the Novolog doses further. PLAN FOR INPATIENT GLYCEMIC CONTROL: * Hold outpatient oral diabetes medications (metformin, glipizide) * Basal insulin: decreased dose * Lantus 20 units SQ QAM, none at HS * Discontinued NPH insulin * Bolus insulin: loosened CF/CR * Novolog SQ ACHS * Goal range: 110 - 140mg/dL * Correction factor: 20 mg/dL/unit * Carb ratio: 8 g CHO/unit PLAN FOR DISCHARGE: * to be determined
[2021-10-12] MEDS: CHOLECALCIFEROL 5,000 UNITS 125 MCG TAB PO SCH (20:23)
[2021-10-12] MEDS: LOVASTATIN 20 MG TAB PO SCH (20:23)
[2021-10-12] MEDS: CYANOCOBALAMIN 500 MCG TABLET (VITAMIN B-12) PO SCH (20:23)
[2021-10-13] MEDS: LEVOTHYROXINE SODIUM 100 MCG TABLET PO SCH (06:12)
--- NOTE | 2021-10-13 08:16 | Hospitalist Progress Note ---
Date of Service October 13, 2021 Assessment & Plan (1) Acute respiratory failure with hypoxia: Plan: decompensated on 10/03 after being on high flow 60L 100% and then BIPAP for 18 hours intubated 10/03 and placed in prone position Extubated 10/07/2021 transition to BiPAP therapy Currently stable on nc O2, titrating downward, initially was too weak to go home, but is steadily improving (2) COVID-19: Plan: First tested positive: October 01 First symptoms: September 24 Dexamethasone 20mg IV daily x 5 then 10mg IV x LD 10/11 Remdesivir IV daily, completed 5 days Baricitinib, got 2 days but stopped when intubated intubated on 10/03 extubated 10/07/2021, now on nasal canulae Continue to recommend attempts at prone position when sleeping (3) DKA (diabetic ketoacidosis): Plan: Resolved Anion gap closed quickly with insulin drip DKA due to her illness and not taking diabetes medications for a week, typically on 70/30 insulin regimen pharmacy consulted, managing sugars, added NPH to cover dexamethasone. is having symptomatic hypoglycemia, will d/c NPH and change to lantus, discuss outpt treatment strategy with pt, due to cost contraints wants to change to 70/30, does have funtional glucose monitor at home that she has supplies for change to 70/30 on 10/14/20 as targeting home on 10/15/21 (4) Acute kidney injury: Plan: Resolved due to dehydration, prerenal Cr was 1.7 on admission, down to 0.6 (5) Dehydration: Plan: resolved, now euvolemic Eating and drinking normally at presents time (6) Dyslipidemia: Plan: Continue lovastatin 20mg PO HS (7) Vaginal yeast infection: Plan: chronic, reports no acute issue regarding this (8) Uncontrolled type 2 diabetes mellitus: Plan: HbA1c 11.7% will need education, she stopped taking all her medications for a week prior to admission will have coding educator see pt before she leaves will be off isolation soon (9) 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 PT recommending rehabilitation on discharge but did have significant improvement on last eval Review of Systems Review of Systems: Lessening distress and fatigue, now is on nasal cannula oxygen, moving short distances around room no headache, no visual changes, periorbital swelling no chest pain, pressure or palpitations Continued shortness of breath, nonproductive cough or wheezes, remains on Bipap no abdominal pain, nausea or vomiting, no diarrhea no dysuria, hematuria or frequency no focal joint pain or swelling no back pain, CVA tenderness or radicular pain Skin tear to left cheek no focal signs of weakness or numbness or altered sensation overall very weak no complaints of anxiety or depression. Physical Exam Physical Exam: The patient appeared mild to moderate respiratory distress still requiring the cannula during the day consider BiPAP at night if short of breath Vital signs as documented. Head exam is normocephalic no facial swelling worse on the left size could be from previous position during ventilation Neck is without JVD, thyromegaly, or carotid bruits. Lungs remain coarse bilaterally but lessening in all lung francisco Cardiac exam, Rhythm is regular.. No murmurs, rubs or gallops. Abdominal exam reveals normal bowel sounds, soft non tender, no masses Extremities are nonedematous and both pedal pulses are present Neurologic exam is alert and oriented, no focal loss of strength or sensation globally very weak Skin is with skin tear on left cheek may be from device is in place to hold intubation tubing, 2cmx0.5 cm abrasion Psychologically is without concerns for anxiety or depression.. Results & Data Results & Data ([facility]) Vital Signs (Past 12 Hours) Vital Signs Temp Pulse Resp BP BP Pulse Ox 10/13/21 08:03 98.2 F 106 H 18 113/75 96 10/12/21 21:30 97.9 F 119 H 20 126/80 94 PG Care Time/CCT Total # of Minutes Spent Total Time Spent with Patient: Total time spent is greater than 50% in coordination of care (as documented) at patient's floor/unit and/or counseling patient: Coding Level of Care Code 87447 Subseq Hosp Care Lvl 2 Diagnoses Acute respiratory failure with hypoxia J96.01 COVID-19 U07.1 DKA (diabetic ketoacidosis) E11.10 Acute kidney injury N17.9 Dehydration E86.0 Dyslipidemia E78.5 Vaginal yeast infection B37.3 Uncontrolled type 2 diabetes mellitus E11.65 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
[2021-10-13] MEDS: INSULIN ASPART PER UNIT SC SCH ×4 (08:38→20:34)
[2021-10-13] MEDS: MULTIVITAMIN TAB PO SCH (08:42)
[2021-10-13] MEDS: FAMOTIDINE 20 MG TAB PO SCH (08:42)
[2021-10-13] MEDS: ENOXAPARIN INJ 40 MG/0.4 ML SYR SQ SCH ×2 (08:42→20:42)
[2021-10-13] MEDS ORDERED: INSULIN GLARGINE SOLOSTAR 100 UNITS/ML 3 ML PEN SC SCH (09:00)
[2021-10-13] MEDS: POLYETHYLENE (MIRALAX) 17 GM PACK PO PRN (14:05)
[2021-10-13] MEDS: LOVASTATIN 20 MG TAB PO SCH (20:43)
[2021-10-13] MEDS: CHOLECALCIFEROL 5,000 UNITS 125 MCG TAB PO SCH (20:43)
[2021-10-13] MEDS: CYANOCOBALAMIN 500 MCG TABLET (VITAMIN B-12) PO SCH (20:44)
[2021-10-13] MEDS ORDERED: INSULIN 70% ASPART PROTAMINE/30% ASPART SC SCH (21:00)
[2021-10-14] MEDS: LEVOTHYROXINE SODIUM 100 MCG TABLET PO SCH (05:43)
[2021-10-14] MEDS ORDERED: INSULIN HUMAN 70% NPH/30% REGULAR SC SCH ×2 (07:30→16:30)
[2021-10-14] MEDS: FAMOTIDINE 20 MG TAB PO SCH (07:49)
[2021-10-14] MEDS: ENOXAPARIN INJ 40 MG/0.4 ML SYR SQ SCH ×2 (07:49→21:10)
[2021-10-14] MEDS: MULTIVITAMIN TAB PO SCH (07:49)
--- NOTE | 2021-10-14 08:31 | Hospitalist Progress Note ---
Date of Service October 14, 2021 Assessment & Plan (1) Acute respiratory failure with hypoxia: Plan: decompensated on 10/03 after being on high flow 60L 100% and then BIPAP for 18 hours intubated 10/03 and placed in prone position Extubated 10/07/2021 transition to BiPAP therapy Currently stable on nc O2, titrating downward, initially was too weak to go home, but is steadily improving patient would prefer to go home then to go to rehab. She likely will need to be home on supplemental oxygen likely 2 L at rest 4 L with exertion with 2 steps not performed (2) COVID-19: Plan: First tested positive: October 01 First symptoms: September 24 Dexamethasone 20mg IV daily x 5 then 10mg IV x LD 10/11 Remdesivir IV daily, completed 5 days Baricitinib, got 2 days but stopped when intubated intubated on 10/03 extubated 10/07/2021, now on nasal canulae Continue to recommend attempts at prone position when sleeping (3) DKA (diabetic ketoacidosis): Plan: Resolved Anion gap closed quickly with insulin drip DKA due to her illness and not taking diabetes medications for a week, typically on 70/30 insulin regimen pharmacy consulted, managing sugars, added NPH to cover dexamethasone. is having symptomatic hypoglycemia, will d/c NPH and change to lantus, discuss outpt treatment strategy with pt, due to cost contraints wants to change to 70/30, does have funtional glucose monitor at home that she has supplies for change to 70/30 on 10/14/20 as targeting home on 10/15/21 (4) Acute kidney injury: Plan: Resolved due to dehydration, prerenal Cr was 1.7 on admission, down to 0.6 (5) Dehydration: Plan: resolved, now euvolemic Eating and drinking normally at presents time (6) Dyslipidemia: Plan: Continue lovastatin 20mg PO HS (7) Vaginal yeast infection: Plan: chronic, reports no acute issue regarding this (8) Uncontrolled type 2 diabetes mellitus: Plan: HbA1c 11.7% will need education, she stopped taking all her medications for a week prior to admission will have visual educator see pt before she leaves will be off isolation soon (9) 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 She still is on 2 to 4 L of oxygen and desaturates with exertion. Patient would prefer to go home over rehab if possible Review of Systems Review of Systems: Lessening distress and fatigue, now is on nasal cannula oxygen, moving short distances around room does desaturate with exertion no headache, no visual changes, periorbital swelling no chest pain, pressure or palpitations Continued shortness of breath, nonproductive cough or wheezes no abdominal pain, nausea or vomiting, no diarrhea no dysuria, hematuria or frequency no focal joint pain or swelling no back pain, CVA tenderness or radicular pain Skin tear to left cheek is stable to improving no focal signs of weakness or numbness or altered sensation overall trend is improving able to ambulate short distances in room no complaints of anxiety or depression. Physical Exam Physical Exam: The patient appeared mild to moderate respiratory distress still requiring the cannula during the day consider BiPAP at night if short of breath Vital signs as documented. Head exam is normocephalic abrasion left cheek is improving Neck is without JVD, thyromegaly, or carotid bruits. Lungs remain coarse bilaterally but lessening in all lung francisco Cardiac exam, Rhythm is regular.. No murmurs, rubs or gallops. Abdominal exam reveals normal bowel sounds, soft non tender, no masses Extremities are nonedematous and both pedal pulses are present Neurologic exam is alert and oriented, no focal loss of strength or sensation globally very weak Skin is with skin tear on left cheek may be from device is in place to hold intubation tubing, 2cmx0.5 cm abrasion Psychologically is without concerns for anxiety or depression.. Results & Data Results & Data ([facility]) Vital Signs (Past 12 Hours) Vital Signs Temp Pulse Resp BP Pulse Ox 10/13/21 21:55 97.9 F 101 H 22 104/69 96 PG Care Time/CCT Total # of Minutes Spent Total Time Spent with Patient: Total time spent is greater than 50% in coordination of care (as documented) at patient's floor/unit and/or counseling patient: Coding Level of Care Code 76103 Subseq Hosp Care Lvl 2 Diagnoses Acute respiratory failure with hypoxia J96.01 COVID-19 U07.1 DKA (diabetic ketoacidosis) E11.10 Acute kidney injury N17.9 Dehydration E86.0 Dyslipidemia E78.5 Vaginal yeast infection B37.3 Uncontrolled type 2 diabetes mellitus E11.65 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
[2021-10-14] MEDS: INSULIN ASPART PER UNIT SC SCH ×5 (08:32→23:59)
--- NOTE | 2021-10-14 09:07 | Pharmacy Report ---
Pharmacy Glycemic Short Note 2 - Date of Service October 14, 2021 - Glycemic Short BSG Results (Last 24 hours): 10/13/21 10/13/21 10/13/21 12:06 16:47 20:23 POC Glucose 259 H 230 H 179 H 10/14/21 08:26 POC Glucose 109 H OUTPATIENT ANTIDIABETIC REGIMEN: * Relion 70/30 65 units w/ breakfast + 40 units w/ dinner * Metformin 1gm PO BID * Glipizide 5mg PO BID * A1c = 11.7% 10/01/21 ASSESSMENT: 10/14 * 75 units SQ insulin given over last 24 hrs * Hospitalist has requested converting inpatient regimen to 70/30 insulin. Patient has tolerated 3 meals each day the last 2 days, so risks of hypoglycemia should be less as long as patient continues to do so. * Will convert to 70/30 based upon anticipated total daily insulin requirement of 75-80 units/day per most recent insulin needs. Will give 2/3 dose w/ breakfast and 1/3 dose with dinner. These doses will be ~75% of out-pt regimen. I do suspect she will be at risk for fasting AM hypoglycemia based upon inpatient trends however. Therefore will check BSGs overnight to screen for a low. 10/12: * Pt received total 127 units of insulin yesterday; 40 units basal NPH + 87 units bolus * Pt was hypoglycemic again this AM with fasting BSG of 42 mg/dl even though her Lantus was discontinued yesterday. This is most likely caused by the 19 units of Novolog she received at 22:30 last night. * Spoke to Dr. Lao today, IV Dexamethasone was discontinued and NPH insulin d/c'd. Okay to resume Lantus at a lower dose. * Lantus 20 units QAM resumed this AM. Novolog CF/CR loosened significantly. 10/11/21 * Stressors - PO intake increased yesterday, especially with lunch and dinner. Dexamethasone 10 mg day 4 of 5 * AM fasting BSG with severe hypoglycemia despite modest reduction in Lantus yesterday. Etiology likely combined NPH/Lantus. Will eliminate Lantus today and only use NPH. NPH will likely need to be adjusted back up x1 tomorrow (but then down again after steroids stopped) * Post-prandial BSG's with notable increase associated with increased PO intake. Will tighten carb ratio 1/6/22 * Stressors stable - day 3 of 5 of dexamethasone 10 mg. PO intake remains m inimal. * AM fasting BSG with notable trend down to 83 mg/dL after increase in NPH yesterday. However, subsequent BSG's still elevated. CHO ratio not likely the issue as po intake was minimal. * Will keep NPH but reduce Lantus * Will tighten correction factor. May also consider tightening carb ratio if po intake increases and BSG's remain elevated 10/09/21: * 104 units SQ insulin administered in last 24 hrs while no documented PO intake and receiving IV dexamethasone 10mg daily in the AM * Insulin drip stopped at noon yesterday to assess response to NPH addition in the AM. BSGs quickly zach to 260-270s range, then again fell overnight. * Will increase AM NPH dose to 0.4unit/kg. Will continue Lantus as well for time being given prolonged fasting does not seem to have caused a fall in BSGs yet. * No changes will be made to Novolog today given the change made in NPH. Will continue overnight checks as this patient is high risk for hypoglycemia given lack of PO intake and wearing off of steroid effects on BSGs overnight. 10/08/21: * Patient was extubated yesterday. TF were placed on hold and patient has remained NPO since. Despite lessening stressors patient's BSGs continued to climb despite addition of higher rapid acting doses. As a result, IV insulin drip resumed and continues this AM. * Will add NPH to current basal insulin regimen given daytime peak in BSGs (even while NPO) * Steroid dose reduced to 10mg IV daily today (dexamethasone) * Will plan on d/c of IV insulin drip today with the addition of NPH, will also escalate the Novolog doses further. PLAN FOR INPATIENT GLYCEMIC CONTROL: * Hold outpatient oral diabetes medications (metformin, glipizide) * Basal/bolus insulin: * Novolin 70/30: 52 units w/ breakfast + 26 units w/ dinner * Bolus insulin: * Novolog SQ ACHS * Goal range: 110 - 180mg/dL * Correction factor: 20 mg/dL/unit * Carb ratio: NONE PLAN FOR DISCHARGE: * to be determined
[2021-10-14] MEDS: CYANOCOBALAMIN 500 MCG TABLET (VITAMIN B-12) PO SCH (21:10)
[2021-10-14] MEDS: CHOLECALCIFEROL 5,000 UNITS 125 MCG TAB PO SCH (21:10)
[2021-10-14] MEDS: LOVASTATIN 20 MG TAB PO SCH (21:10)
[2021-10-15] MEDS: INSULIN ASPART PER UNIT SC SCH ×3 (04:28→12:20)
[2021-10-15] MEDS: CARBOHYDRATES FOR HYPOGLYCEMIA PO PRN (04:28)
[2021-10-15] MEDS: LEVOTHYROXINE SODIUM 100 MCG TABLET PO SCH (06:00)
[2021-10-15] MEDS ORDERED: INSULIN HUMAN 70% NPH/30% REGULAR SC SCH ×2 (07:30→16:30)
[2021-10-15] MEDS: ENOXAPARIN INJ 40 MG/0.4 ML SYR SQ SCH (08:23)
[2021-10-15] MEDS: MULTIVITAMIN TAB PO SCH (08:23)
[2021-10-15] MEDS: FAMOTIDINE 20 MG TAB PO SCH (08:23)
--- NOTE | 2021-10-15 08:48 | Pharmacy Report ---
Pharmacy Glycemic Short Note 2 - Date of Service October 15, 2021 - Glycemic Short BSG Results (Last 24 hours): 10/14/21 10/14/21 10/14/21 11:56 16:47 20:25 POC Glucose 226 H 217 H 309 H* 10/14/21 10/14/21 10/15/21 20:27 23:58 04:23 POC Glucose 286 H 148 H 59 L* 10/15/21 10/15/21 10/15/21 04:25 04:43 08:17 POC Glucose 65 L* 70 91 OUTPATIENT ANTIDIABETIC REGIMEN: * Relion 70/30 65 units w/ breakfast + 40 units w/ dinner * Metformin 1gm PO BID * Glipizide 5mg PO BID * A1c = 11.7% 10/01/21 ASSESSMENT: 10/15 * 93 units SQ insulin given over last 24 hrs * BSG control deteriorated w the change to 70/30 insulin. Patient's rapid acting insulin needs are greater than basal needs. Use of 70/30 insulin to cover PM meal in particular is problematic. BSGs did climb as high as 309 last evening due to lack of rapid acting component, but then dropped into the 50- 60s overnight due to excess basal. Given provider's concerns for patient inability to use other insulin therapies due to cost, will continue to titrate 70/30 with the understanding inpatient glycemic targets unlikely to be met. * Will give larger 70/30 dose w/ breakfast and lesser dose with dinner given yesterday's BSG pattern. Will also lessen correctional insulin to prevent overnight hypoglycemic episodes. 10/14 * 75 units SQ insulin given over last 24 hrs * Hospitalist has requested converting inpatient regimen to 70/30 insulin. Patient has tolerated 3 meals each day the last 2 days, so risks of hypoglycemia should be less as long as patient continues to do so. * Will convert to 70/30 based upon anticipated total daily insulin requirement of 75-80 units/day per most recent insulin needs. Will give 2/3 dose w/ breakfast and 1/3 dose with dinner. These doses will be ~75% of out-pt re gimen. I do suspect she will be at risk for fasting AM hypoglycemia based upon inpatient trends however. Therefore will check BSGs overnight to screen for a low. 10/12: * Pt received total 127 units of insulin yesterday; 40 units basal NPH + 87 units bolus * Pt was hypoglycemic again this AM with fasting BSG of 42 mg/dl even though her Lantus was discontinued yesterday. This is most likely caused by the 19 units of Novolog she received at 22:30 last night. * Spoke to Dr. Lao today, IV Dexamethasone was discontinued and NPH insulin d/c'd. Okay to resume Lantus at a lower dose. * Lantus 20 units QAM resumed this AM. Novolog CF/CR loosened significantly. 10/11/21 * Stressors - PO intake increased yesterday, especially with lunch and dinner. Dexamethasone 10 mg day of 5 * AM fasting BSG with severe hypoglycemia despite modest reduction in Lantus yesterday. Etiology likely combined NPH/Lantus. Will eliminate Lantus today and only use NPH. NPH will likely need to be adjusted back up x1 tomorrow (but then down again after steroids stopped) * Post-prandial BSG's with notable increase associated with increased PO intake. Will tighten carb ratio 10/10/21 * Stressors stable - day 3 of dexamethasone 10 mg. PO intake remains minimal. * AM fasting BSG with notable trend down to 83 mg/dL after increase in NPH yesterday. However, subsequent BSG's still elevated. CHO ratio not likely the issue as po intake was minimal. * Will keep NPH but reduce Lantus * Will tighten correction factor. May also consider tightening carb ratio if po intake increases and BSG's remain elevated 10/09/21: * 104 units SQ insulin administered in last 24 hrs while no documented PO intake and receiving IV dexamethasone 10mg daily in the AM * Insulin drip stopped at noon yesterday to assess response to NPH addition in the AM. BSGs quickly zach to 260-270s range, then again fell overnight. * Will increase AM NPH dose to 0.4unit/kg. Will continue Lantus as well for time being given prolonged fasting does not seem to have caused a fall in BSGs yet. * No changes will be made to Novolog today given the change made in NPH. Will continue overnight checks as this patient is high risk for hypoglycemia given lack of PO intake and wearing off of steroid effects on BSGs overnight. 10/08/21: * Patient was extubated yesterday. TF were placed on hold and patient has remained NPO since. Despite lessening stressors patient's BSGs continued to climb despite addition of higher rapid acting doses. As a result, IV insulin drip resumed and continues this AM. * Will add NPH to current basal insulin regimen given daytime peak in BSGs (even while NPO) * Steroid dose reduced to 10mg IV daily today (dexamethasone) * Will plan on d/c of IV insulin drip today with the addition of NPH, will also escalate the Novolog doses further. PLAN FOR INPATIENT GLYCEMIC CONTROL: * Hold outpatient oral diabetes medications (metformin, glipizide) * Basal/bolus insulin: * Novolin 70/30: 60 units w/ breakfast + 18 units w/ dinner * Bolus insulin: * Novolog SQ ACHS * Goal range: 110 - 180mg/dL * Correction factor: 25 mg/dL/unit * Carb ratio: NONE PLAN FOR DISCHARGE: * Inpatient diet and activity levels likely not reflective of outpt habits. * A1c 11.7% is elevated above goal and patient has admitted to some noncompliance * Would recommend d/c of glipizide on discharge but may resume metformin with insulin (see below) * Possible insulin regimens on discharge: * PREFERRED REGIMEN: Relion N (NPH) 40 units in the AM w/ breakfast PLUS Relion R (Regular) 16 units w/ breakfast + 16 units w/ dinner -OR- * Relion 70/30 60 units in the AM w/ breakfast PLUS Relion 70/30 18 units w/ dinner * BSGs will need checked 4x daily initially and at a minimum before each dose of insulin * PCP or Endocrinology will need to f/u with patient soon after discharge
--- NOTE | 2021-10-15 20:32 | Discharge Summary ---
Date of Service October 15, 2021 Admission HPI Per Admitting Provider 56 yo F Hx IDDM2, HLD, hypothyroidism presents to the ER for worsening weakness and lethargy in the setting of diagnosis with COVID-19 on 09/23. Patient is not COVID-19 vaccinated. She reports that since 09/25 she has not taken any of her diabetic medications, nor has she had much to eat in that time and has been relatively bedbound. In the ER patient was hypoxic requiring HFNC. She was also lethargic. Her POC BSG was read as "high", with BMP revealing hyponatremia (corrected to 129-133), K 5.0, creatinine 1.7, BHB 68.11, COVID-19 positive. CXR with patchy bilateral infiltrates suggesting viral pneumonia. Patient was started on insulin gtt and NSS at 250cc/hr. She was also given dexamethasone 6mg IV for COVID-19. Hospitalist service was then consulted for admission. Principal Diagnosis COVID 19 pneumoniza Discharge Exam The patient appeared mild to moderate respiratory distress still requiring the cannula during the day consider BiPAP at night if short of breath Vital signs as documented. Head exam is normocephalic abrasion left cheek is improving Neck is without JVD, thyromegaly, or carotid bruits. Lungs remain coarse bilaterally but lessening in all lung francisco Cardiac exam, Rhythm is regular.. No murmurs, rubs or gallops. Abdominal exam reveals normal bowel sounds, soft non tender, no masses Extremities are nonedematous and both pedal pulses are present Neurologic exam is alert and oriented, no focal loss of strength or sensation globally very weak Skin is with skin tear on left cheek may be from device is in place to hold intubation tubing, 2cmx0.5 cm abrasion Psychologically is without concerns for anxiety or depression.. Discharge Data Allergies Allergy/AdvReac Type Severity Reaction Status Date / Time No Known Allergies Allergy Verified 10/01/21 19:20 Consultations 10/01/21 21:18 ED Decision to Admit Stat 10/02/21 15:04 Consult Adapted Physical Education Teacher Routine Ordered Studies 10/02/21 14:42 US venous doppler LE BI Routine 10/08/21 19:17 CT angio chest PE protocol Routine Hospital Course (1) Acute respiratory failure with hypoxia: decompensated on 10/03 after being on high flow 60L 100% and then BIPAP for 18 hours intubated 10/03 and placed in prone position Extubated 10/07/2021 transition to BiPAP therapy On 10/14: Currently stable on nc O2, titrating downward, initially was too weak to go home, but is steadily improving patient would prefer to go home then to go to rehab. She likely will need to be home on supplemental oxygen likely 2 L at rest 4 L with exertion with 2 steps not performed On 10/15: Patient completed 2 step, oxygen requirement 2 L on exertion. Patient did not r equire oxygen at rest. Patient is agreeable to discharge. (2) COVID-19: First tested positive: October 01 First symptoms: September 24 Dexamethasone 20mg IV daily x 5 then 10mg IV x LD 10/11 Remdesivir IV daily, completed 5 days Baricitinib, got 2 days but stopped when intubated intubated on 10/03 extubated 10/07/2021, now on room air (3) DKA (diabetic ketoacidosis): Resolved Anion gap closed quickly with insulin drip DKA due to her illness and not taking diabetes medications for a week, typically on 70/30 insulin regimen pharmacy consulted, managing sugars, added NPH to cover dexamethasone. is having symptomatic hypoglycemia, will d/c NPH and change to lantus, discuss outpt treatment strategy with pt, due to cost contraints wants to change to 70/30, does have funtional glucose monitor at home that she has supplies for change to 70/30 on 10/14/20 as targeting home on 10/15/21 (4) Acute kidney injury: Resolved due to dehydration, prerenal Cr was 1.7 on admission, down to 0.6 (5) Dehydration: resolved, now euvolemic Eating and drinking normally at presents time (6) Dyslipidemia: Continue lovastatin 20mg PO HS (7) Vaginal yeast infection: chronic, reports no acute issue regarding this (8) Uncontrolled type 2 diabetes mellitus: HbA1c 11.7% will need education, she stopped taking all her medications for a week prior to admission will have in service educator see pt before she leaves will be off isolation soon (9) 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: Continue her usual levothyroxine 100 mcg (10) Hypertension: Continue to hold lisinopril due to low normal BP VTE Prophylaxis - Lovenox 40mg SQ BID Diet - T2DM, minced and moist Disposition - consider coming off , COVID isolation Did very poorly at PT/OT 10/09 recommending rehab, improved at 10/11 but still will re evaluate 10/14/21 Total Time Total Time Spent Total Time Spent (In Minutes): 32 Discharge Plan Discharge Items Patient Disposition: Home - Home Health Services Reason For Visit: DKA, COVID 19 Discharge Diagnosis: DKA COVID 19 Activity: Resume your previous activity Non-emergency contact: Primary Care Provider Call non-emergency contact if: you have any medication questions Follow-up/Referrals: Junior Nicole DO [Primary Care Provider] - 10/24/21 1:30 pm Diet: Carb Consistent or DM2 Diet Comment: MINCED AND MOIST Addtl Attending Provider Instructions: You have been hospitalized for an acute medical problem. During your stay at [facility], we have made an effort to correct the problem that brought you to the hospital while keeping you as comfortable as possible. Medications were used to bring your condition under control and your discharge instructions will include directions for any medications you should take after leaving the hospital. Please make sure you see your Primary Care Provider as part of your follow up plan. Pending Studies at Discharge: No Stand-Alone Forms: [facility], Smoking Cessation Medications and DC Order Prescriptions: New Humulin 70/30 U-100 Insulin 100 unit/mL (70-30) suspension See Rx Instructions .ROUTE .COMPLEX Qty: 10 RF: 0 Continued (DME) insulin syringe-needle U-100 [BD Insulin Syringe Ultra-Fine] 1 mL 31 gauge x 5/16 syringe See Rx Instructions miscellaneous .MEDSUPPLY Qty: 100 RF: 5 lisinopril 5 mg tablet 5 mg PO DAILY Qty: 90 RF: 3 levothyroxine 100 mcg tablet 100 mcg PO DAILY Qty: 90 RF: 1 lovastatin 20 mg tablet 20 mg PO HS Qty: 90 RF: 3 (DME) ReliOn Prime Test Strips strip See Dose Instructions .ROUTE .MEDSUPPLY Qty: 10 RF: 0 cyanocobalamin (vitamin B-12) 500 mcg tablet 500 mcg PO HS Qty: 90 RF: 0 cholecalciferol (vitamin D3) 5,000 unit capsule 5,000 units PO HS RF: 0 multivitamin Tablet 1 tab PO DAILY RF: 0 Discontinued glipizide 10 mg tablet 5 mg PO BID Qty: 90 RF: 3 metformin 1,000 mg tablet 1,000 mg PO BID Qty: 180 RF: 3 Novolin 70/30 U-100 Insulin 100 unit/mL (70-30) suspension 40 unit subcut QPM RF: 0 No Action metformin 500 mg tablet extended release 24hr 500 mg PO DAILY RF: 0 Discharge Orders: Discharge Order (Routine); Ordered 10/15/21 Ordered By: Hong Moser Admission Data Admit Date/Time: 10/01/21 20:21 Attending Provider: Hong Moser Admit Provider: Denia Santa Primary Care Provider: Junior Nicole Other Providers: Romeo Kan ; Junior Longoria ; [facility] Other Interventions: Discharge Summary Assessment (RN) Last Done: 10/15/21 15:15 Coding Level of Care Code D/C DAY MANAGEMENT >30 MINS Diagnoses Acute respiratory failure with hypoxia J96.01 COVID-19 U07.1 DKA (diabetic ketoacidosis) E11.10 Acute kidney injury N17.9 Dehydration E86.0 Dyslipidemia E78.5 Vaginal yeast infection B37.3 Uncontrolled type 2 diabetes mellitus E11.65 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 Time Spent (min) 32
== END 2021-10-15 16:38 | disposition home or self-care (01) | DRG 208 ==
LOC: ED 16:01 → SUATTDRO 20:21 → 2E 20:21 → 3E 10-08 19:24

== ENCOUNTER 2025-05-01 16:15 | Inpatient (IN) ==
--- NOTE | 2025-05-01 18:37 | Emergency Department Note ---
Impression & Plan Lymphangitis ED Provider Note CHIEF COMPLAINT: Arm pain, leg pain HISTORY OF PRESENTING ILLNESS: The patient is a pleasant 59-year-old female who arrives to the emergency department for evaluation of left arm pain. She reports she is currently receiving chemotherapy, via peripheral IV for stage III liver CA. She reports multiple IV sticks, and straight sticks for labs and treatment due to no port access until Thursday of this week. She states she began to develop redness and pain over the left forearm, which began to extend up the anterior forearm towards the antecubital region. She also reports pain over the left lateral hip. She reports no injury of the hip. She reports no paresthesias, loss of strength, loss of bowel or bladder, or saddle anesthesia. She reports no chest pain, or shortness of breath. She denies fever, abdominal pain, nausea, vomiting, dysuria, or constipation. She is well-appearing otherwise, with stable tachycardia, otherwise stable vital signs. REVIEW OF SYSTEMS: See HPI for pertinent positives and pertinent negatives. ALLERGIES: See below MEDICATIONS: See below PAST MEDICAL HISTORY: See below PHYSICAL EXAM: VITALS: Vitals are noted on the nurse's note and reviewed by myself. Vital signs stable. GENERAL: 59-year-old female, in no acute distress, nondiaphoretic, well- developed well-nourished. SKIN: Induration, erythema, and edema over the medial aspect of the posterior left forearm, with lymphangitic streaking, extending around the medial forearm on the anterior aspect towards the antecubital fossa. HEAD: Normocephalic atraumatic. HEART: Tachycardia with regular rhythm without murmurs gallops or rubs. LUNGS: Clear to auscultation bilaterally without wheezes, rales or rhonchi. No retractions or accessory muscle use. MUSCULOSKELETAL: Full range of motion left upper extremity, tenderness to palpation over the areas of erythema, however no joint tenderness. Fabrication Specialist strength 5/5. Sensation intact to dull and sharp. Capillary refill <3, radial pulse intact. Tenderness to palpation over the lateral aspect of the left proximal femur, no rash, erythema, edema noted. Full range of motion left hip, left knee, left ankle. Sensation intact to dull and sharp. DP pulse intact. NEURO: Patient was alert and oriented to person place and time. No focal neurological deficits. DIFFERENTIAL DIAGNOSIS: DVT, musculoskeletal, infection, joint effusion, trauma, lymphedema, idiopathic, CHF, as well as other pathologies . ED COURSE AND MEDICAL DECISION MAKING: MEDICATIONS GIVEN: IV cefepime, IV vancomycin, NSS bolus INTERPRETATION OF LABS: I interpreted the labs with full lab results as below in the lab section of this note. Pertinent lab results discussed in the MDM section below. INTERPRETATION OF IMAGING: Imaging studies were interpreted by myself and read by radiology as per the imaging section of this note. CHRONIC MEDICAL/SOCIAL CONDITIONS AFFECTING CARE: Adrenal adenoma, cholangiocarcinoma, MDM SUMMARY: The patient is a pleasant, 59-year-old female who arrives to the emergency department for evaluation of the above-stated complaint. Saline lock was established, CBC, CMP, were obtained. Lab work shows no leukocytosis, chronic but stable anemia. Thrombocytopenia. CMP shows elevated BUN at 24, total bili 1.2, AST 56, ALT 61, patient has no abdominal pain on examination. Patient does have a history of elevated LFTs, due to cancer history. Ultrasound imaging of the left upper extremity shows no DVT, no fluid collection no abscess, or other concerning findings. X-ray imaging of the left hip per my interpretation is negative for acute fracture, or other bony abnormality. Due to the patient's compromised immune status, and lymphangitis, she will require hospital admission for IV antibiotics. IV cefepime, and vancomycin were administered. Patient was provided bolus of IV fluids for tachycardia. She will be admitted to the [facility] hospitalist group, Dr. Kan agreed to accept the patient under his services. Please refer to his documentation for further patient workup and care. DIAGNOSIS: Lymphangitis The chart was completed utilizing [employer] Speech voice recognition software. Grammatical errors, random word insertions, pronoun errors, and incomplete sentences are an occasional consequence of this system due to software limitations, ambient noise, and hardware issues. Any formal questions or concerns about the content, text, or information contained within the body of this dictation should be directly addressed to the provider for clarification. Past Med/Surg History Problem List (Updated 05/01/25 @ 23:30 by MITUL Patiño) Lymphangitis (Acute) Back problem Diabetes Arthritis Adrenal adenoma per PCP note 03/27/25: 'Given size will need follow up imaging, but waiting until after consultation with oncology. Close follow up for now' Cholangiocarcinoma Class 3 obesity Elevated LFTs Hx of compression fracture of spine Type 2 diabetes mellitus treated with insulin Vaginal yeast infection Irritated nevus of abdominal wall History of colon polyps Hypertension Morbid obesity Diabetic peripheral neuropathy Dyslipidemia (Acute) 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 (Acute) Mild nonproliferative diabetic retinopathy (Acute) Vitamin D deficiency Medical History Dyslipidemia HTN (hypertension) Morbid obesity Hx of colonic polyps Diabetic peripheral neuropathy Diabetes mellitus, type 2 IDDM; follows with Diabetes Provider; last seen 03/27/25 Hypothyroidism Cholangiocarcinoma dx 03/2025 - currently receiving Chemotherapy, last had 04/21/25 and next infusion is scheduled for 04/28/25 at [facility] History of COVID-19 09/2021 treated at [facility] inpatient for ~3 weeks. patient reports she was on a ventilator for about a week. patient does report the memory of details is limited to her. still experiences sob with exertion at times. 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 Compression fracture of L1 lumbar vertebra 09/2021 during hospital stay - unsure of the cause. no surgery. Physical therapy completed. DKA (diabetic ketoacidosis) hx in 09/2021 - treated at [facility]. Surgical History S/P cataract extraction right History of liver biopsy March 2025 with [facility] History of incision and drainage (10/29/21) Incision and drainage abscess underneath her right breast on the bra line midclavicular plane by Dr. Valero on 10/29/2021. History of colonoscopy with polypectomy 09/2023 repeat 5 years History of tooth extraction History of dilation and curettage History of excision of dermoid cyst Family History Father Diabetes Colorectal cancer Family history of diabetes mellitus Cancer Brother Kidney stones Family history of diabetes mellitus Family/Other Diabetes Grandmother (Paternal) Family history of diabetes mellitus Diabetes Cancer Grandfather (Paternal) Family history of diabetes mellitus Colorectal cancer Diabetes Cancer Uncle Family history of diabetes mellitus Cancer Other No family history of adverse response to anesthesia Denies family history of Ovarian cancer Prostate cancer Myocardial infarction Breast cancer Social History Smoking Status: Never smoker Second Hand Exposure: No; Do You Dip or Chew Tobacco: No; Hx Alcohol Use: No Hx Substance Use: No Preferred Language: [place] Communication Ability: Effective Visual Impairment: No Limitations Hearing Ability: Normal Burglary Investigator Required: No Beliefs That Will Affect Care: None marital status: Current Living Situation: Alone current occupational status: employed 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 How many Children do You have: 0 Feels Safe at Home: Yes Childhood Exposure to Second-Hand Smoke: No Diet: diabetic caffeine: Yes Dental Care, Regularly: Yes Physical Activity Frequency: Does not Exercise Seatbelt Use: always Sunscreen Use: No Assistive Devices: Glasses Allergies Allergies Allergy/AdvReac Type Severity Reaction Status Date / Time No Known Allergies Allergy Verified 04/25/25 11:51 Home Meds Home Medications Medication Instructions Recorded Confirmed cholecalciferol (vitamin D3) 125 5,000 units PO 3XWK 07/04/19 05/01/25 mcg (5,000 unit) capsule cyanocobalamin (vitamin B-12) 500 500 mcg PO HS #90 tabs 07/04/19 05/01/25 mcg tablet blood sugar diagnostic (ReliOn #10 ea 10/24/21 05/01/25 Prime Test Strips) insulin human U-100 NPH-regulr 0 unit subcut AC 11/25/22 05/01/25 70-30 mix 100 unit/mL subcutaneous susp (Novolin 70/30 U-100 Insulin) dulaglutide 3 mg/0.5 mL 3 mg subcut .HOLD FOR PROCEDURE 04/25/25 05/01/25 subcutaneous pen injector (Trulicity) lisinopril 10 mg tablet 10 mg PO QAM 04/25/25 05/01/25 rosuvastatin 10 mg tablet 10 mg PO HS 04/25/25 05/01/25 olanzapine 2.5 mg tablet 2.5 mg PO UD 05/01/25 05/01/25 Previous Rx's Medication Instructions Recorded insulin syringe-needle U-100 1 mL #100 ea 08/22/20 31 gauge x 5/16" (BD Insulin Syringe Ultra-Fine) levothyroxine 100 mcg tablet 100 mcg PO QAM #90 tabs 07/19/24 metformin 1,000 mg tablet 1,000 mg PO BID #180 tabs 09/13/24 Results & Data (ED) Vital Signs Vital Signs - 24 hr 05/01/25 16:15 05/01/25 20:38 05/01/25 22:33 Temperature 36.6 C Temperature Source Temporal Artery Scan Pulse Rate 103 H Pulse Rate [Right] 85 104 H Respiratory Rate 18 17 22 Respiratory Effort / Characteristics Non-Labored Spontaneous Respiratory Depth Normal Normal Respiratory Pattern Regular Blood Pressure 145/86 H Blood Pressure [Right Arm] 169/85 H 146/86 H Blood Pressure Mean 105 Blood Pressure Mean [Right Arm] 113 106 Blood Pressure Position [Right Arm] Lying Pulse Oximetry 99 94 93 Oxygen Delivery Method Room Air Room Air Sepsis Recent Fever Within 48 Hours No Sepsis New/Unexplained Change in Mental Status N/A Sepsis Action Taken by Nursing No Action Required Home Medications Current Medication List: was personally reviewed by me Laboratory Data Attestation: I reviewed the patient's lab results. 05/01/25 20:31 05/01/25 20:31 Lab Results 05/01/25 Range/Units 20:31 WBC 5.11 (4.8-10.8) K/ul RBC 3.88 L (4.20-5.40) M/uL Hgb 11.0 L (12.0-16.0) g/dl Hct 32.9 L (37.0-47.0) % MCV 84.8 (80.0-100.0) fL MCH 28.4 (25.0-34.0) pg MCHC 33.4 (32.0-36.0) g/dL RDW Std Deviation 39.9 (36.4-46.3) fL RDW Coeff of Francisca 13.1 (11.5-14.5) % Plt Count 51 L (130-400) K/uL MPV 9.0 L (9.4-12.4) fL Immature Gran % (Auto) 0.2 % Neut % (Auto) 62.6 % Lymph % (Auto) 35.2 % [place] % (Auto) 0.8 % Eos % (Auto) 0.8 % Baso % (Auto) 0.4 % Neut # (Auto) 3.20 (1.40-6.50) K/uL Lymph # (Auto) 1.80 (1.20-3.40) K/uL [place] # (Auto) 0.04 L (0.11-0.59) K/uL Eos # (Auto) 0.04 (0.00-0.50) K/uL Baso # (Auto) 0.02 (0.00-0.20) K/uL Immature Gran # (Auto) 0.01 (0.01-0.20) K/uL Platelet Estimate Decreased L (Normal) Sodium 137 (136-145) mmol/L Potassium 4.1 (3.5-5.1) mmol/L Chloride 103 (98-107) mmol/L Carbon Dioxide 24 (21-32) mmol/L Anion Gap 10 (3-11) BUN 24 H (6-23) mg/dl Creatinine 0.88 (0.6-1.2) mg/dl Est Cr Clr Drug Dosing 82.8 ml/min eGFR 76.13 BUN/Creatinine Ratio 27.3 H (10-20) Glucose 105 H (70-99(Fasting)) mg/dl Calcium 9.8 (8.6-10.3) mg/dl Total Bilirubin 1.2 H (0.2-1.0) mg/dl AST 56 H (13-39) U/L ALT 61 H (7-52) U/L Alkaline Phosphatase 96 (34-104) U/L Total Protein 7.1 (6.0-8.3) gm/dl Albumin 3.8 (3.4-5.0) gm/dl Globulin 3.3 (2.5-4.0) gm/dl Albumin/Globulin Ratio 1.2 (0.9-2) Administered Medications Discontinued Medications Sodium Chloride (Nss) 500 mls @ 999 mls/hr IV .Q31M ONE Stop: 05/01/25 23:10 Last Infusion: 05/01/25 23:16 Dose: Infused Documented By: Admin: 05/01/25 22:44 Dose: 999 mls/hr Documented By: MED Imaging Data Attestation: I personally reviewed and interpreted this imaging study as follows: Radiologist's Impression: Extremity Venous Study 05/01/25 20:19 Exam(s): US VENOUS LEFT UPPER EXTREMITY EXAM: US Duplex Left Upper Extremity Veins CLINICAL HISTORY: Reason for exam: edema. TECHNIQUE: Real-time duplex ultrasound scan of the left upper extremity veins integrating B-mode two-dimensional vascular structure, Doppler spectral analysis, color flow Doppler imaging and compression. COMPARISON: No relevant prior studies available. FINDINGS: Deep veins: No DVT in the internal jugular, subclavian, axillary, or brachial veins. Superficial veins: No thrombus in the visualized basilic and cephalic veins. Soft tissues: No acute findings. IMPRESSION: No DVT in the left upper extremity veins. Electronically signed by: Joe Winston MD 05/01/25 22:48 PM Femur X-Ray 05/01/25 20:19 Exam(s): XR LEFT FEMUR, 2 views EXAM: XR Left Femur, 2 Views CLINICAL HISTORY: Reason for exam: pain. TECHNIQUE: Frontal and lateral views of the left femur. COMPARISON: No relevant prior studies available. FINDINGS: Bones/joints: Unremarkable. No fracture or malalignment. Soft tissues: Unremarkable. IMPRESSION: Normal left femur x-rays. Electronically signed by: Joe Winston MD 05/01/25 22:37 PM Discharge Plan Visit Data Chief Complaint: Arm Pain Stated Complaint: LT ARM BLOOD CLOT ED Provider: William Villasenor ED Midlevel Provider: Bebe Wiley Discharge Problem: Lymphangitis Patient Disposition: Admitted As Inpatient Condition: Good Forms Stand Alone Forms: SCL Prescriptions Prescriptions: No Action (DME) insulin syringe-needle U-100 [BD Insulin Syringe Ultra-Fine] 1 mL 31 gauge x 5/16 syringe See Rx Instructions miscellaneous .MEDSUPPLY Qty: 100 5RF Rx Instructions: As directed to inject insulin metformin 1,000 mg tablet 1,000 mg PO BID Qty: 180 2RF cyanocobalamin (vitamin B-12) 500 mcg tablet 500 mcg PO HS Qty: 90 cholecalciferol (vitamin D3) 5,000 unit capsule 5,000 units PO 3XWK (DME) ReliOn Prime Test Strips Strip See Rx Instructions .ROUTE .MEDSUPPLY Qty: 10 Rx Instructions: test blood sugars three daily or as directed Novolin 70/30 U-100 Insulin 100 unit/mL (70-30) suspension 0 unit subcut AC Rx Instructions: Inject 60 U 30 min before breakfast; 20 U 30 min before lunch and 50 U 30 min before dinner levothyroxine 100 mcg tablet 100 mcg PO QAM Qty: 90 3RF lisinopril 10 mg tablet 10 mg PO QAM rosuvastatin 10 mg tablet 10 mg PO HS Trulicity 3 mg/0.5 mL pen injector 3 mg subcut .HOLD FOR PROCEDURE Patient Comments: Mondays Rx Instructions: inject once weekly on the same day of the week olanzapine 2.5 mg tablet 2.5 mg PO UD Rx Instructions: TAKE 1 TABLET AT BEDTIME FOR 4 DAYS STARTING ON DAY 1 OF CHEMOTHERAPY FOR NAUSEA Referrals Referrals: Junior Nicole DO [Primary Care Provider] -
[2025-05-01 21:00] LABS: Alanine Aminotransferase 61.0 U/L (7-52); Albumin Globulin Ratio 1.2 (0.9-2); Alkaline Phosphatase 96.0 U/L (34-104); Anion Gap 10.0 (3-11); Bilirubin,Total 1.2 mg/dl (0.2-1.0); Blood Urea Nitrogen 24.0 mg/dl (6-23); Calcium 9.8 mg/dl (8.6-10.3); Carbon Dioxide 24.0 mmol/L (21-32); Chloride 103.0 mmol/L (98-107); Creatinine Clr Calc Pharmacy 82.8 ml/min; Globulin 3.3 gm/dl (2.5-4.0); Glucose 105.0 mg/dl (70-99(Fasting)); Potassium 4.1 mmol/L (3.5-5.1); Sodium 137.0 mmol/L (136-145); Total Protein 7.1 gm/dl (6.0-8.3)
[2025-05-01 21:10] LABS: Hematocrit (blood only) 32.9 % (37.0-47.0); Hemoglobin 11.0 g/dl (12.0-16.0); Immature Granulocytes # (auto) 0.01 K/uL (0.01-0.20); Immature Granulocytes % (auto) 0.2 %; Mean Corpuscular Hemoglobin 28.4 pg (25.0-34.0); Mean Corpuscular Volume 84.8 fL (80.0-100.0); Platelet Count 51 K/uL (130-400); RDW Standard Deviation 39.9 fL (36.4-46.3); Red Blood Count 3.88 M/uL (4.20-5.40); White Blood Count 5.11 K/ul (4.8-10.8)
[2025-05-01] MEDS ORDERED: VANCOMYCIN CONSULT ACTIVE PRN (22:15)
--- NOTE | 2025-05-01 22:39 | XRay Report ---
Exam(s): XR LEFT FEMUR, 2 views EXAM: XR Left Femur, 2 Views CLINICAL HISTORY: Reason for exam: pain. TECHNIQUE: Frontal and lateral views of the left femur. COMPARISON: No relevant prior studies available. FINDINGS: Bones/joints: Unremarkable. No fracture or malalignment. Soft tissues: Unremarkable. IMPRESSION: Normal left femur x-rays. Electronically signed by: Joe Winston MD 05/01/25 22:37 PM
[2025-05-01] MEDS: SODIUM CHLORIDE 0.9% 500 ML IV ONE (22:44)
--- NOTE | 2025-05-01 22:48 | Ultrasound Report ---
Exam(s): US VENOUS LEFT UPPER EXTREMITY EXAM: US Duplex Left Upper Extremity Veins CLINICAL HISTORY: Reason for exam: edema. TECHNIQUE: Real-time duplex ultrasound scan of the left upper extremity veins integrating B-mode two-dimensional vascular structure, Doppler spectral analysis, color flow Doppler imaging and compression. COMPARISON: No relevant prior studies available. FINDINGS: Deep veins: No DVT in the internal jugular, subclavian, axillary, or brachial veins. Superficial veins: No thrombus in the visualized basilic and cephalic veins. Soft tissues: No acute findings. IMPRESSION: No DVT in the left upper extremity veins. Electronically signed by: Joe Winston MD 05/01/25 22:48 PM
[2025-05-01] MEDS: CEFEPIME 2000MG 2,000 MG/20 ML SYR IV ONE (23:43)
[2025-05-01] MEDS: CEFEPIME 2 GM VIAL IV ONE (23:43)
[2025-05-01] MEDS: VANCOMYCIN HCL 2,250 MG in SODIUM CHLORIDE 0.9% 500 ML IV ONE (23:49)
--- NOTE | 2025-05-01 23:50 | History & Physical Report ---
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 She underwent her second chemotherapy last week in her right arm uneventfully. She reports that 4 days ago she was given IV fluids through an IV in her left forearm, and today notes progressively worsening redness, pain and warmth in her left forearm, and streaking up to her elbow. Left arm cellulitis with ascending lymphangitis- Presently receiving chemotherapy, but is not neutropenic Treated with vancomycin IV and cefepime IV #Adrenal adenoma/cholangiocarcinoma- Reports having gotten her second chemotherapy last week in her right arm She did receive 2 L of IV fluids in her left arm 4 days ago She is due to have a port placed in [address] Marina She presently follows with Dr. Turcios Will consult Dr. Kenny, was covering for Dr. Turcios #Diabetes mellitus- Hold 70-30, Trulicity and metformin Glucose is 105 on admission Placed on Accu-Cheks with NovoLog SSI #Hypertension- Continue lisinopril History of Present Illness Chief Complaint: The patient presents to the emergency department with concerns regarding redness, swelling and discomfort in her left arm. She received her second dose of chemotherapy in her right arm last week, and reports that 4 days ago she received IV fluids in the left arm. 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 She underwent her second chemotherapy last week in her right arm uneventfully. She reports that 4 days ago she was given IV fluids through an IV in her left forearm, and today notes progressively worsening redness, pain and warmth in her left forearm, and streaking up to her elbow. Allergies Allergy/AdvReac Type Severity Reaction Status Date / Time No Known Allergies Allergy Verified 04/25/25 11:51 Home Medications Medication Instructions Recorded Confirmed Type cholecalciferol (vitamin D3) 125 5,000 units PO 3XWK 07/04/19 05/01/25 History mcg (5,000 unit) capsule cyanocobalamin (vitamin B-12) 500 500 mcg PO HS #90 tabs 07/04/19 05/01/25 History mcg tablet insulin syringe-needle U-100 1 mL #100 ea 08/22/20 05/01/25 Rx 31 gauge x 5/16" (BD Insulin Syringe Ultra-Fine) blood sugar diagnostic (ReliOn #10 ea 10/24/21 05/01/25 History Prime Test Strips) insulin human U-100 NPH-regulr 0 unit subcut AC 11/25/22 05/01/25 History 70-30 mix 100 unit/mL subcutaneous susp (Novolin 70/30 U-100 Insulin) levothyroxine 100 mcg tablet 100 mcg PO QAM #90 tabs 07/19/24 05/01/25 Rx metformin 1,000 mg tablet 1,000 mg PO BID #180 tabs 09/13/24 05/01/25 Rx dulaglutide 3 mg/0.5 mL 3 mg subcut .HOLD FOR PROCEDURE 04/25/25 05/01/25 History subcutaneous pen injector (Trulicity) lisinopril 10 mg tablet 10 mg PO QAM 04/25/25 05/01/25 History rosuvastatin 10 mg tablet 10 mg PO HS 04/25/25 05/01/25 History olanzapine 2.5 mg tablet 2.5 mg PO UD 05/01/25 05/01/25 History Past Med/Surg History Problem List (Updated 05/01/25 @ 23:47 by Romeo Kan MD) Acute lymphangitis of left upper extremity Left arm cellulitis Lymphangitis (Acute) Back problem Diabetes Arthritis Adrenal adenoma per PCP note 03/27/25: 'Given size will need follow up imaging, but waiting until after consultation with oncology. Close follow up for now' Cholangiocarcinoma Class 3 obesity Elevated LFTs Hx of compression fracture of spine Type 2 diabetes mellitus treated with insulin Vaginal yeast infection Irritated nevus of abdominal wall History of colon polyps Hypertension Morbid obesity Diabetic peripheral neuropathy Dyslipidemia (Acute) 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 (Acute) Mild nonproliferative diabetic retinopathy (Acute) Vitamin D deficiency Medical History (Updated 05/01/25 @ 23:47 by Romeo Kan MD) Dyslipidemia HTN (hypertension) Morbid obesity Hx of colonic polyps Diabetic peripheral neuropathy Diabetes mellitus, type 2 IDDM; follows with Diabetes Provider; last seen 03/27/25 Hypothyroidism Cholangiocarcinoma dx 03/2025 - currently receiving Chemotherapy, last had 04/21/25 and next infusion is scheduled for 04/28/25 at [facility] History of COVID-19 09/2021 treated at [facility] inpatient for ~3 weeks. patient reports she was on a ventilator for about a week. patient does report the memory of details is limited to her. still experiences sob with exertion at times. 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 Compression fracture of L1 lumbar vertebra 09/2021 during hospital stay - unsure of the cause. no surgery. Physical therapy completed. DKA (diabetic ketoacidosis) hx in 09/2021 - treated at [facility]. Surgical History S/P cataract extraction right History of liver biopsy March 2025 with [facility] History of incision and drainage (10/29/21) Incision and drainage abscess underneath her right breast on the bra line midclavicular plane by Dr. Valero on 10/29/2021. History of colonoscopy with polypectomy 09/2023 repeat 5 years History of tooth extraction History of dilation and curettage History of excision of dermoid cyst Family History Father Diabetes Colorectal cancer Family history of diabetes mellitus Cancer Brother Kidney stones Family history of diabetes mellitus Family/Other Diabetes Grandmother (Paternal) Family history of diabetes mellitus Diabetes Cancer Grandfather (Paternal) Family history of diabetes mellitus Colorectal cancer Diabetes Cancer Uncle Family history of diabetes mellitus Cancer Other No family history of adverse response to anesthesia Denies family history of Ovarian cancer Prostate cancer Myocardial infarction Breast cancer Social History Smoking Status: Never smoker Second Hand Exposure: No; Do You Dip or Chew Tobacco: No; Hx Alcohol Use: No Hx Substance Use: No Preferred Language: Swedish Communication Ability: Effective Visual Impairment: No Limitations Hearing Ability: Normal [employer] Required: No Beliefs That Will Affect Care: None marital status: Current Living Situation: Alone current occupational status: employed 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 How many Children do You have: 0 Feels Safe at Home: Yes Childhood Exposure to Second-Hand Smoke: No Diet: diabetic caffeine: Yes Dental Care, Regularly: Yes Physical Activity Frequency: Does not Exercise Seatbelt Use: always Sunscreen Use: No Assistive Devices: Glasses Review of Systems Review of Systems: The patient denies chest pain, palpitations, shortness of breath, dyspnea on exertion, cough, lower extremity swelling, sore throat, fevers, chills, sweats, nausea, vomiting, diarrhea , constipation, abdominal pain, pelvic pain, blood in urine or stool, dysuria, urinary frequency or urgency, lightheadedness, dizziness, headache, memory loss, loss of consciousness, abnormal bruising or bleeding, imbalance, focal or generalized weakness, numbness or tingling in right arm or legs, generalized arthralgias or myalgias, back or neck pain, or night sweats. The review of systems is otherwise negative other than for that already noted above, and at least 10 systems have been reviewed. Physical Exam Physical Exam: the patient is awake, alert and oriented 3, well developed and well nourished, normocephalic and atraumatic, lying in bed and in no acute distress. HEENT--PERRL, EOMI, mucous membranes and oropharynx mildly dry. Neck--supple. No JVD. No bruits. Thyroid normal, trachea midline, no adenopathy. Heart--normal S1 and S2. No murmurs, rubs or gallops. Lungs--clear bilaterally, no respiratory distress, no accessory muscle use. Abdomen--normal bowel sounds and soft. Nontender. Nondistended, no hernias or masses, no organomegaly. Extremities--no cyanosis or clubbing. No edema. Dermatologic--left forearm with mild erythema midshaft, radiating to left elbow Neurologic--cranial nerves II through XII grossly intact. Rheumatologic--normal range of motion. Psychiatric--normal affect. Results & Data Results & Data Vital Signs (Past 12 Hours) Vital Signs Temp Pulse Pulse Resp BP BP Pulse Ox 05/01/25 22:33 104 H 22 146/86 H 93 05/01/25 20:38 85 17 169/85 H 94 05/01/25 16:15 36.6 C 103 H 18 145/86 H 99 O2 Del Method 05/01/25 22:33 Room Air 05/01/25 20:38 Room Air 05/01/25 16:15 Laboratory Results Laboratory Results WBC 5.11 K/ul (4.8-10.8) 05/01/25 20: RBC 3.88 M/uL (4.20-5.40) L 05/01/25 20:31 Hgb 11.0 g/dl (12.0-16.0) L 05/01/25 20: Hct 32.9 % (37.0-47.0) L 05/01/25 20: MCV 84.8 fL (80.0-100.0) 05/01/25 20: MCH 28.4 pg (25.0-34.0) 05/01/25 20: MCHC 33.4 g/dL (32.0-36.0) 05/01/25 20: RDW Std Deviation 39.9 fL (36.4-46.3) 05/01/25 20: RDW Coeff of Francisca 13.1 % (11.5-14.5) 05/01/25 20: Plt Count 51 K/uL (130-400) L 05/01/25 20: MPV 9.0 fL (9.4-12.4) L 05/01/25 20: Immature Gran % (Auto) 0.2 % 05/01/25 20: Neut % (Auto) 62.6 % 05/01/25 20: Lymph % (Auto) 35.2 % 05/01/25 20:31 [place] % (Auto) 0.8 % 05/01/25 20: Eos % (Auto) 0.8 % 05/01/25 20: Baso % (Auto) 0.4 % 05/01/25 20: Neut # (Auto) 3.20 K/uL (1.40-6.50) 05/01/25 20: Lymph # (Auto) 1.80 K/uL (1.20-3.40) 05/01/25 20:31 [place] # (Auto) 0.04 K/uL (0.11-0.59) L 05/01/25 20:31 Eos # (Auto) 0.04 K/uL (0.00-0.50) 05/01/25 20:31 Baso # (Auto) 0.02 K/uL (0.00-0.20) 05/01/25 20: Immature Gran # (Auto) 0.01 K/uL (0.01-0.20) 05/01/25 20:31 Platelet Estimate Decreased (Normal) L 05/01/25 20:31 Sodium 137 mmol/L (136-145) 05/01/25 20: Potassium 4.1 mmol/L (3.5-5.1) 05/01/25: Chloride 103 mmol/L (98-107) 05/01/25 20: Carbon Dioxide 24 mmol/L (21-32) 05/01/25 20: Anion Gap 10 (3-11) 05/01/25: BUN 24 mg/dl (6-23) H 05/01/25 20: Creatinine 0.88 mg/dl (0.6-1.2) 05/01/25 20: Est Cr Clr Drug Dosing 82.8 ml/min 05/01/25 20: eGFR 76.13 05/01/25 20: BUN/Creatinine Ratio 27.3 (10-20) H 05/01/25 20: Glucose 105 mg/dl (70-99(Fasting)) H 05/01/25 20: Calcium 9.8 mg/dl (8.6-10.3) 05/01/25 20: Total Bilirubin 1.2 mg/dl (0.2-1.0) H 05/01/25 20:31 AST 56 U/L (13-39) H 05/01/25 20:31 ALT 61 U/L (7-52) H 05/01/25 20:31 Alkaline Phosphatase 96 U/L (34-104) 05/01/25 20:31 Total Protein 7.1 gm/dl (6.0-8.3) 05/01/25 20: Albumin 3.8 gm/dl (3.4-5.0) 07/28/25 20:31 Globulin 3.3 gm/dl (2.5-4.0) 05/01/25 20:31 Albumin/Globulin Ratio 1.2 (0.9-2) 05/01/25 20:31 Impressions Extremity Venous Study 05/01/25 20:19 Exam(s): US VENOUS LEFT UPPER EXTREMITY EXAM: US Duplex Left Upper Extremity Veins CLINICAL HISTORY: Reason for exam: edema. TECHNIQUE: Real-time duplex ultrasound scan of the left upper extremity veins integrating B-mode two-dimensional vascular structure, Doppler spectral analysis, color flow Doppler imaging and compression. COMPARISON: No relevant prior studies available. FINDINGS: Deep veins: No DVT in the internal jugular, subclavian, axillary, or brachial veins. Superficial veins: No thrombus in the visualized basilic and cephalic veins. Soft tissues: No acute findings. IMPRESSION: No DVT in the left upper extremity veins. Electronically signed by: Joe Winston MD 05/01/25 22:48 PM Femur X-Ray 05/01/25 20:19 Exam(s): XR LEFT FEMUR, 2 views EXAM: XR Left Femur, 2 Views CLINICAL HISTORY: Reason for exam: pain. TECHNIQUE: Frontal and lateral views of the left femur. COMPARISON: No relevant prior studies available. FINDINGS: Bones/joints: Unremarkable. No fracture or malalignment. Soft tissues: Unremarkable. IMPRESSION: Normal left femur x-rays. Electronically signed by: Joe Winston MD 05/01/25 22:37 PM Code Status & VTE Plan Code Status Full code VTE Prophylaxis Plan VTE Prophylaxis will be ordered: Yes PG Care Time/CCT Total # of Minutes Spent Total Time Spent with Patient: Total time spent is greater than 50% in coordination of care (as documented) at patient's floor/unit and/or counseling patient: Coding Level of Care Code 66604 INT INP/OBS CARE 3/75MIN Diagnoses Left arm cellulitis L03.114 Acute lymphangitis of left upper extremity L03.124 Adrenal adenoma D35.00 Cholangiocarcinoma C22.1 Type 2 diabetes mellitus treated with insulin E11.9; Z79.4
[2025-05-02] MEDS ORDERED: VANCOMYCIN CONSULT ACTIVE PRN (01:48)
[2025-05-02] MEDS ORDERED: ACETAMINOPHEN 325 MG TAB PO PRN (01:48)
[2025-05-02] MEDS ORDERED: DEXTROSE 50% 50 ML SYRINGE IV PRN (01:48)
[2025-05-02] MEDS ORDERED: CARBOHYDRATES FOR HYPOGLYCEMIA PO PRN (01:48)
[2025-05-02] MEDS ORDERED: GLUCOSE 40% GEL 15 GM TUBE PO PRN (01:48)
[2025-05-02] MEDS ORDERED: OLANZAPINE 2.5 MG TAB PO SCH (01:48)
[2025-05-02] MEDS ORDERED: GLUCAGON FOR INJ 1 MG VIAL SQ PRN (01:48)
[2025-05-02] MEDS ORDERED: ONDANSETRON INJ 2 MG/ML 2 ML VIAL IV PRN (01:48)
[2025-05-02] MEDS ORDERED: GLUCOSE 10 TAB/TUBE PO PRN (01:48)
[2025-05-02] MEDS ORDERED: Nursing to Pharmacy Communication SCH (02:30)
[2025-05-02] MEDS: CYANOCOBALAMIN (B-12) 500 MCG TABLET PO ONE (03:26)
[2025-05-02] MEDS: ROSUVASTATIN CALCIUM 10 MG TAB PO ONE (03:27)
[2025-05-02 07:27] LABS: Hematocrit (blood only) 29.8 % (37.0-47.0); Hemoglobin 9.8 g/dl (12.0-16.0); Immature Granulocytes # (auto) 0.00 K/uL (0.01-0.20); Immature Granulocytes % (auto) 0.0 %; Mean Corpuscular Hemoglobin 28.0 pg (25.0-34.0); Mean Corpuscular Volume 85.1 fL (80.0-100.0); Platelet Count 35 K/uL (130-400); RDW Standard Deviation 39.1 fL (36.4-46.3); Red Blood Count 3.50 M/uL (4.20-5.40); White Blood Count 2.88 K/ul (4.8-10.8)
[2025-05-02] MEDS: LEVOTHYROXINE SODIUM 100 MCG TABLET PO SCH (07:51)
[2025-05-02] MEDS: VANCOMYCIN HCL 1,000 MG in SODIUM CHLORIDE 0.9% 250 ML IV SCH (08:06)
[2025-05-02 08:56] LABS: Alanine Aminotransferase 43.0 U/L (7-52); Albumin Globulin Ratio 1.4 (0.9-2); Alkaline Phosphatase 84.0 U/L (34-104); Anion Gap 6.0 (3-11); Bilirubin,Total 0.6 mg/dl (0.2-1.0); Blood Urea Nitrogen 21.0 mg/dl (6-23); Calcium 8.8 mg/dl (8.6-10.3); Carbon Dioxide 26.0 mmol/L (21-32); Chloride 105.0 mmol/L (98-107); Creatinine Clr Calc Pharmacy 96.2 ml/min; Globulin 2.5 gm/dl (2.5-4.0); Glucose 193.0 mg/dl (70-99(Fasting)); Hemoglobin A1C 6.7 % (4.5-5.6); Magnesium 1.2 mg/dl (1.7-2.4); Potassium 4.1 mmol/L (3.5-5.1); Sodium 137.0 mmol/L (136-145); Total Protein 5.9 gm/dl (6.0-8.3)
[2025-05-02] MEDS: INSULIN ASPART PER UNIT CHARGE SC SCH (09:00)
--- NOTE | 2025-05-02 10:33 | Pharmacy Report ---
Pharmacy PK ABX Note - Date of Service May 02, 2025 - Assessment and Plan Assessment 59 year old F receiving empiric vancomycin and cefepime for treatment of left arm cellulitis w/ progressively worsening redness/pain. Pertinent PMH includes adrenal adenoma/cholangiocarcinoma currently undergoing chemotherapy, type 2 diabetes mellitus, and obesity. Pertinent microbiologic data includes: n/a Renal function appears to be at/near baseline, afebrile, no leukocytosis/neutropenia Day # 1 of antimicrobial therapy. Plan Vancomycin * Loading dose: 2250 mg IV x 1, followed by 1 g coby dose x 1 ~8 hours later * Maintenance dose: 1250 mg IV every 12 hours * Regimen is predicted to achieve target AUC/KAIA of 400-600 mg/L.hr * Random level ordered for: 05/04/25 Pharmacy will continue to follow and will adjust dose/frequency as necessary. Thank you. Pharmacy has transitioned to AUC monitoring for vancomycin. AUC/KAIA is the preferred PK/PD target and is associated with decreased risk of nephrotoxicity compared to traditional trough targets.
--- NOTE | 2025-05-02 11:57 | Communication Note ---
Date of Service: May 02, 2025 Our service was made aware that the patient is currently admitted for left upper extremity lymphangitis and cellulitis requiring IV abx treatment. She has a diagnosis of cholangiocarcinoma. She was originally on the schedule for mediport placement for tomorrow as an outpatient with Dr. Marina. Given concern for infection requiring IV abx, current admission, in addition to low platelet count we are going to cancel the surgery for tomorrow. Will discuss with surgeon and office timing for rescheduling of procedure. Patient is aware & agreeable with the plan. She said she has received chemo thus far peripherally without any issues.
[2025-05-02] MEDS ORDERED: CEFEPIME 2000MG 2,000 MG/20 ML SYR IV SCH (12:00)
[2025-05-02] MEDS: MAGNESIUM SULFATE / D5W 1 GM/100 ML BAG IV SCH (12:13)
--- NOTE | 2025-05-02 15:57 | Hospitalist Progress Note ---
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 She underwent her second chemotherapy last week in her right arm uneventfully. 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 #Left arm cellulitis with ascending lymphangitis - significantly improved - Presently receiving chemotherapy, but is not neutropenic - Initially treated with vancomycin IV and cefepime IV, now downgraded to Cefazolin IV. Will plan to transition to Keflex on discharge #Adrenal adenoma/cholangiocarcinoma- - Reports having gotten her second chemotherapy last week in her right arm. She did receive 2 L of IV fluids in her left arm 4 days METHODS SPECIALIST ENGINEER - She is due to have a port placed on 05/[address] Marina, but this has been postponed due to acute infection and thrombocytopenia #Diabetes mellitus- - Hold 70-30, Trulicity and metformin while inpatient - Placed on Accu-Cheks with NovoLog SSI - A1c well controlled at 6.7% #Hypertension- Continue lisinopril Dispo: Anticipate discharge home 05/03 Discontinued vancomycin and cefepime Started cefazolin Admission and Anticipated Discharge Date Admission Date: May 01, 2025 Supervising Physician Co-Signing Physician Notes chart reviewed and case d/w S Edson SORENSON, as above Subjective Patient seen and evaluated bedside. She reports significant improvement in her cellulitis/lymphangitis infection since presenting to the ED yesterday. She does still continue to have some mild tenderness to touch of her LUE. We discussed downgrading her antibiotics, monitoring response, and if continued improvement will plan for discharge home tomorrow, 05/03. She is agreeable to this plan. She denies any headache, lightheadedness, nausea, abdominal pain, chest pain, shortness of breath. No additional complaints or concerns at this time. Physical Exam Physical Exam: General: No acute distress, nondiaphoretic, well-developed, well-nourished. Skin: Left forearm erythema now resolved; no streaking noted. Mildly tender to touch of left forearm. Normal sensation. Cardiac: Well-perfused. Rate in 70s. Pulm: Normal respiratory effort. 98% on room air. Neuro: A&O x3. No focal neurological deficits. Results & Data Results & Data Vital Signs (Past 12 Hours) Vital Signs Temp Pulse Resp BP Pulse Ox O2 Del Method 05/02/25 15:03 98.2 F 74 20 136/84 98 Room Air 05/02/25 11:31 98.4 F 74 20 130/78 97 Room Air 05/02/25 08:23 97.9 F 75 18 127/81 98 Room Air Laboratory Results Reviewed CBC with differential Reviewed CMP, chemistries Diagnostic Findings Reviewed venous study Reviewed femur x-ray PG Care Time/CCT Total # of Minutes Spent Total Time Spent with Patient: Total time spent is greater than 50% in coordination of care (as documented) at patient's floor/unit and/or counseling patient: Coding Level of Care Code 75824 SUB INP/OBS CARE 3/50MIN Diagnoses Left arm cellulitis L03.114 Acute lymphangitis of left upper extremity L03.124 Adrenal adenoma D35.00 Cholangiocarcinoma C22.1 Type 2 diabetes mellitus treated with insulin E11.9; Z79.4
[2025-05-02] MEDS ORDERED: VANCOMYCIN HCL 1,250 MG in SODIUM CHLORIDE 0.9% 250 ML IV SCH (18:00)
[2025-05-02] MEDS: CYANOCOBALAMIN (B-12) 500 MCG TABLET PO SCH (20:02)
[2025-05-02] MEDS: ROSUVASTATIN CALCIUM 10 MG TAB PO SCH (20:02)
[2025-05-03 03:22] VITALS: O2SAT 98
[2025-05-03 07:12] LABS: Hematocrit (blood only) 30.6 % (37.0-47.0); Hemoglobin 10.6 g/dl (12.0-16.0); Immature Granulocytes # (auto) 0.00 K/uL (0.01-0.20); Immature Granulocytes % (auto) 0.0 %; Mean Corpuscular Hemoglobin 29.2 pg (25.0-34.0); Mean Corpuscular Volume 84.3 fL (80.0-100.0); Platelet Count 40 K/uL (130-400); RDW Standard Deviation 38.1 fL (36.4-46.3); Red Blood Count 3.63 M/uL (4.20-5.40); White Blood Count 2.53 K/ul (4.8-10.8)
[2025-05-03 07:34] VITALS: BP 122/80; PULSE 74; RESP 18; TEMP 98.2
[2025-05-03 07:43] LABS: Alanine Aminotransferase 34.0 U/L (7-52); Albumin Globulin Ratio 1.3 (0.9-2); Alkaline Phosphatase 87.0 U/L (34-104); Anion Gap 7.0 (3-11); Bilirubin,Total 0.5 mg/dl (0.2-1.0); Blood Urea Nitrogen 15.0 mg/dl (6-23); Calcium 9.1 mg/dl (8.6-10.3); Carbon Dioxide 28.0 mmol/L (21-32); Chloride 102.0 mmol/L (98-107); Creatinine Clr Calc Pharmacy 90.3 ml/min; Globulin 2.8 gm/dl (2.5-4.0); Glucose 138.0 mg/dl (70-99(Fasting)); Magnesium 1.5 mg/dl (1.7-2.4); Potassium 4.4 mmol/L (3.5-5.1); Sodium 137.0 mmol/L (136-145); Total Protein 6.5 gm/dl (6.0-8.3)
[2025-05-03] MEDS: CHOLECALCIFEROL 125 MCG (5,000 UNITS) TAB PO SCH (08:01)
[2025-05-03] MEDS: MAGNESIUM OXIDE 400 MG TAB PO SCH (08:34)
--- NOTE | 2025-05-03 17:38 | Discharge Summary ---
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 She underwent her second chemotherapy last week in her right arm uneventfully. She reports that 4 days [employer] she was given IV fluids through an IV in her left forearm, and today notes progressively worsening redness, pain and warmth in her left forearm, and streaking up to her elbow. #Left arm cellulitis with ascending lymphangitis - significantly improved. Suspect Phlebitis and cellulitis due to outpatient IV fluid administration - Presently receiving chemotherapy, but is not neutropenic - Initially treated with vancomycin IV and cefepime IV, then downgraded to Cefazolin IV. Transitioned to Keflex on discharge for total of 7 day treatment course #Adrenal adenoma/cholangiocarcinoma- - Reports having gotten her second chemotherapy last week in her right arm. 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 Marina, but this has been postponed due to acute infection and thrombocytopenia #Diabetes mellitus- - Hold 70-30, Trulicity and metformin while inpatient - Placed on Accu-Cheks with NovoLog SSI - A1c well controlled at 6.7% #Hypertension- Continue lisinopril Dispo: Discharged home 05/03 Notes For Next Care Provider Medication Changes From Visit Keflex 500 mg twice daily through 05/08/25 Admission HPI Per Admitting Provider The patient is a 59-year-old female presently undergoing chemotherapy with history of adrenal adenoma, cholangiocarcinoma, diabetes mellitus treated with insulin, arthritis, hypertension, morbid obesity, diabetic peripheral neuropathy, 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 She underwent her second chemotherapy last week in her right arm uneventfully. She reports that 4 days ago she was given IV fluids through an IV in her left forearm, and today notes progressively worsening redness, pain and warmth in her left forearm, and streaking up to her elbow. Discharge Exam General: No acute distress, nondiaphoretic, well-developed, well-nourished. Skin: Left forearm erythema now resolved; no streaking noted. Faint tenderness to touch of left forearm. Normal sensation. Cardiac: Well-perfused. Rate in 70s. Pulm: Normal respiratory effort. 98% on room air. Neuro: A&O x3. No focal neurological deficits. Discharge Plan Discharge Items Patient Disposition: Home - Self-Care Reason For Visit: L ARM CELLULITIS W/ LYMPHANGITIS, ON CHEMOTHERAPY Discharge Diagnosis: Left forearm cellulitis with lymphangitis Condition on Discharge: Good Activity: Resume your previous activity Non-emergency contact: Primary Care Provider Call non-emergency contact if: you have any medication questions and your sympt oms worsen Follow-up/Referrals: Junior Nicole DO [Primary Care Provider] - 05/11/25 11:30 am () Diet: Carb Consistent or DM2 Addtl Attending Provider Instructions: Chinyere, You were admitted to the hospital due to a cellulitis infection. Cellulitis is an infection of the skin/soft tissues caused by bacteria. Bacteria can enter the body through broken skin; this can happen with a cut, scratch, or insect bite. You have been treated in the hospital with IV antibiotics, and will be discharged with oral antibiotics to continue taking at home. Upon discharge from the hospital: * Take Keflex (oral antibiotic) twice daily through 05/08/25. Take this antibiotic as directed until it is gone. Take it even if you feel better. It treats the infection and prevents it from returning. Not taking all of the medicine can make future infections harder to treat. * Your magnesium level was low on arrival. You were given IV magnesium for repletion. I recommend that you start a daily oral magnesium supplement. This is available [id number], so no prescription is needed. * Please follow-up with your PCP in 1-2 weeks. Please return to the hospital if you experience any of the following: Fever of 100.5 F or higher, trouble or pain with moving the joints above or below the infected area, discharge or pus draining from the infected area, pain that gets worse in or around the infected area, redness that gets worse and around the infected area, shaking chills, worsened swelling of the infected area, persistent vomiting, lightheadedness, dizziness, passing out, shortness of breath, difficulty breathing, or chest pain. It was a pleasure taking care of you while you were in the hospital! Pending Studies at Discharge: No Stand-Alone Forms: My [facility], Smoking Cessation Medications and DC Order Prescriptions: New cephalexin 500 mg capsule 500 mg PO BID Qty: 11 0RF magnesium oxide 400 mg (241.3 mg magnesium) Tablet 400 mg PO QAM Qty: 30 0RF Continued (DME) insulin syringe-needle U-100 [BD Insulin Syringe Ultra-Fine] 1 mL 31 gauge x 5/16 syringe See Rx Instructions miscellaneous .MEDSUPPLY Qty: 100 5RF Rx Instructions: As directed to inject insulin metformin 1,000 mg tablet 1,000 mg PO BID Qty: 180 2RF cyanocobalamin (vitamin B-12) 500 mcg tablet 500 mcg PO HS Qty: 90 cholecalciferol (vitamin D3) 5,000 unit capsule 5,000 units PO 3XWK (DME) [employer] Prime Test Strips Strip See Rx Instructions .ROUTE .MEDSUPPLY Qty: 10 Rx Instructions: test blood sugars three daily or as directed Novolin 70/30 U-100 Insulin 100 unit/mL (70-30) suspension 0 unit subcut AC Rx Instructions: Inject 60 U 30 min before breakfast; 20 U 30 min before lunch and 50 U 30 min before dinner levothyroxine 100 mcg tablet 100 mcg PO QAM Qty: 90 3RF lisinopril 10 mg tablet 10 mg PO QAM rosuvastatin 10 mg tablet 10 mg PO HS Trulicity 3 mg/0.5 mL pen injector 3 mg subcut .HOLD FOR PROCEDURE Patient Comments: Mondays Rx Instructions: inject once weekly on the same day of the week olanzapine 2.5 mg tablet 2.5 mg PO UD Rx Instructions: TAKE 1 TABLET AT BEDTIME FOR 4 DAYS STARTING ON DAY 1 OF CHEMOTHERAPY FOR NAUSEA Discharge Orders: Discharge Order (Routine); Ordered 05/03/25 Ordered By: Tiera Edwards/Other Patient Handouts: Managing Type 2 Diabetes Admission Data Admit Date/Time: 05/01/25 23:28 Attending Provider: Carlos Lamar Admit Provider: Romeo Kan Primary Care Provider: Junior Nicole Other Interventions: Discharge Summary Assessment (RN) Last Done: 05/03/25 10:04 Hospital Stay Data Consultations 05/01/25 23:21 ED Decision to Admit Stat Diagnostic Imagining Performed Extremity Venous Study 05/01/25 20:19 Exam(s): US VENOUS LEFT UPPER EXTREMITY EXAM: US Duplex Left Upper Extremity Veins CLINICAL HISTORY: Reason for exam: edema. TECHNIQUE: Real-time duplex ultrasound scan of the left upper extremity veins integrating B-mode two-dimensional vascular structure, Doppler spectral analysis, color flow Doppler imaging and compression. COMPARISON: No relevant prior studies available. FINDINGS: Deep veins: No DVT in the internal jugular, subclavian, axillary, or brachial veins. Superficial veins: No thrombus in the visualized basilic and cephalic veins. Soft tissues: No acute findings. IMPRESSION: No DVT in the left upper extremity veins. Electronically signed by: Joe Winston MD 05/01/25 22:48 PM Femur X-Ray 05/01/25 20:19 Exam(s): XR LEFT FEMUR, 2 views EXAM: XR Left Femur, 2 Views CLINICAL HISTORY: Reason for exam: pain. TECHNIQUE: Frontal and lateral views of the left femur. COMPARISON: No relevant prior studies available. FINDINGS: Bones/joints: Unremarkable. No fracture or malalignment. Soft tissues: Unremarkable. IMPRESSION: Normal left femur x-rays. Electronically signed by: Joe Winston MD 05/01/25 22:37 PM Pending Results Patient Have Any Pending Studies at Discharge: No Discharge Instructions Given to Patient (Per Discharging Provider) Chinyere, Mikie were admitted to the hospital due to a cellulitis infection. Cellulitis is an infection of the skin/soft tissues caused by bacteria. Bacteria can enter the body through broken skin; this can happen with a cut, scratch, or insect bite. You have been treated in the hospital with IV antibiotics, and will be discharged with oral antibiotics to continue taking at home. Upon discharge from the hospital: * Take Keflex (oral antibiotic) twice daily through 05/08/25. Take this antibiotic as directed until it is gone. Take it even if you feel better. It treats the infection and prevents it from returning. Not taking all of the medicine can make future infections harder to treat. * Your magnesium level was low on arrival. You were given IV magnesium for repletion. I recommend that you start a daily oral magnesium supplement. This is available [id number], so no prescription is needed. * Please follow-up with your PCP in 1-2 weeks. Please return to the hospital if you experience any of the following: Fever of 100.5 F or higher, trouble or pain with moving the joints above or below the infected area, discharge or pus draining from the infected area, pain that gets worse in or around the infected area, redness that gets worse and around the infected area, shaking chills, worsened swelling of the infected area, persistent vomiting, lightheadedness, dizziness, passing out, shortness of breath, difficulty breathing, or chest pain. It was a pleasure taking care of you while you were in the hospital! Supervising Physician Co-Signing Physician Notes chart reviewed and case d/w S Edson SORENSON, as above Total Time Total Time Spent Total Time Spent (In Minutes): Greater than 30 minutes spent completing this discharge process including direct patient care, medication reconciliation, documentation, review of labs and images, and coordination of care. Coding Level of Care Code 31180 INP/OBS DISCH >30 MIN Diagnoses Left arm cellulitis L03.114 Acute lymphangitis of left upper extremity L03.124 Adrenal adenoma D35.00 Cholangiocarcinoma C22.1 Type 2 diabetes mellitus treated with insulin E11.9; Z79.4
[2025-05-04] MEDS ORDERED: VANCOMYCIN LEVEL ONE (05:30)
== END 2025-05-03 11:01 | disposition home or self-care (01) | DRG 868 ==
LOC: ED 16:15 → 2N 23:28 → SUATTDRO 23:28 → 2N 05-02 01:24